=== PATIENT | female | born 1940 | race Caucasian/White ===

== ENCOUNTER 2017-05-05 12:57 | Outpatient (CLI) | payer MEDICARE, SELFPAY | END 2017-05-05 13:25 | disposition home or self-care (01) | PROVIDERS: Family Provider Internal Medicine Adolescent Medicine; Visit Provider Internal Medicine Adolescent Medicine | DX: M81.0 Age-related osteoporosis without current pathological fracture (principal); Z86.73 Personal history of transient ischemic attack (TIA), and cerebral infarction without residual deficits; Z79.01 Long term (current) use of anticoagulants; Z51.81 Encounter for therapeutic drug level monitoring | CPT/HCPCS: 85610; 96372; 99211; G0463; J0897 ==

== ENCOUNTER → 2017-06-08 14:09 | Outpatient (POV) | payer MEDICARE, SELFPAY | PROVIDERS: Visit Provider Dermatology | DX: Z00.00 Encounter for general adult medical examination without abnormal findings (principal) ==

== ENCOUNTER 2017-06-16 14:17 | Outpatient (CLI) | payer MEDICARE, SELFPAY ==
[2017-06-16 15:48] LABS: PHA INR Fingerstick 1.9 (0.9-1.1)
== END 2017-06-16 15:49 | disposition home or self-care (01) ==
PROVIDERS: Family Provider Internal Medicine Adolescent Medicine; PCP Internal Medicine Adolescent Medicine; Visit Provider Internal Medicine Adolescent Medicine
DX: Z79.01 Long term (current) use of anticoagulants (principal); Z51.81 Encounter for therapeutic drug level monitoring
CPT/HCPCS: 85610

== ENCOUNTER 2017-07-14 13:59 | Outpatient (CLI) | payer MEDICARE, SELFPAY ==
[2017-07-14 15:02] LABS: PHA INR Fingerstick 2.6 (0.9-1.1)
== END 2017-07-14 15:04 | disposition home or self-care (01) ==
LOC: ACC 14:00
PROVIDERS: PCP Internal Medicine Adolescent Medicine; Visit Provider Internal Medicine Adolescent Medicine
DX: Z79.01 Long term (current) use of anticoagulants (principal); Z51.81 Encounter for therapeutic drug level monitoring
CPT/HCPCS: 85610; 99211; G0463

== ENCOUNTER 2017-08-25 13:53 | Outpatient (CLI) | payer MEDICARE, SELFPAY ==
[2017-08-25 14:27] LABS: PHA INR Fingerstick 1.9 (0.9-1.1)
== END 2017-08-25 14:29 | disposition home or self-care (01) ==
LOC: ACC 13:54
PROVIDERS: PCP Internal Medicine Adolescent Medicine; Visit Provider Internal Medicine Adolescent Medicine
DX: Z79.01 Long term (current) use of anticoagulants (principal); Z51.81 Encounter for therapeutic drug level monitoring; Z86.73 Personal history of transient ischemic attack (TIA), and cerebral infarction without residual deficits
CPT/HCPCS: 85610; 99211; G0463

== ENCOUNTER 2017-09-22 13:57 | Outpatient (CLI) | payer MEDICARE, SELFPAY ==
[2017-09-22 14:43] LABS: PHA INR Fingerstick 1.8 (0.9-1.1)
== END 2017-09-22 15:15 | disposition home or self-care (01) ==
LOC: ACC 13:58
PROVIDERS: PCP Internal Medicine Adolescent Medicine; Visit Provider Internal Medicine Adolescent Medicine
DX: Z79.01 Long term (current) use of anticoagulants (principal); Z51.81 Encounter for therapeutic drug level monitoring; Z86.73 Personal history of transient ischemic attack (TIA), and cerebral infarction without residual deficits
CPT/HCPCS: 85610; 99211; G0463

== ENCOUNTER 2017-10-17 15:01 | Outpatient (CLI) | payer MEDICARE, SELFPAY ==
[2017-10-17 16:20] LABS: PHA INR Fingerstick 2.1 (0.9-1.1)
== END 2017-10-17 16:22 | disposition home or self-care (01) ==
LOC: ACC 15:02
PROVIDERS: PCP Internal Medicine Adolescent Medicine; Visit Provider Internal Medicine Adolescent Medicine
DX: Z79.01 Long term (current) use of anticoagulants (principal); Z51.81 Encounter for therapeutic drug level monitoring; Z86.73 Personal history of transient ischemic attack (TIA), and cerebral infarction without residual deficits
CPT/HCPCS: 85610; 99211; G0463

== ENCOUNTER 2017-11-03 12:50 | Outpatient (CLI) | payer MEDICARE, SELFPAY ==
[2017-11-03 12:55] VITALS: BP 122/66; PULSE 74; RESP 20; TEMP 36.9; O2SAT 96
[2017-11-03 13:15] VITALS: BP 122/66; PULSE 74; RESP 20; TEMP 37.1; O2SAT 96
== END 2017-11-03 13:10 | disposition home or self-care (01) ==
LOC: INF 13:00
PROVIDERS: Family Provider Internal Medicine Adolescent Medicine; PCP Internal Medicine Adolescent Medicine; Visit Provider Internal Medicine Adolescent Medicine
DX: M81.0 Age-related osteoporosis without current pathological fracture
CPT/HCPCS: 96372; J0897

== ENCOUNTER 2017-12-01 14:56 | Outpatient (CLI) | payer MEDICARE, SELFPAY ==
[2017-12-01 16:26] LABS: PHA INR Fingerstick 1.8 (0.9-1.1)
== END 2017-12-01 16:28 | disposition home or self-care (01) ==
LOC: ACC 14:58
PROVIDERS: PCP Internal Medicine Adolescent Medicine; Visit Provider Internal Medicine Adolescent Medicine
DX: Z79.01 Long term (current) use of anticoagulants (principal); Z51.81 Encounter for therapeutic drug level monitoring
CPT/HCPCS: 85610; 99211; G0463

== ENCOUNTER → 2017-12-07 09:01 | Outpatient (CLI) | payer MEDICARE, SELFPAY ==
[2017-12-07 09:18] LABS: Basophils % 0.7 % (0.1-2.0); Eosinophils # 0.1 K/mm3 (0.0-0.4); Eosinophils % 1.9 % (0.1-12.0); Hematocrit 40.1 % (37.0-47.0); Hemoglobin 13.3 g/dL (12.2-16.2); Lymphocytes # 1.3 K/mm3 (0.7-4.5); Lymphocytes % 31.3 K/mm3 (10-50); Mean Corpuscular HGB Conc 33.3 g/dL (31.8-35.4); Mean Corpuscular Hemoglobin 30.4 pg (27.0-31.2); Mean Corpuscular Volume 91.4 fl (81-99); Mean Platelet Volume 7.6 fl (7.4-10.4); Monocytes # 0.4 K/mm3 (0.1-1.0); Monocytes % 9.3 % (1.7-9.3); Neutrophils # 2.3 K/mm3 (1.8-7.8); Neutrophils % 56.9 % (37.0-80.0); Platelet Count 259 K/mm3 (142-424); Red Blood Count 4.39 M/mm3 (4.20-5.40); Red Cell Distribution Width 13.1 % (11.5-17.5)
[2017-12-07 09:28] LABS: INR 2.65 (0.9-1.1); Prothrombin Time 26.5 seconds (9.4-11.8)
[2017-12-07 13:02] LABS: Alanine Aminotransferase 35 U/L (12-78); Albumin Level 4.1 gm/dL (3.4-5.0); Albumin/Globulin Ratio 1.4 (1.1-1.8); Alkaline Phosphatase 65 U/L (46-116); Anion Gap 10.6 mEq/L (5-15); Aspartate Amino Transferase 14 U/L (15-37); Bilirubin,Total 0.3 mg/dL (0.2-1.0); Blood Urea Nitrogen 10 mg/dL (7-18); Calcium 9.2 mg/dL (8.5-10.1); Carbon Dioxide 27 mmol/L (21.0-32.0); Chloride 101 mmol/L (98-107); Chol/HDL Ratio 2.4 (1-3.5); Cholesterol 133 mg/dL (140-200); Creatinine,Serum 0.65 mg/dL (0.55-1.02); Estimated Glomerular Filt Rate 89 ml/min (>60); GFR (African American) 107 ML/MIN (>60); Glucose 85 mg/dL (74-106); HDL Cholesterol 56 mg/dL (29-89); LDL Cholesterol 64 mg/dL (0-130); Potassium 4.6 mmoL/L (3.5-5.1); Sodium 134 mmol/L (136-145); Thyroid Stimulating Hormone 1.99 uIU/ml (0.358-3.740); Total Protein,Serum 7.1 gm/dL (6.4-8.2); Triglycerides 66 mg/dL (30-200); VLDL Cholesterol 13 mg/dL (0-40)
[2017-12-08 18:18] LABS: Vitamin B12 313 pg/mL (232-1245); Vitamin D 25 Hydroxy 37.8 ng/mL (30.0-100.0)
== END ==
PROVIDERS: Visit Provider Internal Medicine Adolescent Medicine
DX: R53.83 Other fatigue (principal); Z79.01 Long term (current) use of anticoagulants; I10 Essential (primary) hypertension; E03.9 Hypothyroidism, unspecified; E78.5 Hyperlipidemia, unspecified; E53.8 Deficiency of other specified B group vitamins; E55.9 Vitamin D deficiency, unspecified
CPT/HCPCS: 36415; 80053; 80061; 82607; 82652; 84443; 85025; 85610

== ENCOUNTER 2018-01-03 13:22 | Outpatient (CLI) | payer MEDICARE, SELFPAY ==
[2018-01-03 13:56] LABS: PHA INR Fingerstick 1.7 (0.9-1.1)
== END 2018-01-03 13:58 | disposition home or self-care (01) ==
LOC: ACC 13:23
PROVIDERS: PCP Internal Medicine Adolescent Medicine; Visit Provider Internal Medicine Adolescent Medicine
DX: Z79.01 Long term (current) use of anticoagulants (principal); Z51.81 Encounter for therapeutic drug level monitoring; Z86.73 Personal history of transient ischemic attack (TIA), and cerebral infarction without residual deficits
CPT/HCPCS: 85610; 99211; G0463

== ENCOUNTER 2018-01-19 13:15 | Outpatient (CLI) | payer MEDICARE, SELFPAY ==
[2018-01-19 15:01] LABS: PHA INR Fingerstick 1.9 (0.9-1.1)
== END 2018-01-19 15:04 | disposition home or self-care (01) ==
LOC: ACC 13:16
PROVIDERS: PCP Internal Medicine Adolescent Medicine; Visit Provider Internal Medicine Adolescent Medicine
DX: Z51.81 Encounter for therapeutic drug level monitoring (principal); Z79.01 Long term (current) use of anticoagulants
CPT/HCPCS: 85610; 99211; G0463

== ENCOUNTER 2018-02-09 14:19 | Outpatient (CLI) | payer MEDICARE, SELFPAY ==
[2018-02-09 15:00] LABS: PHA INR Fingerstick 2.1 (0.9-1.1)
== END 2018-02-09 15:02 | disposition home or self-care (01) ==
LOC: ACC 14:21
PROVIDERS: PCP Internal Medicine Adolescent Medicine; Visit Provider Physician Assistant
DX: Z51.81 Encounter for therapeutic drug level monitoring (principal); Z79.01 Long term (current) use of anticoagulants; Z86.73 Personal history of transient ischemic attack (TIA), and cerebral infarction without residual deficits
CPT/HCPCS: 85610; 99211; G0463

== ENCOUNTER → 2018-03-05 17:35 | Outpatient (CLI) | payer MEDICARE, SELFPAY ==
--- NOTE | 2018-03-05 17:59 | XR_ITS ---
XR KUB HISTORY: Abdominal fullness ITS.REASON: CONSTIPATION BY DELAYED COLONIC TRANSIT ORDERING PHYSICIAN: Emeterio Camacho MD PATIENT AGE: 77 years COMPARISON: KUB and upright abdomen 07/15/2008 FINDINGS: There is moderate gas in the ascending colon and hepatic flexure. There is large amount stool in the splenic flexure descending and sigmoid colon and upper rectum. There is minimal small bowel gas right mid abdomen. There are no markedly dilated loops of small bowel and there are no air-fluid levels. There is no free air. There are small calcifications in both sides the pelvis likely phleboliths. There are mild multilevel degenerative changes of lumbar spine. IMPRESSION: Findings consistent with moderate constipation as noted
[2018-03-05 18:02] LABS: Basophils % 0.2 % (0.1-2.0); Eosinophils # 0.1 K/mm3 (0.0-0.4); Eosinophils % 0.7 % (0.1-12.0); Hematocrit 39.3 % (37.0-47.0); Hemoglobin 12.9 g/dL (12.2-16.2); Lymphocytes # 1.6 K/mm3 (0.7-4.5); Lymphocytes % 22.9 K/mm3 (10-50); Mean Corpuscular HGB Conc 32.8 g/dL (31.8-35.4); Mean Corpuscular Hemoglobin 30.2 pg (27.0-31.2); Mean Corpuscular Volume 92.2 fl (81-99); Mean Platelet Volume 8.1 fl (7.4-10.4); Monocytes # 0.5 K/mm3 (0.1-1.0); Neutrophils # 4.9 K/mm3 (1.8-7.8); Neutrophils % 69.2 % (37.0-80.0); Platelet Count 287 K/mm3 (142-424); Red Blood Count 4.27 M/mm3 (4.20-5.40); Red Cell Distribution Width 12.7 % (11.5-17.5); White Blood Count 7.1 K/mm3 (4.8-10.8)
[2018-03-05 18:12] LABS: INR 9.47 (0.9-1.1); Prothrombin Time 91.4 seconds (9.4-11.8)
[2018-03-05 19:27] LABS: Alanine Aminotransferase 47 U/L (12-78); Albumin Level 4.1 gm/dL (3.4-5.0); Albumin/Globulin Ratio 1.4 (1.1-1.8); Alkaline Phosphatase 81 U/L (46-116); Anion Gap 14.3 mEq/L (5-15); Aspartate Amino Transferase 27 U/L (15-37); Bilirubin,Total 0.5 mg/dL (0.2-1.0); Blood Urea Nitrogen 12 mg/dL (7-18); Calcium 8.9 mg/dL (8.5-10.1); Carbon Dioxide 24 mmol/L (21.0-32.0); Chloride 94 mmol/L (98-107); Creatinine,Serum 0.89 mg/dL (0.55-1.02); Estimated Glomerular Filt Rate 62 ml/min (>60); GFR (African American) 75 ML/MIN (>60); Glucose 100 mg/dL (74-106); Potassium 4.3 mmoL/L (3.5-5.1); Sodium 128 mmol/L (136-145); Total Protein,Serum 7.1 gm/dL (6.4-8.2)
== END ==
PROVIDERS: PCP Internal Medicine Adolescent Medicine; Visit Provider Internal Medicine Adolescent Medicine
DX: I48.0 Paroxysmal atrial fibrillation (principal); K59.01 Slow transit constipation
CPT/HCPCS: 36415; 74018; 80053; 85025; 85610

== ENCOUNTER → 2018-03-07 13:52 | Outpatient (CLI) | payer MEDICARE, SELFPAY ==
[2018-03-07 14:17] LABS: Prothrombin Time 42.5 seconds (9.4-11.8)
[2018-03-07 14:20] LABS: INR 4.31 (0.9-1.1)
== END ==
PROVIDERS: Visit Provider Internal Medicine Adolescent Medicine
DX: Z51.81 Encounter for therapeutic drug level monitoring (principal); Z79.01 Long term (current) use of anticoagulants
CPT/HCPCS: 36415; 85610

== ENCOUNTER 2018-03-09 13:54 | Outpatient (CLI) | payer MEDICARE, SELFPAY ==
[2018-03-09 15:24] LABS: PHA INR Fingerstick 1.5 (0.9-1.1)
== END 2018-03-09 15:27 | disposition home or self-care (01) ==
LOC: ACC 13:55
PROVIDERS: PCP Internal Medicine Adolescent Medicine; Visit Provider Internal Medicine Adolescent Medicine
DX: Z51.81 Encounter for therapeutic drug level monitoring (principal); Z79.01 Long term (current) use of anticoagulants
CPT/HCPCS: 85610; 99211; G0463

== ENCOUNTER 2018-03-20 14:49 | Outpatient (CLI) | payer MEDICARE, SELFPAY | END 2018-03-20 15:26 | disposition home or self-care (01) | LOC: ACC 14:50 | PROVIDERS: PCP Internal Medicine Adolescent Medicine; Visit Provider Internal Medicine Adolescent Medicine | DX: Z51.81 Encounter for therapeutic drug level monitoring (principal); Z79.01 Long term (current) use of anticoagulants | CPT/HCPCS: 85610; 99211; G0463 ==

== ENCOUNTER 2018-04-17 15:02 | Outpatient (CLI) | payer MEDICARE, SELFPAY ==
[2018-04-17 15:54] LABS: PHA INR Fingerstick 1.9 (0.9-1.1)
== END 2018-04-17 15:59 | disposition home or self-care (01) ==
LOC: ACC 15:03
PROVIDERS: PCP Internal Medicine Adolescent Medicine; Visit Provider Internal Medicine Adolescent Medicine
DX: Z51.81 Encounter for therapeutic drug level monitoring (principal); Z79.01 Long term (current) use of anticoagulants
CPT/HCPCS: 85610; 99211; G0463

== ENCOUNTER 2018-05-11 12:52 | Outpatient (CLI) | payer MEDICARE, SELFPAY ==
[2018-05-11 13:00] VITALS: BP 117/69; PULSE 68; RESP 20; TEMP 36.9; O2SAT 95
[2018-05-11 13:25] VITALS: BP 117/69; PULSE 80; RESP 20
== END 2018-05-11 13:20 | disposition home or self-care (01) ==
LOC: INF 12:53
PROVIDERS: Visit Provider Internal Medicine Adolescent Medicine
DX: M81.0 Age-related osteoporosis without current pathological fracture (principal)
CPT/HCPCS: 96372; J0897

== ENCOUNTER 2018-05-11 13:14 | Outpatient (CLI) | payer MEDICARE, SELFPAY ==
[2018-05-11 14:31] LABS: PHA INR Fingerstick 1.7 (0.9-1.1)
== END 2018-05-11 14:33 | disposition home or self-care (01) ==
LOC: ACC 13:15
PROVIDERS: PCP Internal Medicine Adolescent Medicine; Visit Provider Internal Medicine Adolescent Medicine
DX: Z51.81 Encounter for therapeutic drug level monitoring (principal); Z79.01 Long term (current) use of anticoagulants; M81.0 Age-related osteoporosis without current pathological fracture
CPT/HCPCS: 85610; 96372; 99211; G0463; J0897

== ENCOUNTER 2018-05-25 14:40 | Outpatient (CLI) | payer MEDICARE, SELFPAY ==
[2018-05-25 15:21] LABS: PHA INR Fingerstick 2.6 (0.9-1.1)
== END 2018-05-25 15:29 | disposition home or self-care (01) ==
LOC: ACC 14:41
PROVIDERS: PCP Internal Medicine Adolescent Medicine; Visit Provider Internal Medicine Adolescent Medicine
DX: Z51.81 Encounter for therapeutic drug level monitoring (principal); Z79.01 Long term (current) use of anticoagulants
CPT/HCPCS: 85610; 99211; G0463

== ENCOUNTER 2018-06-22 15:03 | Outpatient (CLI) | payer MEDICARE, SELFPAY ==
[2018-06-22 15:38] LABS: PHA INR Fingerstick 2.8 (0.9-1.1)
== END 2018-06-22 15:39 | disposition home or self-care (01) ==
LOC: ACC 15:04
PROVIDERS: PCP Internal Medicine Adolescent Medicine; Visit Provider Internal Medicine Adolescent Medicine
DX: Z51.81 Encounter for therapeutic drug level monitoring (principal); Z79.01 Long term (current) use of anticoagulants
CPT/HCPCS: 85610; 99211; G0463

== ENCOUNTER 2018-08-03 14:09 | Outpatient (CLI) | payer MEDICARE, SELFPAY ==
[2018-08-03 15:03] LABS: PHA INR Fingerstick 2.5 (0.9-1.1)
== END 2018-08-03 15:15 | disposition home or self-care (01) ==
LOC: ACC 14:10
PROVIDERS: PCP Internal Medicine Adolescent Medicine; Visit Provider Internal Medicine Adolescent Medicine
DX: Z51.81 Encounter for therapeutic drug level monitoring (principal); Z79.01 Long term (current) use of anticoagulants
CPT/HCPCS: 85610; 99211; G0463

== ENCOUNTER 2018-08-17 14:40 | Outpatient (CLI) | payer MEDICARE, SELFPAY ==
[2018-08-17 15:49] LABS: PHA INR Fingerstick 2.2 (0.9-1.1)
== END 2018-08-17 15:51 | disposition home or self-care (01) ==
LOC: ACC 14:41
PROVIDERS: PCP Internal Medicine Adolescent Medicine; Visit Provider Internal Medicine Adolescent Medicine
DX: Z51.81 Encounter for therapeutic drug level monitoring (principal); Z79.01 Long term (current) use of anticoagulants
CPT/HCPCS: 85610; 99211; G0463

== ENCOUNTER 2018-09-07 15:02 | Outpatient (CLI) | payer MEDICARE, SELFPAY ==
[2018-09-07 16:27] LABS: PHA INR Fingerstick 2.2 (0.9-1.1)
== END 2018-09-07 16:31 | disposition home or self-care (01) ==
LOC: ACC 15:03
PROVIDERS: PCP Internal Medicine Adolescent Medicine; Visit Provider Internal Medicine Adolescent Medicine
DX: Z51.81 Encounter for therapeutic drug level monitoring (principal); Z79.01 Long term (current) use of anticoagulants
CPT/HCPCS: 85610; 99211; G0463

== ENCOUNTER → 2018-09-19 15:56 | Outpatient (CLI) | payer MEDICARE, SELFPAY ==
[2018-09-19 16:14] LABS: Basophils % 0.4 % (0.1-2.0); Eosinophils # 0.1 K/mm3 (0.0-0.4); Eosinophils % 1.4 % (0.1-12.0); Hematocrit 39.5 % (37.0-47.0); Hemoglobin 13.4 g/dL (12.2-16.2); Lymphocytes # 1.6 K/mm3 (0.7-4.5); Lymphocytes % 25.3 % (10-50); Mean Corpuscular HGB Conc 33.9 g/dL (31.8-35.4); Mean Corpuscular Hemoglobin 31.1 pg (27.0-31.2); Mean Corpuscular Volume 91.7 fl (81-99); Mean Platelet Volume 7.9 fl (7.4-10.4); Monocytes # 0.5 K/mm3 (0.1-1.0); Monocytes % 7.4 % (1.7-9.3); Neutrophils # 4.1 K/mm3 (1.8-7.8); Neutrophils % 65.5 % (37.0-80.0); Platelet Count 292 K/mm3 (142-424); Red Cell Distribution Width 12.6 % (11.5-17.5); White Blood Count 6.3 K/mm3 (4.8-10.8)
[2018-09-19 17:47] LABS: Alanine Aminotransferase 32 U/L (12-78); Albumin Level 4.2 gm/dL (3.4-5.0); Albumin/Globulin Ratio 1.3 (1.1-1.8); Alkaline Phosphatase 68 U/L (46-116); Anion Gap 13.1 mEq/L (5-15); Aspartate Amino Transferase 15 U/L (15-37); Bilirubin,Total 0.5 mg/dL (0.2-1.0); Blood Urea Nitrogen 13 mg/dL (7-18); Calcium 8.8 mg/dL (8.5-10.1); Carbon Dioxide 26 mmol/L (21.0-32.0); Chloride 97 mmol/L (98-107); Chol/HDL Ratio 2.7 (1-3.5); Cholesterol 169 mg/dL (140-200); Creatinine,Serum 0.69 mg/dL (0.55-1.02); Estimated Glomerular Filt Rate 82 ml/min (>60); GFR (African American) 100 ML/MIN (>60); Globulin 3.3 gm/dl (1.3-3.2); Glucose 95 mg/dL (74-106); HDL Cholesterol 62 mg/dL (29-89); LDL Cholesterol 78 mg/dL (0-130); Potassium 4.1 mmoL/L (3.5-5.1); Sodium 132 mmol/L (136-145); Thyroid Stimulating Hormone 1.47 uIU/ml (0.358-3.740); Total Protein,Serum 7.5 gm/dL (6.4-8.2); Triglycerides 147 mg/dL (30-200); VLDL Cholesterol 29 mg/dL (0-40)
[2018-09-21 10:38] LABS: Vitamin D 25 Hydroxy 33.3 ng/mL (30.0-100.0)
== END ==
PROVIDERS: PCP Internal Medicine Adolescent Medicine; Visit Provider Internal Medicine Adolescent Medicine
DX: I10 Essential (primary) hypertension (principal); E78.5 Hyperlipidemia, unspecified; E03.9 Hypothyroidism, unspecified; E55.9 Vitamin D deficiency, unspecified
CPT/HCPCS: 36415; 80053; 80061; 82652; 84443; 85025

== ENCOUNTER 2018-09-27 15:13 | Outpatient (CLI) | payer MEDICARE, SELFPAY | END 2018-09-27 16:23 | disposition home or self-care (01) | LOC: ACC 15:16 | PROVIDERS: PCP Internal Medicine Adolescent Medicine; Visit Provider Internal Medicine Adolescent Medicine | DX: Z51.81 Encounter for therapeutic drug level monitoring (principal); Z79.01 Long term (current) use of anticoagulants | CPT/HCPCS: 85610; 99211; G0463 ==

== ENCOUNTER 2018-11-20 13:07 | Outpatient (CLI) | payer MEDICARE, SELFPAY ==
[2018-11-20 13:15] VITALS: BP 117/67; PULSE 65; RESP 20; TEMP 36.2; O2SAT 99
== END 2018-11-20 13:17 | disposition home or self-care (01) ==
LOC: INF 13:07
PROVIDERS: Visit Provider Internal Medicine Adolescent Medicine
DX: M81.0 Age-related osteoporosis without current pathological fracture (principal)
CPT/HCPCS: 96372; J0897

== ENCOUNTER 2018-12-05 12:58 | Outpatient (CLI) | payer MEDICARE, SELFPAY ==
[2018-12-05 15:19] LABS: PHA INR Fingerstick 2.8 (0.9-1.1)
== END 2018-12-05 15:21 | disposition home or self-care (01) ==
LOC: ACC 12:59
PROVIDERS: PCP Internal Medicine Adolescent Medicine; Visit Provider Internal Medicine Adolescent Medicine
DX: Z51.81 Encounter for therapeutic drug level monitoring (principal); Z79.01 Long term (current) use of anticoagulants
CPT/HCPCS: 85610; 99211; G0463

== ENCOUNTER 2019-01-18 15:02 | Outpatient (CLI) | payer MEDICARE, SELFPAY ==
[2019-01-18 16:02] LABS: PHA INR Fingerstick 2.7 (0.9-1.1)
== END 2019-01-18 16:04 | disposition home or self-care (01) ==
LOC: ACC 15:02
PROVIDERS: PCP Internal Medicine Adolescent Medicine; Visit Provider Internal Medicine Adolescent Medicine
DX: Z51.81 Encounter for therapeutic drug level monitoring (principal); Z79.01 Long term (current) use of anticoagulants
CPT/HCPCS: 85610; 99211; G0463

== ENCOUNTER 2019-02-21 13:50 | Outpatient (CLI) | payer MEDICARE, SELFPAY ==
[2019-02-21 14:53] LABS: PHA INR Fingerstick 3.1 (0.9-1.1)
== END 2019-02-21 14:55 | disposition home or self-care (01) ==
LOC: ACC 13:51
PROVIDERS: PCP Internal Medicine Adolescent Medicine; Visit Provider Internal Medicine Adolescent Medicine
DX: Z51.81 Encounter for therapeutic drug level monitoring (principal); Z79.01 Long term (current) use of anticoagulants
CPT/HCPCS: 85610; 99211; G0463

== ENCOUNTER 2019-04-29 14:33 | Outpatient (CLI) | payer MEDICARE, SELFPAY ==
[2019-04-29 15:24] LABS: PHA INR Fingerstick 2.3 (0.9-1.1)
== END 2019-04-29 15:25 | disposition home or self-care (01) ==
LOC: ACC 14:34
PROVIDERS: PCP Internal Medicine Adolescent Medicine; Visit Provider Internal Medicine Adolescent Medicine
DX: Z51.81 Encounter for therapeutic drug level monitoring (principal); Z79.01 Long term (current) use of anticoagulants
CPT/HCPCS: 85610; 99211; G0463

== ENCOUNTER 2019-05-24 13:01 | Outpatient (CLI) | payer MEDICARE, SELFPAY ==
[2019-05-24 13:23] VITALS: BP 159/78; PULSE 83; RESP 18; O2SAT 94
== END 2019-05-24 13:23 | disposition home or self-care (01) ==
LOC: INF 13:01
PROVIDERS: Visit Provider Internal Medicine Adolescent Medicine
DX: M81.0 Age-related osteoporosis without current pathological fracture (principal)
CPT/HCPCS: 96372; J0897

== ENCOUNTER 2019-06-03 14:41 | Outpatient (CLI) | payer MEDICARE, SELFPAY ==
[2019-06-03 15:43] LABS: PHA INR Fingerstick 2.6 (0.9-1.1)
== END 2019-06-03 15:49 | disposition home or self-care (01) ==
LOC: ACC 14:44
PROVIDERS: PCP Internal Medicine Adolescent Medicine; Visit Provider Internal Medicine Adolescent Medicine
DX: Z51.81 Encounter for therapeutic drug level monitoring (principal); Z79.01 Long term (current) use of anticoagulants
CPT/HCPCS: 85610; 99211; G0463

== ENCOUNTER 2019-06-06 14:43 | Outpatient (CLI) | payer MEDICARE, SELFPAY ==
[2019-06-06 15:29] LABS: PHA INR Fingerstick 1.3 (0.9-1.1)
== END 2019-06-06 15:30 | disposition home or self-care (01) ==
LOC: ACC 14:44
PROVIDERS: PCP Internal Medicine Adolescent Medicine; Visit Provider Internal Medicine Adolescent Medicine
DX: Z51.81 Encounter for therapeutic drug level monitoring (principal); Z79.01 Long term (current) use of anticoagulants
CPT/HCPCS: 85610; 99211; G0463

== ENCOUNTER 2019-06-19 14:31 | Outpatient (CLI) | payer MEDICARE, SELFPAY ==
[2019-06-19 15:12] LABS: PHA INR Fingerstick 2.2 (0.9-1.1)
== END 2019-06-19 15:15 | disposition home or self-care (01) ==
LOC: ACC 14:32
PROVIDERS: PCP Internal Medicine Adolescent Medicine; Visit Provider Internal Medicine Adolescent Medicine
DX: Z51.81 Encounter for therapeutic drug level monitoring (principal); Z79.01 Long term (current) use of anticoagulants
CPT/HCPCS: 85610; 99211; G0463

== ENCOUNTER → 2019-06-26 13:00 | Outpatient (CLI) | payer MEDICARE, SELFPAY ==
--- NOTE | 2019-06-26 13:08 | XR_ITS ---
PROCEDURE: XR HIP LT 2-3V W/PELVIS CLINICAL INDICATION: LT HIP PAIN COMPARISON: [id number] HIP LT 2-3V W/PELVIS IF PERFOR from 11/29/2015 FINDINGS: There is diffuse demineralization. No acute fracture or dislocation is apparent. There is mild osteoarthritis at both hip joints. Degenerative disc disease is noted L2-3 L3-4. IMPRESSION: No acute findings. Dictated by: Jag Cordova 06/26/2019 16:10 Electronically signed by Jag Cordova in [facility] 06/26/2019 16:10
== END ==
PROVIDERS: PCP Internal Medicine Adolescent Medicine; Visit Provider Internal Medicine Adolescent Medicine
DX: M25.552 Pain in left hip (principal)
CPT/HCPCS: 73502

== ENCOUNTER 2019-07-12 14:30 | Outpatient (RCR) | payer MEDICARE, SELFPAY ==
--- NOTE | 2019-05-15 15:02 | HMH.PTOPEV ---
PT Outpatient Evaluation Rehab PT Outpatient Evaluation Start: 05/15/19 13:02 Freq: Status: Active Protocol: Document 05/15/19 14:45 PHOYAMEL (Rec: 05/15/19 15:02 PHORNE [id number]) Electronically Signed By Dionte Nielsen, PT 05/15/19 14:45 Outpatient Therapy Subjective History Subjective History Pt is 78 yowf who presents with c/o pain throughout the L lateral thigh and low back x 1-2 mos with insidious onset of symptomes. She reports pain had gradually become more severe, but oral steroid prescription has helped considerably. She reports pain is now only present with mobility. Her problems appear to originate with her spasticity throughout the L side due to prior CVA which greatly effects her gait pattern. She has PMH of CVA in 2006 with L hemiparesis and continued spasticity, OK, HTN, pacemaker, anticoagulation therapy. Chief Complaint Pain Symptom Type Sharp Symptoms Relieved By Rest/Positioning,Ice, Prescription Meds Symptoms Aggravated By Standing,Walking Prior Functional Limitations Standing,Recreation Activity, Walking,Bending/Stooping Current Functional Limitations Standing,Recreation Activity, Walking,Bending/Stooping Symptom Description Intermittent,Activity Dependent Level of pain today (0-10) 0 Pain scale - at its worst (0-10) 8 Hip/Knee Eval Assistive Device Assistive Devices Straight Cane Palpation Tenderness left Hip Palpation Findings Tenderness,Spasm MMT Hip Flexion Strength Grade 3+ Fair+ Hip Abduction Strength Grade 3+ Fair+ Hip Adduction Strength Grade 3+ Fair+ Hip Extension Strength Grade 3+ Fair+ Gluteus Jhony Strength Grade 3+ Fair+ Hip External Rotation Strength Grade 3+ Fair+ Hip Internal Rotation Strength Grade 3+ Fair+ Knee Extension Strength Grade 4 Good Knee Flexion Strength Grade 4 Good Knee Extensors Muscle Tone Description Moderate Hypertonicity Knee Flexors Muscle Tone Description Moderate Hypertonicity Hip Extensors Muscle Tone Description Moderate Hypertonicity Hip Flexors Muscle Tone Description Moderate Hypertonicity Special Tests Hip Bowstring (Cram) Test
--- NOTE | 2019-06-18 13:49 | HMH.RHREAS ---
Rehab Reassessment Rehab OP Re-assessment Start: 06/18/19 13:00 Freq: Status: Active Protocol: Document 06/18/19 13:46 ISAAC (Rec: 06/18/19 13:49 ISAAC [id number]) Electronically Signed By Dionte Nielsen, PT 06/18/19 13:46 Rehab Re-assessment Subjective Subjective Pt reports, I'm a little better in my hip, but my back hurts too. Objective Objective Notes Pain currently 7/10 in L Lateral hip. Tenderness to palpation: 2+ gluteus medius. Assessment Progress Assessment Progressing as Expected Assessment Notes Pt with no pain in lateral ITB now, but continues to have pain superior to the L GT. Patient goals met ST,[address] LT,2,3,4 Revised Goals none Plan Plan Continue per initial POC. Frequency of Therapy 2 x/wk Duration of therapy 8 wks Time and Billing Re-Eval Time 15 Re-Eval Billing Units 1 PHYSICIAN CERTIFICATION: I certify the specified therapy services for Francoise Teresa are required, authorized, and reviewed every 30 days.
== END 2019-07-12 15:20 | disposition home or self-care (01) ==
LOC: PT 14:30
PROVIDERS: PCP Internal Medicine Adolescent Medicine; Visit Provider Internal Medicine Adolescent Medicine
DX: M70.62 Trochanteric bursitis, left hip (principal); M76.32 Iliotibial band syndrome, left leg
CPT/HCPCS: 97010; 97033; 97035; 97110; 97140; 97163; 97164

== ENCOUNTER 2019-07-16 14:18 | Outpatient (CLI) | payer MEDICARE, SELFPAY ==
[2019-07-16 15:08] LABS: PHA INR Fingerstick 1.8 (0.9-1.1)
== END 2019-07-16 15:12 | disposition home or self-care (01) ==
LOC: ACC 14:19
PROVIDERS: PCP Internal Medicine Adolescent Medicine; Visit Provider Internal Medicine Adolescent Medicine
DX: Z51.81 Encounter for therapeutic drug level monitoring (principal); Z79.01 Long term (current) use of anticoagulants
CPT/HCPCS: 85610; 99211; G0463

== ENCOUNTER 2019-08-14 14:24 | Outpatient (CLI) | payer MEDICARE, SELFPAY ==
[2019-08-14 15:27] LABS: PHA INR Fingerstick 2.4 (0.9-1.1)
== END 2019-08-14 15:32 | disposition home or self-care (01) ==
LOC: ACC 14:25
PROVIDERS: PCP Internal Medicine Adolescent Medicine; Visit Provider Internal Medicine Adolescent Medicine
DX: Z51.81 Encounter for therapeutic drug level monitoring (principal); Z79.01 Long term (current) use of anticoagulants
CPT/HCPCS: 85610; 99211; G0463

== ENCOUNTER 2019-09-18 14:20 | Outpatient (CLI) | payer MEDICARE, SELFPAY ==
[2019-09-18 15:46] LABS: PHA INR Fingerstick 1.9 (0.9-1.1)
== END 2019-09-18 16:15 | disposition home or self-care (01) ==
LOC: ACC 14:21
PROVIDERS: PCP Internal Medicine Adolescent Medicine; Visit Provider Internal Medicine Adolescent Medicine
DX: Z51.81 Encounter for therapeutic drug level monitoring (principal); Z79.01 Long term (current) use of anticoagulants
CPT/HCPCS: 85610; 99211; G0463

== ENCOUNTER 2019-10-29 16:01 | Outpatient (CLI) | payer MEDICARE, SELFPAY ==
[2019-10-29 16:24] LABS: PHA INR Fingerstick 2.7 (0.9-1.1)
== END 2019-10-29 16:25 | disposition home or self-care (01) ==
LOC: ACC 16:03
PROVIDERS: PCP Internal Medicine Adolescent Medicine; Visit Provider Internal Medicine Adolescent Medicine
DX: Z79.01 Long term (current) use of anticoagulants (principal)
CPT/HCPCS: 85610; 99211; G0463

== ENCOUNTER → 2019-11-08 10:01 | Outpatient (CLI) | payer MEDICARE, SELFPAY ==
[2019-11-08 10:54] LABS: Eosinophils # 0.2 K/mm3 (0.0-0.4); Eosinophils % 3.8 % (0.1-12.0); Hematocrit 39.9 % (37.0-47.0); Hemoglobin 13.6 g/dL (12.2-16.2); Lymphocytes # 1.1 K/mm3 (0.7-4.5); Lymphocytes % 23.5 % (10-50); Mean Corpuscular HGB Conc 34.2 g/dL (31.8-35.4); Mean Corpuscular Hemoglobin 31.7 pg (27.0-31.2); Mean Corpuscular Volume 92.7 fl (81-99); Mean Platelet Volume 8.6 fl (7.4-10.4); Monocytes # 0.4 K/mm3 (0.1-1.0); Monocytes % 8.1 % (1.7-9.3); Neutrophils # 2.9 K/mm3 (1.8-7.8); Neutrophils % 63.7 % (37.0-80.0); Platelet Count 244 K/mm3 (142-424); Red Cell Distribution Width 13.7 % (11.5-17.5); White Blood Count 4.6 K/mm3 (4.8-10.8)
[2019-11-08 11:49] LABS: Alanine Aminotransferase 16 U/L (12-78); Albumin Level 4.5 g/dl (3.5-5.0); Albumin/Globulin Ratio 1.7 (1.1-1.8); Alkaline Phosphatase 86 U/L (38-126); Anion Gap 12.2 mEq/L (5-15); Aspartate Amino Transferase 26 U/L (14-36); Bilirubin,Total 0.4 mg/dl (0.2-1.3); Blood Urea Nitrogen 10 mg/dl (7-17); Calcium 9.3 mg/dl (8.4-10.2); Carbon Dioxide 28 mmol/L (22.0-30.0); Chloride 102 mmol/L (98-107); Chol/HDL Ratio 2.2 (1-3.5); Cholesterol 132 mg/dl (140-200); Estimated Glomerular Filt Rate 97 ml/min (>60); GFR (African American) 117 ML/MIN (>60); Globulin 2.7 g/dL (1.3-3.2); Glucose 93 mg/dl (74-100); HDL Cholesterol 60 mg/dl (40-60); Potassium 4.2 mmoL/L (3.5-5.1); Sodium 138 mmol/L (136-145); Total Protein,Serum 7.2 g/dl (6.3-8.2); Triglycerides 114 mg/dl (30-150); VLDL Cholesterol 23 mg/dL (0-40)
[2019-11-08 12:00] LABS: Direct LDL Cholesterol 56.85 mg/dL (100-129)
[2019-11-08 12:20] LABS: Thyroid Stimulating Hormone 2.43 uIU/mL (0.465-4.68)
== END ==
PROVIDERS: Internal Medicine Adolescent Medicine; Visit Provider Internal Medicine Adolescent Medicine
DX: I10 Essential (primary) hypertension (principal); E03.9 Hypothyroidism, unspecified
CPT/HCPCS: 36415; 80053; 80061; 84443; 85025

== ENCOUNTER 2019-11-26 14:32 | Outpatient (CLI) | payer MEDICARE, SELFPAY ==
[2019-11-26 14:45] VITALS: BP 154/68; PULSE 79; RESP 18; TEMP 36.6; O2SAT 99
== END 2019-11-26 14:45 | disposition home or self-care (01) ==
LOC: INF 14:32
PROVIDERS: Visit Provider Internal Medicine Adolescent Medicine
DX: M81.0 Age-related osteoporosis without current pathological fracture (principal)
CPT/HCPCS: 96372; J0897

== ENCOUNTER 2019-12-03 15:30 | Outpatient (RCR) | payer MEDICARE, SELFPAY ==
--- NOTE | 2019-11-04 17:10 | HMH.PTOPEV ---
PT Outpatient Evaluation Rehab PT Outpatient Evaluation Start: 11/04/19 16:28 Freq: Status: Active Protocol: Document 11/04/19 16:28 ROSAJOLIE (Rec: 11/04/19 17:10 MARCOSTEVE [id number]) Electronically Signed By Rik Domingo, SARAH 11/04/19 16:28 Outpatient Therapy Subjective History Subjective History This is the initial Physical Therapy evaluation for Francoise Teresa. Pt is a 79 y/o female referred to PT for c/o LBP and BLE pain. Pt reports she has had back pain on and off for years. Pt reports pain is normally across the lumbosacral area but last week she bagan having intermittant pain into BLE, but L hip mostly. Pt reports pain increases with standing and walking, but sitting relieves her pain. Chief Complaint Pain,Stiff Symptom Type Ache,Throb Symptoms Relieved By Rest/Positioning,Heat,OTC Meds Symptoms Aggravated By Standing,Physical Activity, Walking Current Functional Limitations Housework,Standing,Recreation Activity,Walking Symptom Description Intermittent Level of pain today (0-10) 3 Pain scale - at its best (0-10) 0 Pain scale - at its worst (0-10) 5 Lumbopelvic Eval Posture Lumbar Spine Posture Standing Position Flattened Assistive device Assistive Devices Rolling / Wheeled Walker Range of Motion Lumbar Spine Active Extension Range of 15 w/ pain Motion (degrees) Lumbar Spine ROM Limitations Pain Special Tests Lumbar Spine Screen Positive Forward Bending Test- Standing Negative Left,Negative Right Forward Bending Test- Sitting Negative Left,Negative Right Sciatic Nerve Tension Test Negative Left,Negative Right Unilateral Straight Leg Raise (Lasegue) Negative Left,Negative Right Test Outpatient Therapy Assessment Impairments Problems/Impairmments Impaired Walking,Impaired Standing,Impaired Recreational Activities,Subjective C/O Pain Prognosis Rehab Potential Fair Clinical Impression Consistent with Diagnosis Yes Consistent with stenosis, spinal OA Short Term Goals Number of Weeks 2 Increase Range of Motion Yes: ext w/out pain Increase Ability to Walk Yes: 5' Increase Ability to Stand Yes: 5'
== END 2019-12-03 16:20 | disposition home or self-care (01) ==
LOC: PT 15:30
PROVIDERS: PCP Internal Medicine Adolescent Medicine; Visit Provider Internal Medicine Adolescent Medicine
DX: M54.5 Low back pain (principal)
CPT/HCPCS: 97010; 97110; 97163

== ENCOUNTER 2019-12-09 13:39 | Outpatient (CLI) | payer MEDICARE, SELFPAY ==
[2019-12-09 14:52] LABS: PHA INR Fingerstick 3.4 (0.9-1.1)
== END 2019-12-09 14:56 | disposition home or self-care (01) ==
LOC: ACC 13:40
PROVIDERS: PCP Internal Medicine Adolescent Medicine; Visit Provider Internal Medicine Adolescent Medicine
DX: Z51.81 Encounter for therapeutic drug level monitoring (principal); Z79.01 Long term (current) use of anticoagulants
CPT/HCPCS: 85610; 99211; G0463

== ENCOUNTER 2019-12-31 15:28 | Outpatient (CLI) | payer MEDICARE, SELFPAY ==
[2019-12-31 16:23] LABS: PHA INR Fingerstick 2.2 (0.9-1.1)
== END 2019-12-31 16:25 | disposition home or self-care (01) ==
LOC: ACC 15:30
PROVIDERS: PCP Internal Medicine Adolescent Medicine; Visit Provider Internal Medicine Adolescent Medicine
DX: Z79.01 Long term (current) use of anticoagulants (principal)
CPT/HCPCS: 85610; 99211; G0463

== ENCOUNTER 2020-01-29 11:05 | Inpatient (IN) | payer MEDICARE, SELFPAY ==
[2020-01-29] VITALS (19 sets, daily range): BP systolic 86–158; BP diastolic 39–114; PULSE 53–140; RESP 16–21; TEMP 36.4–36.8; O2SAT 92–100; BMI 24.9; BMI 24.7
--- NOTE | 2020-01-29 11:13 | ECG_ITS ---
APPROVED REPORT Exam: Resting ECG HR:137 bpm ECG Measurements Heart Rate 137 AXES QRSd 104 QRS -68 QT 332 T -46 QTc 501 <Conclusion> Atrial fibrillation with rapid ventricular response with premature ventricular or aberrantly conducted complexes Incomplete right bundle branch block Left anterior fascicular block Nonspecific ST and T wave abnormality Abnormal ECG Electronically signed by : Emeterio Camacho, 02/01/2020 06:32:21
--- NOTE | 2020-01-29 11:15 | HMH.EDGENADL ---
ED Disposition Clinical Impression: Rapid atrial fibrillation Disposition: Admitted As Inpatient Condition on Discharge: Serious - Critical Care Critical Care Time: Yes Attestation: On 01/29/20, the high probability of a clinically significant, sudden or life threatening deterioration of the following system(s) required my full and direct attention, intervention and personal management. The time I documented below is in addition to time spent performing reported procedures but includes the following listed in this critical care notation. Total Critical Care Time: 30 Vital system(s) involved:: Circulatory Failure My critical care processes included: Assessment & monitoring of V/S, Initial and Re-exams, Data Review/Interpretation, Coordinating Care, Medication Orders and management, Documentation Medical Decision Making - Medical Records Medical records reviewed: Yes: I reviewed the patient's medical records. - Pedro Pablo Inquiry Pt receiving controlled substance: No Vital Signs: 01/29/20 11:06 01/29/20 11:36 01/29/20 12:00 Temperature 97.8 F Temperature Source Oral Pulse Rate [Right] 139 H 140 H 118 H Respiratory Rate 21 20 20 Blood Pressure [Right Arm] 122/63 130/79 131/68 Blood Pressure Mean [Right Arm] 82 96 89 Blood Pressure Source [Right Arm] Blood Pressure Position [Right Arm] 02 Sat by Pulse Oximetry 94 L 96 92 L Oxygen Delivery Method Room Air 01/29/20 12:15 01/29/20 12:30 Temperature Temperature Source Pulse Rate [Right] 112 H 122 H Respiratory Rate 19 20 Blood Pressure [Right Arm] 113/86 117/82 Blood Pressure Mean [Right Arm] 95 93 Blood Pressure Source [Right Arm] Automatic Cuff Blood Pressure Position [Right Arm] Sitting 02 Sat by Pulse Oximetry 95 94 L Oxygen Delivery Method Room Air - Lab Data Lab results reviewed: Yes: I reviewed the patient's lab results. Lab Results 01/29/20 11:15: WBC 5.3, RBC 4.37, Hgb 13.9, Hct 41.5, MCV 94.9, MCH 31.8 H, MCHC 33.5, RDW 13.4, Plt Count 226, MPV 8.9, Neut % (Auto) 66.7, Lymph % (Auto) 23.7, [place] % (Auto) 6.9, Eos % (Auto) 2.1, Baso % (Auto) 0.6, Neut # (Auto) 3.5, Lymph # (Auto) 1.2, [place] # (Auto) 0.4, Eos # (Auto) 0.1, Baso # (Auto) 0.0 01/29/20 11:15: Sodium 140, Potassium 4.8, Chloride 108 H, Carbon Dioxide 24, Anion Gap 12.8, BUN 10, Creatinine 0.60, Estimated Creat Clear 48, Estimated GFR 97, Est GFR ( Amer) 117, Glucose 117 H, Calcium 9.2, Troponin I < 0.01 01/29/20 11:15: TSH 0.88 01/29/20 11:15: SARS-CoV-2 IgG Ab (Rapid) Negative, SARS-CoV-2 IgM Ab (Rapid) Negative 01/29/20 11:47: PT 33.4 H, INR 3.52 H Result diagrams: 01/29/20 11:15 01/29/20 11:15 Orders (Tests/Meds): ED MEDICATIONS Generic Name Dose Route Start Last Admin Trade Name Freq PRN Reason Stop Dose Admin Acetaminophen 650 mg 01/29/20 12:29 Acetaminophen 325mg Tab PO 02/28/20 12:28 Q4HP PRN As Needed for Fever or Pain Aspirin 81 mg 01/30/20 09:00 Aspirin 81mg Enteric Coated Tablet PO 02/29/20 08:59 DAILY JESSY Atorvastatin Calcium 40 mg 01/29/20 21:00 Lipitor 40mg Tablet PO 02/28/20 20:59 HS JESSY Bupropion HCl 300 mg 01/30/20 09:00 Wellbutrin Sr 150mg Tablet PO 02/29/20 08:59 DAILY JESSY Carvedilol 12.5 mg 01/29/20 21:00 Coreg 12.5mg Tablet PO 02/28/20 20:59 BID JESSY Diltiazem HCl 100 mg/ Sodium 100 mls @ 5 mls/hr 01/29/20 12:29 01/29/20 15:02 Chloride IV 02/28/20 11:48 Not Given .Q20H JESSY Protocol Levothyroxine Sodium 75 mcg 01/30/20 07:00 Synthroid 75mcg (0.075mg) Tablet PO 02/29/20 06:59 DAILYDM JESSY Lisinopril 5 mg 01/29/20 21:00 Zestril 5mg Tablet PO 02/28/20 20:59 BID JESSY Ondansetron HCl 4 mg 01/29/20 12:29 Zofran 4mg/2ml Vial IV 02/28/20 12:28 Q8HP PRN Nausea Oxybutynin Chloride 5 mg 01/29/20 21:00 Ditropan 5mg Tablet PO 02/28/20 20:59 BID JESSY Venlafaxine HCl 75 mg 01/30/20 09:00 Effexor Xr 75mg Capsul
--- NOTE | 2020-01-29 11:19 | XR_ITS ---
PROCEDURE: XR CHEST PORTABLE CLINICAL HISTORY: WEAKNESS Tachycardia COMPARISON: CR CXR CHEST(2 VIEWS-NOT PORTABLE) from 06/09/2014 CR CXR1 CHEST-PORTABLE from 09/20/2014 CR CXR CHEST(2 VIEWS-NOT PORTABLE) from 09/02/2016 FINDINGS: There has been a prior median sternotomy mitral valve replacement. There is cardiomegaly without failure. There is a bipolar pacemaker present from left subclavian approach. The lungs are clear. Right hemidiaphragm is slightly elevated. No acute bony abnormalities. IMPRESSION: As above, no change with no acute finding Dictated by: Hermnan Fofana MD 01/29/2020 14:30 Hermann Fofana MD in [facility] 01/29/2020 14:30
[2020-01-29 11:30] LABS: Basophils % 0.6 % (0.1-2.0); Chloride 108 mmol/L (98-107); Eosinophils # 0.1 K/mm3 (0.0-0.4); Eosinophils % 2.1 % (0.1-12.0); Hematocrit 41.5 % (37.0-47.0); Hemoglobin 13.9 g/dL (12.2-16.2); Lymphocytes # 1.2 K/mm3 (0.7-4.5); Lymphocytes % 23.7 % (10-50); Mean Corpuscular HGB Conc 33.5 g/dL (31.8-35.4); Mean Corpuscular Hemoglobin 31.8 pg (27.0-31.2); Mean Corpuscular Volume 94.9 fl (81-99); Mean Platelet Volume 8.9 fl (7.4-10.4); Monocytes # 0.4 K/mm3 (0.1-1.0); Monocytes % 6.9 % (1.7-9.3); Neutrophils # 3.5 K/mm3 (1.8-7.8); Neutrophils % 66.7 % (37.0-80.0); Platelet Count 226 K/mm3 (142-424); Potassium 4.8 mmoL/L (3.5-5.1); Red Blood Count 4.37 M/mm3 (4.20-5.40); Red Cell Distribution Width 13.4 % (11.5-17.5); Sodium 140 mmol/L (136-145); White Blood Count 5.3 K/mm3 (4.8-10.8)
[2020-01-29 11:33] LABS: Anion Gap 12.8 mEq/L (5-15); Blood Urea Nitrogen 10 mg/dl (7-17); Calcium 9.2 mg/dl (8.4-10.2); Carbon Dioxide 24 mmol/L (22.0-30.0); Creatinine Clearance Estimated 48 mL/min (50-200); Estimated Glomerular Filt Rate 97 ml/min (>60); GFR (African American) 117 ML/MIN (>60); Glucose 117 mg/dl (74-100)
[2020-01-29 11:48] LABS: Troponin I < 0.01 ng/ml (0.00-0.034)
[2020-01-29 12:01] LABS: INR 3.52 (0.9-1.1); Prothrombin Time 33.4 seconds (9.4-11.8)
[2020-01-29 12:19] LABS: Thyroid Stimulating Hormone 0.88 uIU/mL (0.465-4.68)
--- NOTE | 2020-01-29 13:13 | HMH.PHAINT ---
HOME MEDICATION RECONCILIATION COMPLETED USING LIST FROM HOME PHARMACY AND PT INTERVIEW IN ER.
--- NOTE | 2020-01-29 13:15 | HMH.PHAVTE ---
[facility] Pharmacy VTE Monitoring - Patient Demographics Admission date: 01/29/20 Report Date: 01/29/20 Time: 13:15 Allergies/Adverse Reactions: Patient Allergies No Known Allergies Allergy (Verified 01/12/18 16:59) Height: 1.63 m Weight: 65.317 kg Patient Problems: Current Active Problems Rapid atrial fibrillation (Acute) - VTE Risk Labs: VTE Related Lab Results Hgb 13.9 g/dL (12.2-16.2) 01/29/20 11:15 Hct 41.5 % (37.0-47.0) 01/29/20 11:15 Plt Count 226 K/mm3 (142-424) 01/29/20 11:15 PT 33.4 seconds (9.4-11.8) H 01/29/20 11:47 INR 3.52 (0.9-1.1) H 01/29/20 11:47 BUN 10 mg/dl (7-17) 01/29/20 11:15 Creatinine 0.60 mg/dl (0.52-1.04) 01/29/20 11:15 Estimated Creat Clear 48 mL/min (50-200) 01/29/20 11:15 Clinical Trial Participant: No - Prophylaxis VTE Prophylaxis Ordered?: Yes Types of VTE Prophylaxis: TEDS Knee High, Pharmacological Pharmacologic Type: Warfarin
[2020-01-29 13:23] LABS: Coronavirus 19 IgG Antibody Negative (Negative); Coronavirus 19 IgM Antibody Negative (Negative)
--- NOTE | 2020-01-29 14:15 | PC.NURSE ---
Pt arrived to the floor at approx 1330 via [facility] from ER
[2020-01-29 15:05] LABS: Troponin I < 0.01 ng/ml (0.00-0.034)
--- NOTE | 2020-01-29 17:36 | HMH.HP ---
*Admission Date: 01/29/20 *Chief complaint: Shortness of air and weakness *History of present illness: 1 week history of bilateral leg aching, generalized weakness, dyspnea on exertion. Denies chest pain, vomiting, diarrhea, cough, fever. Denies palpitations. She has a pacemaker defibrillator, previous mitral valve repair, history of atrial fibrillation/flutter. 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 Silva. She had her battery replaced in her pacemaker defibrillator at the end of February 2019. She has not seen Dr. Silva since. Above note per emergency room doctor. Found to be in atrial fibrillation with rapid ventricular response in emergency department. Placed on Cardizem drip, felt comfortable, heart rate down into the low 100 range. Transferred to the stepdown unit. Already feels better, denies chest pain at this point. [facility] History I have reviewed the patient's past medical history: Yes Medical History: Reports:: Arrhythmia, Atrial Fibrillation, Cardiomyopathy, Gastrointestinal Bleed, Hyperlipidemia, Hypertension, Internal Pacemaker, Myocardial Infarction Denies:: Diabetes Mellitus Type 1, Diabetes Mellitus Type 2 *Have you ever received a pneumonia vaccine?: Yes *Have you received a flu vaccine this season?: No Other Medical History: Reports: Anemia, Hypothyroidism Other Surgeries: Yes: Cardiac Surgery (Mitral Valve Repair), Cholecystectomy, Pacemaker, Skin Cancer Excision - *Social History Last grade of school completed: Advanced degree Smoking Status: Never smoker Alcohol Intake: never Alcohol Intake Frequency:: a few times a month *Occupational Status:: retired Housing: house *Travel in the last 8 weeks: None Family Hx:: No significant family history Review of Systems - Review of Systems Review of systems:: pertinent systems reviewed and negative unless documented below - *Neurologic Reports weakness Meds Home Medications Medication Instructions Recorded Confirmed Type Atorvastatin Calcium [Atorvastatin 40 mg PO HS 02/26/18 01/29/20 History 40mg Tab] Calcium Carbonate/Vitamin D3 1 each PO DAILY 02/26/18 01/29/20 History [Caltrate 600 Plus D3 Tablet] Desvenlafaxine [Desvenlafaxine ER] 50 mg PO DAILY 02/26/18 01/29/20 History Levothyroxine Sodium 75 mcg PO DAILY 02/26/18 01/29/20 History [Levothyroxine 75mcg (0.075mg) Tab] Omeprazole [Omeprazole 40mg 20 mg PO BID 02/26/18 01/29/20 History Capsule] Oxybutynin Chloride [Ditropan Xl] 10 mg PO DAILY 02/26/18 01/29/20 History Warfarin Sodium 4 mg PO [id number] 02/26/18 01/29/20 History buPROPion HCL [Bupropion Xl] 300 mg PO DAILY 02/26/18 01/29/20 History carvediloL [Carvedilol 12.5mg Tab] 12.5 mg PO BID 02/26/18 01/29/20 History lisinopriL [Lisinopril 5mg 5 mg PO BID 02/26/18 01/29/20 History Tablet] Aspirin [Aspirin 81mg EC Tab] 81 mg PO DAILY 01/29/20 01/29/20 History Temazepam [Restoril 15mg Capsule] 15 mg PO HS 01/29/20 01/29/20 History Allergies Allergy/AdvReac Type Severity Reaction Status Date / Time No Known Allergies Allergy Verified 01/12/18 16:59 Exam Vital signs and Labs for Last 24 Hours: Temp Pulse Resp BP Pulse Ox 98.2 F 80 18 118/59 L 93 L 01/29/20 13:26 01/29/20 16:00 01/29/20 16:00 01/29/20 16:00 01/29/20 16:00 Laboratory Results - last 24 hr 01/29/20 11:15: WBC 5.3, RBC 4.37, Hgb 13.9, Hct 41.5, MCV 94.9, MCH 31.8 H, MCHC 33.5, RDW 13.4, Plt Count 226, MPV 8.9, Neut % (Auto) 66.7, Lymph % (Auto) 23.7, [place] % (Auto) 6.9, Eos % (Auto) 2.1, Baso % (Auto) 0.6, Neut # (Auto) 3.5, Lymph # (Auto) 1.2, [place] # (Auto) 0.4, Eos # (Auto) 0.1, Baso # (Auto) 0.0 01/29/20 11:15: Sodium 140, Potassium 4.8, Chloride 108 H, Carbon Dioxide 24, Anion Gap 12.8, BUN 10, Creatinine 0.60, Estimated Creat Clear 48, Estimated GFR 97, Est GFR ( Amer) 117, Glucose 117 H, Calcium 9.2, Troponin I < 0.01 01/29/20 11:15: TSH 0.88 01/29/20 11:15: SARS-CoV-2 IgG Ab (Rapid) Negative, SARS-CoV-2 IgM Ab (Rapid) Negative 01/28
--- NOTE | 2020-01-29 17:48 | PC.NURSE ---
Pt is alert and oriented x4. Lungs are clear. She ambulates to the bathroom with assist x1 and a walker. Bruise noted to right forearm. She has been afib on telemetry. HR 80's to 120. Cardizem gtt currently at 10. She remains on RA. No complaints verbalized. Will continue to monitor.
[2020-01-29 19:15] LABS: Troponin I < 0.01 ng/ml (0.00-0.034)
--- NOTE | 2020-01-29 19:28 | PC.NURSE ---
report given to darío
[2020-01-30] VITALS (14 sets, daily range): BP systolic 96–143; BP diastolic 40–87; PULSE 69–108; RESP 16–24; TEMP 36.4–36.7; O2SAT 93–99; BMI 23.9
--- NOTE | 2020-01-30 06:00 | PC.NURSE ---
Pt is A&Ox4 and has ambulated to the BR with walker and staff SBA several times this shift and tolerated well. Lungs CTA. No peripheral edema noted. Pulses 2+. HR irregular and afib & paced noted on tele. HR at beginning shift controlled with rate goal of <100, Cardizem decreased to 5mg/hr. HR increased back to 110's, titrated Cardizem back to 10mg/hr. Pt denies any N/V/D. Pt denies any pain or SOB. Pt afebrile t/o shift.
[2020-01-30 06:02] LABS: Basophils % 0.5 % (0.1-2.0); Eosinophils # 0.1 K/mm3 (0.0-0.4); Eosinophils % 1.4 % (0.1-12.0); Hematocrit 35.8 % (37.0-47.0); Hemoglobin 12.6 g/dL (12.2-16.2); Lymphocytes # 1.3 K/mm3 (0.7-4.5); Lymphocytes % 23.6 % (10-50); Mean Corpuscular HGB Conc 35.2 g/dL (31.8-35.4); Mean Corpuscular Volume 90.7 fl (81-99); Mean Platelet Volume 9.1 fl (7.4-10.4); Monocytes # 0.5 K/mm3 (0.1-1.0); Monocytes % 8.4 % (1.7-9.3); Neutrophils # 3.7 K/mm3 (1.8-7.8); Neutrophils % 66.1 % (37.0-80.0); Platelet Count 194 K/mm3 (142-424); Red Blood Count 3.95 M/mm3 (4.20-5.40); Red Cell Distribution Width 13.5 % (11.5-17.5); White Blood Count 5.6 K/mm3 (4.8-10.8)
[2020-01-30 06:13] LABS: Chloride 108 mmol/L (98-107); Potassium 4.2 mmoL/L (3.5-5.1); Sodium 140 mmol/L (136-145)
[2020-01-30 06:14] LABS: INR 2.45 (0.9-1.1); Prothrombin Time 25.1 seconds (9.4-11.8)
[2020-01-30 06:16] LABS: Blood Urea Nitrogen 9 mg/dl (7-17); Creatinine Clearance Estimated 47 mL/min (50-200); Estimated Glomerular Filt Rate 119 ml/min (>60); GFR (African American) 144 ML/MIN (>60)
[2020-01-30 06:17] LABS: Anion Gap 12.2 mEq/L (5-15); Calcium 8.9 mg/dl (8.4-10.2); Carbon Dioxide 24 mmol/L (22.0-30.0); Glucose 101 mg/dl (74-100)
--- NOTE | 2020-01-30 08:46 | HMH.ACPN2 ---
Internal Medicine - PN: Subj *Date: 01/30/20 *Time: 08:46 Interval history: Patient felt well overnight, remains on diltiazem, heart rate in the mid 90s but in atrial fibrillation with occasional paced beats. Exam Vital signs and Labs for Last 24 Hours: Temp Pulse Resp BP Pulse Ox 97.6 F 69 18 105/61 L 97 01/30/20 04:00 01/30/20 06:00 01/30/20 06:00 01/30/20 06:00 01/30/20 06:00 Laboratory Results - last 24 hr 01/29/20 11:15: WBC 5.3, RBC 4.37, Hgb 13.9, Hct 41.5, MCV 94.9, MCH 31.8 H, MCHC 33.5, RDW 13.4, Plt Count 226, MPV 8.9, Neut % (Auto) 66.7, Lymph % (Auto) 23.7, [place] % (Auto) 6.9, Eos % (Auto) 2.1, Baso % (Auto) 0.6, Neut # (Auto) 3.5, Lymph # (Auto) 1.2, [place] # (Auto) 0.4, Eos # (Auto) 0.1, Baso # (Auto) 0.0 01/29/20 11:15: Sodium 140, Potassium 4.8, Chloride 108 H, Carbon Dioxide 24, Anion Gap 12.8, BUN 10, Creatinine 0.60, Estimated Creat Clear 48, Estimated GFR 97, Est GFR ( Amer) 117, Glucose 117 H, Calcium 9.2, Troponin I < 0.01 01/29/20 11:15: TSH 0.88 01/29/20 11:15: SARS-CoV-2 IgG Ab (Rapid) Negative, SARS-CoV-2 IgM Ab (Rapid) Negative 01/29/20 11:47: PT 33.4 H, INR 3.52 H 01/29/20 14:20: Troponin I < 0.01 01/29/20 18:34: Troponin I < 0.01 01/30/20 05:19: WBC 5.6, RBC 3.95 L, Hgb 12.6, Hct 35.8 L, MCV 90.7, MCH 32.0 H, MCHC 35.2, RDW 13.5, Plt Count 194, MPV 9.1, Neut % (Auto) 66.1, Lymph % (Auto) 23.6, [place] % (Auto) 8.4, Eos % (Auto) 1.4, Baso % (Auto) 0.5, Neut # (Auto) 3.7, Lymph # (Auto) 1.3, [place] # (Auto) 0.5, Eos # (Auto) 0.1, Baso # (Auto) 0.0 01/30/20 05:19: PT 25.1 H, INR 2.45 H 01/30/20 05:19: Sodium 140, Potassium 4.2, Chloride 108 H, Carbon Dioxide 24, Anion Gap 12.2, BUN 9, Creatinine 0.50 L, Estimated Creat Clear 47, Estimated GFR 119, Est GFR ( Amer) 144 D, Glucose 101 H, Calcium 8.9 I & O for Last 24 hours: Intake & Output 01/27/20 01/28/20 01/29/20 01/30/20 11:59 11:59 11:59 11:59 Intake Total 438 / 438 Balance 438 / 438 Weight 144 lb 140 lb 5 oz Narrative: Pleasant, talkative, alert, oriented x3. ENT exam clear. Neurologic exam intact. Lungs clear. Cardiac exam with occasional ectopic beats, trace murmur. Abdomen soft. No edema. 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 Cardiology consultation today, review echocardiogram. Adjust medications and evaluate pacemaker.
--- NOTE | 2020-01-30 09:03 | HMH.CNCARD ---
History of Present Illness Consult date: 01/30/20 Requesting physician: Emeterio Camacho Consult reason: atrial fibrillation Chief complaint: rapid heart rate Additional Medical History:: 1. Dilated cardiomyopathy A. Medtronic AICD, implanted, 2015 with 2 battery replacements, last one in 02/2019, Dr. Zach Llanes. Generator model number [id number], serial number [id number], right atrial lead is 5076 with pacing threshold 0.75 V, 0.4 ms, lead impedance 418 ohms, P wave is 2.6 mV. RV lead is 6949 with pacing threshold 1.25 V, 0.4 ms, lead impedance is 4 5 6 ohms, R wave 5 mV. Normal impedances of high-voltage with RV 54, SVC 77. No short intervals were noted. B. Limited echocardiogram, 03/05/2019, EF 50% 2. History of CVA with left side affected, 2006 3. History of mitral valve repair, March/2016, due to mitral valve prolapse 4. History of breast augmentation 5. History of hypertension per records 6. History of hyperlipidemia, per records 7. Hypothyroidism 8. Osteoporosis 9. Chronic anticoagulation with warfarin 10. History of paroxysmal ventricular tachycardia and paroxysmal atrial fibrillation/flutter per records History of present illness: 1 week history of bilateral leg aching, generalized weakness, dyspnea on exertion. Denies chest pain, vomiting, diarrhea, cough, fever. Denies palpitations. She has a pacemaker defibrillator, previous mitral valve repair, history of atrial fibrillation/flutter. Her recharger is Dr. Silva. She had her battery replaced in her pacemaker defibrillator at the end of February 2019. She has not seen Dr. Silva since. Above note per emergency room doctor. Found to be in atrial fibrillation with rapid ventricular response in emergency department. Placed on Cardizem drip, felt comfortable, heart rate down into the low 100 range. Transferred to the stepdown unit. Already feels better, denies chest pain at this point. The above per Dr. Camacho Patient relates a one-week history of increasing shortness of breath with activity and increasing heart rates. She denies a history of atrial fibrillation. Her ICD was interrogated today with increasing atrial activity beginning on 01/25/2020 with rates up to 190 bpm. Currently patient is on a combination of carvedilol and IV diltiazem with rates in the 90 to 110 bpm range but with systolic pressures hovering between 90 and 100 mmHg. Patient denies any chest pain, pressure or tightness. She does feel that her heart rate has improved and her breathing is improved as well. Telemetry shows atrial fibrillation with intermittent pacing with capture. EKG is atrial fibrillation with RVR, right bundle branch block, left anterior fascicular block and intermittent pacing with capture. INR today is 2.45 and troponins have returned normal x3. [facility] History Medical History: Reports:: Arrhythmia, Atrial Fibrillation, Cardiomyopathy, Gastrointestinal Bleed, Hyperlipidemia, Hypertension, Internal Pacemaker, Myocardial Infarction Denies:: Diabetes Mellitus Type 1, Diabetes Mellitus Type 2 *Have you ever received a pneumonia vaccine?: Yes *Have you received a flu vaccine this season?: No Other Medical History: Reports: Anemia, Hypothyroidism Other Surgeries: Yes: Cardiac Surgery (Mitral Valve Repair), Cholecystectomy, Pacemaker, Skin Cancer Excision - *Social History Last grade of school completed: Advanced degree Smoking Status: Never smoker Alcohol Intake: never Alcohol Intake Frequency:: a few times a month *Occupational Status:: retired Housing: house *Travel in the last 8 weeks: None Family Hx:: No significant family history Meds Home Medications Medication Instructions Recorded Confirmed Type Atorvastatin Calcium [Atorvastatin 40 mg PO HS 02/26/18 01/29/20 History 40mg Tab] Calcium Carbonate/Vitamin D3 1 each PO DAILY 02/26/18 01/29/20 History [Caltrate 600 Plus D3 Tablet] Desvenlafaxine [Desvenlafaxine ER] 50 mg PO DAILY
--- NOTE | 2020-01-30 10:16 | PC.NURSE ---
Lopressor 25 mg given @ this time per Alma Chandra. States to wing 30 minutes after given and to DC cardizem gtt.
--- NOTE | 2020-01-30 11:18 | PC.NURSE ---
Cardizem gtt turned off @ 1050.
--- NOTE | 2020-01-30 13:30 | P.PN_ITS ---
[facility] Anesthesia Checklist - Patient Identification Patient Identification: Arm Band, Verbal (Name & ) - Structural Data Admitted From: Inpatient Planned Operative Procedure/s: cardioversion Consent for Planned Operative Procedure(s) Verified: Yes Verified Documents: History and Physical - NPO Status Verified Time NPO: 07:00 - Additional verifications Patient : No Anesthesia Reactions: No Hx Blood Transfusions: No Blood Transfusion Reaction: No Cephalosporin Allergy: No Previous Colonoscopy: No - Cardiovascular Assessment Pulse Strength: Baseline Pulse Rhythm: Irregular Peripheral Edema: No - Airway Assessment C-Spine Mobility Assessed: Yes TMJ Mobility Assessed: Yes Dentition: Good Dentition - Neurological Assessment Level of Consciousness: Awake, Alert, Appropriate, Inappropriate Hx Seizures: No Numbness or tingling in extremities: No - Anesthesia Plan Anesthesia Risk discussed: Yes Anesthesia Plan: Verified ASA Class: III Anesthesia Type: MAC [facility] History I have reviewed the patient's past medical history: Yes Medical History: Reports:: Arrhythmia, Atrial Fibrillation, Cardiomyopathy, Gastrointestinal Bleed, Hyperlipidemia, Hypertension, Internal Pacemaker, Myocardial Infarction Denies:: Diabetes Mellitus Type 1, Diabetes Mellitus Type 2 *Have you ever received a pneumonia vaccine?: Yes *Have you received a flu vaccine this season?: No Other Medical History: Reports: Anemia, Hypothyroidism Anesthesia experience/problems:: none Other Surgeries: Yes: Cardiac Surgery (Mitral Valve Repair), Cholecystectomy, Pacemaker, Skin Cancer Excision - *Social History Last grade of school completed: Advanced degree Smoking Status: Never smoker Alcohol Intake: never Alcohol Intake Frequency:: a few times a month Substance Use Type: other *Occupational Status:: retired Housing: house *Travel in the last 8 weeks: None Family Hx:: No significant family history
--- NOTE | 2020-01-30 13:53 | ECG_ITS ---
APPROVED REPORT Exam: Resting ECG HR:71 bpm ECG Measurements Heart Rate 71 AXES DC 148 P 50 QRSd 104 QRS -65 QT 420 T -43 QTc 456 Conclusion Sinus rhythm with occasional premature ventricular complexes Incomplete right bundle branch block Left anterior fascicular block ST & T wave abnormality, consider anterolateral ischemia Abnormal ECG Electronically signed by : Emeterio Camacho, 02/14/2020 14:00:30
--- NOTE | 2020-01-30 14:22 | PC.NURSE ---
1339 - Saroj Chandra contacted, it is noted that pt had converted to sinus rhythm w/ frequent PVC's. States to obtain EKG to confirm. EKG obtained and placed on chart.CArdioversion cancelled per Alma Chandra. Pt resting in bed w/ family at bedside, made aware of cancellation of procedure.
--- NOTE | 2020-01-30 15:43 | HMH.DCSUM ---
General - General Admission date:: 01/29/20 Discharge date: 01/30/20 HPI HPI: 1 week history of bilateral leg aching, generalized weakness, dyspnea on exertion. Denies chest pain, vomiting, diarrhea, cough, fever. Denies palpitations. She has a pacemaker defibrillator, previous mitral valve repair, history of atrial fibrillation/flutter. Her membership coordinator is Dr. Silva. She had her battery replaced in her pacemaker defibrillator at the end of February 2019. She has not seen Dr. Silva since. Above note per emergency room doctor. Found to be in atrial fibrillation with rapid ventricular response in emergency department. Placed on Cardizem drip, felt comfortable, heart rate down into the low 100 range. Transferred to the stepdown unit. Already feels better, denies chest pain at this point. Hospital Course Hospital Course: Patient was admitted to stepdown unit. Placed on diltiazem drip, rate was controlled, cardiology saw her the next morning, echocardiogram was ordered, ejection fraction 50%. Changed therapy to metoprolol for better rate control which resulted in spontaneous conversion to sinus rhythm earlier today. Patient feels much better, INR is therapeutic, wishes to go home. We will send prescription for metoprolol, stop carvedilol, short-term follow-up with cardiology. Objective Vital signs: Temp Pulse Resp BP Pulse Ox 97.9 F 71 24 99/48 L 94 L 01/30/20 08:00 01/30/20 14:00 01/30/20 14:00 01/30/20 14:00 01/30/20 14:00 no acute distress - *Routine HEENT Exam Head: Present: normocephalic Eye: Present: EOMI, PERRL ENT: Present: mucous membranes moist - *Routine Neck Exam Present: supple - *Routine Respiratory Exam Present: CTA bilaterally - *Routine Cardiovascular Exam Present: RRR - *Routine Abdominal Exam Present: soft, normoactive bowel sounds. Absent: tenderness - *Routine Extremities Exam Absent: cyanosis, clubbing, edema - *Routine Skin Exam Present: warm. Absent: rash - Detailed Eye Exam Eyelids: Bilateral normal inspection Results Labs on day of discharge: Labs from last 24 hours 01/30/20 01/30/20 01/30/20 05:19 05:19 05:19 WBC 5.6 RBC 3.95 L Hgb 12.6 Hct 35.8 L MCV 90.7 MCH 32.0 H MCHC 35.2 RDW 13.5 Plt Count 194 MPV 9.1 Neut % (Auto) 66.1 Lymph % (Auto) 23.6 [place] % (Auto) 8.4 Eos % (Auto) 1.4 Baso % (Auto) 0.5 Neut # (Auto) 3.7 Lymph # (Auto) 1.3 [place] # (Auto) 0.5 Eos # (Auto) 0.1 Baso # (Auto) 0.0 PT 25.1 H INR 2.45 H Sodium 140 Potassium 4.2 Chloride 108 H Carbon Dioxide 24 Anion Gap 12.2 BUN 9 Creatinine 0.50 L Estimated Creat Clear 47 Estimated GFR 119 Est GFR ( Amer) 144 D Glucose 101 H Calcium 8.9 Troponin I 01/29/20 18:34 WBC RBC Hgb Hct MCV MCH MCHC RDW Plt Count MPV Neut % (Auto) Lymph % (Auto) [place] % (Auto) Eos % (Auto) Baso % (Auto) Neut # (Auto) Lymph # (Auto) [place] # (Auto) Eos # (Auto) Baso # (Auto) PT INR Sodium Potassium Chloride Carbon Dioxide Anion Gap BUN Creatinine Estimated Creat Clear Estimated GFR Est GFR ( Amer) Glucose Calcium Troponin I < 0.01 DS: Diagnosis - Discharge Diagnosis (1) Rapid atrial fibrillation Status: Resolved (2) Acquired hypothyroidism Status: Acute (3) Current use of alf anticoagulation Status: Acute (4) Chronic atrial fibrillation Status: Acute (5) Status post cardiac pacemaker procedure Status: Acute Discharge Plan - Patient Discharge Instructions ACTIVITY: Continue current activity DIET: continue same diet - Follow up Plan Follow up with: Joselo Hart MD [Staff Physician] - 02/04/20 Disposition: Home, Self-Nursing Home Medications: Home Medications Medication Instructions Recorded Confirmed Type Atorvastatin Calcium [Atorv
--- NOTE | 2020-01-30 17:41 | CA_ITS ---
APPROVED REPORT EXAM: Comprehensive 2D, Doppler, and color-flow Echocardiogram [facility] Pre Arrangement Counselor: Madelaine Long, RT(R) Ht: 5 ft 4 in Wt: 144lbs BSA: 1.70 BP: 118/59 mmHg Indications: AFIB with RVR, HTN, hyperlipidemia, pacemaker/defib, MV repair, hx of CM, hx of RI, hx of CVA 2D Dimensions LVOT 2.09 cm (M/F) 1.5-2.5 M-Mode Dimensions RVDd 2.28 cm (0.9-2.6) LVDd 3.85 cm (3.5-5.7) LVDs 3.03 cm (3.5-5.7) IVSd 1.03 cm (0.6-1.1) PWd 0.93 cm (0.6-1.1) EF (Teich) 43.80% FS 21.30% EDV (Teich) 63.90 mL ESV (Teich) 35.90 mL Left Ventricle Left atrium is mildly enlarged, left ventricle is normal size, mild concentric left ventricular hypertrophy, visually estimated ejection fraction 50% with no regional wall motion abnormality, endocardial surfaces are poorly visualized. Diastolic parameters are inconclusive. Right Ventricle Right atrium is mildly enlarged, right ventricle is mildly dilated with normal contractility, there is an AICD lead seen in right atrium and right ventricle. Aortic Valve Aortic valve is minimally thickened and fibrosed, there is no aortic stenosis or aortic insufficiency. Mitral Valve Mitral valve has mitral valve ring, there is no mitral stenosis, there is no significant mitral regurgitation seen. Tricuspid Valve Tricuspid valve is grossly normal, there is mild tricuspid regurgitation. Tricuspid regurgitation jet velocity is inadequate for calculation of the right ventricular systolic pressure. Pulmonic Valve Pulmonic valve is poorly visualized. Great Vessels Aortic root is normal size. Pericardium No significant pericardial effusion noted. Conclusion 1. Mild biatrial enlargement, normal left ventricular size, mild concentric left ventricular hypertrophy, visually estimated ejection fraction 50% with no regional wall motion abnormality, diastolic parameters are inconclusive. 2. Mildly enlarged right ventricle with normal contractility. 3. Normal functioning mitral valve ring in mitral position without significant mitral inflow obstruction or mitral regurgitation. 4. Mild tricuspid regurgitation. 5. No significant pericardial effusion noted. Electronically signed by : Willy Mccracken, 01/30/2020 09:57:18
== END 2020-01-30 16:45 | disposition home or self-care (01) | DRG 309 ==
LOC: ER 12:18 → 2ND 12:24
PROVIDERS: Admitting Provider Internal Medicine Adolescent Medicine; Emergency Provider Emergency Medicine; PCP Internal Medicine Adolescent Medicine; Visit Provider Internal Medicine Adolescent Medicine
DX: I48.20 Chronic atrial fibrillation, unspecified (principal); I69.353 Hemiplegia and hemiparesis following cerebral infarction affecting right non-dominant side; Z95.0 Presence of cardiac pacemaker; Z95.2 Presence of prosthetic heart valve; Z79.01 Long term (current) use of anticoagulants; Z79.82 Long term (current) use of aspirin; Z79.899 Other long term (current) drug therapy; I42.0 Dilated cardiomyopathy; I10 Essential (primary) hypertension; E03.9 Hypothyroidism, unspecified
CPT/HCPCS: 36415; 71045; 80048; 84443; 84484; 85025; 85610; 86328; 93005; 93306; 96365; 96367; 96374; 96375; 99285; J2405

== ENCOUNTER 2020-02-04 11:03 | Outpatient (CLI) | payer MEDICARE, SELFPAY ==
[2020-02-04 15:27] LABS: PHA INR Fingerstick 2.7 (0.9-1.1)
== END 2020-02-04 15:32 | disposition home or self-care (01) ==
LOC: ACC 11:06
PROVIDERS: PCP Internal Medicine Adolescent Medicine; Visit Provider Internal Medicine Adolescent Medicine
DX: Z51.81 Encounter for therapeutic drug level monitoring (principal); Z79.01 Long term (current) use of anticoagulants
CPT/HCPCS: 85610; 99211; G0463

== ENCOUNTER 2020-02-18 14:56 | Outpatient (CLI) | payer MEDICARE, SELFPAY ==
[2020-02-18 16:07] LABS: PHA INR Fingerstick 2.2 (0.9-1.1)
== END 2020-02-18 16:20 | disposition home or self-care (01) ==
LOC: ACC 14:57
PROVIDERS: PCP Internal Medicine Adolescent Medicine; Visit Provider Internal Medicine Adolescent Medicine
DX: Z51.81 Encounter for therapeutic drug level monitoring (principal); Z79.01 Long term (current) use of anticoagulants
CPT/HCPCS: 85610; 99211; G0463

== ENCOUNTER → 2020-02-27 14:02 | Outpatient (POV) | payer MEDICARE, SELFPAY ==
[2020-02-27 14:25] VITALS: BP 138/78; PULSE 79; RESP 18; O2SAT 98; BMI 24.0
--- NOTE | 2020-02-27 15:03 | HMH.PMCON ---
Assessment and Plan (1) Low back pain Status: Chronic Category: Medical Code(s): M54.5 - Low back pain (2) Lumbar radiculopathy Status: Chronic Category: Medical Code(s): M54.16 - Radiculopathy, lumbar region - Assessment and plan all Dx Assessment and Plan for all problems:: We will schedule the patient for CT of her lumbar spine. She does not have any recent imaging of her spine. She has tried physical therapy and failed. She does take Tylenol arthritis medication [id number] which is not been beneficial for pain. She has also tried ice and heat therapies. She is unable to perform a home stretching program secondary to pain and numbness and tingling. She is not interested in oral medications. Patient does have a history of atrial fibrillation and is on Coumadin therapy per Dr. Gross. She does have a pacemaker and defibrillator. We will plan to see her back after the CT scan to discuss a further plan of care. She has been instructed to contact clinic if she has any concerns before her next appointment. The patient and I specifically discussed risk factors for COVID19. These risks include, but are not limited to age greater than 60, heart or lung disease, diabetes, immunosuppression, and travel. We also discussed NSAIDs may worsen COVID19 infection or symptoms. Patient should not use NSAIDs to treat COVID19 signs or symptoms. Patient was also informed that any type of corticosteroid of any form (oral or injection) will decrease the patient's immune system response and may increase the likelihood of COVID19 infection and symptoms. HPI - Data of Consult Patient: new to practice Consult date: 02/27/20 Requesting Physician: Romana Jefferson APRN Primary Care Provider: Emeterio Camacho MD - Consult Narrative Reason for consult: Low back pain, bilateral leg pain with numbness and tingling History of present illness: Ms. Teresa is a 79 year old female who presents today for consultation for low back pain. The patient says she has had this pain for greater than 15 years. She says the pain is radiating into her bilateral lower extremities causing her to have numbness and tingling into her legs and feet. Patient says that most of her pain is behind her knees and posterior legs and calves. She says that she has numbness and tingling to the point she is unable to stand for very long. She does use a walker for ambulation. Patient says that she cannot walk for more than 10 to 15 feet without having to stop and sit. She says that her pain is a week feeling that is constant. Patient does have a pacemaker defibrillator and unable to undergo MRI. Patient says she has not had a recent CT scan of her lumbar spine. Patient has tried physical therapy for greater than 6 weeks in the past with no relief. She is currently on warfarin therapy. She is unable to take anti-inflammatories due to her anticoagulation therapy. She has tried ice and heat therapies with no relief. She is unable to perform a home stretching program due to inability to stand secondary to pain and weakness and numbness. Patient is not interested in oral medications. She is interested in injective therapy. She does rate her pain a 7 out of 10. CC: Romana Jefferson APRN [facility] History I have reviewed the patient's past medical history: Yes Medical History: Reports:: Arrhythmia, Atrial Fibrillation, Cardiomyopathy, Cerebrovascular Accident, Gastrointestinal Bleed, Hyperlipidemia, Hypertension, Internal Pacemaker, Myocardial Infarction Denies:: Cancer, Diabetes Mellitus Type 1, Diabetes Mellitus Type 2, MRSA, Seizures *Have you ever received a pneumonia vaccine?: Yes *Have you received a flu vaccine this season?: Yes Other Medical History: Reports: Anemia, Arthritis, Hypothyroidism. Denies: Blood Transfusion Reaction Other Surgeries: Yes: Cardiac Surgery (Mitral Valve Repair), Cholecystectomy, Pacemaker, Skin Cancer Excision - *Social History Smoking Sta
== END ==
PROVIDERS: PCP Internal Medicine Adolescent Medicine; Visit Provider Clinical Nurse Specialist Family Health
DX: M54.5 Low back pain (principal); M54.16 Radiculopathy, lumbar region
CPT/HCPCS: 99202

== ENCOUNTER → 2020-03-03 12:57 | Outpatient (CLI) | payer MEDICARE, SELFPAY ==
--- NOTE | 2020-03-03 13:01 | CT_ITS ---
PROCEDURE: CT LUMBAR SPINE WO CON CLINICAL HISTORY: BACK PAIN LOW BACK PAIN, RADIATES DOWN BOTH LEGS NO INJURY NO PRIOR COMPARISON: CT [id number] CT ABD PELVIS W/ CONTRAST from 01/26/2015 TECHNIQUE: Axial images obtained with sagittal and coronal reformats. All CT scans at the facility use one or more dose reduction, viz: automated exposure control, ma/kV adjustment per patient size (including targeted exams where dose is matched to indication, i.e. head), or iterative reconstruction technique. FINDINGS: There is straightening of the lumbar lordosis. There is diffuse osteopenia. Minimal bulging disc T11-T12 with minimal central disc calcification. T12-L1: Unremarkable. L1-L2: Minimal bulging disc with degenerative disc disease. L2-L3: Degenerative disc disease with minimal bulging disc. L3-L4: Degenerative disc disease with mild bulging disc along with facet and ligamentum hypertrophy with mild bilateral foraminal narrowing. Wedge compression changes are present involving the superior endplate of L4 which are chronic in nature unchanged from 01/26/2015 without retropulsion. L4-5: Mild bulging disc with facet and ligamentum hypertrophy. There is bilateral foraminal narrowing slightly greater on the left. L5-S1: Bulging disc with annular calcification with facet and ligamentum hypertrophy. Bilateral foraminal narrowing left greater than right. No lytic or blastic changes apparent. IMPRESSION: 1. There is straightening/reversal of the normal lordosis which may be due to patient positioning or muscle spasm. 2. Osteopenia with multilevel lumbar spondylosis as detailed above. Dictated by: Hermann Fofana MD 03/04/2020 09:25 Hermann Fofana MD in [place] 03/04/2020 09:25
== END ==
PROVIDERS: PCP Internal Medicine Adolescent Medicine; Visit Provider Clinical Nurse Specialist Family Health
DX: M54.5 Low back pain (principal)
CPT/HCPCS: 72131

== ENCOUNTER → 2020-03-12 14:06 | Outpatient (POV) | payer MEDICARE, SELFPAY ==
[2020-03-12 16:03] VITALS: BP 114/74; PULSE 65; RESP 18; O2SAT 98; BMI 24.0
--- NOTE | 2020-03-12 16:37 | HMH.PAINSOAP ---
[facility] Pain Management SOAP Note Subjective:: Patient is a pleasant 79-year-old white female who presents today for follow-up. She recently underwent a CT scan of her lumbar spine. Patient is being treated for chronic low back pain with lumbar radiculopathy symptoms. Patient says that her pain is primarily in her low back with radiation into bilateral lower extremities with numbness and tingling into her legs and feet. She reports to have had this pain for greater than 15 years. Most of her pain is behind her knees and posterior legs and calves. She says that she is unable to stand for very long due to the constant pain. She does use a walker for ambulation. Patient has tried physical therapy in the past with no relief. She has also tried ice and heat therapies with no relief. She is unable to take anti-inflammatories due to her anticoagulation therapy. She is on Plavix. Patient is unable to tolerate any type of home stretching program due to inability to stand. Patient says she is unsure that she wants to proceed with any type of injective therapy at this time. She does rate her pain a 5 out of 10 today. Review of Systems General: No recent weight changes, no fever, no sleep disturbances Respiratory: No cough, no shortness of air, no recurring pulmonary infections Cardiovascular/peripheral vascular: No chest pain, no palpitations, no edema, no shortness of breath Gastrointestinal: No new onset incontinence, normal bowel movements reported Genitourinary: No new onset incontinence Musculoskeletal: Low back pain with radiation into bilateral lower extremities causing numbness and tingling Psychiatric: Normal mood/affect Neurological: [Denies weakness in extremities], [denies balance issues] Objective:: Physical exam General: Alert and oriented x3, no acute distress, pleasant and cooperative, [on room air] Lungs: Respirations even and unlabored, symmetrical chest expansion Eyes: PERRL Musculoskeletal: Flexion and extension of lumbar spine somewhat guarded secondary to pain, deep tendon reflexes normal, strength in upper and lower extremities [5/5], [abnormal gait noted] Neurological: Speech clear, milieu technician equal, no gross sensory deficit Assessment:: Degenerative disc disease lumbar spine with lumbar radiculopathy symptoms, facet hypertrophy, spinal stenosis Plan:: Patient I did discuss injective therapy. The patient reports that her pain is worse when she is leaning forward at this time. She would like to try oral medications before proceeding with injective therapy. Most of her complaints are related to the numbness and tingling in her lower extremities. We will start the patient on gabapentin 100 mg 1 tablet p.o. daily. We will see if this helps with her numbness and tingling in her lower extremities. We will give her the medicine and plan to see her back in the clinic in a month. I did asked the patient to return in 2 weeks, however, patient has many other follow-up appointments with other providers in the upcoming 2 weeks. As result she would like to wait for a month to see if the medication is working for her. We will plan 4-month follow-up. Patient has been instructed to contact the clinic if she has any concerns before her next appointment. We will order her the medication to her pharmacy. Patient I did discuss the side effects of the medication. She does understand and will use caution with the medication. Patient has been prescribed a controlled substance after being counseled on the medication, medication safety, and possible side effects. LEROY report has been obtained and reviewed prior to prescription and found to be appropriate. Opioid contract was reviewed and signed by the patient, and that they have agreed to all of the terms set forth by our compliance program. The patient and I specifically discussed risk factors for COVID19. These risks include, but are not limited to age greater than 60, heart
== END ==
PROVIDERS: PCP Internal Medicine Adolescent Medicine; Visit Provider Clinical Nurse Specialist Family Health
DX: M51.16 Intervertebral disc disorders with radiculopathy, lumbar region (principal); M89.38 Hypertrophy of bone, other site; M48.00 Spinal stenosis, site unspecified; I48.20 Chronic atrial fibrillation, unspecified; Z95.0 Presence of cardiac pacemaker; Z86.73 Personal history of transient ischemic attack (TIA), and cerebral infarction without residual deficits
CPT/HCPCS: 85610; 99211; 99212; G0463

== ENCOUNTER 2020-03-12 15:23 | Outpatient (CLI) | payer MEDICARE, SELFPAY ==
[2020-03-12 15:58] LABS: PHA INR Fingerstick 2.1 (0.9-1.1)
== END 2020-03-12 16:02 | disposition home or self-care (01) ==
LOC: ACC 15:24
PROVIDERS: PCP Internal Medicine Adolescent Medicine; Visit Provider Internal Medicine Adolescent Medicine
DX: Z51.81 Encounter for therapeutic drug level monitoring (principal); Z79.01 Long term (current) use of anticoagulants
CPT/HCPCS: 85610; 99211; G0463

== ENCOUNTER 2020-04-09 14:17 | Outpatient (POV) | payer MEDICARE, SELFPAY ==
[2020-04-09 14:29] VITALS: BP 125/88; PULSE 74; RESP 18; TEMP 36.6; O2SAT 98; BMI 24.0
--- NOTE | 2020-04-09 14:39 | HMH.PAINSOAP ---
[facility] Pain Management SOAP Note Subjective:: Patient is a 79-year-old white female who presents today for follow-up. She is being treated for chronic low back pain with lumbar radiculopathy symptoms. Her pain is mostly in her low back with radiation into bilateral lower extremities causing numbness and tingling in bilateral legs and feet. She has had this pain for greater than 15 years. At her last visit she did admit that she was concerned about having any type of injective therapy. She had tried physical therapy in the past with no relief as is ice and heat therapies and a home stretching program. The patient is on Plavix. We did start the patient on gabapentin milligrams 1 tablet p.o. daily. Patient says that she got about 80% relief, however, she says she is having worsening pain in the morning time. She was taking her gabapentin at bedtime. Rates her pain a 5 out of 10 today. Review of Systems General: No recent weight changes, no fever, no sleep disturbances Respiratory: No cough, no shortness of air, no recurring pulmonary infections Cardiovascular/peripheral vascular: No chest pain, no palpitations, no edema, no shortness of breath Gastrointestinal: No new onset incontinence, normal bowel movements reported Genitourinary: No new onset incontinence Musculoskeletal: Low back pain, numbness tingling bilateral lower extremities Psychiatric: Normal mood/affect Neurological: [Denies weakness in extremities], [denies balance issues] Objective:: Physical exam General: Alert and oriented x3, no acute distress, pleasant and cooperative, [on room air] Lungs: Respirations even and unlabored, symmetrical chest expansion Eyes: PERRL Musculoskeletal: Flexion and extension of lumbar spine somewhat guarded secondary to pain, deep tendon reflexes normal, strength in upper and lower extremities [5/5], [abnormal gait noted] Neurological: Speech clear, project manager equal, no gross sensory deficit Assessment:: Degenerative disc disease lumbar spine with lumbar radiculopathy symptoms, Plan:: The patient is doing well with her oral medications. She would like an increase in the dose. We will increase her to gabapentin 100 mg 1 tablet p.o. 3 times daily. We will give her 3 months worth medication so that she does not have to come back into the clinic during the worsening outbreak of Covid over the next few months. We will plan to see her back in 3 months to reassess her symptoms. She has been instructed, however, if her pain worsens before that time to contact the clinic. She is. We will follow up with her in 3 months. The patient and I specifically discussed risk factors for COVID19. These risks include, but are not limited to age greater than 60, heart or lung disease, diabetes, immunosuppression, and travel. We also discussed NSAIDs may worsen COVID19 infection or symptoms. Patient should not use NSAIDs to treat COVID19 signs or symptoms. Patient was also informed that any type of corticosteroid of any form (oral or injection) will decrease the patient's immune system response and may increase the likelihood of COVID19 infection [address] symptoms[address]. Mccarthy has reviewed this note and agrees with this plan of care. This note was dictated using voice recognition software and make contain errors or omissions. Patient has been prescribed a controlled substance after being counseled on the medication, medication safety, and possible side effects. LEROY report has been obtained and reviewed prior to prescription and found to be appropriate. Opioid contract was reviewed and signed by the patient, and that they have agreed to all of the terms set forth by our compliance program. [facility] History I have reviewed the patient's past medical history: Yes Medical History: Reports:: Arrhythmia, Atrial Fibrillation, Cardiomyopathy, Cerebrovascular Accident, Gastrointestinal Bleed, Hyperlipidemia, Hypertension, Internal Pacemaker, Myocardial Infarction Denies:
[2020-04-09 15:29] LABS: PHA INR Fingerstick 2.1 (0.9-1.1)
== END 2020-04-09 15:32 | disposition home or self-care (01) ==
PROVIDERS: PCP Internal Medicine Adolescent Medicine; Visit Provider Clinical Nurse Specialist Family Health
DX: M51.16 Intervertebral disc disorders with radiculopathy, lumbar region (principal); I45.5 Other specified heart block; Z86.73 Personal history of transient ischemic attack (TIA), and cerebral infarction without residual deficits; Z79.01 Long term (current) use of anticoagulants
CPT/HCPCS: 85610; 99211; 99212; G0463

== ENCOUNTER 2020-05-29 14:06 | Outpatient (CLI) | payer MEDICARE, SELFPAY ==
[2020-05-29 14:17] VITALS: BP 117/62; PULSE 62; RESP 18; TEMP 36.7; O2SAT 99
[2020-05-29 15:28] LABS: PHA INR Fingerstick 2.1 (0.9-1.1)
== END 2020-05-29 14:40 | disposition home or self-care (01) ==
PROVIDERS: Internal Medicine Adolescent Medicine; Visit Provider Internal Medicine Adolescent Medicine
DX: Z51.81 Encounter for therapeutic drug level monitoring (principal); Z79.01 Long term (current) use of anticoagulants; M81.0 Age-related osteoporosis without current pathological fracture
CPT/HCPCS: 85610; 96372; 99211; G0463; J0897

== ENCOUNTER → 2020-06-02 14:41 | Outpatient (CLI) | payer MEDICARE, SELFPAY ==
[2020-06-02 16:47] LABS: Anion Gap 14.4 mEq/L (5-15); Blood Urea Nitrogen 13 mg/dl (7-17); Calcium 9.8 mg/dl (8.4-10.2); Carbon Dioxide 25 mmol/L (22.0-30.0); Chloride 101 mmol/L (98-107); Estimated Glomerular Filt Rate 81 ml/min (>60); GFR (African American) 98 ML/MIN (>60); Glucose 79 mg/dl (74-100); Potassium 4.4 mmoL/L (3.5-5.1); Sodium 136 mmol/L (136-145)
== END ==
PROVIDERS: Visit Provider Physician Assistant
DX: E78.5 Hyperlipidemia, unspecified (principal); I10 Essential (primary) hypertension; I48.20 Chronic atrial fibrillation, unspecified; Z79.01 Long term (current) use of anticoagulants; Z86.73 Personal history of transient ischemic attack (TIA), and cerebral infarction without residual deficits; Z95.810 Presence of automatic (implantable) cardiac defibrillator
CPT/HCPCS: 36415; 80048

== ENCOUNTER → 2020-07-09 13:02 | Outpatient (POV) | payer MEDICARE, SELFPAY ==
--- NOTE | 2020-07-09 13:13 | HMH.PAINSOAP ---
[facility] Pain Management SOAP Note Subjective:: Patient is a pleasant 79-year-old white female who presents today for follow-up. She has been treated for pain secondary to degenerative disc disease lumbar spine with lumbar radiculopathy symptoms. Patient's pain primarily today is in her left hip. She says that it goes into her groin as well. Patient says that her pain is a 0 out of 10 unless she is standing and walking and it is only in the hip at this time. She does not want to do injective therapy at this time. She has managed with gabapentin 100 mg 1 tablet p.o. 3 times daily. This is giving her relief. That was increased to her last visit. She denies any side effects. She does need refills today. Review of Systems General: No recent weight changes, no fever, no sleep disturbances Respiratory: No cough, no shortness of air, no recurring pulmonary infections Cardiovascular/peripheral vascular: No chest pain, no palpitations, no edema, no shortness of breath Gastrointestinal: No new onset incontinence, normal bowel movements reported Genitourinary: No new onset incontinence Musculoskeletal: Left hip pain Psychiatric: Normal mood/affect Neurological: [Denies weakness in extremities], [denies balance issues] Objective:: Physical exam General: Alert and oriented x3, no acute distress, pleasant and cooperative, [on room air] Lungs: Respirations even and unlabored, symmetrical chest expansion Eyes: PERRL Musculoskeletal: Flexion and extension of spine nonguarded secondary to pain, deep tendon reflexes normal, strength in upper and lower extremities [5/5], [abnormal gait noted] Neurological: Speech clear, hand folder equal, no gross sensory deficit Assessment:: Degenerative disc disease lumbar spine with lumbar radiculopathy symptoms, left hip pain Plan:: We will refill the patient's gabapentin 100 mg 1 tablet p.o. 3 times daily. We will give the patient 3 months of medication and she will plan to come back into the clinic in 3 months for reevaluation of her left hip pain. If she is continuing to have pain at that time we will plan for a left intra-articular hip injection. Patient has been instructed to contact the clinic if she has any concerns before her next appointment. The patient and I specifically discussed risk factors for COVID19. These risks include, but are not limited to age greater than 60, heart or lung disease, diabetes, immunosuppression, and travel. We also discussed NSAIDs may worsen COVID19 infection or symptoms. Patient should not use NSAIDs to treat COVID19 signs or symptoms. Patient was also informed that any type of corticosteroid of any form (oral or injection) will decrease the patient's immune system response and may increase the likelihood of COVID19 infection and symptoms. Patient has been prescribed a controlled substance after being counseled on the medication, medication safety, and possible side effects. LEROY report has been obtained and reviewed prior to prescription and found to be appropriate. Opioid contract was reviewed and signed by the patient, and that they have agreed to all of the terms set forth by our compliance program.Risks and benefits of the medication have been explained in detail to the patient. The patient has been advised to consult with his/her primary care provider and pharmacist regarding drug-drug interaction of medications currently prescribed. Dr. Mccarthy has reviewed this note and agrees with this plan of care. This note was dictated using voice recognition software and make contain errors or omissions. [facility] History I have reviewed the patient's past medical history: Yes Medical History: Reports:: Arrhythmia, Atrial Fibrillation, Cardiomyopathy, Cerebrovascular Accident, Gastrointestinal Bleed, Hyperlipidemia, Hypertension, Internal Pacemaker, Myocardial Infarction, Palpitations, Valvular Heart Disease Denies:: Cancer, Diabetes Mellitus Type 1, Diabetes Mellitus Type 2, MRSA,
[2020-07-09 13:15] VITALS: BP 125/85; PULSE 74; RESP 18; O2SAT 98; BMI 24.3
== END ==
PROVIDERS: PCP Internal Medicine Adolescent Medicine; Visit Provider Clinical Nurse Specialist Family Health
DX: M51.16 Intervertebral disc disorders with radiculopathy, lumbar region (principal); M25.552 Pain in left hip
CPT/HCPCS: 85610; 99211; 99212; G0463

== ENCOUNTER 2020-07-09 13:16 | Outpatient (CLI) | payer MEDICARE, SELFPAY ==
[2020-07-09 14:17] LABS: PHA INR Fingerstick 1.6 (0.9-1.1)
== END 2020-07-09 14:18 | disposition home or self-care (01) ==
LOC: ACC 13:18
PROVIDERS: PCP Internal Medicine Adolescent Medicine; Visit Provider Internal Medicine Adolescent Medicine
DX: Z79.01 Long term (current) use of anticoagulants (principal)
CPT/HCPCS: 85610; 99211; G0463

== ENCOUNTER 2020-08-11 13:44 | Outpatient (CLI) | payer MEDICARE, SELFPAY | END 2020-08-11 15:47 | disposition home or self-care (01) | LOC: ACC 13:45 | PROVIDERS: PCP Internal Medicine Adolescent Medicine; Visit Provider Internal Medicine Adolescent Medicine | DX: I48.20 Chronic atrial fibrillation, unspecified (principal); Z79.01 Long term (current) use of anticoagulants | CPT/HCPCS: 85610; 99211; G0463 ==

== ENCOUNTER 2020-09-22 13:55 | Outpatient (CLI) | payer MEDICARE, SELFPAY ==
[2020-09-22 15:03] LABS: PHA INR Fingerstick 1.8 (0.9-1.1)
== END 2020-09-22 15:04 | disposition home or self-care (01) ==
LOC: ACC 13:58
PROVIDERS: PCP Internal Medicine Adolescent Medicine; Visit Provider Internal Medicine Adolescent Medicine
DX: Z51.81 Encounter for therapeutic drug level monitoring (principal); Z79.01 Long term (current) use of anticoagulants
CPT/HCPCS: 85610; 99211; G0463

== ENCOUNTER → 2020-10-02 16:22 | Outpatient (CLI) | payer MEDICARE, SELFPAY ==
[2020-10-02 16:47] LABS: Basophils % 0.4 % (0.1-2.0); Eosinophils # 0.1 K/mm3 (0.0-0.4); Eosinophils % 1.8 % (0.1-12.0); Hematocrit 39.4 % (37.0-47.0); Hemoglobin 13.3 g/dL (12.2-16.2); Lymphocytes # 1.6 K/mm3 (0.7-4.5); Lymphocytes % 23.9 % (10-50); Mean Corpuscular HGB Conc 33.7 g/dL (31.8-35.4); Mean Corpuscular Hemoglobin 31.6 pg (27.0-31.2); Mean Corpuscular Volume 93.6 fl (81-99); Mean Platelet Volume 8.5 fl (7.4-10.4); Monocytes # 0.6 K/mm3 (0.1-1.0); Monocytes % 8.5 % (1.7-9.3); Neutrophils # 4.3 K/mm3 (1.8-7.8); Neutrophils % 65.4 % (37.0-80.0); Platelet Count 246 K/mm3 (142-424); Red Blood Count 4.21 M/mm3 (4.20-5.40); Red Cell Distribution Width 13.6 % (11.5-17.5); White Blood Count 6.6 K/mm3 (4.8-10.8)
[2020-10-02 21:36] LABS: Alanine Aminotransferase 22 U/L (12-78); Albumin Level 4.7 g/dl (3.5-5.0); Albumin/Globulin Ratio 1.7 (1.1-1.8); Alkaline Phosphatase 69 U/L (38-126); Anion Gap 11.6 mEq/L (5-15); Aspartate Amino Transferase 29 U/L (14-36); Bilirubin,Total 0.6 mg/dl (0.2-1.3); Blood Urea Nitrogen 9 mg/dl (7-17); Calcium 9.2 mg/dl (8.4-10.2); Carbon Dioxide 27 mmol/L (22.0-30.0); Chloride 98 mmol/L (98-107); Chol/HDL Ratio 2.4 (1-3.5); Cholesterol 142 mg/dl (140-200); Estimated Glomerular Filt Rate 53 ml/min (>60); GFR (African American) 65 ML/MIN (>60); Globulin 2.7 g/dL (1.3-3.2); Glucose 94 mg/dl (74-100); HDL Cholesterol 58 mg/dl (40-60); Potassium 4.6 mmoL/L (3.5-5.1); Sodium 132 mmol/L (136-145); Total Protein,Serum 7.4 g/dl (6.3-8.2); Triglycerides 195 mg/dl (30-150); VLDL Cholesterol 39 mg/dL (0-40)
[2020-10-02 21:53] LABS: Direct LDL Cholesterol 52.35 mg/dL (100-129)
[2020-10-02 22:09] LABS: Thyroid Stimulating Hormone 0.57 uIU/mL (0.465-4.68)
== END ==
PROVIDERS: Visit Provider Internal Medicine Adolescent Medicine
DX: I10 Essential (primary) hypertension (principal); E03.9 Hypothyroidism, unspecified; E78.5 Hyperlipidemia, unspecified
CPT/HCPCS: 36415; 80053; 80061; 84443; 85025

== ENCOUNTER 2020-10-27 14:02 | Outpatient (CLI) | payer MEDICARE, SELFPAY ==
[2020-10-27 14:50] LABS: PHA INR Fingerstick 1.9 (0.9-1.1)
== END 2020-10-27 15:08 | disposition home or self-care (01) ==
LOC: ACC 14:03
PROVIDERS: PCP Internal Medicine Adolescent Medicine; Visit Provider Internal Medicine Adolescent Medicine
DX: Z51.81 Encounter for therapeutic drug level monitoring (principal); Z79.01 Long term (current) use of anticoagulants
CPT/HCPCS: 85610; 99211; G0463

== ENCOUNTER 2020-11-27 14:10 | Outpatient (CLI) | payer MEDICARE, SELFPAY ==
[2020-11-27 14:19] VITALS: BP 150/75; PULSE 66; RESP 17; TEMP 36.6; O2SAT 99
== END 2020-11-27 14:20 | disposition home or self-care (01) ==
LOC: INF 14:10
PROVIDERS: Visit Provider Internal Medicine Adolescent Medicine
DX: M81.0 Age-related osteoporosis without current pathological fracture (principal)
CPT/HCPCS: 96372; J0897

== ENCOUNTER 2020-11-27 14:22 | Outpatient (CLI) | payer MEDICARE, SELFPAY ==
[2020-11-27 15:52] LABS: PHA INR Fingerstick 1.3 (0.9-1.1)
== END 2020-11-27 16:27 | disposition home or self-care (01) ==
LOC: ACC 14:24
PROVIDERS: PCP Internal Medicine Adolescent Medicine; Visit Provider Internal Medicine Adolescent Medicine
DX: M81.0 Age-related osteoporosis without current pathological fracture (principal); Z51.81 Encounter for therapeutic drug level monitoring; Z79.01 Long term (current) use of anticoagulants
CPT/HCPCS: 85610; 96372; 99211; G0463; J0897

== ENCOUNTER → 2020-12-17 13:04 | Outpatient (POV) | payer MEDICARE, SELFPAY ==
[2020-12-17 13:09] VITALS: BP 101/65; PULSE 74; RESP 18; TEMP 36.4; O2SAT 97; BMI 24.3
--- NOTE | 2020-12-17 13:49 | HMH.PAINSOAP ---
[facility] Pain Management SOAP Note Subjective:: Patient is a 80-year-old white female who presents today for medication refills and for follow-up. She has been treated for degenerative disc disease lumbar spine with lumbar radicular symptoms. Patient says that she is having low back pain with bilateral hip pain as well as bilateral buttock pain. The pain is also radiating to lateral thighs bilaterally stopping at the knees. Pain is worse when she stands and walks. She does rate her pain a 5 out of 10 today. She is managed in the clinic with gabapentin milligrams 1 tablet p.o. 3 times daily for paresthesia lower extremities. Her gabapentin is working well for her, however, her acute pain is not relieved with her gabapentin. She has tried anti-inflammatories along with home stretching with limited relief. She uses ice and heat therapies with limited relief. She is tender to palpation to bilateral SI joints today. Review of Systems General: No recent weight changes, no fever, no sleep disturbances Respiratory: No cough, no shortness of air, no recurring pulmonary infections Cardiovascular/peripheral vascular: No chest pain, no palpitations, no edema, no shortness of breath Gastrointestinal: No new onset incontinence, normal bowel movements reported Genitourinary: No new onset incontinence Musculoskeletal: Bilateral low back pain with radiation into bilateral buttock, bilateral hips and bilateral lateral thigh area stopping at knee Psychiatric: [Normal mood/affect] Neurological: [Denies weakness in extremities], [denies balance issues] Objective:: Physical exam General: Alert and oriented x3, no acute distress, pleasant and cooperative, [on room air] Lungs: Respirations even and unlabored, symmetrical chest expansion Eyes: PERRL Musculoskeletal: Flexion and extension of [] lumbar [spine] somewhat guarded secondary to pain, strength in upper and lower extremities [5/5], [antalgic gait noted], positive Isabella's test, positive compression test, positive distraction test Neurological: Speech clear, [junior analyst equal], no gross sensory deficit Assessment:: Sacroiliitis bilateral, degenerative disc disease lumbar spine with lumbar radiculopathy symptoms Plan:: We will refill the patient's gabapentin milligrams 1 tablet p.o. 3 times daily. We will also schedule patient for bilateral SI joint injections. She is tender to palpation to bilateral SI joints with positive Isabella's, compression, distraction test. We will see her back in clinic after injection for reevaluation of symptoms. Patient has been instructed to contact clinic if she has any concerns for next appointment. Patient is not diabetic. Possible side effects of corticosteroids have been discussed with the patient. Risks and benefits of the procedure have been explained to the patient. Patient would like to proceed with the procedure. Patient has been instructed to contact the clinic with any concerns before the next appointment. Dr. Mccarthy has reviewed this note and agrees with this plan of care. This note was dictated using voice recognition software and make contain errors or omissions. [facility] History I have reviewed the patient's past medical history: Yes Medical History: Reports:: Arrhythmia, Atrial Fibrillation, Cardiomyopathy, Cerebrovascular Accident, Gastrointestinal Bleed, Hyperlipidemia, Hypertension, Internal Pacemaker, Myocardial Infarction, Palpitations, Valvular Heart Disease Denies:: Cancer, Diabetes Mellitus Type 1, Diabetes Mellitus Type 2, MRSA, Seizures *Have you ever received a pneumonia vaccine?: Yes *Have you received a flu vaccine this season?: Yes Other Medical History: Reports: Anemia, Arthritis, Hypothyroidism, Thyroid Disease. Denies: Blood Transfusion Reaction Other Surgeries: Yes: Cardiac Surgery (Mitral Valve Repair), Cholecystectomy, Pacemaker, Skin Cancer Excision - *Social History Smoking Status: Never smoker Alcohol Intake: never Alcohol Intake
== END ==
PROVIDERS: PCP Internal Medicine Adolescent Medicine; Visit Provider Clinical Nurse Specialist Family Health
DX: M46.1 Sacroiliitis, not elsewhere classified (principal); M51.16 Intervertebral disc disorders with radiculopathy, lumbar region
CPT/HCPCS: 99212; G0463

== ENCOUNTER 2020-12-22 15:27 | Outpatient (CLI) | payer MEDICARE, SELFPAY ==
[2020-12-22 16:34] LABS: PHA INR Fingerstick 2.3 (0.9-1.1)
== END 2020-12-22 16:42 | disposition home or self-care (01) ==
LOC: ACC 15:28
PROVIDERS: PCP Internal Medicine Adolescent Medicine; Visit Provider Internal Medicine Adolescent Medicine
DX: Z51.81 Encounter for therapeutic drug level monitoring (principal); Z79.01 Long term (current) use of anticoagulants
CPT/HCPCS: 85610; 99211; G0463

== ENCOUNTER → 2021-01-01 13:14 | Day surgery (SDC) | payer MEDICARE, SELFPAY ==
[2021-01-01 13:19] VITALS: BP 150/74; PULSE 61; RESP 18; TEMP 36.4; O2SAT 97; BMI 25.0
[2021-01-01 14:07] VITALS: BP 140/66; PULSE 63; RESP 18; O2SAT 97
[2021-01-01 14:08] VITALS: BP 140/66; PULSE 67; RESP 18; O2SAT 99
--- NOTE | 2021-01-01 14:27 | HMH.PMPROC ---
- Procedure Date: 01/01/21 Time: 14:27 Anesthesiologist:: Jossie Curiel MD Complications:: None Pre-procedure Diagnosis:: Bilateral sacroiliitis, chronic low back pain, chronic hip pain bilaterally Post-procedure Diagnosis:: Same Indications for Procedure:: This patient is a very pleasant 80-year-old white female who presents today with chronic low back pain and bilateral hip pain related to the above diagnosis. She has tried and failed conservative treatment including oral pain medication and home stretching program for greater than 6 weeks. Currently taking gabapentin 300 mg 1 tablet p.o. 3 times daily which she states is helping somewhat take the edge off the pain. The plan for today is for the patient to undergo lateral SI joint injections under fluoroscopy. Procedure Details:: B/L SI joint injection under fluoroscopy Informed consent was obtained and the risks and benefits of the procedure was explained to the patient. The patient was taken to the procedure room and placed prone on the procedure table. The patient was prepped using ChloraPrep. The skin and subcutaneous tissues overlying the SI joints were anesthetized using lidocaine. I placed a 22-gauge needle first in the left SI joint and second in the right SI joint. Needle placement was confirmed with dye. After this we injected 5 mL bupivacaine 0.25% and Depo-Medrol 40 mg into each SI joint. Patient tolerated the procedure well with no complication. Plan and Disposition:: We will follow-up with this patient in 2 weeks. Will reevaluate pain symptoms at that time.
== END ==
PROVIDERS: PCP Internal Medicine Adolescent Medicine; Visit Provider Anesthesiology Pain Medicine
DX: M46.1 Sacroiliitis, not elsewhere classified (principal); M54.5 Low back pain; M25.559 Pain in unspecified hip; G89.29 Other chronic pain
CPT/HCPCS: 27096; G0260; J1030; Q9966

== ENCOUNTER 2021-01-04 18:19 | Observation (INO) | payer MEDICARE, SELFPAY ==
[2021-01-04] VITALS (19 sets, daily range): BP systolic 120–157; BP diastolic 66–97; PULSE 81–139; RESP 16–26; TEMP 36.3; O2SAT 93–98; BMI 25.0
--- NOTE | 2021-01-04 18:40 | ECG_ITS ---
APPROVED REPORT Exam: Resting ECG HR:119 bpm ECG Measurements Heart Rate 119 AXES QRSd 114 QRS -59 QT 308 T 185 QTc 433 Conclusion Atrial fibrillation with rapid ventricular response Pulmonary disease pattern Right bundle branch block Left anterior fascicular block Bifascicular block T wave abnormality, consider inferolateral ischemia or digitalis effect Abnormal ECG Electronically signed by : Emeterio Camacho MD 01/05/2021 12:07:30
--- NOTE | 2021-01-04 18:43 | XR_ITS ---
PROCEDURE INFORMATION: Exam: XR Chest Exam date and time: 01/04/2021 6:43 PM Age: 80 years old Clinical indication: Shortness of breath; Additional info: SOB infectious workup TECHNIQUE: Imaging protocol: XR of the chest. Views: 1 view. COMPARISON: CR XR CHEST PORTABLE 01/29/2020 11:33 AM FINDINGS: Tubes, catheters and devices: Left-sided internal cardiac device with 2 leads overlying the right heart. Multiple sternal cerclage wires unchanged in position. Lungs: Bibasilar opacities favor subsegmental atelectasis /senescent changes without convincing consolidation. Pleural spaces: Unremarkable. No pleural effusion. No pneumothorax. Heart/Mediastinum: Unremarkable. No cardiomegaly. Bones/joints: Unremarkable. IMPRESSION: Bibasilar opacities favor subsegmental atelectasis /senescent changes without convincing consolidation.
[2021-01-04 19:04] LABS: Basophils # 0.1 K/mm3 (0-0.2); Basophils % 0.6 % (0.1-2.0); Eosinophils # 0.1 K/mm3 (0.0-0.4); Eosinophils % 0.6 % (0.1-12.0); Hematocrit 43.1 % (37.0-47.0); Hemoglobin 14.3 g/dL (12.2-16.2); Lymphocytes # 1.7 K/mm3 (0.7-4.5); Lymphocytes % 18.1 % (10-50); Mean Corpuscular HGB Conc 33.3 g/dL (31.8-35.4); Mean Corpuscular Hemoglobin 31.7 pg (27.0-31.2); Mean Corpuscular Volume 95.3 fl (81-99); Mean Platelet Volume 8.3 fl (7.4-10.4); Monocytes # 0.7 K/mm3 (0.1-1.0); Neutrophils # 6.9 K/mm3 (1.8-7.8); Neutrophils % 73.7 % (37.0-80.0); Platelet Count 350 K/mm3 (142-424); Red Blood Count 4.52 M/mm3 (4.20-5.40); Red Cell Distribution Width 13.2 % (11.5-17.5); White Blood Count 9.4 K/mm3 (4.8-10.8)
[2021-01-04 19:11] LABS: Alanine Aminotransferase 27 U/L (12-78); Albumin Level 4.6 g/dl (3.5-5.0); Albumin/Globulin Ratio 1.5 (1.1-1.8); Alkaline Phosphatase 84 U/L (38-126); Anion Gap 16.8 mEq/L (5-15); Aspartate Amino Transferase 27 U/L (14-36); Bilirubin,Total 0.4 mg/dl (0.2-1.3); Blood Urea Nitrogen 14 mg/dl (7-17); Calcium 9.1 mg/dl (8.4-10.2); Carbon Dioxide 22 mmol/L (22.0-30.0); Chloride 99 mmol/L (98-107); Creatinine Clearance Estimated 48 mL/min (50-200); Estimated Glomerular Filt Rate 81 ml/min (>60); GFR (African American) 98 ML/MIN (>60); Globulin 3.1 g/dL (1.3-3.2); Glucose 124 mg/dl (74-100); Potassium 3.8 mmoL/L (3.5-5.1); Sodium 134 mmol/L (136-145); Total Protein,Serum 7.7 g/dl (6.3-8.2)
[2021-01-04 19:20] LABS: Lactic Acid 1.1 mmol/L (0.7-2.1)
[2021-01-04 19:32] LABS: Troponin I < 0.01 ng/ml (0.00-0.034)
--- NOTE | 2021-01-04 19:34 | HMH.EDGENADL ---
ED Disposition Clinical Impression: Atrial fibrillation with RVR Disposition: Admitted As Inpatient Condition on Discharge: Good Referrals: Mynor Bishop MD [Primary Care Provider] - - Critical Care Critical Care Time: Yes Attestation: On 01/04/21, the high probability of a clinically significant, sudden or life threatening deterioration of the following system(s) required my full and direct attention, intervention and personal management. The time I documented below is in addition to time spent performing reported procedures but includes the following listed in this critical care notation. Total Critical Care Time: 35 Vital system(s) involved:: Circulatory Failure My critical care processes included: Assessment & monitoring of V/S, Initial and Re-exams, Data Review/Interpretation, Medication Orders and management, Documentation Comment: I spent greater than 30 minutes involved solely in the care of this patient in the titration of vasoactive medications, administration of IV rate control medications, and chart review. Medical Decision Making - Pedro Pablo Inquiry Pt receiving controlled substance: No Vital Signs: 01/04/21 18:20 Temperature 97.4 F L Temperature Source Oral Pulse Rate [Left] 139 H Respiratory Rate 18 Blood Pressure [Right Arm] 139/67 Blood Pressure Mean [Right Arm] 91 Blood Pressure Source [Right Arm] Automatic Cuff Blood Pressure Position [Right Arm] Sitting 02 Sat by Pulse Oximetry 98 - Lab Data Lab Results 01/04/21 18:45: WBC 9.4, RBC 4.52, Hgb 14.3, Hct 43.1, MCV 95.3, MCH 31.7 H, MCHC 33.3, RDW 13.2, Plt Count 350, MPV 8.3, Neut % (Auto) 73.7, Lymph % (Auto) 18.1, Dickey % (Auto) 7.0, Eos % (Auto) 0.6, Baso % (Auto) 0.6, Neut # (Auto) 6.9, Lymph # (Auto) 1.7, Dickey # (Auto) 0.7, Eos # (Auto) 0.1, Baso # (Auto) 0.1 01/04/21 18:45: Sodium 134 L, Potassium 3.8, Chloride 99, Carbon Dioxide 22, Anion Gap 16.8 H, BUN 14, Creatinine 0.70, Estimated Creat Clear 48, Estimated GFR 81, Est GFR ( Amer) 98, Glucose 124 H, Calcium 9.1, Total Bilirubin 0.4, AST 27, ALT 27, Alkaline Phosphatase 84, Troponin I < 0.01, Total Protein 7.7, Albumin 4.6, Globulin 3.1, Albumin/Globulin Ratio 1.5 01/04/21 18:45: Lactate 1.1 Result diagrams: 01/04/21 18:45 01/04/21 18:45 Orders (Tests/Meds): ED MEDICATIONS Generic Name Dose Route Start Last Admin Trade Name Freq PRN Reason Stop Dose Admin Diltiazem HCl 100 mg/ Sodium 100 mls @ 5 mls/hr 01/04/21 20:15 Chloride IV 02/03/21 20:14 .Q20H JESSY Protocol Discontinued Medications Generic Name Dose Route Start Last Admin Trade Name Freq PRN Reason Stop Dose Admin Metoprolol Tartrate 5 mg 01/04/21 19:33 01/04/21 19:46 Metoprolol Tartrate 5mg/5ml Vial IV 01/04/21 19:34 5 mg ONCE ONE Administration ORDERS Category Date Time Status Rapid PCR Covid and Flu A/B Stat Lab 01/04/21 20:09 Ordered Troponin I Q3H Lab 01/04/21 22:00 Ordered Troponin I Q3H Lab 01/05/21 01:00 Ordered Urinalysis and Microscopic Stat Lab 01/04/21 19:59 Received Medical Decision Narrative: Patient is a 80-year-old female presents the ED today with shortness of breath, stating that she believes she is in atrial fibrillation with RVR. Patient has had this abnormal rhythm in the past, takes metoprolol 50 mg twice a day, states she has been taking her medication as prescribed. Patient states that she has had some lower extremity muscular aches, states that she does not believe she has COVID-19 and has not had any recent exposures. Patient denies cough, denies chest pain only shortness of breath which is worse with motion, states she has not had any nausea or vomiting. After 5 mg x 2 of IV metoprolol patient's heart rate still exists in the 140s to 150s. Will start patient on diltiazem drip with bolus, patient will be carefully monitored in the stepdown unit, patient wishes to go home, however attempted to go to go to the bathroom and felt significan
[2021-01-04 20:00] LABS: Microscopic, Urine URINE MICROSCOPIC (MICROSCOPIC)
[2021-01-04 20:02] LABS: Appearance,Urine SL CLOUDY (Clear); Bilirubin,Urine Negative (Negative); Blood, Urine 1+ (Negative); Color,Urine YELLOW (Yellow); Glucose,Urine (UA) Negative (Negative); Ketones,Urine Negative (Negative); Leukocyte Esterase,Urine Negative (Negative); Nitrate,Urine Negative (Negative); Protein,Urine Negative (Negative); Urobilinogen,Urine 0.2 EU/dl (0.2)
[2021-01-04 20:28] LABS: Coronavirus 19, PCR Not Detected (NotDetected); Influenza A, PCR Not Detected (NotDetected); Influenza B, PCR Not Detected (NotDetected)
--- NOTE | 2021-01-04 20:32 | PC.NURSE ---
informed per 2nd floor staff and warehouse examiner that patient would remain in ed for admit due to staffing issues.
--- NOTE | 2021-01-04 20:34 | PC.NURSE ---
pt is an alert,oriented x 4 bed hold for admit to stepdown unit. pt verbal with clear speech, SAXMAN, utilizes hearing aids. requires 1 assist minimal to ambulate, but ambulates to bathroom well. pt currently in room 6 in ed. skin with obvious venipuncture bruising noted, denies any pressure sores, doesn't want skin looked at. called house about getting a regular floor bed due to potential for skin breakdown on ani stretchers. was advised hopefully she won't be down here all night . resp e/u. lungs mostly clear, diminished bases. pt continues with irreg hr in 130's, AFIB w/RVR. denies dyspnea or chest pain. abd soft, slightly tender with palpation, non-distended. voiding well. urine collected earlier and sent for eval. last bm yesterday and was normal per her report. vss. gcs 15. no acute distress noted. cardizem gtt infusing at 5ml/hr, will titrate to effect.
[2021-01-04 20:35] LABS: Bacteria,Urine 1+ /lpf
--- NOTE | 2021-01-04 21:00 | P.CONPHA_ITS ---
[facility] Pharmacy VTE Monitoring - Patient Demographics Admission date: 01/04/21 Report Date: 01/04/21 Time: 21:00 Allergies/Adverse Reactions: Patient Allergies No Known Allergies Allergy (Verified 01/01/21 13:30) Height: 1.63 m Weight: 66.224 kg Patient Problems: Current Active Problems Atrial fibrillation with RVR (Acute) - VTE Risk Labs: VTE Related Lab Results Hgb 14.3 g/dL (12.2-16.2) 01/04/21 18:45 Hct 43.1 % (37.0-47.0) 01/04/21 18:45 Plt Count 350 K/mm3 (142-424) 01/04/21 18:45 BUN 14 mg/dl (7-17) 01/04/21 18:45 Creatinine 0.70 mg/dl (0.52-1.04) 01/04/21 18:45 Estimated Creat Clear 48 mL/min (50-200) 01/04/21 18:45 Clinical Trial Participant: No - Prophylaxis VTE Prophylaxis Ordered?: Yes Types of VTE Prophylaxis: TEDS Knee High
--- NOTE | 2021-01-04 21:07 | HMH.PHAINT ---
home medicaiton list verified using the listform [facility] pharmacy
--- NOTE | 2021-01-04 22:16 | PC.NURSE ---
increased cardizem to 10mg @ this time
[2021-01-04 22:29] LABS: Troponin I < 0.01 ng/ml (0.00-0.034)
[2021-01-05] VITALS (42 sets, daily range): BP systolic 105–140; BP diastolic 55–108; PULSE 60–105; RESP 18–29; TEMP 36.7; O2SAT 86–98
--- NOTE | 2021-01-05 00:25 | PC.NURSE ---
pt voided 400ml per bedpan @ this time
[2021-01-05 01:08] LABS: Troponin I < 0.01 ng/ml (0.00-0.034)
--- NOTE | 2021-01-05 02:01 | PC.NURSE ---
noted patient to remain in AFIB rhythm at an irreg rate of 80-90. Incr diltiazem gtt to 15 ml/hr at this time.
--- NOTE | 2021-01-05 02:29 | PC.NURSE ---
placed scientist engineer assist socks on patient, assisted up to BSC with 1 person minimal assist. pt states utilizes walker when at home. voided approximately 450ml of clear yellow urine. denies dysuria. assisted back to bed with 1 person minimal assist. pt remains in afib at this time on the monitor. no s/sx of distress noted. vss. denies dyspnea. assisted to reposition in bed. SR's up x 2. CB in reach at all times.
--- NOTE | 2021-01-05 04:59 | PC.NURSE ---
notified inside steward/stewardess on 2nd floor of cardio consult in for this pt
[2021-01-05 05:33] LABS: Basophils % 0.5 % (0.1-2.0); Eosinophils # 0.1 K/mm3 (0.0-0.4); Eosinophils % 0.6 % (0.1-12.0); Hematocrit 39.5 % (37.0-47.0); Hemoglobin 13.2 g/dL (12.2-16.2); Lymphocytes # 1.6 K/mm3 (0.7-4.5); Lymphocytes % 19.8 % (10-50); Mean Corpuscular HGB Conc 33.4 g/dL (31.8-35.4); Mean Corpuscular Hemoglobin 31.9 pg (27.0-31.2); Mean Corpuscular Volume 95.6 fl (81-99); Mean Platelet Volume 8.7 fl (7.4-10.4); Monocytes # 0.7 K/mm3 (0.1-1.0); Monocytes % 8.1 % (1.7-9.3); Neutrophils # 5.8 K/mm3 (1.8-7.8); Neutrophils % 71.1 % (37.0-80.0); Platelet Count 285 K/mm3 (142-424); Red Blood Count 4.13 M/mm3 (4.20-5.40); Red Cell Distribution Width 13.4 % (11.5-17.5); White Blood Count 8.1 K/mm3 (4.8-10.8)
[2021-01-05 05:34] LABS: Chloride 107 mmol/L (98-107); Potassium 3.8 mmoL/L (3.5-5.1); Sodium 138 mmol/L (136-145)
[2021-01-05 05:37] LABS: Blood Urea Nitrogen 9 mg/dl (7-17); Creatinine Clearance Estimated 48 mL/min (50-200); Estimated Glomerular Filt Rate 119 ml/min (>60); GFR (African American) 144 ML/MIN (>60)
[2021-01-05 05:38] LABS: Anion Gap 12.8 mEq/L (5-15); Calcium 8.8 mg/dl (8.4-10.2); Carbon Dioxide 22 mmol/L (22.0-30.0); Glucose 97 mg/dl (74-100)
--- NOTE | 2021-01-05 06:22 | PC.NURSE ---
DECREASED DILTIAZEM TO 10ML/HR AT THIS TIME.
--- NOTE | 2021-01-05 07:12 | HMH.HPDC ---
General - General Admission date:: 01/04/21 Discharge date: 01/05/21 *Admission Date: 01/04/21 *Chief complaint: dizzy *History of present illness: Ms. Stevens is a 80-year-old female with history of A. fib, anticoagulation, remote history of stroke, and depression. She presented to the ER due to shortness of breath and fatigue. Has been having symptoms off and on since Monday evening/Monday morning that worsened yesterday. States she went for injections in her hips for sciatica on Monday and felt really hot and flushed at night. Missed her Monday morning doses of medications. Prior to presentation yesterday, states she was feeling dizzy when ambulating, felt her heart racing, and felt short of breath. Is unable to monitor her implanted device due to her [employer] monitor being broken. On arrival to the ER she was found to be in A. fib with RVR. Did not respond to IV metoprolol. Was initiated on a diltiazem drip and admitted for further management. On assessment this morning her heart rate is controlled in the 70s and 80s. Feels improved with her dizziness. Denies any chest pain or shortness of breath. Does complain of some lower extremity achiness but this is been going on for the past few days. Afebrile. Normotensive. No vomiting or diarrhea. Stable on room air [facility] History I have reviewed the patient's past medical history: Yes Medical History: Reports:: Arrhythmia, Atrial Fibrillation, Cardiomyopathy, Congestive Heart Failure, Coronary Artery Disease, Cerebrovascular Accident, Gastrointestinal Bleed, Hyperlipidemia, Hypertension, Internal Pacemaker, Myocardial Infarction, Palpitations, Valvular Heart Disease Denies:: Cancer, Diabetes Mellitus Type 1, Diabetes Mellitus Type 2, MRSA, Seizures *Have you ever received a pneumonia vaccine?: Yes *Have you received a flu vaccine this season?: Yes Other Medical History: Reports: Anemia, Arthritis, Hypothyroidism, Thyroid Disease. Denies: Blood Transfusion Reaction Other Surgeries: Yes: Cardiac Surgery (Mitral Valve Repair), Cholecystectomy, Pacemaker, Skin Cancer Excision Amputation: No Fractures: No - *Social History Smoking Status: Never smoker Alcohol Intake: never Alcohol Intake Frequency:: a few times a month Substance Use Type: other *Occupational Status:: retired Housing: house Household Members: spouse *Travel in the last 8 weeks: None Family Hx:: Unable to obtain, Cancer Review of Systems - Review of Systems Review of systems:: pertinent systems reviewed and negative unless documented below Exam Vital signs and Labs for Last 24 Hours: Temp Pulse Resp BP Pulse Ox 97.4 F L 72 20 134/68 97 01/04/21 18:20 01/05/21 06:21 01/05/21 06:21 01/05/21 06:21 01/05/21 06:21 Laboratory Results - last 24 hr 01/04/21 18:45: WBC 9.4, RBC 4.52, Hgb 14.3, Hct 43.1, MCV 95.3, MCH 31.7 H, MCHC 33.3, RDW 13.2, Plt Count 350, MPV 8.3, Neut % (Auto) 73.7, Lymph % (Auto) 18.1, [place] % (Auto) 7.0, Eos % (Auto) 0.6, Baso % (Auto) 0.6, Neut # (Auto) 6.9, Lymph # (Auto) 1.7, [place] # (Auto) 0.7, Eos # (Auto) 0.1, Baso # (Auto) 0.1 01/04/21 18:45: Sodium 134 L, Potassium 3.8, Chloride 99, Carbon Dioxide 22, Anion Gap 16.8 H, BUN 14, Creatinine 0.70, Estimated Creat Clear 48, Estimated GFR 81, Est GFR ( Amer) 98, Glucose 124 H, Calcium 9.1, Total Bilirubin 0.4, AST 27, ALT 27, Alkaline Phosphatase 84, Troponin I < 0.01, Total Protein 7.7, Albumin 4.6, Globulin 3.1, Albumin/Globulin Ratio 1.5 01/04/21 18:45: Lactate 1.1 01/04/21 19:59: Urine Color Yellow, Urine Appearance Sl cloudy, Urine pH 6.0, Ur Specific [place] 1.020, Urine Protein Negative, Urine Glucose (UA) Negative, Urine Ketones Negative, Urine Blood 1+, Urine Nitrate Negative, Urine Bilirubin Negative, Urine Urobilinogen 0.2, Ur Leukocyte Esterase Negative, Urine RBC 3-5, Urine WBC 3-5, Ur Squamous Epith Cells 5-10, Urine Bacteria 1+ 01/04/21 20:05: SARS-CoV-2 (PCR) Not detected, Influenza A Untype (PCR) Not detected
--- NOTE | 2021-01-05 07:24 | PC.NURSE ---
Dr Bishop and Top Lift TrimmerKelly at bedside.
--- NOTE | 2021-01-05 08:42 | PC.NURSE ---
cardizem gtt off at this time.
--- NOTE | 2021-01-05 10:06 | PC.NURSE ---
CHU MIRZA APRN AT BEDSIDE
--- NOTE | 2021-01-05 10:28 | HMH.CNCARD ---
History of Present Illness Consult date: 01/05/21 Requesting physician: Mynor Bishop Consult reason: atrial fibrillation Chief complaint: racing of the heart History of present illness: This is a 80-year-old female who presented to the emergency department with shortness of breath and fatigue. The patient states that she had not been feeling well off and on since Monday evening after she got injections into her hip for sciatica. The patient states that she felt really hot and flushed and just did not feel well. She missed all of her morning medications on Monday because she did not feel well. The patient states that yesterday she woke up feeling dizzy and her heart racing and she was also short of breath. She does have an implanted loop recorder but her device at home is broken and she had not been able to monitor this. She states that her symptoms continue to persist that she came into the emergency department where she was found to be in atrial fibrillation with RVR. The patient did not respond to IV metoprolol. Admit diltiazem drip was initiated and the patient did rate control. At the time of my examination she is in atrial fibrillation with a heart rate in the 80s and 90s. She denies any chest pain or pressure. She states her shortness of breath has resolved since her heart rate has come down. She states her dizziness has improved as well. She denies any fever, chills, nausea, vomiting, diarrhea, PND or orthopnea. [facility] History I have reviewed the patient's past medical history: Yes Medical History: Reports:: Arrhythmia, Atrial Fibrillation, Cardiomyopathy, Congestive Heart Failure, Coronary Artery Disease, Cerebrovascular Accident, Gastrointestinal Bleed, Hyperlipidemia, Hypertension, Internal Pacemaker, Myocardial Infarction, Palpitations, Valvular Heart Disease Denies:: Cancer, Diabetes Mellitus Type 1, Diabetes Mellitus Type 2, MRSA, Seizures *Have you ever received a pneumonia vaccine?: Yes *Have you received a flu vaccine this season?: Yes Other Medical History: Reports: Anemia, Arthritis, Hypothyroidism, Thyroid Disease. Denies: Blood Transfusion Reaction Other Surgeries: Yes: Cardiac Surgery (Mitral Valve Repair), Cholecystectomy, Pacemaker, Skin Cancer Excision Amputation: No Fractures: No - *Social History Smoking Status: Never smoker Alcohol Intake: never Alcohol Intake Frequency:: a few times a month Substance Use Type: other *Occupational Status:: retired Housing: house Household Members: spouse *Travel in the last 8 weeks: None Family Hx:: Unable to obtain, Cancer Meds Home Medications Medication Instructions Recorded Confirmed Type Atorvastatin Calcium [Lipitor 40mg 40 mg PO HS 02/26/18 01/04/21 History Tab] Calcium Carbonate/Vitamin D3 1 each PO DAILY 02/26/18 01/04/21 History [Caltrate 600 Plus D3 Tablet] Desvenlafaxine [Desvenlafaxine ER] 50 mg PO DAILY 02/26/18 01/04/21 History Omeprazole [Omeprazole 40mg 20 mg PO BID 02/26/18 01/04/21 History Capsule] Warfarin Sodium 4 mg PO SUTUWETHFRSA 02/26/18 01/04/21 History Aspirin [Aspirin 81mg EC Tab] 81 mg PO DAILY 01/29/20 01/04/21 History Temazepam [Restoril 15mg capsule] 15 mg PO HS 01/29/20 01/04/21 History oxybutynin chloride 10 mg 20 mg PO DAILY tab 02/04/20 01/04/21 History tablet,extended release 24 hr Furosemide [Furosemide 20mg Tab*] 20 mg PO DAILY 11/27/20 01/04/21 History bupropion HCl 300 mg 24 hr tablet, 300 mg PO DAILY 12/01/20 01/04/21 History extended release Gabapentin [Neurontin 100mg 100 mg PO TID 01/01/21 01/04/21 History cap] Levothyroxine Sodium 100 mcg PO DAILY 01/04/21 01/04/21 History [Levothyroxine 100mcg (0.1MG) Tab] lisinopriL [Lisinopril] 5 mg PO BID 01/04/21 01/04/21 History Metoprolol Tartrate 75 mg PO BID 30 Days #90 tab 01/05/21 Rx Allergies Allergy/AdvReac Type Severity Reaction Status Date / Time No Known Allergies Allergy Verified 01/01/21 13:30 Exam Vital signs a
[2021-01-05 11:39] LABS: Prothrombin Time 19.1 seconds (10.1-12.5)
[2021-01-05 11:41] LABS: INR 1.68 (0.9-1.1)
--- NOTE | 2021-01-05 12:08 | PC.NURSE ---
Per Dr. Bishop (called ER to check on pt at this time), states he is going to be d/c pt. States pt will need to take Metoprolol 75 mg by mouth BID, follow up in office with him in 1 week (call for an appt for pt). Per bernadette in pharmacy pt is take her Warfarine 5mg by mouth every day until she follows up in coumadin clinic.
--- NOTE | 2021-01-05 12:11 | PC.NURSE ---
Appt made for pt for January 12 at 3pm in office with Dr. Bishop
--- NOTE | 2021-01-05 12:31 | PC.NURSE ---
Addendum entered by Carol Harding RN 01/05/21 13:33: Yousif states he gave pt instructions for coumadin dosing and follow up Original Note: yousif in pharmacy at speaking with pt at this time about coumadin
== END 2021-01-05 13:50 | disposition home or self-care (01) ==
LOC: ER 20:20 → 2ND 01-05 07:13
PROVIDERS: Admitting Provider Internal Medicine Adolescent Medicine; Emergency Provider Student in an Organized Health Care Education/Training Program; PCP Internal Medicine Adolescent Medicine; Visit Provider Internal Medicine Adolescent Medicine
DX: I48.91 Unspecified atrial fibrillation (principal); Z79.01 Long term (current) use of anticoagulants; I42.9 Cardiomyopathy, unspecified; I11.0 Hypertensive heart disease with heart failure; I50.9 Heart failure, unspecified; I25.2 Old myocardial infarction; I25.10 Atherosclerotic heart disease of native coronary artery without angina pectoris; Z79.899 Other long term (current) drug therapy; Z20.822 Contact with and (suspected) exposure to COVID-19
CPT/HCPCS: G0378; 36415; 71045; 80048; 80053; 81001; 83605; 84484; 85025; 85610; 93005; 96365; 96367; 96375; 99283; J1030; Q9966; U0003

== ENCOUNTER → 2021-01-12 15:46 | Outpatient (CLI) | payer MEDICARE, SELFPAY ==
[2021-01-12 16:10] LABS: Basophils # 0.1 K/mm3 (0-0.2); Basophils % 0.7 % (0.1-2.0); Eosinophils # 0.1 K/mm3 (0.0-0.4); Eosinophils % 0.7 % (0.1-12.0); Hematocrit 43.6 % (37.0-47.0); Hemoglobin 14.1 g/dL (12.2-16.2); Lymphocytes # 1.9 K/mm3 (0.7-4.5); Lymphocytes % 20.3 % (10-50); Mean Corpuscular HGB Conc 32.2 g/dL (31.8-35.4); Mean Corpuscular Hemoglobin 31.8 pg (27.0-31.2); Mean Corpuscular Volume 98.7 fl (81-99); Mean Platelet Volume 8.3 fl (7.4-10.4); Monocytes # 0.6 K/mm3 (0.1-1.0); Monocytes % 6.3 % (1.7-9.3); Neutrophils # 6.6 K/mm3 (1.8-7.8); Neutrophils % 71.9 % (37.0-80.0); Platelet Count 317 K/mm3 (142-424); Red Blood Count 4.42 M/mm3 (4.20-5.40); Red Cell Distribution Width 13.7 % (11.5-17.5); White Blood Count 9.2 K/mm3 (4.8-10.8)
[2021-01-12 17:49] LABS: Alanine Aminotransferase 40 U/L (12-78); Albumin Level 4.4 g/dl (3.5-5.0); Albumin/Globulin Ratio 1.6 (1.1-1.8); Alkaline Phosphatase 82 U/L (38-126); Anion Gap 17.2 mEq/L (5-15); Aspartate Amino Transferase 29 U/L (14-36); Bilirubin,Total 0.3 mg/dl (0.2-1.3); Blood Urea Nitrogen 14 mg/dl (7-17); Carbon Dioxide 25 mmol/L (22.0-30.0); Chloride 99 mmol/L (98-107); Estimated Glomerular Filt Rate 81 ml/min (>60); GFR (African American) 98 ML/MIN (>60); Globulin 2.7 g/dL (1.3-3.2); Glucose 105 mg/dl (74-100); Magnesium 1.8 mg/dl (1.6-2.3); Potassium 4.2 mmoL/L (3.5-5.1); Sodium 137 mmol/L (136-145); Total Protein,Serum 7.1 g/dl (6.3-8.2)
== END ==
PROVIDERS: Visit Provider Internal Medicine Adolescent Medicine
DX: I48.0 Paroxysmal atrial fibrillation (principal)
CPT/HCPCS: 36415; 80053; 83735; 85025

== ENCOUNTER 2021-02-04 11:53 | Outpatient (POV) | payer MEDICARE, SELFPAY ==
[2021-02-04 12:01] VITALS: BP 147/79; PULSE 84; RESP 18; O2SAT 98; BMI 25.0
--- NOTE | 2021-02-04 12:35 | HMH.PAINSOAP ---
[facility] Pain Management SOAP Note Subjective:: Patient is a pleasant 80-year-old white female who presents today for follow-up after bilateral SI joint injections. Patient says she got great relief with the injections. She rates her pain a 1 out of 10 to her low back and hips. She is having pain in her bilateral lower extremities, however. She is currently on gabapentin 100 mg 1 tablet p.o. 3 times daily. She says that the medication does work for her, however, she feels that she is having worsening pain in her legs with ambulation. We did discuss increasing her dose to 300 mg 1 tablet p.o. twice daily. Patient did get a refill on her gabapentin on 01/25/2021. She will try taking 3 tablets of gabapentin this p.m. to see if she has any side effects. If the patient is able to tolerate the medication, we will increase the patient to gabapentin 300 mg 1 tablet p.o. twice daily. She will contact the clinic. Review of Systems General: No recent weight changes, no fever, no sleep disturbances Respiratory: No cough, no shortness of air, no recurring pulmonary infections Cardiovascular/peripheral vascular: No chest pain, no palpitations, no edema, no shortness of breath Gastrointestinal: No new onset incontinence, normal bowel movements reported Genitourinary: No new onset incontinence Musculoskeletal: Bilateral leg pain Psychiatric: [Normal mood/affect] Neurological: Weakness in bilateral lower extremities, walker for ambulation Objective:: Physical exam General: Alert and oriented x3, no acute distress, pleasant and cooperative, [on room air] Lungs: Respirations even and unlabored, symmetrical chest expansion Eyes: PERRL Musculoskeletal: Flexion and extension of bilateral lower extremities somewhat guarded secondary to pain, strength in upper and lower extremities [5/5], [antalgic gait noted] Neurological: Speech clear, [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 twice daily. She did get a refill on her gabapentin on 01/25/2021. This dose was gabapentin 100 mg 1 tablet p.o. 3 times daily. The patient will take 3 tablets tonight and over the course of the next few days to see if this gives her relief. If she gets significant relief without drowsiness or any side effects, we will increase the dose. If she is unable to tolerate 300 mg twice daily, we will continue the patient at previous dose. Risks and benefits of the medication have been explained in detail to the patient. If side effects do present with the medication, she has been advised to stop the medication immediately and call the clinic. The patient has been advised to consult with his/her primary care provider and pharmacist regarding drug-drug interaction of medications currently prescribed. Patient has been instructed to contact the clinic with any concerns before the next appointment. Dr. Mccarthy has reviewed this note and agrees with this plan of care. This note was dictated using voice recognition software and make contain errors or omissions. [facility] History I have reviewed the patient's past medical history: Yes Medical History: Reports:: Arrhythmia, Atrial Fibrillation, Cardiomyopathy, Congestive Heart Failure, Coronary Artery Disease, Cerebrovascular Accident, Gastrointestinal Bleed, Hyperlipidemia, Hypertension, Internal Pacemaker, Myocardial Infarction, Palpitations, Valvular Heart Disease Denies:: Cancer, Diabetes Mellitus Type 1, Diabetes Mellitus Type 2, MRSA, Seizures *Have you ever received a pneumonia vaccine?: Yes *Have you received a flu vaccine this season?: No Other Medical History: Reports: Anemia, Arthritis, Hypothyroidism, Thyroid Disease. Denies: Blood Transfusion Reaction Other Surgeries: Yes: Cardiac Surgery, Cholecystectomy, Pacemaker, Skin Cancer Excision
[2021-02-04 16:48] LABS: PHA INR Fingerstick 2.9 (0.9-1.1)
== END 2021-02-04 16:59 | disposition home or self-care (01) ==
PROVIDERS: Internal Medicine Adolescent Medicine; PCP Internal Medicine Adolescent Medicine; Visit Provider Clinical Nurse Specialist Family Health
DX: M51.16 Intervertebral disc disorders with radiculopathy, lumbar region (principal); G62.9 Polyneuropathy, unspecified; M46.1 Sacroiliitis, not elsewhere classified; Z86.73 Personal history of transient ischemic attack (TIA), and cerebral infarction without residual deficits; Z79.01 Long term (current) use of anticoagulants
CPT/HCPCS: 85610; 99211; 99212; G0463

== ENCOUNTER 2021-03-05 13:56 | Outpatient (CLI) | payer MEDICARE, SELFPAY ==
[2021-03-05 14:20] LABS: PHA INR Fingerstick 2.7 (0.9-1.1)
== END 2021-03-05 14:22 | disposition home or self-care (01) ==
LOC: ACC 13:57
PROVIDERS: PCP Internal Medicine Adolescent Medicine; Visit Provider Internal Medicine Adolescent Medicine
DX: Z51.81 Encounter for therapeutic drug level monitoring (principal); Z79.01 Long term (current) use of anticoagulants
CPT/HCPCS: 85610; 99211; G0463

== ENCOUNTER → 2021-03-23 15:47 | Outpatient (CLI) | payer MEDICARE, SELFPAY ==
--- NOTE | 2021-03-23 16:11 | XR_ITS ---
PROCEDURE INFORMATION: Exam: XR Chest Exam date and time: 03/23/2021 4:11 PM Age: 80 years old Clinical indication: Other: Fatigue; Additional info: Fatigue, unspecified type TECHNIQUE: Imaging protocol: XR of the chest. Views: 2 views. COMPARISON: CR XR CHEST PORTABLE 01/04/2021 6:54 PM FINDINGS: Tubes, catheters and devices: Unchanged left approach pacer. Lungs: Unremarkable. No consolidation. Pleural spaces: Unremarkable. No pleural effusion. No pneumothorax. Heart/Mediastinum: Mild cardiac enlargement again noted. Bones/joints: Unremarkable. IMPRESSION: No acute disease
[2021-03-23 16:34] LABS: Basophils # 0.1 K/mm3 (0-0.2); Basophils % 0.9 % (0.1-2.0); Eosinophils # 0.1 K/mm3 (0.0-0.4); Eosinophils % 0.9 % (0.1-12.0); Hematocrit 40.3 % (37.0-47.0); Hemoglobin 13.5 g/dL (12.2-16.2); Lymphocytes # 1.3 K/mm3 (0.7-4.5); Lymphocytes % 20.8 % (10-50); Mean Corpuscular HGB Conc 33.4 g/dL (31.8-35.4); Mean Corpuscular Volume 92.9 fl (81-99); Mean Platelet Volume 8.5 fl (7.4-10.4); Monocytes # 0.5 K/mm3 (0.1-1.0); Monocytes % 7.3 % (1.7-9.3); Neutrophils # 4.4 K/mm3 (1.8-7.8); Neutrophils % 70.1 % (37.0-80.0); Platelet Count 314 K/mm3 (142-424); Red Blood Count 4.34 M/mm3 (4.20-5.40); Red Cell Distribution Width 13.1 % (11.5-17.5); White Blood Count 6.3 K/mm3 (4.8-10.8)
[2021-03-23 18:35] LABS: Alanine Aminotransferase 21 U/L (12-78); Albumin Level 4.5 g/dl (3.5-5.0); Albumin/Globulin Ratio 1.7 (1.1-1.8); Alkaline Phosphatase 66 U/L (38-126); Anion Gap 12.6 mEq/L (5-15); Aspartate Amino Transferase 30 U/L (14-36); Bilirubin,Total 0.4 mg/dl (0.2-1.3); Blood Urea Nitrogen 10 mg/dl (7-17); Calcium 9.1 mg/dl (8.4-10.2); Carbon Dioxide 26 mmol/L (22.0-30.0); Chloride 102 mmol/L (98-107); Cholesterol 231 mg/dl (140-200); Estimated Glomerular Filt Rate 81 ml/min (>60); GFR (African American) 98 ML/MIN (>60); Globulin 2.7 g/dL (1.3-3.2); Glucose 99 mg/dl (74-100); HDL Cholesterol 58 mg/dl (40-60); Potassium 4.6 mmoL/L (3.5-5.1); Sodium 136 mmol/L (136-145); Total Protein,Serum 7.2 g/dl (6.3-8.2); Triglycerides 157 mg/dl (30-150); VLDL Cholesterol 31 mg/dL (0-40)
[2021-03-23 18:43] LABS: NT Pro Brain Natriuretic Pep. 1250 pg/mL (0-450)
[2021-03-23 18:45] LABS: Direct LDL Cholesterol 145.37 mg/dL (100-129)
[2021-03-23 19:04] LABS: Thyroid Stimulating Hormone 2.11 uIU/mL (0.465-4.68)
== END ==
PROVIDERS: PCP Internal Medicine Adolescent Medicine; Visit Provider Internal Medicine Adolescent Medicine
DX: I10 Essential (primary) hypertension (principal); E03.9 Hypothyroidism, unspecified; R53.83 Other fatigue; R06.02 Shortness of breath
CPT/HCPCS: 36415; 71046; 80053; 80061; 83880; 84443; 85025

== ENCOUNTER → 2021-04-22 11:02 | Outpatient (POV) | payer MEDICARE, SELFPAY ==
--- NOTE | 2021-04-22 12:30 | HMH.VVPMSO ---
[facility] PM Virtual Visit SOAP Consent for virtual visit:: With the recent concerns about the COVID-19, we are trying to minimize exposure to you by shifting to telehealth appointments whenever possible. It restricts me from seeing you in person, but the trade off is protecting you during this pandemic. Can you see and hear me okay, and do you consent to this option? If not, I would be happy to see if we can reschedule your appointment in the future, when feasible. Has patient consented to this virtual visit?: Yes Subjective:: Patient is a 80-year-old white female who is following up via telehealth visit. She recently underwent bilateral SI joint injections. We also managed patient with gabapentin 300 mg 1 tablet p.o. twice daily she rates her pain a 3 out of 10 today. She says that the medication is helping significantly with her low back and bilateral lower extremity pain. Overall she is doing well with the medicine. Leroy #[id number] has been reviewed and is appropriate. Drug screen is appropriate. Morphine equivalent is 0. Review of Systems General: No recent weight changes, no fever, no sleep disturbances Respiratory: No cough, no shortness of air, no recurring pulmonary infections Cardiovascular/peripheral vascular: No chest pain, no palpitations, no edema, no shortness of breath Gastrointestinal: No new onset incontinence, normal bowel movements reported Genitourinary: No new onset incontinence Musculoskeletal: Chronic low back pain with bilateral lower extremity pain Psychiatric: [Normal mood/affect] Neurological: [Denies weakness in extremities], [denies balance issues] Objective:: Physical exam General: Alert and oriented x3, no acute distress, pleasant and cooperative Assessment:: Degenerative disc disease lumbar spine with lumbar radiculopathy symptoms, sacroiliitis, peripheral neuropathy Plan:: Patient is doing well overall since her SI injections. We will continue patient on gabapentin 300 g 1 tablet p.o. twice daily. We will give the patient 3 months of medication see her back in the clinic in 3 months. Risks and benefits of the medication have been explained in detail to the patient. The patient does understand the risk of dependence on the medication when given over a prolonged period. Patient has been advised of risks of oversedation with the prescribed medication. The patient has been advised to consult with his/her primary care provider and pharmacist regarding drug-drug interaction of medications currently prescribed. Patient has been prescribed a controlled substance after being counseled on the medication, medication safety, and possible side effects. LEROY report has been obtained and reviewed prior to prescription and found to be appropriate. Opioid contract was reviewed and signed by the patient, and that they have agreed to all of the terms set forth by our compliance program. Patient has been instructed to contact the clinic with any concerns before the next appointment. Dr. Mccarthy has reviewed this note and agrees with this plan of care. This note was dictated using voice recognition software and make contain errors or omissions. Time In:: 11:30 Time Out:: 11:45 [facility] History I have reviewed the patient's past medical history: Yes Medical History: Reports:: Arrhythmia, Atrial Fibrillation, Cardiomyopathy, Congestive Heart Failure, Coronary Artery Disease, Cerebrovascular Accident, Gastrointestinal Bleed, Hyperlipidemia, Hypertension, Internal Pacemaker, Myocardial Infarction, Palpitations, Valvular Heart Disease Denies:: Cancer, Diabetes Mellitus Type 1, Diabetes Mellitus Type 2, MRSA, Seizures *Have you ever received a pneumonia vaccine?: Yes *Have you received a flu vaccine this season?: No Other Medical History: Reports: Anemia, Arthritis, Hypothyroidism, Thyroid Disease. Denies: Blood Transfusion Reaction Other Surgeries: Yes: Cardiac Surgery, Cholecystectomy, Pacemaker, Ski
== END ==
PROVIDERS: Visit Provider Clinical Nurse Specialist Family Health
DX: M51.16 Intervertebral disc disorders with radiculopathy, lumbar region (principal); M46.1 Sacroiliitis, not elsewhere classified; G62.9 Polyneuropathy, unspecified
CPT/HCPCS: 99212; G0463

== ENCOUNTER → 2021-05-07 12:29 | Outpatient (CLI) | payer MEDICARE, SELFPAY ==
--- NOTE | 2021-05-07 12:30 | CA_ITS ---
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, CVA 2D Dimensions IVSd 1.11 cm F: 0.6-1.0 LVEF (Visual) 32.00 % PWd 1.03 cm F: 0.6 - 1.0 LA Volume 74.20 mL LVDd 4.28 cm F: 3.9 - 5.3 LA Volume Index [id number] mL/m2 (M/F) 16-34 LVDs 3.64 cm F: 2.2 - 3.5 Aortic Root 2.68 cm F: 2.7 - 3.3 Left Atrium 4.07 cm F: 2.7 - 3.8 LVOT 1.93 cm (M/F) 1.5-2.5 M-Mode Dimensions RVDd 3.21 cm (0.9-2.6) LA Diam 4.47 cm (1.9-4.0) LVDd 3.96 cm (3.5-5.7) Ao Diam 2.80 cm (2.0-3.7) LVDs 3.14 cm (3.5-5.7) IVSd 0.93 cm (0.6-1.1) PWd 0.89 cm (0.6-1.1) EF (Teich) 42.80% EPSs 1.26 cm FS 20.70% EDV (Teich) 68.30 mL TAPSE 1.15 (<1.7) ESV (Teich) 39.10 mL LV Diastology E Decel Time 237.00 (160-240 msec) E/A Ratio 2.90 MED E' 10.50 (< 7 cm/sec) MED A' 3.30 cm/s E'/MED E' Ratio 8.50 (>14) LAT E' 12.90 (<10 cm/sec) LAT A' 8.60 cm/s E/LAT E' Ratio 6.91 (>14) Pulm Vein s 60.00 cm/sec Aortic Valve LVOT Max 37.00 (70-110 cm/s) LVOT VTI 5.92 cm AoV Peak [place]. 106.00 (50-130 cm/s) AO Peak GR. 4.50 mmHg AO Mean GR. 2.30 (<5 mmHg) AO VTI 18.12 (18-25 cm) JULISA (VTI) 0.96 (2.5-4.5 cm2) Mitral Valve MV E Max [place]. 89.00 (40-130 cm/s) MV A Velocity 31.00 (40-130 cm/s) E/A Ratio 2.90 MV Decel. Time 237.00 (160-240 ms) MV Mean Gr. 1.80 (<2mmHg) MV PHT 69.00 ms Pulmonary Valve PV Peak Velocity 61.00 (50-150 cm/s) IL End VMAX 186.00 cm/s Tricuspid Valve TR P. Velocity 233.00 cm/s RAP Estimate 10.00 mmHg RVSP 31.80 mmHg Left Ventricle Left atrium is moderately enlarged, left ventricle is normal size, mild concentric left ventricular hypertrophy, visually estimated ejection fraction approximately 45%, there is abnormal septal motion. Diastolic parameters are inconclusive. Right Ventricle Right atrium and right ventricle moderately enlarged, there is an AICD lead seen traversing from right atrium and right ventricle. Aortic Valve Aortic valve is minimally thickened and fibrosed, there is no aortic stenosis or aortic insufficiency. Mitral Valve Historically patient has a mitral valve ring, there is no significant mitral inflow obstruction, there is mild mitral regurgitation. Tricuspid Valve Tricuspid valve leaflets are minimally thickened, there is moderate tricuspid regurgitation, calculated right ventricular systolic pressure 31 mmHg. Pulmonic Valve Pulmonic valve is poorly visualized. Great Vessels Aortic root is normal size. Inferior vena cava normal size with normal inspiratory collapse. Pericardium No significant pericardial effusion noted. Conclusion 1. Moderate biatrial enlargement, normal left ventricular size, mild concentric left ventricular hypertrophy, visually estimated ejection fraction 45%, there is abnormal septal motion, diastolic parameters are inconclusive. 2. Moderately enlarged right ventricle with normal contractility. AICD lead seen in the right ventricle. 3. Historically patient has mitral valve ring, there is no significant mitral inflow obstruction, there is mild mitral regurgitation. 4. Moderate tricuspid regurgitation, calculated right ventricular systolic pressure 3
== END ==
PROVIDERS: PCP Internal Medicine Adolescent Medicine; Visit Provider Urology
DX: R06.00 Dyspnea, unspecified (principal)
CPT/HCPCS: 93306

== ENCOUNTER → 2021-05-13 10:08 | Outpatient (CLI) | payer MEDICARE, SELFPAY ==
[2021-05-13 10:53] LABS: INR 1.88 (0.9-1.1); Prothrombin Time 20.3 seconds (10.1-12.5)
[2021-05-13 11:52] LABS: Chloride 102 mmol/L (98-107); Potassium 4.2 mmoL/L (3.5-5.1); Sodium 139 mmol/L (136-145)
[2021-05-13 11:55] LABS: Anion Gap 13.2 mEq/L (5-15); Blood Urea Nitrogen 10 mg/dl (7-17); Carbon Dioxide 28 mmol/L (22.0-30.0); Estimated Glomerular Filt Rate 81 ml/min (>60); GFR (African American) 98 ML/MIN (>60)
[2021-05-13 11:56] LABS: Calcium 9.5 mg/dl (8.4-10.2); Glucose 99 mg/dl (74-100)
== END ==
PROVIDERS: Internal Medicine Adolescent Medicine; Visit Provider Urology
DX: E78.2 Mixed hyperlipidemia (principal); I10 Essential (primary) hypertension; I48.20 Chronic atrial fibrillation, unspecified; R06.00 Dyspnea, unspecified; Z86.73 Personal history of transient ischemic attack (TIA), and cerebral infarction without residual deficits; Z95.810 Presence of automatic (implantable) cardiac defibrillator
CPT/HCPCS: 36415; 80048; 85610

== ENCOUNTER → 2021-05-20 11:20 | Outpatient (CLI) | payer MEDICARE, SELFPAY ==
--- NOTE | 2021-05-20 11:27 | XR_ITS ---
FINAL REPORT CLINICAL HISTORY: PELVIC PAIN FINDINGS: SACRUM/COCCYX MIN 2 VIEWS Three views were obtained. There is no acute fracture or dislocation. The joint spaces are intact. There is no soft tissue abnormality. IMPRESSION: No acute bony abnormality. Reviewed, Interpreted and Dictated by Riacrdo Butt III, MD Transcribed by Valerie Chicas Authenticated by Ricardo Butt III, MD on 05/20/2021 01:00:30 PM [facility]
== END ==
PROVIDERS: PCP Internal Medicine Adolescent Medicine; Visit Provider Internal Medicine Adolescent Medicine
DX: R10.2 Pelvic and perineal pain (principal)
CPT/HCPCS: 72220

== ENCOUNTER → 2021-05-26 12:36 | Outpatient (CLI) | payer MEDICARE, SELFPAY ==
[2021-05-26 13:45] VITALS: PULSE 50; PULSE 54
== END ==
PROVIDERS: PCP Internal Medicine Adolescent Medicine; Visit Provider Internal Medicine Adolescent Medicine
DX: R06.00 Dyspnea, unspecified (principal)
CPT/HCPCS: 94060; 94640; 94727; 94729

== ENCOUNTER 2021-05-31 13:55 | Outpatient (CLI) | payer MEDICARE, SELFPAY ==
[2021-05-31 14:14] VITALS: BP 110/70; PULSE 79; RESP 16; TEMP 36.2; O2SAT 96
== END 2021-05-31 14:14 | disposition home or self-care (01) ==
LOC: INF 13:57
PROVIDERS: PCP Internal Medicine Adolescent Medicine; Visit Provider Internal Medicine Adolescent Medicine
DX: M85.89 Other specified disorders of bone density and structure, multiple sites (principal)
CPT/HCPCS: 96372; J0897

== ENCOUNTER 2021-06-10 10:10 | Outpatient (CLI) | payer MEDICARE, SELFPAY ==
[2021-06-10 10:28] LABS: PHA INR Fingerstick 2.8 (0.9-1.1)
== END 2021-06-10 10:32 | disposition home or self-care (01) ==
LOC: ACC 10:10
PROVIDERS: PCP Internal Medicine Adolescent Medicine; Visit Provider Internal Medicine Adolescent Medicine
DX: Z51.81 Encounter for therapeutic drug level monitoring (principal); Z79.01 Long term (current) use of anticoagulants
CPT/HCPCS: 85610; 99211; G0463

== ENCOUNTER 2021-07-22 09:23 | Outpatient (CLI) | payer MEDICARE, SELFPAY ==
[2021-07-22 10:00] LABS: PHA INR Fingerstick 2.2 (0.9-1.1)
== END 2021-07-22 10:05 | disposition home or self-care (01) ==
LOC: ACC 09:25
PROVIDERS: PCP Internal Medicine Adolescent Medicine; Visit Provider Internal Medicine Adolescent Medicine
DX: Z51.81 Encounter for therapeutic drug level monitoring (principal); Z79.01 Long term (current) use of anticoagulants
CPT/HCPCS: 85610; 99211; G0463

== ENCOUNTER → 2021-07-22 10:31 | Outpatient (POV) | payer MEDICARE, SELFPAY ==
--- NOTE | 2021-07-22 12:00 | HMH.PAINSOAP ---
[facility] Pain Management SOAP Note Subjective:: Patient is a pleasant 80 year old female who is here as a telehealth visit for medication refill and follow-up. Patient is currently being treated for degenerative disc disease of the lumbar spine with lumbar radiculopathy symptoms, sacroiliitis, peripheral neuropathy. Patient is being managed with gabapentin 300 mg twice a day. Patient denies any side effects from the medications. Patient denies any changes to the location and type of pain. Patient states that this is adequately helping manage his pain. Rates pain as 0 out of 10. [facility] number [id number] with an active morphine equivalent 0. Drug screens have been reviewed and appropriate. General: No recent weight changes, no fever, no sleep disturbances Respiratory: No cough, no shortness of air, no recurring pulmonary infections Cardiovascular/peripheral vascular: No chest pain, no palpitations, no edema, no shortness of breath Gastrointestinal: No new onset incontinence, normal bowel movements reported Genitourinary: No new onset incontinence Musculoskeletal: Low back pain Psychiatric: [Normal mood/affect] Neurological: [Denies weakness in extremities], [denies balance issues] Objective:: General: Alert and oriented x3, pleasant and cooperative Lungs: Patient is able to say complete sentences without dyspnea Neurological: Speech clear Assessment:: Degenerative disc disease of the lumbar spine with lumbar radiculopathy symptoms, sacroiliitis, peripheral neuropathy Plan:: We will continue the patient's gabapentin 300 mg twice a day. We will provide the patient with 3 months of refills. We would like to see the patient back in 3 months for follow-up and reevaluation of chronic pain syndrome. Patient has been advised of risks of oversedation with the prescribed medication. Narcan has been offered to the paitent in the event of oversedation. Patient has been advised that a family member should also be educated regarding administration of Narcan. Patient has been instructed to contact the clinic with any concerns before the next appointment. Dr. Mccarthy has reviewed this note and agrees with this plan of care. This note was dictated using voice recognition software and make contain errors or omissions. [facility] History Medical History: Reports:: Arrhythmia, Atrial Fibrillation, Cardiomyopathy, Congestive Heart Failure, Coronary Artery Disease, Cerebrovascular Accident, Gastrointestinal Bleed, Hyperlipidemia, Hypertension, Internal Pacemaker, Myocardial Infarction, Palpitations, Valvular Heart Disease Denies:: Cancer, Diabetes Mellitus Type 1, Diabetes Mellitus Type 2, MRSA, Seizures *Have you ever received a pneumonia vaccine?: Yes *Have you received a flu vaccine this season?: No Other Medical History: Reports: Anemia, Arthritis, Hypothyroidism, Thyroid Disease. Denies: Blood Transfusion Reaction Other Surgeries: Yes: Cardiac Surgery, Cholecystectomy, Pacemaker, Skin Cancer Excision Amputation: No Fractures: No - *Social History Smoking Status: Never smoker Alcohol Intake: never Alcohol Intake Frequency:: a few times a month Substance Use Type: other *Occupational Status:: unemployed Housing: house Household Members: spouse *Travel in the last 8 weeks: Inside the [facility] Family Hx:: Cancer
== END ==
PROVIDERS: Visit Provider Student in an Organized Health Care Education/Training Program
DX: M51.16 Intervertebral disc disorders with radiculopathy, lumbar region (principal); M46.1 Sacroiliitis, not elsewhere classified; G62.9 Polyneuropathy, unspecified
CPT/HCPCS: 99212; G0463

== ENCOUNTER 2021-08-31 12:26 | Outpatient (CLI) | payer MEDICARE, SELFPAY ==
[2021-08-31 12:45] LABS: PHA INR Fingerstick 2.2 (0.9-1.1)
== END 2021-08-31 12:47 | disposition home or self-care (01) ==
LOC: ACC 12:28
PROVIDERS: PCP Internal Medicine Adolescent Medicine; Visit Provider Internal Medicine Adolescent Medicine
DX: Z51.81 Encounter for therapeutic drug level monitoring (principal); Z79.01 Long term (current) use of anticoagulants
CPT/HCPCS: 85610; 99211; G0463

== ENCOUNTER → 2021-09-24 14:54 | Outpatient (CLI) | payer MEDICARE, SELFPAY ==
--- NOTE | 2021-09-24 14:57 | CT_ITS ---
FINAL REPORT TECHNIQUE: Axial images through the abdomen and pelvis were performed without contrast. This study was performed with techniques to keep radiation doses as low as reasonably achievable, (ALARA). Individualized dose reduction techniques using automated exposure control or adjustment of mA and/or kV according to the patient's size were employed. CLINICAL HISTORY: HEMATURIA, UNSPECIFIED TYPE, lower pelvic pain FINDINGS: ABDOMEN: There is mild bibasilar scarring. The heart size is normal. There is a 15 mm low-attenuation mass in the left hepatic lobe which cannot be accurately characterized without contrast and may represent a cyst or hemangioma. The gallbladder is not seen, may be surgically absent. The spleen is normal. No adrenal mass is identified. The aorta is normal in caliber. There is no significant free fluid or adenopathy. There is mild left renal scarring. There is no nephrolithiasis. There is no hydronephrosis. There are mild vascular calcifications. PELVIS: The appendix is not identified. There is a moderate to large amount of retained stool in the colon worrisome for constipation peer The urinary bladder is unremarkable. There is a small amount of air in the vagina of uncertain significance. There is no significant free fluid or adenopathy. IMPRESSION: No hydronephrosis or nephrolithiasis. Low-attenuation mass in the left hepatic lobe may represent cyst or hemangioma. Constipation. Reviewed, Interpreted and Dictated by Ricardo Butt III, MD Transcribed by Roxana Gilman Authenticated by Ricardo Butt III, MD on 09/24/2021 03:48:[address] [facility]
== END ==
PROVIDERS: PCP Internal Medicine Adolescent Medicine; Visit Provider Internal Medicine Adolescent Medicine
DX: R31.9 Hematuria, unspecified (principal)
CPT/HCPCS: 74176

== ENCOUNTER 2021-09-28 12:54 | Outpatient (CLI) | payer MEDICARE, SELFPAY ==
[2021-09-28 14:19] LABS: Basophils # 0.1 K/mm3 (0-0.2); Basophils % 0.9 % (0.1-2.0); Eosinophils % 0.6 % (0.1-12.0); Hematocrit 39.7 % (37.0-47.0); Hemoglobin 13.5 g/dL (12.2-16.2); Lymphocytes # 1.2 K/mm3 (0.7-4.5); Lymphocytes % 19.6 % (10-50); Mean Corpuscular HGB Conc 34.1 g/dL (31.8-35.4); Mean Corpuscular Hemoglobin 30.7 pg (27.0-31.2); Mean Platelet Volume 8.4 fl (7.4-10.4); Monocytes # 0.7 K/mm3 (0.1-1.0); Monocytes % 11.9 % (1.7-9.3); Neutrophils # 4.1 K/mm3 (1.8-7.8); Neutrophils % 67.1 % (37.0-80.0); Platelet Count 328 K/mm3 (142-424); Red Blood Count 4.41 M/mm3 (4.20-5.40); Red Cell Distribution Width 14.7 % (11.5-17.5); White Blood Count 6.1 K/mm3 (4.8-10.8)
[2021-09-28 15:03] LABS: PHA INR Fingerstick 1.7 (0.9-1.1)
[2021-09-28 15:12] LABS: Chloride 94 mmol/L (98-107); Potassium 4.6 mmoL/L (3.5-5.1); Sodium 132 mmol/L (136-145)
[2021-09-28 15:15] LABS: Blood Urea Nitrogen 13 mg/dl (7-17); Estimated Glomerular Filt Rate 81 ml/min (>60); GFR (African American) 97 ML/MIN (>60)
[2021-09-28 15:16] LABS: Anion Gap 15.6 mEq/L (5-15); Calcium 10.4 mg/dl (8.4-10.2); Carbon Dioxide 27 mmol/L (22.0-30.0); Glucose 121 mg/dl (74-100)
[2021-09-28 15:16] LABS: INR 1.69 (0.9-1.1); Prothrombin Time 18.4 seconds (10.1-12.5)
== END 2021-09-28 15:04 | disposition home or self-care (01) ==
PROVIDERS: Internal Medicine Adolescent Medicine; PCP Pharmacist; Visit Provider Internal Medicine Adolescent Medicine
DX: I10 Essential (primary) hypertension (principal); Z51.81 Encounter for therapeutic drug level monitoring; Z79.01 Long term (current) use of anticoagulants; R53.83 Other fatigue
CPT/HCPCS: 36415; 80048; 85025; 85610; 99211; G0463

== ENCOUNTER 2021-10-05 15:00 | Emergency (ER) | payer MEDICARE, SELFPAY ==
[2021-10-05] VITALS (8 sets, daily range): BP systolic 118–148; BP diastolic 80–98; PULSE 77–126; RESP 13–20; TEMP 36.7; O2SAT 92–98; BMI 24.5
--- NOTE | 2021-10-05 15:02 | PC.NURSE ---
Mildred Foster RN at BS
--- NOTE | 2021-10-05 15:05 | ECG_ITS ---
APPROVED REPORT Exam: Resting ECG HR:119 bpm ECG Measurements Heart Rate 119 AXES QRSd 134 QRS -67 QT 354 T 61 QTc 425 Conclusion ATRIAL FIBRILLATION WITH RAPID VENTRICULAR RESPONSE WITH ABERRANT CONDUCTION OR VENTRICULAR PREMATURE COMPLEXES RIGHT BUNDLE BRANCH BLOCK [120+ ms QRS DURATION, UPRIGHT V1, 40+ ms S IN I/aVL/V4/V5/V6] LEFT ANTERIOR FASCICULAR BLOCK [QRS AXIS <= -45, QR IN I, RS IN II] ABNORMAL ECG UNCONFIRMED REPORT Electronically signed by : Emeterio Camacho MD 10/05/2021 21:10:48
--- NOTE | 2021-10-05 15:12 | HMH.EDGENADL ---
ED Disposition Clinical Impression: Atrial fibrillation with rapid ventricular response, Weakness Headache Qualifiers: Headache type: unspecified Headache chronicity pattern: acute headache Intractability: intractable Qualified Code(s): R51.9 - Headache, unspecified Disposition: Home, Self-Care Condition on Discharge: Good Instructions: DI for Atrial Fibrillation, DI for Headache Additional Instructions: Continue your current medications and add digoxin starting tomorrow. Follow-up with Dr. Hart in his office on . Return to the emergency department if symptoms worsen. Prescriptions: Digoxin [Digoxin 0.125mg Tablet] 125 mcg PO DAILY #30 tab Transmission Status: Pending to [facility] Referrals: Mynor Bishop MD [Primary Care Provider] - - Critical Care Critical Care Time: No Attestation: On , the high probability of a clinically significant, sudden or life threatening deterioration of the following system(s) required my full and direct attention, intervention and personal management. The time I documented below is in addition to time spent performing reported procedures but includes the following listed in this critical care notation. Medical Decision Making - Pedro Pablo Inquiry Pt receiving controlled substance: No Vital Signs: 10/05/21 15:16 10/05/21 15:30 10/05/21 16:00 Temperature Temperature Source Pulse Rate 112 H 100 H Pulse Rate [Apical] 126 H Respiratory Rate 17 20 20 Blood Pressure 126/82 118/81 Blood Pressure [Right Arm] 118/92 H Blood Pressure Mean 93 90 Blood Pressure Mean [Right Arm] 100 02 Sat by Pulse Oximetry 96 96 96 Oxygen Delivery Method Room Air 10/05/21 16:07 10/05/21 16:31 10/05/21 17:00 Temperature 98.1 F Temperature Source Oral Pulse Rate 115 H 97 H Pulse Rate [Apical] Respiratory Rate 19 16 Blood Pressure 118/80 140/82 Blood Pressure [Right Arm] Blood Pressure Mean 91 87 Blood Pressure Mean [Right Arm] 02 Sat by Pulse Oximetry 96 92 L Oxygen Delivery Method - Lab Data Lab Results 10/05/21 15:09: SARS-CoV-2 (PCR) Not detected, Influenza A Untype (PCR) Not detected, Influenza Type B (PCR) Not detected 10/05/21 15:12: WBC 5.6, RBC 4.40, Hgb 13.2, Hct 39.7, MCV 90.2, MCH 30.0, MCHC 33.2, RDW 14.7, Plt Count 313, MPV 8.3, Neut % (Auto) 74.6, Lymph % (Auto) 14.9, [place] % (Auto) 8.3, Eos % (Auto) 0.9, Baso % (Auto) 1.4, Neut # (Auto) 4.2, Lymph # (Auto) 0.8, [place] # (Auto) 0.5, Eos # (Auto) 0.1, Baso # (Auto) 0.1 10/05/21 15:12: Sodium 129 L, Potassium 4.3, Chloride 95 L, Carbon Dioxide 22, Anion Gap 16.3 H, BUN 9, Creatinine 0.70, Estimated Creat Clear 46, Estimated GFR 81, Est GFR ( Amer) 97, Glucose 134 H, Calcium 9.7, Total Bilirubin 0.6, AST 32, ALT 27, Alkaline Phosphatase 97, Troponin I < 0.01, Total Protein 8.2, Albumin 5.1 H, Globulin 3.1, Albumin/Globulin Ratio 1.6 10/05/21 15:12: PT 20.5 H, INR 1.90 H 10/05/21 16:11: Urine Color Yellow, Urine Appearance Clear, Urine pH 6.0, Ur Specific [place] 1.025, Urine Protein Trace, Urine Glucose (UA) Negative, Urine Ketones Negative, Urine Blood Negative, Urine Nitrate Negative, Urine Bilirubin 1+ A, Urine Urobilinogen 0.2, Ur Leukocyte Esterase Negative, Urine RBC Occasional, Urine WBC 5-10, Ur Squamous Epith Cells 10-20, Urine Bacteria 1+ Result diagrams: 10/05/21 15:12 10/05/21 15:12 Orders (Tests/Meds): ED MEDICATIONS Discontinued Medications Generic Name Dose Route Start Last Admin Trade Name Freq PRN Reason Stop Dose Admin Hydrocodone Bitart/Acetaminophen 1 tab 10/05/21 17:39 10/05/21 17:46 Hydrocodone/Apap 5/325 Mg Tablet PO 10/05/21 17:40 1 tab ONCE ONE Administration Metoprolol Tartrate 5 mg 10/05/21 16:05 10/05/21 16:32 Metoprolol Tartrate 5mg/5ml Vial IV 10/05/21 16:06 5 mg ONCE ONE Administration ORDERS Category Date Time Status Troponin I Q3H Lab 10/05/21 18:30 Ordered Troponin I Q3H Lab 10/05/21 21
[2021-10-05 15:13] LABS: Coronavirus 19, PCR Not Detected (NotDetected); Influenza A, PCR Not Detected (NotDetected); Influenza B, PCR Not Detected (NotDetected)
--- NOTE | 2021-10-05 15:19 | XR_ITS ---
FINAL REPORT CLINICAL HISTORY: weakness FINDINGS: SINGLE VIEW CHEST The heart size is enlarged. There is a left subclavian pacemaker. The mediastinum is within normal limits. No acute pulmonary abnormality is identified. There is no evidence of pneumothorax. The bony thorax is intact. IMPRESSION: No acute cardiopulmonary process. Reviewed, Interpreted and Dictated by Ricardo Butt III, MD Transcribed by Kris Garcia Authenticated by Ricardo Butt III, MD on 10/05/2021 03:48:35 PM [facility]
--- NOTE | 2021-10-05 15:20 | PC.NURSE ---
ED MD at BS; family at BS
[2021-10-05 15:25] LABS: Basophils # 0.1 K/mm3 (0-0.2); Basophils % 1.4 % (0.1-2.0); Eosinophils # 0.1 K/mm3 (0.0-0.4); Eosinophils % 0.9 % (0.1-12.0); Hematocrit 39.7 % (37.0-47.0); Hemoglobin 13.2 g/dL (12.2-16.2); Lymphocytes # 0.8 K/mm3 (0.7-4.5); Lymphocytes % 14.9 % (10-50); Mean Corpuscular HGB Conc 33.2 g/dL (31.8-35.4); Mean Corpuscular Volume 90.2 fl (81-99); Mean Platelet Volume 8.3 fl (7.4-10.4); Monocytes # 0.5 K/mm3 (0.1-1.0); Monocytes % 8.3 % (1.7-9.3); Neutrophils # 4.2 K/mm3 (1.8-7.8); Neutrophils % 74.6 % (37.0-80.0); Platelet Count 313 K/mm3 (142-424); Red Cell Distribution Width 14.7 % (11.5-17.5); White Blood Count 5.6 K/mm3 (4.8-10.8)
[2021-10-05 15:32] LABS: Chloride 95 mmol/L (98-107); Potassium 4.3 mmoL/L (3.5-5.1); Sodium 129 mmol/L (136-145)
[2021-10-05 15:35] LABS: Alanine Aminotransferase 27 U/L (12-78); Albumin Level 5.1 g/dl (3.5-5.0); Albumin/Globulin Ratio 1.6 (1.1-1.8); Alkaline Phosphatase 97 U/L (38-126); Anion Gap 16.3 mEq/L (5-15); Aspartate Amino Transferase 32 U/L (14-36); Bilirubin,Total 0.6 mg/dl (0.2-1.3); Blood Urea Nitrogen 9 mg/dl (7-17); Calcium 9.7 mg/dl (8.4-10.2); Carbon Dioxide 22 mmol/L (22.0-30.0); Creatinine Clearance Estimated 46 mL/min (50-200); Estimated Glomerular Filt Rate 81 ml/min (>60); GFR (African American) 97 ML/MIN (>60); Globulin 3.1 g/dL (1.3-3.2); Glucose 134 mg/dl (74-100); Total Protein,Serum 8.2 g/dl (6.3-8.2)
[2021-10-05 15:37] LABS: Prothrombin Time 20.5 seconds (10.1-12.5)
[2021-10-05 15:48] LABS: Troponin I < 0.01 ng/ml (0.00-0.034)
--- NOTE | 2021-10-05 16:03 | CT_ITS ---
PROCEDURE INFORMATION: Exam: CT Head Without Contrast Exam date and time: 10/05/2021 4:11 PM Age: 81 years old Clinical indication: Pain; Other: Headache, on coumadin TECHNIQUE: Imaging protocol: Computed tomography of the head without contrast. Radiation optimization: All CT scans at this facility use at least one of these dose optimization techniques: automated exposure control; mA and/or kV adjustment per patient size (includes targeted exams where dose is matched to clinical indication); or iterative reconstruction. COMPARISON: No relevant prior studies available. FINDINGS: Brain: A large chronic right basal ganglia and acosta radiata infarct is present. A punctate focus of calcification along the superomedial margin of the encephalomalacia is noted. A chronic lacunar infarct is noted within the posterolateral left basal ganglia. There is no acute intracranial hemorrhage, cerebral edema, or midline shift. Chronic microvascular ischemic changes are seen in the periventricular white matter. Age-related cerebral and cerebellar volume loss is present. Cerebral ventricles: Moderate ex vacuo dilation of the right lateral ventricle is noted. Paranasal sinuses: There is no acute sinusitis. Mastoid air cells: The mastoid air cells are clear. Orbital cavities: The included orbital structures are unremarkable. Bones/joints: No acute fracture. Soft tissues: Unremarkable. Vasculature: Atherosclerotic calcifications are seen involving the cavernous carotid arteries. IMPRESSION: 1. No acute intracranial abnormality. 2. Chronic findings as discussed above.
--- NOTE | 2021-10-05 16:05 | PC.NURSE ---
Notified radiology of CT order
--- NOTE | 2021-10-05 16:08 | PC.NURSE ---
pt to restroom by wheelchair with assistance of family
--- NOTE | 2021-10-05 16:12 | PC.NURSE ---
pt returned from restroom with assistance from family without complications; UA sent to lab and patient taken to CT with instrument and control technician by lynnette
[2021-10-05 16:15] LABS: Microscopic, Urine URINE MICROSCOPIC (MICROSCOPIC)
--- NOTE | 2021-10-05 16:22 | PC.NURSE ---
pt returned from CT by stretcher with prior authorization technician; hooked back up to monitor; family at BS
--- NOTE | 2021-10-05 16:28 | PC.NURSE ---
Mildred Foster RN at BS
[2021-10-05 16:36] LABS: Appearance,Urine CLEAR (Clear); Blood, Urine Negative (Negative); Color,Urine YELLOW (Yellow); Glucose,Urine (UA) Negative (Negative); Ketones,Urine Negative (Negative); Leukocyte Esterase,Urine Negative (Negative); Nitrate,Urine Negative (Negative); Protein,Urine TRACE (Negative); Specific Gravity, Urine 1.025 (1.005-1.030); Urobilinogen,Urine 0.2 EU/dl (0.2)
[2021-10-05 16:39] LABS: Bilirubin,Urine 1+ (Negative)
[2021-10-05 16:55] LABS: Bacteria,Urine 1+ /lpf; RBC,Urine Occasional #/hpf (0-3)
--- NOTE | 2021-10-05 17:40 | PC.NURSE ---
DR MCCLELLAN SPEAKING WITH DR TEMPLE
== END 2021-10-05 18:29 | disposition home or self-care (01) ==
PROVIDERS: Emergency Provider Emergency Medicine; PCP Internal Medicine Adolescent Medicine
DX: I48.20 Chronic atrial fibrillation, unspecified (principal); R51.9 Headache, unspecified; R53.1 Weakness; Z79.01 Long term (current) use of anticoagulants; Z79.82 Long term (current) use of aspirin; Z79.899 Other long term (current) drug therapy; I48.91 Unspecified atrial fibrillation; I42.9 Cardiomyopathy, unspecified; I25.10 Atherosclerotic heart disease of native coronary artery without angina pectoris; E78.5 Hyperlipidemia, unspecified; I10 Essential (primary) hypertension; Z95.0 Presence of cardiac pacemaker
CPT/HCPCS: 70450; 71045; 80053; 81001; 84484; 85025; 85610; 93005; 96374; 96375; 99284; C9803; U0003; U0005

== ENCOUNTER 2021-10-07 11:08 | Observation (INO) | payer MEDICARE, SELFPAY ==
[2021-10-07] VITALS (16 sets, daily range): BP systolic 109–125; BP diastolic 59–98; PULSE 62–92; RESP 16–20; TEMP 35.9–36.6; O2SAT 95–98; BMI 24.0; BMI 26.2
--- NOTE | 2021-10-07 11:13 | ECG_ITS ---
APPROVED REPORT Exam: Resting ECG HR:95 bpm ECG Measurements Heart Rate 95 AXES QRSd 127 QRS -74 QT 343 T 65 QTc 396 Conclusion ATRIAL FIBRILLATION WITH ABERRANT CONDUCTION OR VENTRICULAR PREMATURE COMPLEXES RIGHT BUNDLE BRANCH BLOCK [120+ ms QRS DURATION, UPRIGHT V1, 40+ ms S IN I/aVL/V4/V5/V6] LEFT ANTERIOR FASCICULAR BLOCK [QRS AXIS <= -45, QR IN I, RS IN II] INFERIOR MYOCARDIAL INFARCTION , PROBABLY OLD [40+ ms Q WAVE AND/OR ST/T ABNORMALITY IN II/aVF] ABNORMAL ECG UNCONFIRMED REPORT Electronically signed by : Emeterio Camacho MD 10/07/2021 21:21:28
--- NOTE | 2021-10-07 11:17 | XR_ITS ---
FINAL REPORT CLINICAL HISTORY: cough, sob COMPARISON: October 05, 2021 FINDINGS: Cardiomegaly is noted. Postoperative changes are seen from median sternotomy. There is a left subclavian ICD. No acute pulmonary abnormality is identified. There is no pneumothorax. The bony thorax is intact. IMPRESSION: No acute cardiopulmonary process. Reviewed, Interpreted and Dictated by Ricardo Butt III, MD Transcribed by Romana Gomez Authenticated and [facility]
--- NOTE | 2021-10-07 11:39 | HMH.EDGENADL ---
ED Disposition Clinical Impression: Dehydration, Atrial fibrillation with RVR, Near syncope Disposition: Admitted As Inpatient Condition on Discharge: Fair Referrals: Provider,Referral, [Primary Care Provider] - - Critical Care Critical Care Time: No Attestation: On 10/07/21, the high probability of a clinically significant, sudden or life threatening deterioration of the following system(s) required my full and direct attention, intervention and personal management. The time I documented below is in addition to time spent performing reported procedures but includes the following listed in this critical care notation. Medical Decision Making - Medical Records Medical records reviewed: Yes: I reviewed the patient's medical records. - Pedro Pablo Inquiry Pt receiving controlled substance: No Vital Signs: 10/07/21 11:09 10/07/21 12:00 10/07/21 12:30 Temperature 97.8 F Temperature Source Oral Pulse Rate 92 H 73 Pulse Rate [Right Radial] 92 H Respiratory Rate 16 19 18 Blood Pressure 111/70 110/76 Blood Pressure [Right Arm] 117/62 Blood Pressure Mean 82 Blood Pressure Mean [Right Arm] 80 Blood Pressure Source [Right Arm] Automatic Cuff Blood Pressure Position [Right Arm] Sitting 02 Sat by Pulse Oximetry 98 95 96 Oxygen Delivery Method Room Air 10/07/21 13:00 10/07/21 13:31 10/07/21 14:00 Temperature Temperature Source Pulse Rate 64 76 76 Pulse Rate [Right Radial] Respiratory Rate 20 18 20 Blood Pressure 109/59 L 114/60 116/64 Blood Pressure [Right Arm] Blood Pressure Mean 75 65 81 Blood Pressure Mean [Right Arm] Blood Pressure Source [Right Arm] Blood Pressure Position [Right Arm] 02 Sat by Pulse Oximetry 98 97 97 Oxygen Delivery Method 10/07/21 14:34 10/07/21 15:00 Temperature Temperature Source Pulse Rate 62 63 Pulse Rate [Right Radial] Respiratory Rate 20 18 Blood Pressure 120/98 H 121/72 Blood Pressure [Right Arm] Blood Pressure Mean 103 88 Blood Pressure Mean [Right Arm] Blood Pressure Source [Right Arm] Blood Pressure Position [Right Arm] 02 Sat by Pulse Oximetry 96 96 Oxygen Delivery Method - Lab Data Lab Results 10/07/21 11:20: WBC 7.3 D, RBC 4.54, Hgb 14.0, Hct 41.7, MCV 91.8, MCH 30.8, MCHC 33.6, RDW 14.6, Plt Count 328, MPV 8.5, Neut % (Auto) 71.3, Lymph % (Auto) 16.0, [place] % (Auto) 11.0 H, Eos % (Auto) 0.3, Baso % (Auto) 1.4, Neut # (Auto) 5.2, Lymph # (Auto) 1.2, [place] # (Auto) 0.8, Eos # (Auto) 0.0, Baso # (Auto) 0.1 10/07/21 11:20: PT 19.8 H, INR 1.83 H, APTT 36.2 H 10/07/21 11:20: Sodium 130 L, Potassium 4.6, Chloride 98, Carbon Dioxide 24, Anion Gap 12.6, BUN 10, Creatinine 0.70, Estimated Creat Clear 45, Estimated GFR 81, Est GFR ( Amer) 97, Glucose 126 H, Calcium 9.7, Total Bilirubin 0.7, AST 45 H D, ALT 34 D, Alkaline Phosphatase 104, Troponin I < 0.01, NT-Pro-B Natriuret Pep 1390 H, Total Protein 8.2, Albumin 4.9, Globulin 3.3 H, Albumin/Globulin Ratio 1.5, Lipase 85, TSH 0.90 10/07/21 11:20: Digoxin 2.80 H* 10/07/21 11:40: Lactate 1.1 10/07/21 11:41: SARS-CoV-2 (PCR) Not detected, Influenza A Untype (PCR) Not detected, Influenza Type B (PCR) Not detected 10/07/21 14:33: Troponin I < 0.01 Result diagrams: 10/07/21 11:20 10/07/21 11:20 Orders (Tests/Meds): ED MEDICATIONS Generic Name Dose Route Start Last Admin Trade Name Freq PRN Reason Stop Dose Admin Sodium Chloride 10 ml 10/07/21 11:36 Sodium Chloride 0.9% 10ml Flush Syringe IV 11/06/21 11:35 NEEDED PRN Maintain IV Site Discontinued Medications Generic Name Dose Route Start Last Admin Trade Name Freq PRN Reason Stop Dose Admin Sodium Chloride 1,000 mls @ 999 mls/hr 10/07/21 11:30 10/07/21 11:44 Sod Chlor 0.9% 1000ml Bag IV 10/07/21 12:30 999 mls/hr .Q1H1M JESSY Administration Ondansetron HCl 4 mg 10/07/21 11:17 10/07/21 11:44 Ondansetron 4mg/2ml Vial IV 10/07/21 11:18 4 mg ONCE ONE Administ
[2021-10-07 11:47] LABS: Coronavirus 19, PCR Not Detected (NotDetected); Influenza A, PCR Not Detected (NotDetected); Influenza B, PCR Not Detected (NotDetected)
[2021-10-07 11:55] LABS: Basophils # 0.1 K/mm3 (0-0.2); Basophils % 1.4 % (0.1-2.0); Chloride 98 mmol/L (98-107); Eosinophils % 0.3 % (0.1-12.0); Hematocrit 41.7 % (37.0-47.0); Lymphocytes # 1.2 K/mm3 (0.7-4.5); Mean Corpuscular HGB Conc 33.6 g/dL (31.8-35.4); Mean Corpuscular Hemoglobin 30.8 pg (27.0-31.2); Mean Corpuscular Volume 91.8 fl (81-99); Mean Platelet Volume 8.5 fl (7.4-10.4); Monocytes # 0.8 K/mm3 (0.1-1.0); Neutrophils # 5.2 K/mm3 (1.8-7.8); Neutrophils % 71.3 % (37.0-80.0); Platelet Count 328 K/mm3 (142-424); Red Blood Count 4.54 M/mm3 (4.20-5.40); Red Cell Distribution Width 14.6 % (11.5-17.5); Sodium 130 mmol/L (136-145); White Blood Count 7.3 K/mm3 (4.8-10.8)
[2021-10-07 11:56] LABS: Potassium 4.6 mmoL/L (3.5-5.1)
[2021-10-07 11:58] LABS: Alanine Aminotransferase 34 U/L (12-78); Anion Gap 12.6 mEq/L (5-15); Aspartate Amino Transferase 45 U/L (14-36); Blood Urea Nitrogen 10 mg/dl (7-17); Carbon Dioxide 24 mmol/L (22.0-30.0); Creatinine Clearance Estimated 45 mL/min (50-200); Estimated Glomerular Filt Rate 81 ml/min (>60); GFR (African American) 97 ML/MIN (>60)
[2021-10-07 11:59] LABS: Albumin Level 4.9 g/dl (3.5-5.0); Albumin/Globulin Ratio 1.5 (1.1-1.8); Alkaline Phosphatase 104 U/L (38-126); Bilirubin,Total 0.7 mg/dl (0.2-1.3); Calcium 9.7 mg/dl (8.4-10.2); Globulin 3.3 g/dL (1.3-3.2); Glucose 126 mg/dl (74-100); Lipase 85 U/L (23-300); Total Protein,Serum 8.2 g/dl (6.3-8.2)
[2021-10-07 12:02] LABS: Lactic Acid 1.1 mmol/L (0.7-2.1)
[2021-10-07 12:08] LABS: NT Pro Brain Natriuretic Pep. 1390 pg/mL (0-450)
[2021-10-07 12:12] LABS: Troponin I < 0.01 ng/ml (0.00-0.034)
[2021-10-07 12:15] LABS: Activated Partial Thrombo Time 36.2 seconds (22.8-30.6); INR 1.83 (0.9-1.1); Prothrombin Time 19.8 seconds (10.1-12.5)
--- NOTE | 2021-10-07 13:17 | CT_ITS ---
FINAL REPORT CLINICAL HISTORY: vomiting, abd pain COMPARISON: September 24, 2021 FINDINGS: Axial CT images of the abdomen and pelvis were obtained without intravenous contrast. Coronal reformatted images were also obtained.This study was performed with techniques to keep radiation doses as low as reasonably achievable (ALARA). Individualized dose reduction techniques using automated exposure control or adjustment of mA and/or kV according to the patient's size were employed. Abdomen: There is mild scarring in the lung bases. There is a 15 mm stable probable cyst in the left hepatic lobe. There is mild bilateral renal scarring. The gallbladder surgically absent. The spleen and pancreas have an unremarkable, unenhanced appearance. No inflammatory process is identified. There are mild vascular calcifications. There is no evidence of adenopathy. Pelvis: Images of the pelvis reveal no evidence of ureteral dilation or ureteral stone. The appendix is not visualized. No mass or abnormal fluid collection is identified. There is a moderate to large amount of retained stool. IMPRESSION: Stable 15 mm probable cyst in the left hepatic lobe. No acute inflammatory process. Reviewed, Interpreted and Dictated by Ricardo Butt III, MD Transcribed by Romana Gomez Authenticated and [facility]
[2021-10-07 15:06] LABS: Troponin I < 0.01 ng/ml (0.00-0.034)
--- NOTE | 2021-10-07 15:12 | PC.NURSE ---
notified ER pt CT scan is resulted
--- NOTE | 2021-10-07 15:20 | PC.NURSE ---
waiting head of conservation back from Dr. Bishop, office staff states he is with a pt
--- NOTE | 2021-10-07 15:25 | PC.NURSE ---
checked on pt at this time, states she is hungry. SCARLET CALL states okay to feed pt. contacted dietary to order pt a tray
--- NOTE | 2021-10-07 15:38 | PC.NURSE ---
helped pt reposition in bed, she is sitting up in bed eating at this time.
--- NOTE | 2021-10-07 15:58 | PC.NURSE ---
Care management called for admission
--- NOTE | 2021-10-07 16:06 | PC.NURSE ---
per dimension warehouse supervisor pt is assigned to room 203, pt is an acute admission
--- NOTE | 2021-10-07 16:33 | PC.NURSE ---
report called to victor hugo adame on second floor at this time. States she will send staff down to transport pt.
--- NOTE | 2021-10-07 16:54 | PC.NURSE ---
Pt arrived to the floor at this time
[2021-10-07 18:28] LABS: Troponin I < 0.01 ng/ml (0.00-0.034)
[2021-10-07 23:38] LABS: Microscopic, Urine URINE MICROSCOPIC (MICROSCOPIC)
[2021-10-07 23:42] LABS: Appearance,Urine CLEAR (Clear); Bilirubin,Urine Negative (Negative); Blood, Urine TRACE-L (Negative); Color,Urine YELLOW (Yellow); Glucose,Urine (UA) Negative (Negative); Ketones,Urine Negative (Negative); Leukocyte Esterase,Urine TRACE (Negative); Nitrate,Urine Negative (Negative); PH,Urine 5.5 (5.0-8.5); Protein,Urine Negative (Negative); Specific Gravity, Urine <= 1.005 (1.005-1.030); Urobilinogen,Urine 0.2 EU/dl (0.2)
[2021-10-07 23:54] LABS: Bacteria,Urine Trace /lpf
[2021-10-08] VITALS (10 sets, daily range): BP systolic 106–130; BP diastolic 50–73; PULSE 69–107; RESP 16–18; TEMP 36.4–36.7; O2SAT 94–97; BMI 26.4
--- NOTE | 2021-10-08 02:39 | PC.NURSE ---
attempted to go over home medications with patient, pt states that they had a list with them, but is unsure if family took list home with them, unable to locate list in patient's room, pt cannot state what medications she is currently taking
--- NOTE | 2021-10-08 05:25 | PC.NURSE ---
pt has rested intermittently this shift, has complained of pain one time and was treated per JUL, has remained on room air with O2 sats 94-97%, HR 70-107, no complaints of SOA or chest pain this shift, ambulating to with standby assist
[2021-10-08 07:06] LABS: Basophils # 0.1 K/mm3 (0-0.2); Basophils % 0.8 % (0.1-2.0); Eosinophils # 0.1 K/mm3 (0.0-0.4); Eosinophils % 0.8 % (0.1-12.0); Lymphocytes # 1.3 K/mm3 (0.7-4.5); Lymphocytes % 20.3 % (10-50); Mean Corpuscular HGB Conc 32.7 g/dL (31.8-35.4); Mean Corpuscular Volume 91.8 fl (81-99); Mean Platelet Volume 8.6 fl (7.4-10.4); Monocytes # 0.7 K/mm3 (0.1-1.0); Monocytes % 10.6 % (1.7-9.3); Neutrophils # 4.3 K/mm3 (1.8-7.8); Neutrophils % 67.6 % (37.0-80.0); Platelet Count 275 K/mm3 (142-424); Red Blood Count 4.14 M/mm3 (4.20-5.40); Red Cell Distribution Width 14.8 % (11.5-17.5); White Blood Count 6.3 K/mm3 (4.8-10.8)
[2021-10-08 07:08] LABS: Chloride 104 mmol/L (98-107); Sodium 132 mmol/L (136-145)
[2021-10-08 07:09] LABS: Potassium 4.2 mmoL/L (3.5-5.1)
[2021-10-08 07:11] LABS: Alanine Aminotransferase 29 U/L (12-78); Alkaline Phosphatase 87 U/L (38-126); Anion Gap 9.2 mEq/L (5-15); Aspartate Amino Transferase 32 U/L (14-36); Bilirubin,Total 0.4 mg/dl (0.2-1.3); Blood Urea Nitrogen 7 mg/dl (7-17); Carbon Dioxide 23 mmol/L (22.0-30.0); Creatinine Clearance Estimated 45 mL/min (50-200); Estimated Glomerular Filt Rate 119 ml/min (>60); GFR (African American) 144 ML/MIN (>60)
[2021-10-08 07:12] LABS: Albumin/Globulin Ratio 1.5 (1.1-1.8); Calcium 8.7 mg/dl (8.4-10.2); Globulin 2.6 g/dL (1.3-3.2); Glucose 105 mg/dl (74-100); Total Protein,Serum 6.6 g/dl (6.3-8.2)
--- NOTE | 2021-10-08 07:18 | P.CONPHA_ITS ---
[facility] Pharmacy VTE Monitoring - Patient Demographics Admission date: 10/07/21 Report Date: 10/08/21 Time: 07:18 Allergies/Adverse Reactions: Patient Allergies No Known Allergies Allergy (Verified 10/07/21 10:42) Height: 1.55 m Weight: 63.594 kg Patient Problems: Current Active Problems Atrial fibrillation with RVR (Acute) Dehydration (Acute) Near syncope (Acute) - VTE Risk Labs: VTE Related Lab Results Hgb 14.0 g/dL (12.2-16.2) 10/07/21 11:20 Hct 41.7 % (37.0-47.0) 10/07/21 11:20 Plt Count 328 K/mm3 (142-424) 10/07/21 11:20 PT 19.8 seconds (10.1-12.5) H 10/07/21 11:20 INR 1.83 (0.9-1.1) H 10/07/21 11:20 APTT 36.2 seconds (22.8-30.6) H 10/07/21 11:20 BUN 7 mg/dl (7-17) D 10/08/21 06:52 Creatinine 0.50 mg/dl (0.52-1.04) L D 10/08/21 06:52 Estimated Creat Clear 45 mL/min (50-200) 10/08/21 06:52 VTE Score: 3 VTE Risk Level: Low Risk - Prophylaxis VTE Prophylaxis Ordered?: Yes Types of VTE Prophylaxis: TEDS Knee High Location of Applied Device: Bilateral Lower Extremeties
[2021-10-08 07:21] LABS: Hemoglobin 12.4 g/dL (12.2-16.2)
--- NOTE | 2021-10-08 07:27 | HMH.HPDC ---
General - General Admission date:: 10/07/21 Discharge date: 10/08/21 *Admission Date: 10/07/21 [facility] History I have reviewed the patient's past medical history: Yes Medical History: Reports:: Arrhythmia, Atrial Fibrillation, Cancer (SKIN), Cardiomyopathy, Congestive Heart Failure, Coronary Artery Disease, Cerebrovascular Accident, Gastrointestinal Bleed, Hyperlipidemia, Hypertension, Internal Pacemaker, Myocardial Infarction, Palpitations, Valvular Heart Disease Denies:: Diabetes Mellitus Type 1, Diabetes Mellitus Type 2, MRSA, Seizures *Have you ever received a pneumonia vaccine?: Yes *Have you received a flu vaccine this season?: Yes Other Medical History: Reports: Anemia, Arthritis, Hypothyroidism, Thyroid Disease. Denies: Blood Transfusion Reaction Other Surgeries: Yes: Cardiac Surgery, Cholecystectomy, Colonoscopy, EGD, Pacemaker, Skin Cancer Excision, Tubal Ligation Amputation: No Fractures: No - *Social History Last grade of school completed: Advanced degree Smoking Status: Never smoker Alcohol Intake: never Alcohol Intake Frequency:: a few times a month Substance Use Type: other *Occupational Status:: retired Housing: house Household Members: significant other *Travel in the last 8 weeks: None Family Hx:: Cancer Review of Systems - Review of Systems Review of systems:: pertinent systems reviewed and negative unless documented below - *Neurologic Reports weakness, Denies headache(s) Exam Vital signs and Labs for Last 24 Hours: Temp Pulse Resp BP Pulse Ox 97.9 F 86 16 106/69 L 94 L 10/08/21 04:27 10/08/21 04:27 10/08/21 04:27 10/08/21 04:27 10/08/21 04:27 Laboratory Results - last 24 hr 10/07/21 11:20: WBC 7.3 D, RBC 4.54, Hgb 14.0, Hct 41.7, MCV 91.8, MCH 30.8, MCHC 33.6, RDW 14.6, Plt Count 328, MPV 8.5, Neut % (Auto) 71.3, Lymph % (Auto) 16.0, Hubbard % (Auto) 11.0 H, Eos % (Auto) 0.3, Baso % (Auto) 1.4, Neut # (Auto) 5.2, Lymph # (Auto) 1.2, Hubbard # (Auto) 0.8, Eos # (Auto) 0.0, Baso # (Auto) 0.1 10/07/21 11:20: PT 19.8 H, INR 1.83 H, APTT 36.2 H 10/07/21 11:20: Sodium 130 L, Potassium 4.6, Chloride 98, Carbon Dioxide 24, Anion Gap 12.6, BUN 10, Creatinine 0.70, Estimated Creat Clear 45, Estimated GFR 81, Est GFR ( Amer) 97, Glucose 126 H, Calcium 9.7, Total Bilirubin 0.7, AST 45 H D, ALT 34 D, Alkaline Phosphatase 104, Troponin I < 0.01, NT-Pro-B Natriuret Pep 1390 H, Total Protein 8.2, Albumin 4.9, Globulin 3.3 H, Albumin/Globulin Ratio 1.5, Lipase 85, TSH 0.90 10/07/21 11:20: Digoxin 2.80 H* 10/07/21 11:40: Lactate 1.1 10/07/21 11:41: SARS-CoV-2 (PCR) Not detected, Influenza A Untype (PCR) Not detected, Influenza Type B (PCR) Not detected 10/07/21 14:33: Troponin I < 0.01 10/07/21 17:51: Troponin I < 0.01 10/07/21 23:30: Urine Color Yellow, Urine Appearance Clear, Urine pH 5.5, Ur Specific [place] <= 1.005, Urine Protein Negative, Urine Glucose (UA) Negative, Urine Ketones Negative, Urine Blood Trace-l, Urine Nitrate Negative, Urine Bilirubin Negative, Urine Urobilinogen 0.2, Ur Leukocyte Esterase Trace, Urine RBC None, Urine WBC 3-5, Ur Squamous Epith Cells 10-20, Urine Bacteria Trace 10/08/21 06:52: WBC 6.3, RBC 4.14 L, Hgb 12.4 D, Hct 38.0, MCV 91.8, MCH 30.0, MCHC 32.7, RDW 14.8, Plt Count 275, MPV 8.6, Neut % (Auto) 67.6, Lymph % (Auto) 20.3, Hubbard % (Auto) 10.6 H, Eos % (Auto) 0.8, Baso % (Auto) 0.8, Neut # (Auto) 4.3, Lymph # (Auto) 1.3, Hubbard # (Auto) 0.7, Eos # (Auto) 0.1, Baso # (Auto) 0.1 10/08/21 06:52: Sodium 132 L, Potassium 4.2, Chloride 104, Carbon Dioxide 23, Anion Gap 9.2, BUN 7 D, Creatinine 0.50 L D, Estimated Creat Clear 45, Estimated GFR 119, Est GFR ( Amer) 144 D, Glucose 105 H, Calcium 8.7, Total Bilirubin 0.4, AST 32 D, ALT 29, Alkaline Phosphatase 87, Total Protein 6.6, Albumin 4.0 D, Globulin 2.6, Albumin/Globulin Ratio 1.5 I & O for Last 24 hours: Intake & Output 10/05/21 10/06/21 10/07/21 10/08/21 23:59 23:59 23:59 23:59 Intake Total 240 / 240 476 / 672
--- NOTE | 2021-10-08 07:50 | HMH.PHAINT ---
MEDICATION RECONCILIATION COMPLETED ON PATIENT USING EXTERNAL FILL HISTORY FROM PHARMACY AND NOTE FROM ACC. -SHANELLE NID
--- NOTE | 2021-10-08 08:50 | HMH.HP ---
*Admission Date: 10/07/21 *Chief complaint: weakness *History of present illness: Ms. Stevens is a pleasant but medically complex 81-year-old female who presented to the emergency room yesterday with weakness, nausea, vomiting. She was sent from cardiology clinic where she was being seen for her chronic A. fib. She recently had adjustments to her medications for A. fib including addition of digoxin. She reports however she has not felt well for several weeks. Has had gradual increase in weakness and fatigue for about the past month. Of note was seen in my office last week with concern for UTI, bland urine obtained at that time. Has been having difficult time keeping food down. Vomit mainly clear and mucoid. No blood in vomit or stool. Chronic shortness of breath. No cough or hemoptysis. No chest pain, headache, focal weakness. Chronic deficits from her history of stroke. Work-up initially performed in the ER showing relatively stable labs. Patient unable however to tolerate going home due to intolerance of p.o. intake and weakness. Admitted for further management and observation. IV fluids started, marginal improvement this morning. Observed on telemetry overnight, no episodes of A. fib with RVR. Rate has been controlled between 80 and 100 bpm. Pacer spikes noted on telemetry. [facility] History I have reviewed the patient's past medical history: Yes Medical History: Reports:: Arrhythmia, Atrial Fibrillation, Cancer (SKIN), Cardiomyopathy, Congestive Heart Failure, Coronary Artery Disease, Cerebrovascular Accident, Gastrointestinal Bleed, Hyperlipidemia, Hypertension, Internal Pacemaker, Myocardial Infarction, Palpitations, Valvular Heart Disease Denies:: Diabetes Mellitus Type 1, Diabetes Mellitus Type 2, MRSA, Seizures *Have you ever received a pneumonia vaccine?: Yes *Have you received a flu vaccine this season?: Yes Other Medical History: Reports: Anemia, Arthritis, Hypothyroidism, Thyroid Disease. Denies: Blood Transfusion Reaction Other Surgeries: Yes: Cardiac Surgery, Cholecystectomy, Colonoscopy, EGD, Pacemaker, Skin Cancer Excision, Tubal Ligation Amputation: No Fractures: No - *Social History Last grade of school completed: Advanced degree Smoking Status: Never smoker Alcohol Intake: never Alcohol Intake Frequency:: a few times a month Substance Use Type: other *Occupational Status:: retired Housing: house Household Members: significant other *Travel in the last 8 weeks: None Family Hx:: Cancer Review of Systems - Review of Systems Review of systems:: pertinent systems reviewed and negative unless documented below (14 point review of systems performed, pertinent positives and negatives as per HPI) - *Neurologic Reports weakness, Denies headache(s) Meds Home Medications Medication Instructions Recorded Confirmed Type Calcium Carbonate/Vitamin D3 1 each PO DAILY 02/26/18 10/08/21 History [Caltrate 600 Plus D3 Tablet] Aspirin [Aspirin 81mg EC Tab] 81 mg PO DAILY 01/29/20 10/08/21 History Temazepam [Restoril 15mg capsule] 15 mg PO HS 01/29/20 10/08/21 History oxybutynin chloride 10 mg 20 mg PO DAILY tab 02/04/20 10/08/21 History tablet,extended release 24 hr bupropion HCl 300 mg 24 hr tablet, 300 mg PO DAILY 12/01/20 10/08/21 History extended release Levothyroxine Sodium 100 mcg PO DAILY 01/04/21 10/08/21 History [Levothyroxine 100mcg (0.1MG) Tab] Warfarin Sodium 4 mg PO SUTUTHSA 01/05/21 10/08/21 History atorvastatin 40 mg tablet 40 mg PO HS #30 tab 05/05/21 10/08/21 Rx warfarin 4 mg tablet 2 mg PO MOWEFR 05/05/21 10/08/21 History tiotropium 2.5 mcg-olodaterol 2.5 2 puff IH DAILY g 08/31/21 10/08/21 History mcg/actuation mist for inhalation Furosemide [Furosemide 20mg Tab*] 40 mg PO DAILY 10/05/21 10/08/21 History Gabapentin [Neurontin 300mg 300 mg PO BID 10/05/21 10/08/21 History capsule] Spironolactone [Spironolactone 25 mg PO DAILY 10/05/21 10/08/21 History 25mg Tablet] dilTIAZ
[2021-10-08 09:04] LABS: INR 2.74 (0.9-1.1); Prothrombin Time 28.7 seconds (10.1-12.5)
--- NOTE | 2021-10-08 09:51 | HMH.OTEV ---
OT Inpatient Evaluation Rehab OT IP Evaluation Start: 10/08/21 08:18 Freq: ONCE Status: Complete Protocol: Document 10/08/21 09:36 [facility] (Rec: 10/08/21 09:51 [facility] [id number]) Rehab OT IP Assessment Subjective History Pt oriented x 3 on arrival. Pt agreeable to engage in therapy evaluation. Pt was admitted via ED on 10/07/21 due to A-fib, dehydration, and near syncope. Pt reports prior to being in the hospital she lived at home with a friend. Pt claims she required assistance with ADLs such as dressing and bathing. Pt is able to feed herself. Pt is dependent upon others to complete all IADLs such as cooking, cleaning, and laundry . Pt has a sitter come into her house 3x's a week for assistance. Pt's live in friend also assists her with ADLs when needed. Pt was able to walk with rollator and she does not have stairs in her home. Pt does have a past history of a CVA affecting L side. The following information was copied from ER documentation: This is a 81-year-old female presented to the emergency department with some generalized weakness and vomiting. Patient was actually sent over from cardiology office after just not feeling well. She was recently admitted here and diagnosed with A. fib and RVR. She was placed on digoxin at that time. Patient states that she just has not felt well. She has noted some generalized weakness and overall fatigue. Patient states that she has not been able to keep anything down for the last day or so. She has
--- NOTE | 2021-10-08 09:53 | HMH.PTEV ---
Physical Therapy Evaluation Rehab PT IP Evaluation Start: 10/08/21 08:17 Freq: ONCE Status: Active Protocol: Document 10/08/21 09:29 ESTEFANÍAHI (Rec: 10/08/21 09:53 SAMEERTALITA [id number]) Subjective/History History History Pt is a 51 y/o female admitted to [facility] on 10/07/21 for complaints of generalized weakness, nausea/vomiting and near syncope. Pt reports she lives in a single-story home without steps. Pt states she uses a cane and rollator at baseline. Pt reports she lives with her friend Bryce who will sometimes help her with needs , but has a sitter that comes 3x a week to assist her with ADLs. 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 Medical Hx: Arrhythmia, Atrial Fibrillation, Cancer (SKIN), Cardiomyopathy, Congestive Heart Failure, Coronary Artery Disease, Cerebrovascular Accident, Gastrointestinal Bleed, Hyperlipidemia, Hypertension, Internal Pacemaker, Myocardial Infarction, Palpitations, Valvular Heart Disease Subjective Subjective Pt reports she recently fell at home and has back pain that prevents her from standing for a long time. Pt reports she feels light-headed and nauseous. Rehab PT IP Eval Objective Appearance Patient Behavior Appropriate,Cooperative Patient Orientation Person,Place,Name,Birthday Difficulty following instructions none Speech Pattern Appropriate,Coherent Ambulation Patient Able to Ambulate Yes Ambulation Observation IP General Gait Pattern Observation Narrow Based Gait,Shuffling Step,Decrease Stride Lngth (R) Ambulation Distance (feet) 30 Ambulation Assistive Device Small Base Quad Cane Ambulation Ability Contact Guard/Hand Hold Balance Ability to Arise Able, uses arms to help Sitting Balance Steady, safe Standing Balance Narrow stance w/o support Dynamic Sitting Balance Ability
--- NOTE | 2021-10-08 14:09 | DIET.NUTRFU ---
RD consult: family concerned about nutrition at home. spoke to patient about her intake at home, She eats 2 small meals and 1 carnation instant breakfast for breakfast. Eats lot of pre-prepared foods, oven ready items for lunch. Then takeout for dinner. She does not watch her sodium intake, but does not add additional salt either. She has a lady friend that comes and checks up on her 3xweek. Her kids work most days, not currently contributing to day to day care. Encouraged her to add a high protein snack in-between lunch and dinner, another carnation or pudding/yogurt something with peanut butter. Also left message on both son and daughters phone to review recommendations, left contact information [ End ]
--- NOTE | 2021-10-08 16:43 | PC.NURSE ---
No new acute changes. Pt complained of pain one time, treated per mar with prn med. Pt has remained on room air with O2 sat staying 94-96%. Pt was uncomfortable in bed, tech and I worked to get her comfortable with pillows and turning her to her side. Will continue to monitor pt.
--- NOTE | 2021-10-08 18:51 | PC.NURSE ---
Received order to restart pt's home restoril @ . Order sent to pharmacy
[2021-10-09] VITALS: BP 103/55; PULSE 60; PULSE 67; RESP 16; TEMP 36.5; O2SAT 92
[2021-10-09 04:00] VITALS: BP 103/65; PULSE 71; RESP 16; TEMP 36.8; O2SAT 93
[2021-10-09 04:18] VITALS: PULSE 70
--- NOTE | 2021-10-09 04:39 | PC.NURSE ---
NO ACUTE CHANGES FROM PREVIOUS ASSESSMENT. PT HAS BEEN RESTLESS THIS SHIFT, REQUESTING STAFF FREQUENTLY FOR ASSISTANCE WITH POSITIONING. PT IS CURRENTLY RESTING WELL. VS REMAIN STABLE CHARTED. TELE REMAINS IN PLACE WITH NO C/O CHEST PAIN OR DIZZINESS. WILL CONTINUE TO MONITOR.
[2021-10-09 05:00] VITALS: BMI 28.4
[2021-10-09 07:29] LABS: Chloride 108 mmol/L (98-107); Potassium 4.2 mmoL/L (3.5-5.1); Sodium 133 mmol/L (136-145)
[2021-10-09 07:31] LABS: Blood Urea Nitrogen 5 mg/dl (7-17)
[2021-10-09 07:32] LABS: Alanine Aminotransferase 24 U/L (12-78); Albumin Level 3.6 g/dl (3.5-5.0); Albumin/Globulin Ratio 1.4 (1.1-1.8); Alkaline Phosphatase 74 U/L (38-126); Anion Gap 9.2 mEq/L (5-15); Aspartate Amino Transferase 28 U/L (14-36); Bilirubin,Total 0.4 mg/dl (0.2-1.3); Calcium 8.2 mg/dl (8.4-10.2); Carbon Dioxide 20 mmol/L (22.0-30.0); Creatinine Clearance Estimated 48 mL/min (50-200); Estimated Glomerular Filt Rate 119 ml/min (>60); GFR (African American) 144 ML/MIN (>60); Globulin 2.5 g/dL (1.3-3.2); Glucose 98 mg/dl (74-100); INR 2.59 (0.9-1.1); Prothrombin Time 27.3 seconds (10.1-12.5); Total Protein,Serum 6.1 g/dl (6.3-8.2)
[2021-10-09 07:41] LABS: Basophils # 0.1 K/mm3 (0-0.2); Eosinophils # 0.1 K/mm3 (0.0-0.4); Hematocrit 34.3 % (37.0-47.0); Hemoglobin 11.5 g/dL (12.2-16.2); Lymphocytes % 18.5 % (10-50); Mean Corpuscular HGB Conc 33.7 g/dL (31.8-35.4); Mean Corpuscular Hemoglobin 30.9 pg (27.0-31.2); Mean Corpuscular Volume 91.9 fl (81-99); Mean Platelet Volume 8.7 fl (7.4-10.4); Monocytes # 0.4 K/mm3 (0.1-1.0); Monocytes % 8.2 % (1.7-9.3); Neutrophils # 3.8 K/mm3 (1.8-7.8); Neutrophils % 71.2 % (37.0-80.0); Platelet Count 273 K/mm3 (142-424); Red Blood Count 3.73 M/mm3 (4.20-5.40); White Blood Count 5.3 K/mm3 (4.8-10.8)
[2021-10-09 08:00] VITALS: BP 111/61; PULSE 70; PULSE 72; RESP 16; TEMP 36.3; O2SAT 96
--- NOTE | 2021-10-09 08:41 | HMH.DCSUM ---
General - General Admission date:: 10/07/21 Discharge date: 10/09/21 HPI HPI: Ms. Stevens is a pleasant but medically complex 81-year-old female who presented to the emergency room yesterday with weakness, nausea, vomiting. She was sent from cardiology clinic where she was being seen for her chronic A. fib. She recently had adjustments to her medications for A. fib including addition of digoxin. She reports however she has not felt well for several weeks. Has had gradual increase in weakness and fatigue for about the past month. Of note was seen in my office last week with concern for UTI, bland urine obtained at that time. Has been having difficult time keeping food down. Vomit mainly clear and mucoid. No blood in vomit or stool. Chronic shortness of breath. No cough or hemoptysis. No chest pain, headache, focal weakness. Chronic deficits from her history of stroke. Work-up initially performed in the ER showing relatively stable labs. Patient unable however to tolerate going home due to intolerance of p.o. intake and weakness. Admitted for further management and observation. IV fluids started, marginal improvement this morning. Observed on telemetry overnight, no episodes of A. fib with RVR. Rate has been controlled between 80 and 100 bpm. Pacer spikes noted on telemetry. Hospital Course Hospital Course: 81 yo F with multiple co-morbidities who presents with afib with RVR, weakness, and nausea. Heart rate improved over hospitalization with increase in her metoprolol. Was seen by therapy services and nutrition with recommendations placed. Overall feeling better at this time. Stable labs. No evidence of emesis or vomiting during hospitalization. Meeting criteria for discharge home. Problems managed as follows: Weakness/Fatigue -Gentle hydration during hospitalization. Labs stable. Had improvement in her hyponatremia. Stating she feels better today after resting more last night. I feel this time her conditions are at baseline and longstanding. Medically stable for discharge home. PT and OT evaluated, will plan for home health PT OT to further address fatigue and weakness. In addition to nutrition, nutrition recommended adding protein supplement between lunch and dinner for increased/improved daily intake. Chronic anticoagulation secondary to A. fib -INR improved during hospitalization, has been at goal for the past 2 days. Continue current warfarin dosage. We will continue to follow with Coumadin clinic as an outpatient -In regard to rate control, has done better with improvement in heart rate in 70s-80s. Objective Vital signs: Temp Pulse Resp BP Pulse Ox 98.3 F 70 16 103/65 L 93 L 10/09/21 04:00 10/09/21 04:18 10/09/21 04:00 10/09/21 04:00 10/09/21 04:00 Narrative: - Constitutional no acute distress, average body habitus, chronically ill appearing - *Routine HEENT Exam Head: Present: normocephalic Eye: Present: EOMI, PERRL ENT: Present: mucous membranes moist - *Routine Neck Exam Present: supple. Absent: lymphadenopathy - *Routine Respiratory Exam Present: CTA bilaterally - *Routine Cardiovascular Exam Present: irregularly irregular - *Routine Abdominal Exam Present: soft, normoactive bowel sounds. Absent: tenderness - *Routine Extremities Exam Absent: cyanosis, clubbing, edema - *Routine Skin Exam Present: warm. Absent: rash - *Routine Neurological Exam Present: alert, oriented X3 Results Labs on day of discharge: Labs from last 24 hours 10/09/21 10/09/21 10/09/21 06:14 06:14 06:14 WBC 5.3 RBC 3.73 L Hgb 11.5 L Hct 34.3 L MCV 91.9 MCH 30.9 MCHC 33.7 RDW 15.0 Plt Count 273 MPV 8.7 Neut % (Auto) 71.2 Lymph % (Auto) 18.5 Clare % (Auto) 8.2 Eos % (Auto) 1.0 Baso % (Auto) 1.0 Neut # (Auto) 3.8 Lymph # (Auto) 1.0 Clare # (Auto) 0.4 Eos # (Auto) 0.1 Baso # (Auto) 0.1 PT 27.3 H
[2021-10-09 09:28] VITALS: PULSE 72
--- NOTE | 2021-10-09 11:13 | HMH.PHAINT ---
DISCHARGE MEDICATION COUNSELING PROVIDED. NO CHANGES IN THERAPY WERE MADE, DISCUSSED TO TAKE WARFARIN PRESCRIBED AND FOLLOW UP WITH COUMADIN CLINIC ADVISED. PATIENT ADVISED ON NEW PRESCRIPTION FOR METOPROLOL SENT TO [facility] [place] [facility] AND SHE ASKED IF THE DILTIAZEM THAT DR. TEMPLE PUT HER ON LAST WEEK FOR HEART RATE WAS REPLACING THE METOPROLOL. WAS ADVISED THAT BOTH CAN BE TAKEN TOGETHER AND TO FOLLOW UP WITH MD WITH ANY QUESTIONS. NO FURTHER QUESTIONS AT THIS TIME.
[2021-10-09 12:00] VITALS: BP 120/74; PULSE 80; RESP 16; TEMP 36.7; O2SAT 94
--- NOTE | 2021-10-11 13:44 | SW/DCPLANNER ---
Patient information/order for home health was faxed to [facility]. [facility] did call and stated that they are not in network with patient's insurance. Patient information/order was then faxed to [facility]. [facility] confirmed that services will begin this week for this patient. Patient did discharge home over the weekend on 10/09/21.
--- NOTE | 2021-10-11 14:25 | CARE MANAGER ---
Spoke with Ms. Teresa for follow-up phone interview, and she states that she is so weak and tired that she can hardly stand it. Patient states that she got her medication and has a follow-up appointment with Dr. Bishop on 10-15-21, she is not sure she can wait that long. This shoe parts caser called Dr. Bishop office and spoke with Trini, appointment was moved to 10-12-21 @ 1015 this information was relayed to patient.
== END 2021-10-09 13:15 | disposition home or self-care (01) ==
LOC: ER 16:07 → 2ND 16:30
PROVIDERS: Admitting Provider Internal Medicine Adolescent Medicine; Emergency Provider Emergency Medicine; Visit Provider Internal Medicine Adolescent Medicine
DX: R55 Syncope and collapse (principal); I69.198 Other sequelae of nontraumatic intracerebral hemorrhage; E86.0 Dehydration; E03.9 Hypothyroidism, unspecified; Z95.810 Presence of automatic (implantable) cardiac defibrillator; Z79.01 Long term (current) use of anticoagulants; I10 Essential (primary) hypertension; R06.9 Unspecified abnormalities of breathing; Z20.822 Contact with and (suspected) exposure to COVID-19
CPT/HCPCS: G0378; 36415; 71045; 74176; 80053; 80162; 81001; 83605; 83690; 83735; 83880; 84443; 84484; 85025; 85610; 85730; 93005; 97161; 97166; 97530; 99285; C9803; J2405; U0003; U0005

== ENCOUNTER 2021-10-19 15:18 | Outpatient (CLI) | payer MEDICARE, SELFPAY ==
[2021-10-19 16:11] LABS: PHA INR Fingerstick 1.6 (0.9-1.1)
== END 2021-10-19 16:13 | disposition home or self-care (01) ==
PROVIDERS: PCP Internal Medicine Adolescent Medicine; Visit Provider Orthopaedic Surgery
DX: Z51.81 Encounter for therapeutic drug level monitoring (principal); Z79.01 Long term (current) use of anticoagulants
CPT/HCPCS: 85610; 99211; G0463

== ENCOUNTER → 2021-10-25 10:01 | Outpatient (POV) | payer MEDICARE, SELFPAY ==
[2021-10-25 10:48] VITALS: BP 113/55; PULSE 64; RESP 18; TEMP 36.3; O2SAT 97; BMI 24.5
--- NOTE | 2021-10-25 12:45 | HMH.PAINSOAP ---
[facility] Pain Management SOAP Note Subjective:: Patient is a pleasant 81-year-old female who presents today for follow-up and medication refill. Patient is current being treated for degenerative disc disease of lumbar spine with lumbar radiculopathy symptoms, sacroiliitis, peripheral neuropathy. Patient is currently being managed with gabapentin 300 mg twice a day. Denies any side effects from this medication. Denies any change in location type of pain. Today, patient is complaining of worsening bilateral upper buttock pain around her SI. She has fallen twice in the last 2 weeks because of this. Rates her pain today as 5 out of 10. She says that she does live alone but somebody comes and checks on her at times. She is on a wheelchair today. Pedro Pablo [phone],MEQ 0. Review of Systems: General: No recent weight changes, no fever, no sleep disturbances Respiratory: No cough, no shortness of air, no recurring pulmonary infections Cardiovascular/peripheral vascular: No chest pain, no palpitations, no edema, no shortness of breath Gastrointestinal: No new onset incontinence, normal bowel movements reported Genitourinary: No new onset incontinence Musculoskeletal: Low back pain, bilateral hip pain Psychiatric: [Normal mood/affect] Neurological: [Denies weakness in extremities], [denies balance issues] Objective:: Physical Exam: General: Alert and oriented x3, no acute distress, pleasant and cooperative Lungs: Respirations even and unlabored, symmetrical chest expansion Eyes: PERRL Musculoskeletal: Flexion and extension of lumbar [spine] somewhat guarded secondary to pain, [antalgic gait noted]; bilateral SI are positive for EZIO, Martínez's, Sylvester's, Gaenslen's, compression, and distraction. Neurological: Speech clear, no gross sensory deficit Assessment:: Degenerative disc disease of lumbar spine with lumbar radiculopathy symptoms, sacroiliitis, peripheral neuropathy Plan:: We will continue the patient's gabapentin 300 mg twice a day. We will provide the patient with 3 months worth of refill. Patient has been having worsening bilateral upper buttock pain specially on the SI. She is tender to palpation on both SI joints. Patient has positive bilateral SI exam. We will schedule the patient for a bilateral SI injection. Patient does note a new onset A. fib and is currently on blood thinner. She does not need to stop this medication prior to her SI injections. Patient has been instructed to contact the clinic with any concerns before the next appointment. Dr. Mccarthy has reviewed this note and agrees with this plan of care. This note was dictated using voice recognition software and make contain errors or omissions. [facility] History Medical History: Reports:: Arrhythmia, Atrial Fibrillation, Cancer (SKIN), Cardiomyopathy, Congestive Heart Failure, Coronary Artery Disease, Cerebrovascular Accident, Gastrointestinal Bleed, Hyperlipidemia, Hypertension, Internal Pacemaker, Myocardial Infarction, Palpitations, Valvular Heart Disease Denies:: Diabetes Mellitus Type 1, Diabetes Mellitus Type 2, MRSA, Seizures *Have you ever received a pneumonia vaccine?: Yes *Have you received a flu vaccine this season?: Yes Other Medical History: Reports: Anemia, Arthritis, Hypothyroidism, Thyroid Disease. Denies: Blood Transfusion Reaction Other Surgeries: Yes: Cardiac Surgery, Cholecystectomy, Colonoscopy, EGD, Pacemaker, Skin Cancer Excision, Tubal Ligation Amputation: No Fractures: No - *Social History Smoking Status: Never smoker Alcohol Intake: never Alcohol Intake Frequency:: a few times a month Substance Use Type: other *Occupational Status:: other Housing: house Household Members: significant other *Travel in the last 8 weeks: None Family Hx:: Cancer
== END ==
PROVIDERS: Visit Provider Student in an Organized Health Care Education/Training Program
DX: M51.16 Intervertebral disc disorders with radiculopathy, lumbar region (principal); M46.1 Sacroiliitis, not elsewhere classified; G62.9 Polyneuropathy, unspecified
CPT/HCPCS: 99212; G0463

== ENCOUNTER → 2021-11-15 13:32 | Outpatient (CLI) | payer MEDICARE, SELFPAY ==
[2021-11-15 14:06] LABS: INR 3.87 (0.9-1.1); Prothrombin Time 39.6 seconds (10.1-12.5)
== END ==
PROVIDERS: PCP Internal Medicine Adolescent Medicine; Visit Provider Internal Medicine Adolescent Medicine
DX: Z51.81 Encounter for therapeutic drug level monitoring (principal); Z79.01 Long term (current) use of anticoagulants
CPT/HCPCS: 36415; 85610

== ENCOUNTER 2021-11-16 12:00 | Emergency (ER) | payer MEDICARE, SELFPAY ==
[2021-11-16] VITALS (7 sets, daily range): BP systolic 102–150; BP diastolic 64–100; PULSE 57–75; RESP 18; TEMP 36.3–36.8; O2SAT 94–98; BMI 23.5; BMI 23.6
--- NOTE | 2021-11-16 12:15 | PC.NURSE ---
ED MD AT BEDSIDE FOR EVALUATION
--- NOTE | 2021-11-16 12:15 | PC.NURSE ---
ER at speaking to patient; family at
--- NOTE | 2021-11-16 12:22 | HMH.EDNVD ---
ED Disposition Clinical Impression: Nausea & vomiting Qualifiers: Vomiting type: unspecified Qualified Code(s): R11.2 - Nausea with vomiting, unspecified Migraine Qualifiers: Migraine type: without aura Status migrainosus presence: without status migrainosus Intractability: not intractable Qualified Code(s): G43.009 - Migraine without aura, not intractable, without status migrainosus Disposition: Home, Self-Care Condition on Discharge: Good Instructions: DI for Migraine, Nausea and Vomiting-Adult Additional Instructions: follow up PCP, return for worse or anyc oncerns Prescriptions: Prochlorperazine Maleate [Compazine] 5 mg PO Q8 PRN #15 tab PRN Reason: Nausea And Vomiting Transmission Status: Pending to [facility] Referrals: Mynor Bishop MD [Primary Care Provider] - - Critical Care Critical Care Time: No Attestation: On 11/16/21, the high probability of a clinically significant, sudden or life threatening deterioration of the following system(s) required my full and direct attention, intervention and personal management. The time I documented below is in addition to time spent performing reported procedures but includes the following listed in this critical care notation. Medical Decision Making - Medical Records Medical records reviewed: Yes: I reviewed the patient's medical records. - Pedro Pablo Inquiry Pt receiving controlled substance: No Vital Signs: 11/16/21 12:01 11/16/21 12:30 11/16/21 13:00 Temperature 97.4 F L Temperature Source Oral Pulse Rate 72 72 Pulse Rate [Brachial] 71 Respiratory Rate 18 Blood Pressure 137/87 150/100 H Blood Pressure [Right Arm] 133/68 Blood Pressure Mean [Right Arm] 89 Blood Pressure Source [Right Arm] Automatic Cuff Blood Pressure Position [Right Arm] Sitting 02 Sat by Pulse Oximetry 96 97 94 L Oxygen Delivery Method Room Air 11/16/21 13:32 11/16/21 14:00 11/16/21 14:30 Temperature Temperature Source Pulse Rate 75 58 L 57 L Pulse Rate [Brachial] Respiratory Rate Blood Pressure 104/75 L 123/79 135/70 Blood Pressure [Right Arm] Blood Pressure Mean [Right Arm] Blood Pressure Source [Right Arm] Blood Pressure Position [Right Arm] 02 Sat by Pulse Oximetry 98 97 97 Oxygen Delivery Method - Lab Data Lab Results 11/16/21 12:20: SARS-CoV-2 (PCR) Not detected, Influenza A Untype (PCR) Not detected, Influenza Type B (PCR) Not detected 11/16/21 12:20: Sodium 132 L, Potassium 5.1, Chloride 97 L, Carbon Dioxide 26, Anion Gap 14.1, BUN 10, Creatinine 0.60, Estimated Creat Clear 44, Estimated GFR 96, Est GFR ( Amer) 116, Glucose 143 H, Calcium 10.3 H, Total Bilirubin 0.8, AST 39 H, ALT 32, Alkaline Phosphatase 95, Total Protein 8.0 D, Albumin 5.0, Globulin 3.0, Albumin/Globulin Ratio 1.7, Lipase 69 11/16/21 12:40: WBC 8.9, RBC 4.51, Hgb 13.2, Hct 40.9, MCV 90.6, MCH 29.2, MCHC 32.2, RDW 14.8, Plt Count 368, MPV 8.3, Neut % (Auto) 80.5 H, Lymph % (Auto) 9.5 L, Bureau % (Auto) 8.6, Eos % (Auto) 0.5, Baso % (Auto) 0.8, Neut # (Auto) 7.2, Lymph # (Auto) 0.9, Bureau # (Auto) 0.8, Eos # (Auto) 0.0, Baso # (Auto) 0.1 11/16/21 13:15: Urine Color Yellow, Urine Appearance Clear, Urine pH 6.0, Ur Specific [place] >= 1.030, Urine Protein 1+, Urine Glucose (UA) Negative, Urine Ketones 2+, Urine Blood Trace-i, Urine Nitrate Negative, Urine Bilirubin 1+ A, Urine Urobilinogen 1.0, Ur Leukocyte Esterase Negative, Urine RBC None, Urine WBC Occasional, Ur Squamous Epith Cells Occasional, Urine Bacteria Trace Result diagrams: 11/16/21 12:40 11/16/21 12:20 Orders (Tests/Meds): ED MEDICATIONS Discontinued Medications Generic Name Dose Route Start Last Admin Trade Name Freq PRN Reason Stop Dose Admin Ketorolac Tromethamine 15 mg 11/16/21 13:32 11/16/21 13:35 Ketorolac 30mg/Ml Vial IV 11/16/21 13:33 15 mg ONCE ONE Administration Prochlorperazine Edisylate 10 mg 11/16/21 13:32 11/16/21 13:36 Prochlorperazin
--- NOTE | 2021-11-16 12:30 | PC.NURSE ---
1230 PT PROVIDED WARM BLANKET, FAMILY AT BEDSIDE. NO NEEDS VOICED
[2021-11-16 12:35] LABS: Coronavirus 19, PCR Not Detected (NotDetected); Influenza A, PCR Not Detected (NotDetected); Influenza B, PCR Not Detected (NotDetected)
[2021-11-16 12:52] LABS: Basophils # 0.1 K/mm3 (0-0.2); Basophils % 0.8 % (0.1-2.0); Eosinophils % 0.5 % (0.1-12.0); Hematocrit 40.9 % (37.0-47.0); Hemoglobin 13.2 g/dL (12.2-16.2); Lymphocytes # 0.9 K/mm3 (0.7-4.5); Lymphocytes % 9.5 % (10-50); Mean Corpuscular HGB Conc 32.2 g/dL (31.8-35.4); Mean Corpuscular Hemoglobin 29.2 pg (27.0-31.2); Mean Corpuscular Volume 90.6 fl (81-99); Mean Platelet Volume 8.3 fl (7.4-10.4); Monocytes # 0.8 K/mm3 (0.1-1.0); Monocytes % 8.6 % (1.7-9.3); Neutrophils # 7.2 K/mm3 (1.8-7.8); Neutrophils % 80.5 % (37.0-80.0); Platelet Count 368 K/mm3 (142-424); Red Blood Count 4.51 M/mm3 (4.20-5.40); Red Cell Distribution Width 14.8 % (11.5-17.5); White Blood Count 8.9 K/mm3 (4.8-10.8)
[2021-11-16 12:54] LABS: Chloride 97 mmol/L (98-107); Potassium 5.1 mmoL/L (3.5-5.1); Sodium 132 mmol/L (136-145)
[2021-11-16 12:57] LABS: Alanine Aminotransferase 32 U/L (12-78); Albumin/Globulin Ratio 1.7 (1.1-1.8); Alkaline Phosphatase 95 U/L (38-126); Anion Gap 14.1 mEq/L (5-15); Aspartate Amino Transferase 39 U/L (14-36); Bilirubin,Total 0.8 mg/dl (0.2-1.3); Blood Urea Nitrogen 10 mg/dl (7-17); Calcium 10.3 mg/dl (8.4-10.2); Carbon Dioxide 26 mmol/L (22.0-30.0); Creatinine Clearance Estimated 44 mL/min (50-200); Estimated Glomerular Filt Rate 96 ml/min (>60); GFR (African American) 116 ML/MIN (>60); Glucose 143 mg/dl (74-100); Lipase 69 U/L (23-300)
--- NOTE | 2021-11-16 13:06 | PC.NURSE ---
PT ASSISTED TO BR TO OBTAIN UA
--- NOTE | 2021-11-16 13:15 | PC.NURSE ---
UA COLLECTED AND SENT TO LAB
[2021-11-16 13:20] LABS: Microscopic, Urine URINE MICROSCOPIC (MICROSCOPIC)
[2021-11-16 13:24] LABS: Appearance,Urine CLEAR (Clear); Blood, Urine TRACE-I (Negative); Color,Urine YELLOW (Yellow); Glucose,Urine (UA) Negative (Negative); Ketones,Urine 2+ (Negative); Leukocyte Esterase,Urine Negative (Negative); Nitrate,Urine Negative (Negative); Protein,Urine 1+ (Negative); Specific Gravity, Urine >= 1.030 (1.005-1.030)
[2021-11-16 13:31] LABS: Bilirubin,Urine 1+ (Negative)
--- NOTE | 2021-11-16 13:32 | PC.NURSE ---
PT ASSISTED TO BR TO HAVE BM
[2021-11-16 13:38] LABS: Bacteria,Urine Trace /lpf; Squamous Epithelial Cell,Urine Occasional #/hpf (0-5); WBC,Urine Occasional #/hpf (0-3)
--- NOTE | 2021-11-16 13:43 | PC.NURSE ---
PT MEDICATED AT THIS TIME, NO FURTHER NEEDS. FAMILY AT BEDSIDE
--- NOTE | 2021-11-16 14:18 | PC.NURSE ---
Gave patient Uyen Hyacinth for PO challenge
--- NOTE | 2021-11-16 15:01 | PC.NURSE ---
Checked on patient and she was able to drink half to 3/4 can of zain mist.
== END 2021-11-16 15:13 | disposition home or self-care (01) ==
PROVIDERS: Emergency Provider Emergency Medicine; PCP Internal Medicine Adolescent Medicine
DX: G43.009 Migraine without aura, not intractable, without status migrainosus (principal); R94.31 Abnormal electrocardiogram [ECG] [EKG]; Z20.822 Contact with and (suspected) exposure to COVID-19; I11.0 Hypertensive heart disease with heart failure; I50.9 Heart failure, unspecified; I48.91 Unspecified atrial fibrillation; I07.1 Rheumatic tricuspid insufficiency; E78.5 Hyperlipidemia, unspecified; E11.9 Type 2 diabetes mellitus without complications; E03.9 Hypothyroidism, unspecified; M19.90 Unspecified osteoarthritis, unspecified site; Z79.84 Long term (current) use of oral hypoglycemic drugs; Z79.82 Long term (current) use of aspirin; Z88.0 Allergy status to penicillin; Z95.0 Presence of cardiac pacemaker; Z86.73 Personal history of transient ischemic attack (TIA), and cerebral infarction without residual deficits
CPT/HCPCS: 36415; 80053; 81001; 83690; 85025; 96374; 96375; 99284; C9803; U0003; U0005

== ENCOUNTER 2021-11-29 14:01 | Outpatient (CLI) | payer MEDICARE, SELFPAY ==
[2021-11-29 14:19] VITALS: BP 113/65; PULSE 80; RESP 18; TEMP 36.3; O2SAT 97
== END 2021-11-29 14:28 | disposition home or self-care (01) ==
LOC: INF 14:02
PROVIDERS: PCP Internal Medicine Adolescent Medicine; Visit Provider Internal Medicine Adolescent Medicine
DX: M81.0 Age-related osteoporosis without current pathological fracture (principal)
CPT/HCPCS: 96372; J0897

== ENCOUNTER → 2021-11-30 14:06 | Outpatient (CLI) | payer MEDICARE, SELFPAY ==
[2021-11-30 14:52] LABS: Basophils % 0.5 % (0.1-2.0); Eosinophils % 0.7 % (0.1-12.0); Hematocrit 39.6 % (37.0-47.0); Lymphocytes # 1.1 K/mm3 (0.7-4.5); Lymphocytes % 18.6 % (10-50); Mean Corpuscular HGB Conc 32.7 g/dL (31.8-35.4); Mean Corpuscular Hemoglobin 29.1 pg (27.0-31.2); Mean Corpuscular Volume 88.8 fl (81-99); Mean Platelet Volume 7.6 fl (7.4-10.4); Monocytes # 0.6 K/mm3 (0.1-1.0); Monocytes % 10.2 % (1.7-9.3); Neutrophils # 4.3 K/mm3 (1.8-7.8); Platelet Count 346 K/mm3 (142-424); Red Blood Count 4.46 M/mm3 (4.20-5.40); Red Cell Distribution Width 14.2 % (11.5-17.5); White Blood Count 6.1 K/mm3 (4.8-10.8)
[2021-11-30 15:13] LABS: Anion Gap 11.4 mEq/L (5-15); Blood Urea Nitrogen 7 mg/dl (7-17); Calcium 9.9 mg/dl (8.4-10.2); Carbon Dioxide 26 mmol/L (22.0-30.0); Chloride 99 mmol/L (98-107); Estimated Glomerular Filt Rate 96 ml/min (>60); GFR (African American) 116 ML/MIN (>60); Glucose 105 mg/dl (74-100); Potassium 4.4 mmoL/L (3.5-5.1); Sodium 132 mmol/L (136-145)
== END ==
PROVIDERS: PCP Internal Medicine Adolescent Medicine; Visit Provider Nurse Practitioner
DX: Z20.822 Contact with and (suspected) exposure to COVID-19; R06.09 Other forms of dyspnea; R11.0 Nausea; I07.1 Rheumatic tricuspid insufficiency; I10 Essential (primary) hypertension; I25.5 Ischemic cardiomyopathy; I48.20 Chronic atrial fibrillation, unspecified; R93.1 Abnormal findings on diagnostic imaging of heart and coronary circulation; E78.2 Mixed hyperlipidemia; I63.9 Cerebral infarction, unspecified; Z86.73 Personal history of transient ischemic attack (TIA), and cerebral infarction without residual deficits; Z95.810 Presence of automatic (implantable) cardiac defibrillator; Z98.890 Other specified postprocedural states
CPT/HCPCS: 36415; 80048; 85025; C9803; U0003; U0005

== ENCOUNTER → 2021-12-01 07:36 | Outpatient (CLI) | payer MEDICARE, SELFPAY ==
--- NOTE | 2021-12-01 07:40 | FL_ITS ---
FINAL REPORT CLINICAL HISTORY: 2.18 fluoro time nausea and vomiting FINDINGS: UPPER GI WITH SBFT HISTORY: Epigastric pain and nausea. PROCEDURE: The patient ingested barium. Effervescent crystals were also administered. Spot and overhead films were obtained. Additional barium was administered for a SBFT. FINDINGS: There is a small sliding-type hiatal hernia with a Schatzki's ring. The patient began vomiting at the beginning of the exam was unable to drink further contrast. Prominent gastric folds may be due to incomplete distention or gastritis. Prominent duodenal folds are favored to represent enteritis. FLUOROSCOPY TIME: 1 minute IMPRESSION: Study limited by patient vomiting. Prominent gastric folds may be due to nondistention or gastritis. Prominent duodenal folds are favored to represent enteritis. SBFT: The human resources training manager film is normal. There is no evidence of obstruction. The mucosal fold pattern is normal. The terminal ilium is normal. IMPRESSION: Please see UGI report concerning duodenal folds. Otherwise, unremarkable SBFT. Films reviewed , interpreted and dictated by Dr. Tania Cates. Transcribed by Joel Quintanilla PA-C. Reviewed, Interpreted and Dictated by Tania Cates MD Transcribed by TIGRE Oscar Authenticated and [facility]
== END ==
PROVIDERS: PCP Internal Medicine Adolescent Medicine; Visit Provider Nurse Practitioner Family
DX: R11.2 Nausea with vomiting, unspecified (principal)
CPT/HCPCS: 74246; 74248

== ENCOUNTER → 2021-12-30 11:16 | Outpatient (POV) | payer MEDICARE, SELFPAY ==
--- NOTE | 2021-12-30 11:58 | A.OFFVIS_ITS ---
[facility] Pain Management SOAP Note Subjective:: Patient is a pleasant 81-year-old female who presents today for follow-up and medication refill. We are currently treating the patient for degenerative disc disease of the lumbar spine with lumbar radiculopathy symptoms, sacroiliitis, peripheral neuropathy. She is currently managed with gabapentin 300 mg twice a day. She denies any side effects from this medication. She denies any change to the location or type of pain she experiences. Today she is states her pain is a 0 out of 10. She states she primarily has pain in her low back when she is bending over. We have done injective therapy in the past however she stated as time went on the injections were not as effective. Patient also has a history of falls. She presents today in her wheelchair and states she does live alone however people do come and check in on her. Her Pedro Pablo is [id number]. It has been reviewed and appropriate. Review of Systems: General: No recent weight changes, no fever, no sleep disturbances Respiratory: No cough, no shortness of air, no recurring pulmonary infections Cardiovascular/peripheral vascular: No chest pain, no palpitations, no edema, no shortness of breath Gastrointestinal: No new onset incontinence, normal bowel movements reported Genitourinary: No new onset incontinence Musculoskeletal: Low back pain Psychiatric: [Normal mood/affect] Neurological: [Denies weakness in extremities], [denies balance issues] Objective:: Physical Exam: General: Alert and oriented x3, no acute distress, pleasant and cooperative Lungs: Respirations even and unlabored, symmetrical chest expansion Eyes: PERRL Musculoskeletal: Flexion and extension of lumbar [spine] somewhat guarded secondary to pain, [antalgic gait noted] Neurological: Speech clear, no gross sensory deficit Assessment:: Degenerative disc disease of lumbar spine with lumbar radiculopathy symptoms, sacroiliitis, peripheral neuropathy Plan:: Patient continues to have pain in her low back with increased activity. She is will wheelchair-bound primarily. I will reorder the patient's gabapentin 300 mg twice a day and provide a 1 month supply of this medication. The patient will follow-up in 1 month. Patient will return to clinic in 1 month for follow-up and reevaluation of symptoms. Patient has been instructed to contact the clinic with any concerns before the next appointment. Dr. Mccarthy has reviewed this note and agrees with this plan of care. This note was dictated using voice recognition software and make contain errors or omissions. PFSH PFS Medical History (Updated 11/30/21 @ 13:59 by Twila Braun RN) Abnormal echocardiogram Moderate tricuspid regurgitation Nausea Surgical History (Updated 08/31/21 @ 13:42 by Twila Braun RN) Hx of mitral valve repair Social History Smoking Status: Never smoker alcohol intake: never substance use type: other current occupational status: other household members: significant other housing: house current occupational exposures/hazards: No caffeine: No
[2021-12-30 12:55] VITALS: BP 110/66; PULSE 77; RESP 18; TEMP 36.3; O2SAT 96; BMI 24.5
== END | disposition home or self-care (01) ==
PROVIDERS: PCP Internal Medicine Adolescent Medicine; Visit Provider Nurse Practitioner Family
DX: M51.16 Intervertebral disc disorders with radiculopathy, lumbar region (principal); M46.1 Sacroiliitis, not elsewhere classified; G62.9 Polyneuropathy, unspecified
CPT/HCPCS: 99212; G0463

== ENCOUNTER → 2022-01-04 10:10 | Outpatient (CLI) | payer MEDICARE, SELFPAY | PROVIDERS: PCP Internal Medicine Adolescent Medicine; Visit Provider Internal Medicine Gastroenterology | DX: Z01.812 Encounter for preprocedural laboratory examination (principal); Z20.822 Contact with and (suspected) exposure to COVID-19; Z13.810 Encounter for screening for upper gastrointestinal disorder | CPT/HCPCS: C9803; U0003; U0005 ==

== ENCOUNTER 2022-01-06 08:39 | Day surgery (SDC) | payer MEDICARE, SELFPAY ==
[2022-01-05 08:19] VITALS: BMI 25.5
[2022-01-06] VITALS (7 sets, daily range): BP systolic 88–160; BP diastolic 52–82; PULSE 83–106; RESP 16–18; TEMP 36.1–36.4; O2SAT 93–98
--- NOTE | 2022-01-06 09:14 | EXP.ANES.CKL ---
PFSH PFSH Medical History Abnormal echocardiogram Constipation Hypothyroid Moderate tricuspid regurgitation Nausea Skin cancer Surgical History H/O tubal ligation History of cholecystectomy Hx of mitral valve repair Family History Other Family history of cancer Lung cancer Social History Smoking Status: Never smoker alcohol intake: never substance use type: other current occupational status: other household members: significant other housing: house current occupational exposures/hazards: No caffeine: No [facility] Anesthesia Checklist Patient Identification Patient Identification: Arm Band and Verbal (Name & ) Structural Data Admitted From: Home Planned Operative Procedure/s: EGD Consent for Planned Operative Procedure(s) Verified: Yes NPO Status Verified Time NPO: 00:00 Additional verifications Anesthesia Reactions: No Hx Blood Transfusions: No Blood Transfusion Reaction: No Airway Assessment C-Spine Mobility Assessed: Yes TMJ Mobility Assessed: Yes Dentition: Poor Dentition Neurological Assessment Level of Consciousness: Awake Hx Seizures: No Numbness or tingling in extremities: No Anesthesia Plan Anesthesia Risk discussed: Yes Anesthesia Plan: Verified ASA Class: III Anesthesia Type: MAC
--- NOTE | 2022-01-06 09:42 | HMH.SCOPE ---
Procedure: Date: 01/06/22 Patient Date of :: 1940 Procedure Performed:: EGD & polypectomy Indications:: Nausea/Vomiting Performing Provider:: Kuldeep Ramirez MD Referring Provider:: Mynor Bishop MD Sedation:: Propofol Procedure:: The gastroscope was gently passed through the incisoral orifice into the oral cavity and under direct visualization the esophagus was intubated. The endoscope was passed down the esophagus, through the stomach, and into the duodenum. Color, texture, mucosa, and anatomy of the esophagus, stomach, and duodenum were carefully examined with the scope. Findings:: Oropharynx: normal Esophagus: normal EG Junction: intact at 40 cm Cardia: normal Fundus: normal Body: normal, small 0.5 cm polyp noted, resected with snare Antrum: normal Duodenal bulb: normal Duodenum (second and third portion): normal Impression: Overall Normal EGD. No evidence of ulcer disease or outlet obstruction. Specimens:: Gastric polyp Recommendations:: Conservative therapy. Other systemic issues probably are causing her N/V symptoms. Complications:: None Estimated blood obtained (mL): 0
== END 2022-01-06 10:35 | disposition home or self-care (01) ==
PROVIDERS: PCP Internal Medicine Adolescent Medicine; Visit Provider Internal Medicine Gastroenterology
PROC: 0DJ08ZZ Inspection of Upper Intestinal Tract, Via Natural or Artificial Opening Endoscopic (ICD-10-PCS; CPT 43235; principal; 2022-01-06 10:00)
DX: R11.2 Nausea with vomiting, unspecified (principal); K31.7 Polyp of stomach and duodenum; Z79.899 Other long term (current) drug therapy
CPT/HCPCS: 43251; 88305

== ENCOUNTER → 2022-01-27 09:55 | Outpatient (POV) | payer MEDICARE, SELFPAY ==
[2022-01-27 10:32] VITALS: BP 109/51; PULSE 90; RESP 18; TEMP 36.3; O2SAT 98; BMI 24.0
--- NOTE | 2022-01-27 10:51 | EXP.PAIN.SOA ---
[facility] Pain Management SOAP Note Subjective:: Patient is a pleasant 81-year-old female who presents today for follow-up and medication refill. We are currently treating the patient for degenerative disc disease of lumbar spine with lumbar radiculopathy symptoms, sacroiliitis, peripheral neuropathy. Today the patient rates her pain a 3 out of 10. She states the pain is primarily in her low back that radiates into her bilateral lower extremities. Patient states she did fall a little over a week ago at home. She states she was coming back from the bathroom and slipped and hit a coffee table on her left side/hip. Patient states she did not get this checked out however she felt like she did not do any significant damage. Patient states that she had soreness and achy sensations following this episode however her symptoms have gotten better. She does state that when taking deep breaths in it does hurt a little around her left lower ribs. Patient has done injective therapy in the past that provided significant improvement of her symptoms however as time went on the injections were not as effective. Patient does use a walker at home and also has use of a wheelchair. Patient continues to live alone however she does have frequent visitors and people who come and check in on her. She is currently managed with gabapentin 300 mg twice a day. Patient denies any side effects from this medication. She states this medication is adequately managing her pain. She is requesting a refill at today's appointment. Her Pedro Pablo is [id number] with a morphine equivalent of 0. It has been reviewed and appropriate. Review of Systems: General: No recent weight changes, no fever, no sleep disturbances Respiratory: No cough, no shortness of air, no recurring pulmonary infections Cardiovascular/peripheral vascular: No chest pain, no palpitations, no edema, no shortness of breath Gastrointestinal: No new onset incontinence, normal bowel movements reported Genitourinary: No new onset incontinence Musculoskeletal: Low back pain, bilateral extremity pain, left hip and left rib pain Psychiatric: [Normal mood/affect] Neurological: [Denies weakness in extremities], [denies balance issues] Objective:: Physical Exam: General: Alert and oriented x3, no acute distress, pleasant and cooperative Lungs: Respirations even and unlabored, symmetrical chest expansion Eyes: PERRL Musculoskeletal: Flexion and extension of lumbar [spine] somewhat guarded secondary to pain, [antalgic gait noted] Neurological: Speech clear, no gross sensory deficit Assessment:: Degenerative disc disease of lumbar spine with lumbar radiculopathy symptoms, sacroiliitis, peripheral neuropathy Plan:: Patient continues to have moderate pain in her low back that radiates into her bilateral extremities. Today patient did have limited range of motion of her lumbar spine along with mild pain around her left ribs at today's visit. I have counseled the patient that she may have fractured some ribs from her fall. I did discuss with the patient regarding x-ray imaging however at this time the patient is not interested. I have instructed the patient to contact the office if she would like me to send in the x-ray order at a later date. I will refill the patient's gabapentin 300 mg twice a day and provide a 1 month supply of this medication. Patient will follow-up in 1 month. Patient will return to clinic in 1 month for follow-up and reevaluation of symptoms. Patient has been instructed to contact the clinic with any concerns before the next appointment. Dr. Mccarthy has reviewed this note and agrees with this plan of care. This note was dictated using voice recognition software and make contain errors or omissions. [facility] Medical History Abnormal echocardiogram Constipation Hypothyroid Moderate tricuspid regurgitation Nausea Skin cancer Surgical History (Reviewed 01/06/22 @
== END | disposition home or self-care (01) ==
PROVIDERS: PCP Internal Medicine Adolescent Medicine; Visit Provider Nurse Practitioner Family
DX: M51.16 Intervertebral disc disorders with radiculopathy, lumbar region (principal); M46.1 Sacroiliitis, not elsewhere classified; G62.9 Polyneuropathy, unspecified; Z79.899 Other long term (current) drug therapy
CPT/HCPCS: 99212; G0463

== ENCOUNTER → 2022-01-27 10:24 | Outpatient (CLI) | payer MEDICARE, SELFPAY ==
[2022-01-27 11:37] LABS: Anion Gap 14.1 mEq/L (5-15); Blood Urea Nitrogen 11 mg/dl (7-17); Calcium 8.7 mg/dl (8.4-10.2); Carbon Dioxide 28 mmol/L (22.0-30.0); Chloride 99 mmol/L (98-107); Estimated Glomerular Filt Rate 81 ml/min (>60); GFR (African American) 97 ML/MIN (>60); Glucose 99 mg/dl (74-100); Potassium 4.1 mmoL/L (3.5-5.1); Sodium 137 mmol/L (136-145)
[2022-01-27 11:50] LABS: INR 3.67 (0.9-1.1); Prothrombin Time 36.8 seconds (10.1-12.5)
== END ==
PROVIDERS: Internal Medicine Adolescent Medicine; PCP Internal Medicine Adolescent Medicine; Visit Provider Internal Medicine
DX: E78.2 Mixed hyperlipidemia (principal); I10 Essential (primary) hypertension; Z51.81 Encounter for therapeutic drug level monitoring; Z79.01 Long term (current) use of anticoagulants
CPT/HCPCS: 36415; 80048; 85610; 99212; G0463

== ENCOUNTER → 2022-03-03 13:10 | Outpatient (POV) | payer MEDICARE, SELFPAY ==
--- NOTE | 2022-03-03 13:24 | EXP.PAIN.SOA ---
[facility] Pain Management SOAP Note Subjective:: Patient is a pleasant 81-year-old female who presents today for follow-up and medication refill. We are currently treating the patient for degenerative disc disease of lumbar spine with lumbar radiculopathy symptoms, sacroiliitis, peripheral neuropathy. Today the patient rates her pain a 3 out of 10. Patient states the pain is primarily in her low back that radiates into her bilateral lower extremities. Patient denies any new trauma or injury. Patient denies any change to location or type of pain she experiences. Previously the patient did have a fall and at our last visit she complained about her ribs hurting. At that time the patient did decline getting any x-ray imaging for her ribs. Today the patient states that she is much improved following her last session. Patient has done injective therapy in the past that provided significant improvement of her symptoms however they became less effective over time. Patient does use a walker at home and occasionally the use of a wheelchair. Patient does continue to live alone with frequent visitors who come and check in on her. Patient is managed with gabapentin 300 mg twice a day. Patient denies any side effects from this medication. She states this medication does help manage her pain symptoms. She is requesting a refill at today's visit. Her Pedro Pablo is [id number]. It has been reviewed and appropriate. Review of Systems: General: No recent weight changes, no fever, no sleep disturbances Respiratory: No cough, no shortness of air, no recurring pulmonary infections Cardiovascular/peripheral vascular: No chest pain, no palpitations, no edema, no shortness of breath Gastrointestinal: No new onset incontinence, normal bowel movements reported Genitourinary: No new onset incontinence Musculoskeletal: Low back pain, bilateral leg pain Psychiatric: [Normal mood/affect] Neurological: [Denies weakness in extremities], [denies balance issues] Objective:: Physical Exam: General: Alert and oriented x3, no acute distress, pleasant and cooperative Lungs: Respirations even and unlabored, symmetrical chest expansion Eyes: PERRL Musculoskeletal: Flexion and extension of lumbar [spine] somewhat guarded secondary to pain, [antalgic gait noted] Neurological: Speech clear, no gross sensory deficit Assessment:: Degenerative disc disease of lumbar spine with lumbar radiculopathy symptoms, sacroiliitis, peripheral neuropathy Plan:: Patient continues to have significant pain in her low back that radiates into her bilateral lower extremities. I will refill the patient's gabapentin 300 mg twice daily and provide a 1 month supply of this medication. I will also send in a prescription for baclofen 5 mg 3 times daily and provide a 1 month supply of this medication. Patient will return to clinic in 1 month for reevaluation of symptoms, medication refill and follow-up. Patient has been instructed to contact the clinic with any concerns before the next appointment. Dr. Mccarthy has reviewed this note and agrees with this plan of care. This note was dictated using voice recognition software and make contain errors or omissions. [facility] Medical History Abnormal echocardiogram Constipation Hypothyroid Moderate tricuspid regurgitation Nausea Skin cancer Surgical History H/O tubal ligation History of cholecystectomy Hx of mitral valve repair Family History Other Family history of cancer Lung cancer Social History (Updated 01/06/22 @ 09:28 by Swati Jack CRNA) Smoking Status: Never smoker alcohol intake: never substance use type: other current occupational status: retired Travel in the last 8 weeks: None household members: significant other housing: house current occupational exposures/hazards: No
[2022-03-03 14:07] VITALS: BP 106/74; PULSE 92; RESP 18; TEMP 37.1; O2SAT 98; BMI 22.8
== END | disposition home or self-care (01) ==
PROVIDERS: PCP Internal Medicine Adolescent Medicine; Visit Provider Nurse Practitioner Family
DX: M51.16 Intervertebral disc disorders with radiculopathy, lumbar region (principal); M46.1 Sacroiliitis, not elsewhere classified; G62.9 Polyneuropathy, unspecified
CPT/HCPCS: 99212; G0463

== ENCOUNTER → 2022-03-29 13:17 | Outpatient (POV) | payer MEDICARE, SELFPAY ==
[2022-03-29 13:28] VITALS: BP 136/80; PULSE 106; RESP 19; O2SAT 96; BMI 23.5
--- NOTE | 2022-03-29 13:42 | EXP.PAIN.SOA ---
[facility] Pain Management SOAP Note Subjective:: Patient is a pleasant 81-year-old female who presents today for follow-up and medication refill. We are currently treating the patient for degenerative disc disease of lumbar spine with lumbar radiculopathy symptoms, sacroiliitis, peripheral neuropathy. Today the patient rates her pain a 3 out of 10. Patient does state that she is experiencing pain in her low back and along her neck at the left side. Patient denies any new trauma or injury. Patient describes this as a achy sensation that is worse with increased activity or range of motion. Patient states she frequently has trouble turning her head side to side without having significant pain. At our last visit we did order the patient baclofen 5 mg 3 times daily and she states this is provided significant improvement of her symptoms. Patient is currently managed with gabapentin 300 mg twice a day. Patient denies any side effects from this medication and states this medication does help with her pain symptoms. She is requesting a refill at today's visit. Patient does continue to live alone with frequent visitors in and out to check on her. Patient uses a walker and a wheelchair at home for additional help with ambulation. Her Pedro Pablo is [id number]. It has been reviewed and appropriate. Review of Systems: General: No recent weight changes, no fever, no sleep disturbances Respiratory: No cough, no shortness of air, no recurring pulmonary infections Cardiovascular/peripheral vascular: No chest pain, no palpitations, no edema, no shortness of breath Gastrointestinal: No new onset incontinence, normal bowel movements reported Genitourinary: No new onset incontinence Musculoskeletal: Low back pain, left neck pain Psychiatric: [Normal mood/affect] Neurological: [Denies weakness in extremities], [denies balance issues] Objective:: Physical Exam: General: Alert and oriented x3, no acute distress, pleasant and cooperative Lungs: Respirations even and unlabored, symmetrical chest expansion Eyes: PERRL Musculoskeletal: Flexion and extension of cervical and lumbar [spine] somewhat guarded secondary to pain, [antalgic gait noted] extreme point tenderness along left cervical paraspinous and left trapezius Neurological: Speech clear, no gross sensory deficit Assessment:: Degenerative disc disease of lumbar spine with lumbar radiculopathy symptoms, sacroiliitis, peripheral neuropathy, myofascial pain of left cervical paraspinous and left trapezius Plan:: Patient is experiencing significant pain along her neck and into her left shoulder during today's visit. Patient did have limited range of motion of her cervical and lumbar spine during today's visit. I have recommended that the patient might benefit from trigger point injections at the sites. Risk and benefits were discussed with the patient. She would like to proceed forward with this plan of care. I will also refill the patient's baclofen 5 mg 3 times daily and gabapentin 300 mg twice a day and provide a 1 month supply of this medication. We will schedule the patient for TPI of left cervical paraspinous and left trapezius. Patient has been instructed to contact the clinic with any concerns before the next appointment. Dr. Mccarthy has reviewed this note and agrees with this plan of care. This note was dictated using voice recognition software and make contain errors or omissions. [facility] Medical History Abnormal echocardiogram Constipation Hypothyroid Moderate tricuspid regurgitation Nausea Skin cancer Surgical History H/O tubal ligation History of cholecystectomy Hx of mitral valve repair Family History Other Family history of cancer Lung cancer Social History (Updated 01/06/22 @ 09:28 by Swati Jack CRNA) Smoking Status: Never smoker
== END | disposition home or self-care (01) ==
PROVIDERS: PCP Internal Medicine Adolescent Medicine; Visit Provider Nurse Practitioner Family
DX: M51.16 Intervertebral disc disorders with radiculopathy, lumbar region (principal); M79.18 Myalgia, other site; G62.9 Polyneuropathy, unspecified; M46.1 Sacroiliitis, not elsewhere classified
CPT/HCPCS: 99212; G0463

== ENCOUNTER 2022-04-01 14:12 | Outpatient (CLI) | payer MEDICARE, SELFPAY ==
[2022-04-01 15:53] LABS: PHA INR Fingerstick 1.9 (0.9-1.1)
== END 2022-04-01 15:56 ==
LOC: ACC 14:13
PROVIDERS: PCP Internal Medicine Adolescent Medicine; Visit Provider Internal Medicine Adolescent Medicine
DX: Z51.81 Encounter for therapeutic drug level monitoring (principal); Z79.01 Long term (current) use of anticoagulants
CPT/HCPCS: 85610; 99211; G0463

== ENCOUNTER 2022-05-27 13:15 | Outpatient (CLI) | payer MEDICARE, SELFPAY ==
[2022-05-27 15:19] LABS: PHA INR Fingerstick 2.6 (0.9-1.1)
== END 2022-05-27 16:01 ==
LOC: ACC 13:17
PROVIDERS: PCP Internal Medicine Adolescent Medicine; Visit Provider Internal Medicine Adolescent Medicine
DX: Z51.81 Encounter for therapeutic drug level monitoring (principal); Z79.01 Long term (current) use of anticoagulants
CPT/HCPCS: 85610; 99211; G0463

== ENCOUNTER → 2022-06-22 14:29 | Outpatient (POV) | payer MEDICARE, SELFPAY ==
--- NOTE | 2022-06-22 14:31 | EXP.PAIN.SOA ---
[facility] Pain Management SOAP Note Subjective:: Patient is a pleasant 81-year-old female who presents via telehealth visit for follow-up and medication refill. This visit is occurring at the patient's home and she is given consent for this audio appointment. We are currently treating the patient for degenerative disc disease of lumbar spine with lumbar radiculopathy symptoms, sacroiliitis, peripheral neuropathy. Today she rates her pain a 10 out of 10. Patient denies any new trauma or injury. Patient denies any change to location or type of pain she experiences. Patient does state she continues to have significant back pain that is worse with increased activity. At our last visit we did order baclofen 5 mg 3 times a day however she states that she did not notice a significant difference with this medication. She is requesting a different medication. She is currently managed with gabapentin 300 mg twice a day. Patient denies any side effects from this medication. She is requesting a refill at today's visit. Patient is also prescribed lorazepam 1 mg daily from her primary care doctor. Patient does use a walker and a wheelchair at home for additional help with her ambulation. Her Pedro Pablo is [id number]. Its been reviewed and appropriate. Review of Systems: General: No recent weight changes, no fever, no sleep disturbances Respiratory: No cough, no shortness of air, no recurring pulmonary infections Cardiovascular/peripheral vascular: No chest pain, no palpitations, no edema, no shortness of breath Gastrointestinal: No new onset incontinence, normal bowel movements reported Genitourinary: No new onset incontinence Musculoskeletal: Low back pain Psychiatric: [Normal mood/affect] Neurological: [Denies weakness in extremities], [denies balance issues] Objective:: General: Alert and oriented x3, pleasant and cooperative Lungs: Patient is able to say complete sentences without dyspnea Neurological: Speech clear Assessment:: Degenerative disc disease of lumbar spine with lumbar radiculopathy symptoms, sacroiliitis, peripheral neuropathy Plan:: Patient continues to experience significant pain in her low back. I will refill the patient's gabapentin 300 mg twice a day and provide a 1 month supply of this medication. I will also order the patient methocarbamol 500 mg 3 times daily and provide a 1 month supply of this medication. Patient will return to clinic in 1 month for reevaluation of symptoms, medication refill and follow-up. This telehealth visit did occur from [id number]. Patient has been instructed to contact the clinic with any concerns before the next appointment. Dr. Mccarthy has reviewed this note and agrees with this plan of care. This note was dictated using voice recognition software and make contain errors or omissions. [facility] Disclaimer: The information contained in this section may have been updated after the patient was seen, as this information can be updated by other users. Medical History Abnormal echocardiogram Constipation Hypothyroid Moderate tricuspid regurgitation Nausea Skin cancer Surgical History H/O tubal ligation History of cholecystectomy Hx of mitral valve repair Family History Other Family history of cancer Lung cancer Social History (Updated 01/06/22 @ 09:28 by Swati Jack CRNA) Smoking Status: Never smoker alcohol intake: never substance use type: other current occupational status: retired Travel in the last 8 weeks: None household members: significant other housing: house current occupational exposures/hazards: No caffeine: No
== END | disposition home or self-care (01) ==
PROVIDERS: Visit Provider Nurse Practitioner Family
DX: M51.16 Intervertebral disc disorders with radiculopathy, lumbar region (principal); M46.1 Sacroiliitis, not elsewhere classified; G62.9 Polyneuropathy, unspecified
CPT/HCPCS: 99212; G0463

== ENCOUNTER 2022-06-27 14:25 | Outpatient (CLI) | payer MEDICARE, SELFPAY ==
[2022-06-27 14:51] LABS: PHA INR Fingerstick 1.3 (0.9-1.1)
== END 2022-06-27 14:54 ==
LOC: ACC 14:26
PROVIDERS: PCP Internal Medicine Adolescent Medicine; Visit Provider Internal Medicine Adolescent Medicine
DX: Z51.81 Encounter for therapeutic drug level monitoring (principal); Z79.01 Long term (current) use of anticoagulants
CPT/HCPCS: 85610; 99211; G0463

== ENCOUNTER 2022-07-04 12:51 | Outpatient (CLI) | payer MEDICARE, SELFPAY ==
[2022-07-04 16:02] LABS: PHA INR Fingerstick 1.7 (0.9-1.1)
== END 2022-07-04 16:04 ==
LOC: ACC 12:52
PROVIDERS: PCP Internal Medicine Adolescent Medicine; Visit Provider Internal Medicine Adolescent Medicine
DX: Z51.81 Encounter for therapeutic drug level monitoring (principal); Z79.01 Long term (current) use of anticoagulants
CPT/HCPCS: 85610; 99211; G0463

== ENCOUNTER → 2022-07-18 13:36 | Outpatient (POV) | payer MEDICARE, SELFPAY ==
[2022-07-18 14:01] VITALS: BP 126/61; PULSE 88; RESP 18; O2SAT 97; BMI 22.4
--- NOTE | 2022-07-18 14:12 | EXP.PAIN.SOA ---
[facility] Pain Management SOAP Note Subjective:: Patient is a pleasant 81-year-old female who presents today for follow-up and medication refill. We are currently treating the patient for degenerative disc disease of lumbar spine with lumbar radiculopathy symptoms, sacroiliitis, peripheral neuropathy. Today she rates her pain a 5 out of 10. Patient denies any new trauma or injury. Patient denies any change to the location or type of pain she experiences. At our last visit we did change her baclofen 5 mg 3 times a day to methocarbamol 500 mg 3 times a day. Patient states this has helped decrease her pain symptoms. She does state that she continues to have constant pressure sensations from her bilateral knees to her feet. She does state that the change of muscle relaxers did help some with this pain. She is also managed with gabapentin 300 mg twice a day and lorazepam 1 mg from her primary care doctor. Patient denies any side effects from these medications. Patient does use a walker and a wheelchair at home for help with ambulation. Her Pedro Pablo is [id number]. Its been reviewed and appropriate. Review of Systems: General: No recent weight changes, no fever, no sleep disturbances Respiratory: No cough, no shortness of air, no recurring pulmonary infections Cardiovascular/peripheral vascular: No chest pain, no palpitations, no edema, no shortness of breath Gastrointestinal: No new onset incontinence, normal bowel movements reported Genitourinary: No new onset incontinence Musculoskeletal: Low back pain Psychiatric: [Normal mood/affect] Neurological: [Denies weakness in extremities], [denies balance issues] Objective:: Physical Exam: General: Alert and oriented x3, no acute distress, pleasant and cooperative Lungs: Respirations even and unlabored, symmetrical chest expansion Eyes: PERRL Musculoskeletal: Flexion and extension of lumbar [spine] somewhat guarded secondary to pain, [antalgic gait noted] Neurological: Speech clear, no gross sensory deficit Assessment:: Degenerative disc disease of lumbar spine with lumbar radiculopathy symptoms, sacroiliitis, peripheral neuropathy Plan:: Patient has had improvement of her pain symptoms from the addition of methocarbamol. I will change this current dosage to methocarbamol 750 mg 3 times a day and provide a 1 month supply of this medication. I will also refill her gabapentin 300 mg twice a day and send in a 1 month supply on this medication as well. Patient will return to clinic in 1 month for reevaluation of symptoms, medication refill and follow-up. Patient has been instructed to contact the clinic with any concerns before the next appointment. Dr. Mccarthy has reviewed this note and agrees with this plan of care. This note was dictated using voice recognition software and make contain errors or omissions. [facility] Disclaimer: The information contained in this section may have been updated after the patient was seen, as this information can be updated by other users. Medical History Abnormal echocardiogram Constipation Hypothyroid Moderate tricuspid regurgitation Nausea Skin cancer Surgical History H/O tubal ligation History of cholecystectomy Hx of mitral valve repair Family History Other Family history of cancer Lung cancer Social History (Updated 01/06/22 @ 09:28 by Swati Jack CRNA) Smoking Status: Never smoker alcohol intake: never substance use type: other current occupational status: retired Travel in the last 8 weeks: None household members: significant other housing: house current occupational exposures/hazards: No caffeine: No
== END | disposition home or self-care (01) ==
PROVIDERS: PCP Internal Medicine Adolescent Medicine; Visit Provider Nurse Practitioner Family
DX: M51.16 Intervertebral disc disorders with radiculopathy, lumbar region (principal); M46.1 Sacroiliitis, not elsewhere classified; G62.9 Polyneuropathy, unspecified
CPT/HCPCS: 99212; G0463

== ENCOUNTER 2022-07-18 14:24 | Outpatient (CLI) | payer MEDICARE, SELFPAY ==
[2022-07-18 15:43] LABS: PHA INR Fingerstick 1.7 (0.9-1.1)
== END 2022-07-18 16:07 ==
LOC: ACC 14:26
PROVIDERS: PCP Internal Medicine Adolescent Medicine; Visit Provider Internal Medicine Adolescent Medicine
DX: Z51.81 Encounter for therapeutic drug level monitoring (principal); Z79.01 Long term (current) use of anticoagulants
CPT/HCPCS: 85610; 99211; 99212; G0463

== ENCOUNTER → 2022-08-18 14:15 | Outpatient (POV) | payer MEDICARE, SELFPAY ==
[2022-08-18 14:45] VITALS: BP 127/63; PULSE 87; RESP 20; BMI 24.9
--- NOTE | 2022-08-18 14:53 | EXP.PAIN.SOA ---
[facility] Pain Management SOAP Note Subjective:: Patient is a pleasant 82-year-old female who presents today for follow-up and medication refill. We are currently treating the patient for degenerative disc disease of lumbar spine with lumbar radiculopathy symptoms, sacroiliitis, peripheral neuropathy. Today she rates her pain a 0 out of 10 while sitting however she states when she goes to stand up her pain goes to a 10 out of 10. Patient denies any new trauma or injury. Patient denies any change to location or type of pain she experiences. Patient does describe this as a constant aching, pressure sensation that is worse with increased activity. She does state it interferes with her ability to perform activities of daily living such as cooking and cleaning. She does also states she continues to have pressure sensations from her knees to her feet. Patient was recently changed to baclofen 5 mg 3 times a day that she states has helped improve some of her symptoms. She does use a walker and a wheelchair for additional help with ambulation. Patient is currently managed with lorazepam [address] Camacho's office and gabapentin 300 mg twice a day from our office. Patient denies any side effects from these medications. Her Pedro Pablo is [id number]. Its been reviewed and appropriate. Review of Systems: General: No recent weight changes, no fever, no sleep disturbances Respiratory: No cough, no shortness of air, no recurring pulmonary infections Cardiovascular/peripheral vascular: No chest pain, no palpitations, no edema, no shortness of breath Gastrointestinal: No new onset incontinence, normal bowel movements reported Genitourinary: No new onset incontinence Musculoskeletal: Low back pain Psychiatric: [Normal mood/affect] Neurological: [Denies weakness in extremities], [denies balance issues] Objective:: Physical Exam: General: Alert and oriented x3, no acute distress, pleasant and cooperative Lungs: Respirations even and unlabored, symmetrical chest expansion Eyes: PERRL Musculoskeletal: Flexion and extension of lumbar [spine] somewhat guarded secondary to pain, [antalgic gait noted] Neurological: Speech clear, no gross sensory deficit FINDINGS: There is straightening of the lumbar lordosis. There is diffuse osteopenia. Minimal bulging disc T11-T12 with minimal central disc calcification. T12-L1: Unremarkable. L1-L2: Minimal bulging disc with degenerative disc disease. L2-L3: Degenerative disc disease with minimal bulging disc. L3-L4: Degenerative disc disease with mild bulging disc along with facet and ligamentum hypertrophy with mild bilateral foraminal narrowing. Wedge compression changes are present involving the superior endplate of L4 which are chronic in nature unchanged from 01/26/2015 without retropulsion. L4-5: Mild bulging disc with facet and ligamentum hypertrophy. There is bilateral foraminal narrowing slightly greater on the left. L5-S1: Bulging disc with annular calcification with facet and ligamentum hypertrophy. Bilateral foraminal narrowing left greater than right. No lytic or blastic changes apparent. IMPRESSION: 1. There is straightening/reversal of the normal lordosis which may be due to patient positioning or muscle spasm. 2. Osteopenia with multilevel lumbar spondylosis as detailed above. Dictated by: ? Hermann Fofana MD? 03/04/2020 09:25 ?Hermann Fofana MD in [place] 03/04/2020 09:25 Assessment:: Degenerative disc disease of lumbar spine with lumbar radiculopathy symptoms, sacroiliitis, peripheral neuropathy, spinal stenosis with neurogenic claudication symptoms Plan:: Patient is experiencing significant pain in her back and legs with limited range of motion. Patient does have symptoms consistent with neurogenic claudication and spinal stenosis. Patient's previous advanced imaging from 2019 did show multilevel degenerative disc disease with disc bulges, facet arthropathy, ligamentum hypertrophy and neuroforaminal narrowing.
== END | disposition home or self-care (01) ==
PROVIDERS: PCP Internal Medicine Adolescent Medicine; Visit Provider Nurse Practitioner Family
DX: M51.16 Intervertebral disc disorders with radiculopathy, lumbar region (principal); M48.062 Spinal stenosis, lumbar region with neurogenic claudication; M46.1 Sacroiliitis, not elsewhere classified; G62.9 Polyneuropathy, unspecified
CPT/HCPCS: 99212; G0463

== ENCOUNTER 2022-08-18 14:56 | Outpatient (CLI) | payer MEDICARE, SELFPAY ==
--- NOTE | 2022-08-18 15:18 | XR_ITS ---
FINAL REPORT CLINICAL HISTORY: LOW BACK PAIN FINDINGS: LUMBAR SPINE 5 views of the lumbar spine were obtained. There is no acute fracture or dislocation. There is a mild L4 superior endplate compression fracture which appears chronic. There is mild right curvature. The vertebral alignment is normal. There are moderate degenerative changes. No paraspinous soft tissue abnormalities identified. IMPRESSION: No acute bony abnormality. Mild L4 superior endplate compression fracture appears chronic. Moderate degenerative change. Reviewed, Interpreted and Dictated by Ricardo Butt III, MD Transcribed by Valerie Chicas Authenticated and [facility]
[2022-08-18 15:28] LABS: PHA INR Fingerstick 2.2 (0.9-1.1)
== END 2022-08-18 15:29 ==
LOC: ACC 14:58
PROVIDERS: PCP Internal Medicine Adolescent Medicine; Visit Provider Nurse Practitioner Family
DX: M54.50 Low back pain, unspecified (principal); Z51.81 Encounter for therapeutic drug level monitoring; Z79.01 Long term (current) use of anticoagulants
CPT/HCPCS: 72110; 85610; 99211; 99212; G0463

== ENCOUNTER 2022-08-28 06:26 | Observation (INO) | payer MEDICARE, SELFPAY ==
[2022-08-28] VITALS (10 sets, daily range): BP systolic 120–147; BP diastolic 62–84; PULSE 85–125; RESP 16–20; TEMP 36.4–36.6; O2SAT 94–96; BMI 21.4; BMI 22.3
--- NOTE | 2022-08-28 06:45 | ECG_ITS ---
APPROVED REPORT Exam: Resting ECG HR:95 bpm ECG Measurements Heart Rate 95 AXES QRSd 149 QRS -73 QT 397 T 25 QTc 450 Conclusion ATRIAL FIBRILLATION WITH ABERRANT CONDUCTION OR VENTRICULAR PREMATURE COMPLEXES RIGHT BUNDLE BRANCH BLOCK [120+ ms QRS DURATION, UPRIGHT V1, 40+ ms S IN I/aVL/V4/V5/V6] LEFT ANTERIOR FASCICULAR BLOCK [QRS AXIS <= -45, QR IN I, RS IN II] ABNORMAL ECG UNCONFIRMED REPORT Electronically signed by : Emeterio Camacho MD 08/28/2022 12:52:15
--- NOTE | 2022-08-28 07:02 | XR_ITS ---
PROCEDURE INFORMATION: Exam: XR Chest Exam date and time: 08/28/2022 7:21 AM Age: 82 years old Clinical indication: Shortness of breath; Additional info: SOA TECHNIQUE: Imaging protocol: Radiologic exam of the chest. Views: 1 view. COMPARISON: CR XR CHEST PORTABLE 10/07/2021 11:19 AM FINDINGS: Tubes, catheters and devices: AICD. Lungs: Emphysematous change, without acute airspace disease. Pleural spaces: No pleural effusion. Heart/Mediastinum: Valve replacement, without cardiomegaly. Diaphragm: Asymmetric elevation of the right hemidiaphragm. Bones/joints: Osteopenia and degenerative change. When correlating with the previous study, no significant interval changes are present. IMPRESSION: Stable appearance of the chest, not significantly changed from 10/07/21.
[2022-08-28 07:09] LABS: Basophils % 0.5 % (0.1-2.0); Eosinophils % 0.7 % (0.1-12.0); Hematocrit 35.5 % (37.0-47.0); Hemoglobin 11.3 g/dL (12.2-16.2); Lymphocytes # 1.2 K/mm3 (0.7-4.5); Lymphocytes % 21.6 % (10-50); Mean Corpuscular HGB Conc 31.9 g/dL (31.8-35.4); Mean Corpuscular Hemoglobin 26.7 pg (27.0-31.2); Mean Corpuscular Volume 83.6 fl (81-99); Mean Platelet Volume 8.1 fl (7.4-10.4); Monocytes # 0.4 K/mm3 (0.1-1.0); Monocytes % 7.5 % (1.7-9.3); Neutrophils # 3.9 K/mm3 (1.8-7.8); Neutrophils % 69.6 % (37.0-80.0); Platelet Count 304 K/mm3 (142-424); Red Blood Count 4.25 M/mm3 (4.20-5.40); Red Cell Distribution Width 16.8 % (11.5-17.5); White Blood Count 5.5 K/mm3 (4.8-10.8)
[2022-08-28 07:10] LABS: Chloride 98 mmol/L (98-107); Potassium 3.6 mmoL/L (3.5-5.1); Sodium 133 mmol/L (136-145)
--- NOTE | 2022-08-28 07:12 | HMH.EDSOB ---
Discharge Plan Disposition Patient Disposition: Admitted as Observation Chief Complaint: Shortness of Breath/Dyspnea Clinical Impressions Clinical Impression: Diastolic dysfunction with acute on chronic heart failure Discharge ED Provider: Ted (ED)Jared Resp/SOB HPI General Chief Complaint: Shortness of Breath/Dyspnea Stated Complaint: Vomiting,SOA,Fluid build up Time Seen by Provider: 08/28/22 07:00 Mode of Arrival: Ambulatory Source of Information: Patient, Relative and Medical Record Limitations: No Limitations Description of Symptoms (Recalled from ER Triage Doc. by RN): Pt states that she has had sob for prior two days. States that she has also had nausea and vomiting since 1399. Patient state that she was called by Kimmie Myles two days ago because her pacemaker alerted cardiology that she was retaining fluid and that she needed to restart her home lasix that had been previously discontinued. Pt states that they did not tell her how much to take or how often History of Present Illness pt with hx of sob over the last few days - pt also with reported n/v- has inc element of chf and can not tolerate meds -no chest pain MD Complaint: shortness of breath Onset (ago): hour(s) Severity: moderate Consistency/Duration: intermittent Known history of: congestive heart failure Associated symptoms: denies other symptoms Treatment prior to arrival: none Related Data Home oxygen amount: none Home Medications Medication Instructions Recorded Confirmed calcium carbonate 600 mg-vitamin 1 each PO DAILY Supplement 02/26/18 08/18/22 D3 20 mcg (800 unit) tablet aspirin 81 mg tablet,delayed 81 mg PO DAILY HEART HEALTH 01/29/20 08/18/22 release temazepam 15 mg capsule 15 mg PO HS Insomnia 01/29/20 08/18/22 bupropion HCl 300 mg 24 hr tablet, 300 mg PO DAILY Depression 12/01/20 08/18/22 extended release levothyroxine 100 mcg tablet 100 mcg PO DAILY hypothyroidism 01/04/21 08/18/22 warfarin 4 mg tablet 2 mg PO MOWEFR BLOOD THINNER-AFIB 05/05/21 08/18/22 tiotropium 2.5 mcg-olodaterol 2.5 2 puff inhalation DAILY COPD 08/31/21 08/18/22 mcg/actuation mist for inhalation (Stiolto Respimat) desvenlafaxine succinate 100 mg 100 mg PO DAILY mood 10/08/21 08/18/22 tablet,extended release 24 hr omeprazole 20 mg capsule,delayed 20 mg PO BID GERD 10/08/21 08/18/22 release Previous Rx's Medication Instructions Recorded atorvastatin 40 mg tablet 40 mg PO HS Cholesterol #30 tabs 05/05/21 metoprolol succinate 100 mg 100 mg PO BID Hypertension 30 days 10/09/21 tablet,extended release 24 hr #60 tabs prochlorperazine maleate 5 mg 5 mg PO Q8 PRN Nausea And Vomiting 11/16/21 tablet #15 tabs furosemide 40 mg tablet 40 mg PO DAILY Fluid #90 tabs 03/14/22 diltiazem HCl 180 mg 180 mg PO DAILY heart rate #90 caps 05/27/22 capsule,extended release 24 hr gabapentin 300 mg capsule 300 mg PO BID Pain #60 caps 08/18/22 methocarbamol 500 mg tablet 500 mg PO TID #90 tabs 08/19/22 methocarbamol 750 mg tablet 750 mg PO TID Pain #90 tabs 08/22/22 Allergies Allergy/AdvReac Type Severity Reaction Status Date / Time No Known Allergies Allergy Verified 10/07/21 10:42 [facility] Disclaimer: The information contained in this section may have been updated after the patient was seen, as this information can be updated by other users. Medical History Abnormal echocardiogram Constipation Hypothyroid Moderate tricuspid regurgitation Nausea Skin cancer Surgical History H/O tubal ligation History of cholecystectomy Hx of mitral valve repair Family History Other Family history of cancer Lung cancer Social History (Updated 01/06/22 @ 09:28 by Swati Jack CRNA) Smoking Status: Never smoker alcohol intake: never substance use type: other current occu
[2022-08-28 07:13] LABS: Alanine Aminotransferase 33 U/L (12-78); Albumin Level 4.2 g/dl (3.5-5.0); Albumin/Globulin Ratio 1.5 (1.1-1.8); Alkaline Phosphatase 94 U/L (38-126); Anion Gap 11.6 mEq/L (5-15); Aspartate Amino Transferase 37 U/L (14-36); Bilirubin,Total 0.5 mg/dl (0.2-1.3); Blood Urea Nitrogen 9 mg/dl (7-17); Calcium 9.2 mg/dl (8.4-10.2); Carbon Dioxide 27 mmol/L (22.0-30.0); Creatinine Clearance Estimated 39 mL/min (50-200); Estimated Glomerular Filt Rate 96 ml/min (>60); GFR (African American) 116 ML/MIN (>60); Globulin 2.8 g/dL (1.3-3.2); Glucose 111 mg/dl (74-100)
[2022-08-28 07:15] LABS: INR 3.32 (0.9-1.1); Prothrombin Time 33.5 seconds (10.1-12.5)
--- NOTE | 2022-08-28 07:18 | PC.NURSE ---
PT MEDICATED PER EMAR. PT AND FAMILY UPDATED AT THIS TIME. NO NEEDS VOICED. CALL LIGHT WITHIN REACH
[2022-08-28 07:22] LABS: NT Pro Brain Natriuretic Pep. 1280 pg/mL (0-450)
--- NOTE | 2022-08-28 07:22 | PC.NURSE ---
VICENTE WANG AT BEDSIDE
[2022-08-28 07:26] LABS: Troponin I < 0.01 ng/ml (0.00-0.034)
--- NOTE | 2022-08-28 07:40 | PC.NURSE ---
SCARLET CALL speaking with Dr. Camacho
--- NOTE | 2022-08-28 07:44 | PC.NURSE ---
DR WANG AT BEDSIDE TO UPDATE PT ON ADMISSION
--- NOTE | 2022-08-28 07:45 | PC.NURSE ---
notified scalehouse attendant of admission
[2022-08-28 07:49] LABS: Coronavirus 19, PCR Not Detected (NotDetected); Influenza A, PCR Not Detected (NotDetected); Influenza B, PCR Not Detected (NotDetected)
--- NOTE | 2022-08-28 07:49 | PC.NURSE ---
MD asked about pt having a drink, pt given ice water.
[2022-08-28 08:05] LABS: Magnesium 1.7 mg/dl (1.6-2.3)
--- NOTE | 2022-08-28 08:15 | PC.NURSE ---
REPORT GIVEN TO ECONN, RN
[2022-08-28 08:23] LABS: T4 (Thyroxine) 9.4 ug/dl (5.53-11.0)
[2022-08-28 08:37] LABS: Thyroid Stimulating Hormone 1.33 uIU/mL (0.465-4.68)
--- NOTE | 2022-08-28 09:26 | EXP.HP ---
History of Present Illness *Admission Date: 08/28/22 *Reason for visit:: Nausea/vomiting *History of present illness: 82-year-old with multiple medical problems including chronic atrial fibrillation, pacemaker implantation and chronic systolic and diastolic heart failure who has been struggling with vomiting and nausea over the past 24 hours. Of note she reports that he was called by cardiology clinic here at [facility] a couple of days ago and told to go back on Lasix because her internal device monitoring showed she was slightly fluid overloaded but she was little bit confused about the instructions given and has not restarted the Lasix. She does not report shortness of air or increased swelling but does report she feels poorly, and has not been able to keep fluids down. Presented to the ER, unable to tolerate liquids, elevated BNP noted and admitted to hospital for IV fluids, antiemetic therapy and evaluation by cardiology. [facility] Disclaimer: The information contained in this section may have been updated after the patient was seen, as this information can be updated by other users. Medical History Abnormal echocardiogram Constipation Hypothyroid Moderate tricuspid regurgitation Nausea Skin cancer Surgical History H/O tubal ligation History of cholecystectomy Hx of mitral valve repair Family History Other Family history of cancer Lung cancer Social History (Updated 01/06/22 @ 09:28 by Swati Jack CRNA) Smoking Status: Never smoker alcohol intake: never substance use type: other current occupational status: other Travel in the last 8 weeks: None household members: significant other housing: house current occupational exposures/hazards: No caffeine: No Meds Home Medications and Allergies Home Medications Medication Instructions Recorded Confirmed Type calcium carbonate 600 mg-vitamin 1 each PO DAILY Supplement 02/26/18 08/28/22 History D3 20 mcg (800 unit) tablet aspirin 81 mg tablet,delayed 81 mg PO DAILY HEART HEALTH 01/29/20 08/28/22 History release bupropion HCl 300 mg 24 hr tablet, 300 mg PO DAILY Depression 12/01/20 08/28/22 History extended release levothyroxine 100 mcg tablet 100 mcg PO DAILY hypothyroidism 01/04/21 08/28/22 History atorvastatin 40 mg tablet 40 mg PO HS Cholesterol #30 tabs 05/05/21 08/28/22 Rx warfarin 4 mg tablet 2 mg PO MOWEFR BLOOD THINNER-AFIB 05/05/21 08/28/22 History desvenlafaxine succinate 100 mg 100 mg PO DAILY mood 10/08/21 08/28/22 History tablet,extended release 24 hr omeprazole 20 mg capsule,delayed 20 mg PO BID GERD 10/08/21 08/28/22 History release metoprolol succinate 100 mg 100 mg PO BID Hypertension 30 days 10/09/21 08/28/22 Rx tablet,extended release 24 hr #60 tabs diltiazem HCl 180 mg 180 mg PO DAILY heart rate #90 caps 05/27/22 08/28/22 Rx capsule,extended release 24 hr gabapentin 300 mg capsule 300 mg PO BID Pain #60 caps 08/18/22 08/28/22 Rx methocarbamol 750 mg tablet 750 mg PO TID Pain #90 tabs 08/22/22 08/28/22 Rx acetaminophen 500 mg tablet 1,000 mg PO BID Arthritis 08/28/22 08/28/22 History (Acetaminophen Extra Strength) lorazepam 1 mg tablet 1 mg PO HS Anxiety 08/28/22 08/28/22 History New Prescriptions to Start Prescriptions: Allergies Allergy/AdvReac Type Severity Reaction Status Date / Time No Known Allergies Allergy Verified 10/07/21 10:42 Exam Data for Last 24 hours Vital signs and Labs for Last 24 Hours: Temp Pulse Resp BP Pulse Ox 97.6 F 106 H 16 134/76 94 L 08/28/22 08:48 08/28/22 08:48 08/28/22 08:48 08/28/22 08:48 08/28/22 08:48 Laboratory Results - last 24 hr 08/28/22 06:40: WBC 5.5, RBC 4.25, Hgb 11.3 L, Hct 35.5 L, MCV 83.6, MCH 26.7 L, MCHC 31.9, RDW 16.8, Plt Count 304, MPV 8.1, N
[2022-08-28 10:59] LABS: Troponin I < 0.01 ng/ml (0.00-0.034)
[2022-08-28 13:29] LABS: Troponin I < 0.01 ng/ml (0.00-0.034)
[2022-08-29] VITALS: BP 100/77; PULSE 108; PULSE 90; RESP 16; TEMP 36.7; O2SAT 93
[2022-08-29 04:00] VITALS: BP 124/80; PULSE 102; PULSE 95; RESP 17; TEMP 36.7; O2SAT 96; BMI 22.4
[2022-08-29 06:35] LABS: Basophils % 0.6 % (0.1-2.0); Eosinophils % 0.6 % (0.1-12.0); Hematocrit 34.9 % (37.0-47.0); Hemoglobin 11.2 g/dL (12.2-16.2); Lymphocytes # 1.2 K/mm3 (0.7-4.5); Lymphocytes % 28.3 % (10-50); Mean Corpuscular HGB Conc 32.1 g/dL (31.8-35.4); Mean Corpuscular Hemoglobin 27.2 pg (27.0-31.2); Mean Corpuscular Volume 84.7 fl (81-99); Mean Platelet Volume 8.1 fl (7.4-10.4); Monocytes # 0.5 K/mm3 (0.1-1.0); Monocytes % 11.1 % (1.7-9.3); Neutrophils # 2.5 K/mm3 (1.8-7.8); Neutrophils % 59.4 % (37.0-80.0); Platelet Count 261 K/mm3 (142-424); Red Blood Count 4.11 M/mm3 (4.20-5.40); Red Cell Distribution Width 16.8 % (11.5-17.5); White Blood Count 4.2 K/mm3 (4.8-10.8)
[2022-08-29 06:38] LABS: Chloride 104 mmol/L (98-107); Potassium 3.3 mmoL/L (3.5-5.1); Sodium 135 mmol/L (136-145)
[2022-08-29 06:41] LABS: Anion Gap 6.3 mEq/L (5-15); Blood Urea Nitrogen 10 mg/dl (7-17); Calcium 8.6 mg/dl (8.4-10.2); Carbon Dioxide 28 mmol/L (22.0-30.0); Creatinine Clearance Estimated 42 mL/min (50-200); Estimated Glomerular Filt Rate 96 ml/min (>60); GFR (African American) 116 ML/MIN (>60); Glucose 87 mg/dl (74-100)
[2022-08-29 06:42] LABS: INR 2.26 (0.9-1.1); Prothrombin Time 23.3 seconds (10.1-12.5)
[2022-08-29 08:00] VITALS: BP 119/59; PULSE 104; PULSE 110; RESP 16; TEMP 36.5; O2SAT 96
--- NOTE | 2022-08-29 08:09 | SW/DCPLANNER ---
Addendum entered by Ruby Rios 08/29/22 14:07: [facility] stated that services will begin this week. Addendum entered by Ruby Rios 08/29/22 12:32: [facility] is not able to accept this patient due to insurance. Patient information/order has been faxed to [facility]. Original Note: Patient information/order will be faxed to [facility] per patient/family request. The plan for this patient is to discharge home later today pending no setbacks.
--- NOTE | 2022-08-29 08:17 | EXP.CARD.CON ---
History of Present Illness History of Present Illness Consult date: 08/29/22 Requesting physician: Emeterio Camacho Consult reason: congestive heart failure Chief complaint: SOA Additional Medical History:: 1.? Dilated cardiomyopathy A.? Medtronic AICD, implanted, 2015 with 2 battery replacements, last one in 02/2019, Dr. Zach Llanes.? B.? Limited echocardiogram, 03/05/2019, EF 50% C. Echo, 04/2021, EF 45% with segmental WMA (septal area likely due to AICD), No significant mitral inflow obstruction, mild MR noted with moderate TR 2.? 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 History of mitral valve repair, March/2006, due to mitral valve prolapse 4.? History of breast augmentation 5.? History of hypertension per records 6.? History of hyperlipidemia, per records 7.? Hypothyroidism 8.? Osteoporosis 9.? Chronic A. fib with anticoagulation with warfarin 10.? History of paroxysmal ventricular tachycardia and paroxysmal atrial fibrillation/flutter, per records 11. Recurrent nausea and vomiting A. EGD, 01/06/2022, Dr. Ramirez, normal. No evidence of ulcer or outlet obstruction. 12. Degenerative disc disease with lumbar radiculopathy, sacroiliitis and peripheral neuropathy. History of present illness: 82-year-old white female with history of chronic atrial fibrillation/chronic Coumadin therapy, AICD implantation in 2015, mitral valve repair in 2005 with resultant CVA in early 2006 affecting the left side presented to the emergency department over the weekend for 2 to 3-day history of increasing shortness of breath despite restarting diuretic therapy. Recent phone call from our office for increased fluid detection noted by AICD monitoring with recommendation to resume diuretic therapy. Patient states she did see an increase in her diuresis but the shortness of breath continued. She does admit to a high salt diet. Troponins normal x3 this admission. BNP elevated at 1280 but chest x-ray evidence negative for acute edema. Emphysematous changes noted. Asymmetric elevation of the right hemidiaphragm. Osteopenia and degenerative changes noted. No significant change compared to 10/07/2021 study. Patient received IV Bumex in the ER and had a net negative urine output of just over 1 L. Breathing seems to be better this morning. Echocardiogram has been ordered and pending at this time. [facility] Disclaimer: The information contained in this section may have been updated after the patient was seen, as this information can be updated by other users. Medical History (Updated 08/29/22 @ 08:36 by TIGRE Arnold) Abnormal echocardiogram Acute on chronic HFrEF (heart failure with reduced ejection fraction) Constipation Hypothyroid Moderate tricuspid regurgitation Nausea Skin cancer Surgical History H/O tubal ligation History of cholecystectomy Hx of mitral valve repair Family History Other Family history of cancer Lung cancer Social History (Updated 01/06/22 @ 09:28 by Swati Jack CRNA) Smoking Status: Never smoker alcohol intake: never substance use type: other current occupational status: other Travel in the last 8 weeks: None household members: significant other housing: house current occupational exposures/hazards: No caffeine: No Review of Systems Review of Systems Review of systems:: pertinent systems reviewed and negative unless documented below *Cardiovascular Cardiovascular: Denies chest pain and Reports dyspnea *Respiratory Respiratory: Reports dyspnea Exam Data for Last 24 hours Vital signs and Labs for Last 24 Hours: Temp Pulse Resp BP Pulse Ox 98.1 F 102 H 17 124/80 96 08/29/22 04:00 08/29/22 04:00 08/29/22 04:00 08/29/22 04:00 08/29/22 04:00 Laboratory Results - last 24 hr 08/28/22 06:40: TSH 1.33, Thyroxine (T4) 9.4 08/28/22 10:2
[2022-08-29 11:49] VITALS: BP 132/74; PULSE 117; RESP 18; TEMP 36.4; O2SAT 99
[2022-08-29 12:00] VITALS: PULSE 120
--- NOTE | 2022-08-29 12:31 | HMH.PTEV ---
Physical Therapy Evaluation Rehab PT IP Evaluation Start: 08/29/22 07:52 Freq: ONCE Status: Active Protocol: Document 08/29/22 12:23 HEBERSAMEER (Rec: 08/29/22 12:31 HEBERSAMEER [id number]) Subjective/History History History Pt is a 82 year old female that presented to the ED on with reports of nausea and vomiting over the past 24 hours. Pt reports that she was called by cardiology clinic at [facility] a couple of days ago and told to go back on Lasix because her internal device monitoring showed she was slightly fluid overloaded but she was little bit confused about the instructions given and has not restarted the Lasix. Pt feels poorly, unable to tolerate liquids, elevated BNP noted and admitted to hospital for IV fluids, antiemetic therapy and evaluation by cardiology. Subjective Subjective Pt presents supine in bed, requires encouragment to participate with PT evaluation . States I've done enough therapy, I'm as good as I'm going to get . Pt denies reports of pain at rest. Pt states she has a history of a stroke that affected her L side. Pt reports she lives in a [facility] with sister and niece with 1 TRAY. Pt reports she ambulates with a rollator at baseline within the home and uses a w/c when outside the home. Rehab PT IP Eval Objective Appearance Patient Behavior Appropriate Patient Orientation Person,Place,Birthday Difficulty following instructions none Speech Pattern Clear,Appropriate Ambulation Patient Able to Ambulate Yes Ambulation Observation IP General Gait Pattern Observation Shuffling Step Ambulation Distance (feet) 10 Ambulation Assistive Device None Ambulation Ability Minimal x 1 (25% assist) Balance Ability to Arise Able, uses arms to help Sitting Balance
--- NOTE | 2022-08-29 12:54 | EXP.DC.SUM ---
General Admission date:: 08/28/22 Discharge date: 08/29/22 HPI HPI HPI: 82-year-old with multiple medical problems including chronic atrial fibrillation, pacemaker implantation and chronic systolic and diastolic heart failure who has been struggling with vomiting and nausea over the past 24 hours. Of note she reports that he was called by cardiology clinic here at [facility] a couple of days ago and told to go back on Lasix because her internal device monitoring showed she was slightly fluid overloaded but she was little bit confused about the instructions given and has not restarted the Lasix. She does not report shortness of air or increased swelling but does report she feels poorly, and has not been able to keep fluids down. Presented to the ER, unable to tolerate liquids, elevated BNP noted and admitted to hospital for IV fluids, antiemetic therapy and evaluation by cardiology. Hospital Course Hospital Course Hospital Course: Patient was admitted, placed on IV fluids and antiemetics, her nausea and vomiting resolved. Cardiology consultation was obtained. Echocardiogram showed no significant changes since 2020. They felt that she had a mild exacerbation because of dietary indiscretion with salt. surgical consultant recommended Aldactone 25 daily and Lasix Monday/Monday/Monday. Patient agreed with this. She will be discharged home. I will see her on 09/03/2022 for short-term follow-up. We will ask home health to evaluate her for nursing care/CHF program. Exam Data for Last 24 hours Vital signs and Labs for Last 24 Hours: Temp Pulse Resp BP Pulse Ox 97.6 F 117 H 18 132/74 99 08/29/22 11:49 08/29/22 11:49 08/29/22 11:49 08/29/22 11:49 08/29/22 11:49 Laboratory Results - last 24 hr 08/28/22 13:00: Troponin I < 0.01 08/29/22 06:11: PT 23.3 H, INR 2.26 H 08/29/22 06:11: WBC 4.2 L, RBC 4.11 L, Hgb 11.2 L, Hct 34.9 L, MCV 84.7, MCH 27.2, MCHC 32.1, RDW 16.8, Plt Count 261, MPV 8.1, Neut % (Auto) 59.4, Lymph % (Auto) 28.3, [place] % (Auto) 11.1 H, Eos % (Auto) 0.6, Baso % (Auto) 0.6, Neut # (Auto) 2.5, Lymph # (Auto) 1.2, [place] # (Auto) 0.5, Eos # (Auto) 0.0, Baso # (Auto) 0.0 08/29/22 06:11: Sodium 135 L, Potassium 3.3 L, Chloride 104, Carbon Dioxide 28, Anion Gap 6.3, BUN 10, Creatinine 0.60, Estimated Creat Clear 42, Estimated GFR 96, Est GFR ( Amer) 116, Glucose 87 D, Calcium 8.6 I & O for Last 24 hours: Intake & Output 08/27/22 08/28/22 08/29/22 08/30/22 11:59 11:59 11:59 11:59 Intake Total 780 / 780 Output Total 700 / 700 1999 Balance -700 / -700 -1220 / -1220 Weight 130 lb 1 oz 131 lb 9 oz Constitutional Constitutional: no acute distress *Routine Respiratory Exam Respiratory: Present CTA bilaterally *Routine Cardiovascular Exam Cardiovascular: Present tachycardia and irregular rhythm; Absent murmur, gallop or rubs *Routine Extremities Exam Extremities: Absent edema *Routine Neurological Exam Neurological: Present alert, oriented X3 and motor deficit (left side weaker than right) Results Data Completed and Pending Labs on day of discharge: Labs from last 24 hours 08/29/22 08/29/22 08/29/22 06:11 06:11 06:11 WBC 4.2 L RBC 4.11 L Hgb 11.2 L Hct 34.9 L MCV 84.7 MCH 27.2 MCHC 32.1 RDW 16.8 Plt Count 261 MPV 8.1 Neut % (Auto) 59.4 Lymph % (Auto) 28.3 [place] % (Auto) 11.1 H Eos % (Auto) 0.6 Baso % (Auto) 0.6 Neut # (Auto) 2.5 Lymph # (Auto) 1.2 [place] # (Auto) 0.5 Eos # (Auto) 0.0 Baso # (Auto) 0.0 PT 23.3 H INR 2.26 H Sodium 135 L Potassium 3.3 L Chloride 104 Carbon Dioxide 28 Anion Gap 6.3 BUN 10 Creatinine 0.60 Estimated Creat Clear 42 Estimated GFR 96 Est GFR ( Amer) 116 Glucose 87 D Calcium 8.6 Troponin I 08/28/22 13:00 WBC RBC Hgb Hct MCV MCH MCHC RDW Plt Count MPV Neut % (Auto) Lymph %
--- NOTE | 2022-08-29 13:13 | HMH.PHAINT1 ---
Pharmacy Intervention Comments: Counseled patient on two new medications to START at discharge (furosemide, spironolactone). Patient expressed understanding of medications' indication, dose, route, frequency, and potential side effects.
--- NOTE | 2022-08-30 13:05 | CARE MANAGER ---
Spoke with patient related to hospital discharge. She states she is doing better. She picked up her medication and is aware of her follow up appointments. EMIL Hsu
== END 2022-08-29 15:40 | disposition home health service (06) ==
LOC: ER 06:45 → 2ND 07:54
PROVIDERS: Admitting Provider Internal Medicine Adolescent Medicine; Emergency Provider Emergency Medicine; PCP Internal Medicine Adolescent Medicine; Visit Provider Internal Medicine Adolescent Medicine
DX: I11.0 Hypertensive heart disease with heart failure (principal); I50.23 Acute on chronic systolic (congestive) heart failure; Z86.73 Personal history of transient ischemic attack (TIA), and cerebral infarction without residual deficits; Z95.810 Presence of automatic (implantable) cardiac defibrillator; I07.1 Rheumatic tricuspid insufficiency; I48.20 Chronic atrial fibrillation, unspecified; Z79.01 Long term (current) use of anticoagulants; E03.9 Hypothyroidism, unspecified; Z95.2 Presence of prosthetic heart valve; Z79.899 Other long term (current) drug therapy; Z20.822 Contact with and (suspected) exposure to COVID-19
CPT/HCPCS: G0378; 36415; 71045; 80048; 80053; 83735; 83880; 84436; 84443; 84484; 85025; 85610; 93005; 93306; 97162; 99285; C9803; J2405; U0003; U0005

== ENCOUNTER → 2022-09-03 09:54 | Outpatient (CLI) | payer MEDICARE, SELFPAY ==
[2022-09-03 10:41] LABS: Basophils % 0.5 % (0.1-2.0); Eosinophils # 0.1 K/mm3 (0.0-0.4); Eosinophils % 0.6 % (0.1-12.0); Hematocrit 37.9 % (37.0-47.0); Lymphocytes # 1.2 K/mm3 (0.7-4.5); Lymphocytes % 14.8 % (10-50); Mean Corpuscular HGB Conc 31.7 g/dL (31.8-35.4); Mean Corpuscular Hemoglobin 26.9 pg (27.0-31.2); Mean Corpuscular Volume 84.8 fl (81-99); Mean Platelet Volume 7.9 fl (7.4-10.4); Monocytes # 0.6 K/mm3 (0.1-1.0); Monocytes % 8.2 % (1.7-9.3); Neutrophils # 5.9 K/mm3 (1.8-7.8); Neutrophils % 75.9 % (37.0-80.0); Platelet Count 280 K/mm3 (142-424); Red Blood Count 4.47 M/mm3 (4.20-5.40); Red Cell Distribution Width 16.8 % (11.5-17.5); White Blood Count 7.8 K/mm3 (4.8-10.8)
[2022-09-03 10:46] LABS: Anion Gap 18.2 mEq/L (5-15); Blood Urea Nitrogen 12 mg/dl (7-17); Calcium 9.7 mg/dl (8.4-10.2); Carbon Dioxide 26 mmol/L (22.0-30.0); Chloride 93 mmol/L (98-107); Estimated Glomerular Filt Rate 53 ml/min (>60); GFR (African American) 64 ML/MIN (>60); Glucose 93 mg/dl (74-100); Potassium 4.2 mmoL/L (3.5-5.1); Sodium 133 mmol/L (136-145)
== END ==
PROVIDERS: PCP Internal Medicine Adolescent Medicine; Visit Provider Internal Medicine Adolescent Medicine
DX: I50.9 Heart failure, unspecified (principal)
CPT/HCPCS: 36415; 80048; 85025

== ENCOUNTER → 2022-09-07 09:14 | Outpatient (CLI) | payer MEDICARE, SELFPAY ==
[2022-09-07 09:19] LABS: Microscopic, Urine URINE MICROSCOPIC (MICROSCOPIC)
[2022-09-07 09:38] LABS: Appearance,Urine CLEAR (Clear); Bilirubin,Urine Negative (Negative); Blood, Urine TRACE-L (Negative); Color,Urine YELLOW (Yellow); Glucose,Urine (UA) Negative (Negative); Ketones,Urine Negative (Negative); Leukocyte Esterase,Urine Negative (Negative); Nitrate,Urine Negative (Negative); Protein,Urine Negative (Negative); Specific Gravity, Urine <= 1.005 (1.005-1.030)
[2022-09-07 09:39] LABS: Basophils % 0.2 % (0.1-2.0); Eosinophils # 0.1 K/mm3 (0.0-0.4); Eosinophils % 0.7 % (0.1-12.0); Hemoglobin 11.9 g/dL (12.2-16.2); Lymphocytes % 11.7 % (10-50); Mean Corpuscular HGB Conc 32.1 g/dL (31.8-35.4); Mean Corpuscular Volume 84.2 fl (81-99); Mean Platelet Volume 8.2 fl (7.4-10.4); Monocytes # 0.7 K/mm3 (0.1-1.0); Monocytes % 8.4 % (1.7-9.3); Neutrophils # 6.5 K/mm3 (1.8-7.8); Platelet Count 350 K/mm3 (142-424); Red Blood Count 4.39 M/mm3 (4.20-5.40); White Blood Count 8.2 K/mm3 (4.8-10.8)
[2022-09-07 10:03] LABS: Chloride 95 mmol/L (98-107); Potassium 4.5 mmoL/L (3.5-5.1); Sodium 136 mmol/L (136-145)
[2022-09-07 10:06] LABS: Anion Gap 17.5 mEq/L (5-15); Blood Urea Nitrogen 10 mg/dl (7-17); Calcium 9.7 mg/dl (8.4-10.2); Carbon Dioxide 28 mmol/L (22.0-30.0); Estimated Glomerular Filt Rate 96 ml/min (>60); GFR (African American) 116 ML/MIN (>60); Glucose 102 mg/dl (74-100)
[2022-09-07 11:06] LABS: Bacteria,Urine Trace /lpf; Squamous Epithelial Cell,Urine Occasional #/hpf (0-5)
== END ==
PROVIDERS: PCP Internal Medicine Adolescent Medicine; Visit Provider Nurse Practitioner
DX: E78.2 Mixed hyperlipidemia (principal); I48.20 Chronic atrial fibrillation, unspecified; I50.23 Acute on chronic systolic (congestive) heart failure; I50.33 Acute on chronic diastolic (congestive) heart failure; Z79.01 Long term (current) use of anticoagulants; Z95.810 Presence of automatic (implantable) cardiac defibrillator; I47.20 Ventricular tachycardia, unspecified; I11.0 Hypertensive heart disease with heart failure
CPT/HCPCS: 36415; 80048; 81001; 83735; 85025

== ENCOUNTER 2022-09-08 09:19 | Emergency (ER) | payer MEDICARE, SELFPAY ==
[2022-09-08] VITALS (7 sets, daily range): BP systolic 122–149; BP diastolic 71–87; PULSE 70–100; RESP 12–20; TEMP 36.5–36.6; O2SAT 94–97; BMI 20.9
--- NOTE | 2022-09-08 09:24 | XR_ITS ---
FINAL REPORT CLINICAL HISTORY: Shortness of breath COMPARISON: 08/29/2019 FINDINGS: Mild cardiomegaly. Sternotomy wires are present. Pacemaker is noted. Mild chronic changes in the lung bases. There is no focal infiltrate or edema. There are no pleural effusions. There is no pneumothorax. There is no osseous abnormality. IMPRESSION: No acute cardiopulmonary process Reviewed, Interpreted and Dictated by Anderson Cormier MD Transcribed by Roxana Gilman Authenticated and [facility]
--- NOTE | 2022-09-08 09:26 | CT_ITS ---
FINAL REPORT TECHNIQUE: Pre-and postcontrast images of the abdomen and pelvis were performed by computed tomography. Extensive 3-D reconstruction images were performed. A CTA was performed. This study was performed with techniques to keep radiation doses as low as reasonably achievable (ALARA). Individualized dose reduction techniques using automated exposure control or adjustment of mA and/or kV according to the patient''s size were employed. CLINICAL HISTORY: dissection COMPARISON: 10/07/2021 FINDINGS: ABDOMEN/PELVIS There is reflux of contrast into the hepatic veins. There is a 1.5 cm low-attenuation focus in the lateral segment of the left lobe of the liver. This is stable since the previous. Finding is best seen on image number 114. The gallbladder is not identified. The spleen, pancreas, and adrenals, and kidneys are unremarkable. Uterus is present and lies eccentric to the left CTA: The abdominal aorta is proper caliber. There is no evidence of dissection. The SMA, celiac axis, and YENNI are patent. The iliacs are well opacified. There is no evidence of inflammatory reaction or fluid collection. There is no significant stenosis or calcification. The renal arteries are patent bilaterally. IMPRESSION: Stable focus in the left lobe of the liver, indeterminate but favored to represent a complex cyst. Ultrasound could better characterize. No evidence of dissection. Reviewed, Interpreted and Dictated by Anderson Cormier MD Transcribed by Milagros Soliz Authenticated and [facility]
--- NOTE | 2022-09-08 09:26 | CT_ITS ---
FINAL REPORT TECHNIQUE: The patient was injected with IV contrast. Axial images were obtained through the chest in a PE protocol. 3-D reconstruction images were also performed. Individualized dose reduction techniques using automated exposure control or adjustment of the MA and/or KV according to patient's size were employed. CLINICAL HISTORY: back pain dissection FINDINGS: Mediastinal vasculature is adequately opacified. No pulmonary artery filling defects are identified to suggest PE. There are bilateral subglandular breast implants. There is streak artifact from left upper anterior chest wall pacemaker. There is no aortic dissection. There is no axillary adenopathy. There is no hilar or mediastinal adenopathy. The heart size is normal. There is no pericardial or pleural effusion. There is scarring at the bases. No suspicious infiltrate or nodule is identified. IMPRESSION: No pulmonary embolism. Reviewed, Interpreted and Dictated by Anderson Cormier MD Transcribed by Milagros Soliz Authenticated and [facility]
--- NOTE | 2022-09-08 09:29 | ECG_ITS ---
APPROVED REPORT Exam: Resting ECG HR:100 bpm ECG Measurements Heart Rate 100 AXES QRSd 136 QRS -74 QT 363 T -14 QTc 420 Conclusion ATRIAL FIBRILLATION WITH RAPID VENTRICULAR RESPONSE WITH ABERRANT CONDUCTION OR VENTRICULAR PREMATURE COMPLEXES RIGHT BUNDLE BRANCH BLOCK [120+ ms QRS DURATION, UPRIGHT V1, 40+ ms S IN I/aVL/V4/V5/V6] LEFT ANTERIOR FASCICULAR BLOCK [QRS AXIS <= -45, QR IN I, RS IN II] ABNORMAL ECG UNCONFIRMED REPORT Electronically signed by : Emeterio Camacho MD 09/08/2022 21:21:28
--- NOTE | 2022-09-08 09:30 | CT_ITS ---
FINAL REPORT TECHNIQUE: Axial images were obtained of the cervical spine by computed tomography. Coronal and sagittal reconstruction process performed. This study was performed with techniques to keep radiation doses as low as reasonably achievable (ALARA). Individualized dose reduction techniques using automated exposure control or adjustment of mA and/or kV according to the patient''s size were employed. CLINICAL HISTORY: Neck pain COMPARISON: None FINDINGS: Cervical vertebrae show normal height. There is mild disc space narrowing at C4-5 and C5-6. There is no malalignment. The facets are properly aligned. C2-3: No significant spinal canal or neural foraminal compromise. C3-4: No significant spinal canal or neural foraminal compromise. C4-5: Mild endplate hypertrophy. Mild right neural foraminal narrowing. C5-6: Mild to moderate endplate hypertrophy. Moderate bilateral neural foraminal narrowing. C6-7: Moderate endplate hypertrophy, particularly eccentric to the left. Moderate to high-grade left neural foraminal narrowing. Findings best seen on images 58 and 59 of series 1002. C7-T1: No significant spinal canal or neural foraminal compromise. IMPRESSION: Bilateral neural foraminal compromise at C5-6 and C6-7, most evident on the left at C6-7. Reviewed, Interpreted and Dictated by Anderson Cormier MD Transcribed by Roxana Gilman Authenticated and [facility]
--- NOTE | 2022-09-08 09:30 | CT_ITS ---
FINAL REPORT TECHNIQUE: Axial images were obtained of the thoracic spine by computed tomography. Coronal and sagittal reconstruction process performed. This study was performed with techniques to keep radiation doses as low as reasonably achievable (ALARA). Individualized dose reduction techniques using automated exposure control or adjustment of mA and/or kV according to the patient's size were employed. CLINICAL HISTORY: Mid back pain COMPARISON: None FINDINGS: There is streak artifact from pacemaker leads. There is mild compression deformity of the superior endplate of T11 of approximately 20%. No retropulsion of the vertebra identified. Thoracic vertebrae show normal height. There is no malalignment. The facets are properly aligned. There is bibasilar atelectasis and scarring in both lung bases. IMPRESSION: 20% compression deformity of T11, age indeterminate. MRI could better evaluate for marrow edema. Reviewed, Interpreted and Dictated by Anderson Cormier MD Transcribed by Roxana Gilman Authenticated and [facility]
--- NOTE | 2022-09-08 09:30 | CT_ITS ---
FINAL REPORT TECHNIQUE: Axial images were obtained of the lumbar spine by computed tomography. Coronal and sagittal reconstruction process performed. This study was performed with techniques to keep radiation doses as low as reasonably achievable (ALARA). Individualized dose reduction techniques using automated exposure control or adjustment of mA and/or kV according to the patient''s size were employed. CLINICAL HISTORY: Low back pain COMPARISON: 03/03/2020 FINDINGS: There is significant indentation of the superior endplate of L4 measuring approximately 50%. This was present on the previous study and is unchanged. There is mild vacuum disc phenomenon at the L2-3 level. There is no malalignment. L1-2: Mild endplate hypertrophy eccentric to the right. Mild narrowing of the right neural foramen. L2-3: Mild diffuse disc bulge. Mild bilateral neural foraminal narrowing. L3-4: Mild diffuse disc bulge. [id number] bilateral neural foraminal narrowing. L4-5: Mild diffuse disc bulge. Mild bilateral neural foraminal narrowing. L5-S1: Mild diffuse disc bulge. [id number] bilateral neural foraminal narrowing. IMPRESSION: Stable significant compression deformity superior endplate at L4. Endplate hypertrophic changes most evident at L3-4, L4-5, and L5-S1. Reviewed, Interpreted and Dictated by Anderson Cormier MD Transcribed by Roxana Gilman Authenticated and [facility]
--- NOTE | 2022-09-08 09:55 | PC.NURSE ---
assisted rad placing pt onto ct table
[2022-09-08 10:04] LABS: Basophils % 0.2 % (0.1-2.0); Eosinophils # 0.1 K/mm3 (0.0-0.4); Eosinophils % 1.7 % (0.1-12.0); Hematocrit 34.6 % (37.0-47.0); Hemoglobin 10.7 g/dL (12.2-16.2); Lymphocytes # 0.8 K/mm3 (0.7-4.5); Mean Corpuscular HGB Conc 30.8 g/dL (31.8-35.4); Mean Corpuscular Hemoglobin 26.6 pg (27.0-31.2); Mean Corpuscular Volume 86.1 fl (81-99); Mean Platelet Volume 7.1 fl (7.4-10.4); Monocytes # 0.5 K/mm3 (0.1-1.0); Monocytes % 9.8 % (1.7-9.3); Neutrophils # 3.9 K/mm3 (1.8-7.8); Neutrophils % 73.3 % (37.0-80.0); Platelet Count 292 K/mm3 (142-424); Red Blood Count 4.02 M/mm3 (4.20-5.40); Red Cell Distribution Width 16.5 % (11.5-17.5); White Blood Count 5.3 K/mm3 (4.8-10.8)
[2022-09-08 10:10] LABS: Prothrombin Time 23.7 seconds (10.1-12.5)
[2022-09-08 10:12] LABS: Chloride 98 mmol/L (98-107); Potassium 4.1 mmoL/L (3.5-5.1); Sodium 137 mmol/L (136-145)
[2022-09-08 10:14] LABS: Alanine Aminotransferase 21 U/L (12-78); Aspartate Amino Transferase 24 U/L (14-36); Blood Urea Nitrogen 8 mg/dl (7-17); Creatinine Clearance Estimated 39 mL/min (50-200); Estimated Glomerular Filt Rate 118 ml/min (>60); GFR (African American) 143 ML/MIN (>60); Lactic Acid 0.9 mmol/L (0.7-2.1)
--- NOTE | 2022-09-08 10:14 | HMH.EDGENADL ---
Discharge Plan Disposition Patient Disposition: Home, Self-Care Prescriptions Prescriptions: New oxycodone 5 mg capsule 5 mg PO Q8H PRN (Reason: pain) Qty: 15 0RF docusate sodium [Colace] 100 mg capsule 100 mg PO BID Qty: 20 0RF No Action aspirin 81 mg tablet,delayed release (DR/EC) 81 mg PO DAILY Qty: 90 3RF atorvastatin 40 mg tablet 40 mg PO HS Qty: 90 3RF furosemide [Lasix] 40 mg tablet 40 mg PO DIRECTED Qty: 30 5RF Rx Instructions: TAke on MWF only spironolactone [Aldactone] 25 mg tablet 25 mg PO DAILY Qty: 90 3RF diltiazem HCl 180 mg capsule,extended release 24hr 180 mg PO DAILY Qty: 90 1RF Rx Instructions: TAKE 1 CAPSULE BY MOUTH ONCE DAILY metoprolol succinate 100 mg tablet extended release 24 hr 100 mg PO DIRECTED Qty: 240 3RF Rx Instructions: 150 mg AM 100 mg PM omeprazole 20 MG capsule,delayed release(DR/EC) 20 mg PO BID desvenlafaxine succinate 100 MG tablet extended release 24 hr 100 mg PO DAILY gabapentin 300 MG capsule 300 mg PO BID Qty: 60 0RF methocarbamol 750 mg tablet 750 mg PO TID Qty: 90 0RF acetaminophen [Acetaminophen Extra Strength] 500 mg Tablet 1,000 mg PO BID lorazepam 1 mg tablet 1 mg PO HS warfarin 4 mg Tablet 4 mg PO SUTUTHSA calcium carbonate-vitamin D3 1 EACH tablet 1 each PO DAILY bupropion HCl 300 mg tablet extended release 24 hr 300 mg PO DAILY levothyroxine 100 MCG tablet 100 mcg PO DAILY warfarin 4 mg tablet 2 mg PO MOWEFR Rx Instructions: TAKE 2MG MON, WED, FRI, 4MG OTHER DAYS Referrals Follow up/Referrals: Emeterio Camacho MD [Primary Care Provider] - See instructions Activity Restrictions/Add. Instructions Additional Instructions/Restrictions: Follow-up with Dr. Gross within the next few days follow-up with your pain management physician as well call for an appointment Clinical Impressions Clinical Impression: Back pain Instructions Patient Instructions: DI for Low Back Pain Discharge ED Provider: Aren Rodriguez Adult HPI General Chief complaint: Back Pain/Injury Stated complaint: LT shoulder pain, high BP Time Seen by Provider: 09/08/22 09:20 Mode of Arrival: Wheelchair Source of Information: Patient and Relative Limitations: Physical Limitations Description of Symptoms (Recalled from ER Triage Doc. by RN): Presents via POV d/t lumbar pain that started on Sat. Hx of back pain, Rx Robaxin 750mg x 2 mon, which manages the pain well. Recently discharged on Spironolactone, increased Metoprolol 150mg, and takes Lasix qod. Denies trauma. Saw Junior Designer yesterday for hospital follow-up. History of Present Illness HPI narrative: 82-year-old female with history of CHF pacemaker hypertension hyperlipidemia presents with back pain since Monday. She says the pain has been constant radiating up and down her back. She says it is worse with movement. Her daughter collaborates the story. Recently discharged on spironolactone and daughter is concerned about possible rhabdomyolysis. Otherwise she has no chest pain abdominal pain vomiting headache or diarrhea. No numbness weakness or tingling in lower extremities. Related Data Home Medications Medication Instructions Recorded Confirmed calcium carbonate 600 mg-vitamin 1 each PO DAILY Supplement 02/26/18 09/07/22 D3 20 mcg (800 unit) tablet bupropion HCl 300 mg 24 hr tablet, 300 mg PO DAILY Depression 12/01/20 09/07/22 extended release levothyroxine 100 mcg tablet 100 mcg PO DAILY hypothyroidism 01/04/21 09/07/22 warfarin 4 mg tablet 2 mg PO MOWEFR blood thinner/afib 05/05/21 09/07/22 desvenlafaxine succinate 100 mg 100 mg PO DAILY mood 10/08/21 09/07/22 tablet,extended release 24 hr omeprazole 20 mg capsule,delayed 20 mg PO BID Acid reflux 10/08/21 09/07/22 release acetaminophen 500 mg tablet 1,000 mg PO BID Arthritis 08/28/22 09/07/22 (Acetaminophe
[2022-09-08 10:15] LABS: Albumin/Globulin Ratio 1.3 (1.1-1.8); Alkaline Phosphatase 113 U/L (38-126); Anion Gap 17.1 mEq/L (5-15); Bilirubin,Total 0.4 mg/dl (0.2-1.3); Calcium 9.5 mg/dl (8.4-10.2); Carbon Dioxide 26 mmol/L (22.0-30.0); Creatine Kinase < 20 U/L (30-135); Glucose 103 mg/dl (74-100)
--- NOTE | 2022-09-08 10:16 | PC.NURSE ---
rounded on pt but they were still at ct scan asked pt vistior if there was anything i could get for them states nothing needed,call light at bs
--- NOTE | 2022-09-08 10:21 | PC.NURSE ---
Pt in CT
[2022-09-08 10:23] LABS: NT Pro Brain Natriuretic Pep. 1780 pg/mL (0-450)
[2022-09-08 10:27] LABS: Troponin I < 0.01 ng/ml (0.00-0.034)
--- NOTE | 2022-09-08 11:06 | PC.NURSE ---
rounded on pt no complaints at this time, daughter at bs
--- NOTE | 2022-09-08 11:10 | PC.NURSE ---
UA completed yesterday. Okay to discontinue UA order per Dr. Rodriguez.
--- NOTE | 2022-09-08 12:08 | PC.NURSE ---
paged dr hernandez to speak with domingo rush
--- NOTE | 2022-09-08 12:11 | PC.NURSE ---
spoke with dr hernandez about pt
--- NOTE | 2022-09-08 12:19 | PC.NURSE ---
calling pain management for er md to speak with someone about pt
--- NOTE | 2022-09-08 12:35 | PC.NURSE ---
pt given bsc
--- NOTE | 2022-09-08 12:38 | PC.NURSE ---
rounded on pt alejandro was at bs assisting pt to bedside commode, daughter at bs
== END 2022-09-08 13:12 | disposition home or self-care (01) ==
PROVIDERS: Emergency Provider Emergency Medicine; PCP Internal Medicine Adolescent Medicine
DX: M54.50 Low back pain, unspecified (principal); I11.0 Hypertensive heart disease with heart failure; I50.9 Heart failure, unspecified
CPT/HCPCS: 71045; 71275; 72125; 72128; 72131; 74174; 80053; 82550; 83605; 83880; 84484; 85025; 85610; 93005; 96374; 99285; Q9967

== ENCOUNTER → 2022-09-15 14:40 | Outpatient (POV) | payer MEDICARE, SELFPAY ==
--- NOTE | 2022-09-15 15:01 | EXP.PAIN.SOA ---
[facility] Pain Management SOAP Note Subjective:: Patient is a pleasant 82-year-old female who presents today for follow-up. We are currently treating the patient for degenerative disc disease of lumbar spine with lumbar radiculopathy symptoms, sacroiliitis, peripheral neuropathy, chronic compression fractures, low back pain. Today she rates her pain a 10 out of 10. She does states she has multiple pain areas throughout her spine including her neck and low back however her worsening pain is her low back. She describes this as a constant aching, throbbing, sharp pain that is worse with increased activity. Patient denies any new trauma or injury. She states that her carpenter and joiner did add Aldactone onto her medication and from that time on she has had worsening pain symptoms. Previously she states she was able to get up and move around and even dress herself however now she has to have help. Patient has even had to go back to depends because being unable to get up to go to the restroom herself. Patient has been to the ER multiple times since and has been given multiple medications including oxycodone, Tylenol with minimal additional improvement. She does present today with her daughter in office. She states that the oxycodone gave significant nausea and vomiting and had to be discontinued. She does state that the Tylenol 3 does at least take the edge off. Patient has had updated imaging of her cervical, thoracic and lumbar spine. Patient has been using Biofreeze with minimal relief. Patient is currently managed with methocarbamol 750 mg 3 times daily and gabapentin 300 mg twice a day. Patient does also have lorazepam 1 mg daily from her primary care doctor. Patient denies any side effects from these medications. Her daughter is requesting if we can make any adjustments to her current medications whether to increase her muscle relaxer as well as her gabapentin to change to 3 times daily and if we can take over the Tylenol 3 prescription. Her Pedro Pablo is [phone]. Its been reviewed and appropriate. Review of Systems: General: No recent weight changes, no fever, no sleep disturbances Respiratory: No cough, no shortness of air, no recurring pulmonary infections Cardiovascular/peripheral vascular: No chest pain, no palpitations, no edema, no shortness of breath Gastrointestinal: No new onset incontinence, normal bowel movements reported Genitourinary: No new onset incontinence Musculoskeletal: Low back pain Psychiatric: [Normal mood/affect] Neurological: [Denies weakness in extremities], [denies balance issues] Objective:: Physical Exam: General: Alert and oriented x3, no acute distress, pleasant and cooperative Lungs: Respirations even and unlabored, symmetrical chest expansion Eyes: PERRL Musculoskeletal: Flexion and extension of lumbar [spine] somewhat guarded secondary to pain, [antalgic gait noted] Neurological: Speech clear, no gross sensory deficit FINAL REPORT TECHNIQUE: Axial images were obtained of the cervical spine by computed tomography.? Coronal and sagittal reconstruction process performed. This study was performed with techniques to keep radiation doses as low as reasonably achievable (ALARA). Individualized dose reduction techniques using automated exposure control or adjustment of mA and/or kV according to the patient''s size were employed. CLINICAL HISTORY: Neck pain COMPARISON: None FINDINGS: Cervical vertebrae show normal height. ? There is mild disc space narrowing at C4-5 and C5-6.? There is no malalignment. The facets are properly aligned.? C2-3:? No significant spinal canal or neural foraminal compromise.? C3-4: No significant spinal canal or neural foraminal compromise.? ? C4-5:? Mild endplate hypertrophy.? Mild right neural foraminal narrowing. C5-6:? Mild to moderate endplate hypertrophy.? Moderate bilateral neural foraminal narrowing.? ? C6-7:? Moderate endplate hypertrophy, particularly eccentric to the left. Moderate
[2022-09-15 15:04] VITALS: BP 130/67; PULSE 91; RESP 18; O2SAT 97; BMI 20.8
== END | disposition home or self-care (01) ==
PROVIDERS: PCP Internal Medicine Adolescent Medicine; Visit Provider Nurse Practitioner Family
DX: M51.16 Intervertebral disc disorders with radiculopathy, lumbar region (principal); M50.10 Cervical disc disorder with radiculopathy, unspecified cervical region; M48.02 Spinal stenosis, cervical region; M46.1 Sacroiliitis, not elsewhere classified; G62.9 Polyneuropathy, unspecified
CPT/HCPCS: 99212; G0463

== ENCOUNTER 2022-09-15 15:41 | Outpatient (CLI) | payer MEDICARE, SELFPAY ==
[2022-09-15 16:01] LABS: PHA INR Fingerstick 3.9 (0.9-1.1)
== END 2022-09-15 16:03 ==
LOC: ACC 15:42
PROVIDERS: PCP Internal Medicine Adolescent Medicine; Visit Provider Internal Medicine Adolescent Medicine
DX: Z51.81 Encounter for therapeutic drug level monitoring (principal); Z79.01 Long term (current) use of anticoagulants
CPT/HCPCS: 85610; 99211; 99212; G0463

== ENCOUNTER 2022-09-20 11:39 | Emergency (ER) | payer MEDICARE, SELFPAY ==
[2022-09-20 11:51] VITALS: BP 136/63; PULSE 78; RESP 20; TEMP 36.4; O2SAT 100; BMI 21.4
[2022-09-20 12:01] VITALS: BP 131/55; PULSE 102; O2SAT 97
--- NOTE | 2022-09-20 12:20 | PC.NURSE ---
pt is resting in wheel chair were is more comfortable nothing needed at this time, visitor at bedside
[2022-09-20 12:30] VITALS: BP 124/88; PULSE 103; O2SAT 97
--- NOTE | 2022-09-20 12:31 | PC.NURSE ---
waiting economic geographer back from dr. hernandez
--- NOTE | 2022-09-20 12:33 | PC.NURSE ---
SCARLET CALL speaking with Dr. Camacho
--- NOTE | 2022-09-20 12:39 | PC.NURSE ---
SCARLET CALL at
--- NOTE | 2022-09-20 12:41 | HMH.EDBACK ---
Discharge Plan Disposition Patient Disposition: Home, Self-Care Condition: Good Prescriptions Prescriptions: New hydrocodone-acetaminophen 5-325 mg tablet 1 tab PO Q8H PRN (Reason: pain) Qty: 14 0RF No Action aspirin 81 mg tablet,delayed release (DR/EC) 81 mg PO DAILY Qty: 90 3RF atorvastatin 40 mg tablet 40 mg PO HS Qty: 90 3RF diltiazem HCl 180 mg capsule,extended release 24hr 180 mg PO DAILY Qty: 90 1RF Rx Instructions: TAKE 1 CAPSULE BY MOUTH ONCE DAILY metoprolol succinate 100 mg tablet extended release 24 hr 100 mg PO DIRECTED Qty: 240 3RF Rx Instructions: 150 mg AM 100 mg PM omeprazole 20 MG capsule,delayed release(DR/EC) 20 mg PO BID desvenlafaxine succinate 100 MG tablet extended release 24 hr 100 mg PO DAILY methocarbamol 750 mg tablet 750 mg PO TID Qty: 90 0RF acetaminophen [Acetaminophen Extra Strength] 500 mg Tablet 1,000 mg PO BID lorazepam 1 mg tablet 1 mg PO HS warfarin 4 mg Tablet 4 mg PO [facility] oxycodone 5 mg tablet 5 mg PO Q8H PRN (Reason: pain) Qty: 15 0RF calcium carbonate-vitamin D3 1 EACH tablet 1 each PO DAILY bupropion HCl 300 mg tablet extended release 24 hr 300 mg PO DAILY levothyroxine 100 MCG tablet 100 mcg PO DAILY warfarin 4 mg tablet 2 mg PO MOWEFR Rx Instructions: TAKE 2MG MON, MON, MON, 4MG OTHER DAYS furosemide [Lasix] 40 mg tablet 40 mg PO DIRECTED Rx Instructions: TAke on MWF only spironolactone [Aldactone] 25 mg tablet 25 mg PO DAILY docusate sodium [Colace] 100 mg capsule 100 mg PO BID methocarbamol 1,000 mg tablet 1,000 mg PO TID Qty: 90 0RF acetaminophen-codeine 300-30 mg tablet 1 tab PO TID PRN (Reason: pain) Qty: 90 0RF gabapentin 300 MG capsule 300 mg PO TID Qty: 90 0RF Referrals Follow up/Referrals: Emeterio Camacho MD [Primary Care Provider] - See instructions Clinical Impressions Clinical Impression: Compression fracture of fourth lumbar vertebra, Chronic back pain Discharge ED Provider: Azalia Fragoso Back Pain HPI General Chief Complaint: Back Pain/Injury Stated Complaint: Back pain no known accident Time Seen by Provider: 09/20/22 12:20 Mode of Arrival: Wheelchair Source of Information: Patient Limitations: No Limitations Description of Symptoms (Recalled from ER Triage Doc. by RN): pt to ed c/o lumbar pain. pt states she has chronic back pain that she is set up to see pain management for but doesnt feel she can wait r/t pain. pt denies any new injuries. Patient was seen by his PMD Dr Camacho this week and prescribed Steroids and Tylenol #3 without effect. History of Present Illness HPI Narrative: Patient is a 82 year old female, hx chronic back pain, with severe degenerative disease, stable lumbar compression fracture, under Pain management care, presented to ER asking for strong pain medications. Patient states her pain is unbearable and her next pain management visit is scheduled only in one week. Denies urinary or bowel incontinence. Related Data Home Medications Medication Instructions Recorded Confirmed calcium carbonate 600 mg-vitamin 1 each PO DAILY Supplement 02/26/18 09/15/22 D3 20 mcg (800 unit) tablet bupropion HCl 300 mg 24 hr tablet, 300 mg PO DAILY Depression 12/01/20 09/15/22 extended release levothyroxine 100 mcg tablet 100 mcg PO DAILY hypothyroidism 01/04/21 09/15/22 warfarin 4 mg tablet 2 mg PO MOWEFR blood thinner/afib 05/05/21 09/15/22 desvenlafaxine succinate 100 mg 100 mg PO DAILY mood 10/08/21 09/15/22 tablet,extended release 24 hr omeprazole 20 mg capsule,delayed 20 mg PO BID Acid reflux 10/08/21 09/15/22 release acetaminophen 500 mg tablet 1,000 mg PO BID Arthritis 08/28/22 09/15/22 (Acetaminophen Extra Strength) lorazepam 1 mg tablet 1 mg PO HS Anxiety 08/28/22 09/15/22 warfarin 4 mg tablet 4 mg PO SUTUTHSA blood thinner-afib
[2022-09-20 13:08] VITALS: BP 124/72; PULSE 106; RESP 20; TEMP 36.4; O2SAT 95
== END 2022-09-20 13:11 | disposition home or self-care (01) ==
PROVIDERS: Emergency Provider Emergency Medicine; PCP Internal Medicine Adolescent Medicine
DX: S32.040A Wedge compression fracture of fourth lumbar vertebra, initial encounter for closed fracture (principal); X58.XXXA Exposure to other specified factors, initial encounter
CPT/HCPCS: 96372; 99283; 99284

== ENCOUNTER 2022-09-27 11:49 | Day surgery (SDC) | payer MEDICARE, SELFPAY ==
[2022-09-27 12:40] LABS: INR 1.23 (0.9-1.1); Prothrombin Time 13.1 seconds (10.1-12.5)
[2022-09-27 13:05] VITALS: BP 139/86; PULSE 98; RESP 18; TEMP 36.2; O2SAT 94; BMI 20.5
--- NOTE | 2022-09-27 13:21 | EXP.PAIN.PRO ---
Procedure Date: 09/27/22 Time: 13:10 Anesthesiologist:: Gab Aparicio CRNA Complications:: None Pre-procedure Diagnosis:: Degenerative disc lumbar spine multilevels. Lumbar radiculopathy Post-procedure Diagnosis:: Same. Indications for Procedure:: Very pleasant 82-year-old female comes our clinic today for lumbar epidural steroid injection at L4-5 level. Patient complains of low back pain as well as bilateral hip and leg radicular symptoms. She rates her pain 8/10. Patient on chronic Coumadin. Her INR today is 1.2. Procedure Details:: Procedure: Lumbar epidural steroid injection under fluoroscopy Informed consent was obtained and the risks and benefits of the procedure were explained to the patient. The patient was taken to the procedure room and noninvasive monitors placed, including noninvasive blood pressure cuff and pulse oximeter. The back was viewed using C-arm Fluoroscopy and prepped using Chloraprep as a cleansing solution and the L4-L5 interspace was palpated. Skin and subcutaneous tissues were anesthetized using lidocaine 1.5% and a 25-gauge needle. After this, an 18-gauge Touhy epidural needle was placed into the L4-L5 interspace and advanced using fluoroscopic guidance and loss of resistance to air until the epidural space was encountered. After confirmation of needle placement in the epidural space, with dye, a solution containing normal saline, 3 mL and Depo-Medrol 80 mg were incrementally injected into the lumbar epidural space. The patient tolerated the procedure well with no complications. The patient was observed in the Pain Clinic and then discharged home neurologically intact. Plan and Disposition:: Patient was discharged out incident.
[2022-09-27 13:25] VITALS: BP 121/85; PULSE 69; RESP 18; O2SAT 91
== END 2022-09-27 13:25 | disposition home or self-care (01) ==
PROVIDERS: Nurse Practitioner Family; PCP Internal Medicine Adolescent Medicine; Visit Provider Nurse Anesthetist, Certified Registered
DX: M51.16 Intervertebral disc disorders with radiculopathy, lumbar region (principal); I50.23 Acute on chronic systolic (congestive) heart failure
CPT/HCPCS: 36415; 62323; 85610; J1040

== ENCOUNTER 2022-10-04 15:20 | Observation (INO) | payer MEDICARE, SELFPAY ==
[2022-10-04] VITALS (7 sets, daily range): BP systolic 115–133; BP diastolic 71–98; PULSE 105–121; RESP 16–19; TEMP 36.5–37.1; O2SAT 90–95; BMI 21.1; BMI 21.7
--- NOTE | 2022-10-04 15:34 | XR_ITS ---
PROCEDURE INFORMATION: Exam: XR Chest Exam date and time: 10/04/2022 4:18 PM Age: 82 years old Clinical indication: Shortness of breath; Additional info: SOA TECHNIQUE: Imaging protocol: Radiologic exam of the chest. Views: 1 view. COMPARISON: CR XR CHEST PORTABLE 09/08/2022 9:40 AM FINDINGS: Lungs: Increasing airspace consolidation in the right lower lung. The remaining pulmonary parenchyma is clear. No other pulmonary infiltrate or consolidation. Pleural spaces: Unremarkable. No pleural effusion. No pneumothorax. Heart/Mediastinum: Surgical changes consistent with CABG again noted. No cardiomegaly. Bones/joints: Unremarkable. Soft tissues: Again noted are bilateral breast implants. Other findings: Again noted is the AICD-pacemaker. IMPRESSION: Right lower lobe pneumonia.
--- NOTE | 2022-10-04 15:38 | HMH.EDGENADL ---
Discharge Plan Disposition Patient Disposition: Admitted Condition: Fair Discharge ED Provider: Mansoor Douglas General Adult HPI General Chief complaint: PAIN Stated complaint: vomiting,pain all over and back Time Seen by Provider: 10/04/22 15:26 History of Present Illness HPI narrative: Patient gives a 2-week history of generalized body pain. She is a 2 episodes of vomiting in the last 2 days she denies diarrhea. She denies fever. She denies productive cough. She denies exacerbating alleviating factors. She is approximate 1 week status post back injections for chronic back pain. She is in pain management. Related Data Home Medications Medication Instructions Recorded Confirmed calcium carbonate 600 mg-vitamin 1 each PO DAILY Supplement 02/26/18 10/04/22 D3 20 mcg (800 unit) tablet bupropion HCl 300 mg 24 hr tablet, 300 mg PO DAILY Depression 12/01/20 10/04/22 extended release levothyroxine 100 mcg tablet 100 mcg PO DAILY hypothyroidism 01/04/21 10/04/22 warfarin 4 mg tablet 2 mg PO MOWEFR blood thinner/afib 05/05/21 10/04/22 desvenlafaxine succinate 100 mg 50 mg PO DAILY mood 10/08/21 10/04/22 tablet,extended release 24 hr omeprazole 20 mg capsule,delayed 20 mg PO BID Acid reflux 10/08/21 10/04/22 release acetaminophen 500 mg tablet 1,000 mg PO BID Arthritis 08/28/22 09/27/22 (Acetaminophen Extra Strength) lorazepam 1 mg tablet 1 mg PO HS Anxiety 08/28/22 10/04/22 warfarin 4 mg tablet 4 mg PO SUTUTHSA blood thinner-afib 08/28/22 10/04/22 docusate sodium 100 mg capsule 100 mg PO BID BOWELS 09/15/22 09/27/22 (Colace) furosemide 40 mg tablet (Lasix) 40 mg PO DIRECTED Fluid 09/15/22 09/27/22 spironolactone 25 mg tablet 25 mg PO DAILY Fluid 09/15/22 09/27/22 (Aldactone) methocarbamol 1,000 mg tablet 1,000 mg PO TID . 09/27/22 10/04/22 fentanyl 25 mcg/hr transdermal 50 mcg transdermal DIRECTED Pain 10/04/22 10/04/22 patch metoprolol succinate 100 mg 0 mg PO DIRECTED Hypertension 10/04/22 10/04/22 tablet,extended release 24 hr morphine 15 mg immediate release 15 mg PO Q4H PRN Pain 10/04/22 10/04/22 tablet Previous Rx's Medication Instructions Recorded diltiazem HCl 180 mg 180 mg PO DAILY heart rate #90 caps 05/27/22 capsule,extended release 24 hr aspirin 81 mg tablet,delayed 81 mg PO DAILY Heart disease #90 09/07/22 release tabs atorvastatin 40 mg tablet 40 mg PO HS Cholesterol #90 tabs 09/07/22 acetaminophen 300 mg-codeine 30 mg 1 tab PO TID PRN pain #90 tabs 09/15/22 tablet gabapentin 300 mg capsule 300 mg PO TID Pain #90 caps 09/15/22 Allergies Allergy/AdvReac Type Severity Reaction Status Date / Time No Known Allergies Allergy Verified 09/27/22 13:04 [facility] Disclaimer: The information contained in this section may have been updated after the patient was seen, as this information can be updated by other users. Medical History Abnormal echocardiogram Acute on chronic HFrEF (heart failure with reduced ejection fraction) Constipation Hypothyroid Moderate tricuspid regurgitation Nausea Skin cancer Surgical History H/O tubal ligation History of cholecystectomy Hx of mitral valve repair Family History Other Family history of cancer Lung cancer Social History Smoking Status: Never smoker alcohol intake: never substance use type: other current occupational status: retired Travel in the last 8 weeks: None household members: significant other housing: house current occupational exposures/hazards: No caffeine: No ROS Obtained: Yes All systems reviewed & no additional complaints except as documented Physical Exam General General appearance: alert and in no apparent distress Head Head exam: atraumatic, normocephalic and n
[2022-10-04 16:02] LABS: Microscopic, Urine URINE MICROSCOPIC (MICROSCOPIC)
[2022-10-04 16:05] LABS: Appearance,Urine CLEAR (Clear); Blood, Urine Negative (Negative); Color,Urine YELLOW (Yellow); Glucose,Urine (UA) Negative (Negative); Ketones,Urine 2+ (Negative); Leukocyte Esterase,Urine Negative (Negative); Nitrate,Urine Negative (Negative); PH,Urine 5.5 (5.0-8.5); Protein,Urine 1+ (Negative); Specific Gravity, Urine >= 1.030 (1.005-1.030)
--- NOTE | 2022-10-04 16:05 | PC.NURSE ---
pt sitting up in bed, pillow and warm blanket given to pt.
[2022-10-04 16:06] LABS: Bilirubin,Urine 2+ (Negative)
[2022-10-04 16:10] LABS: Chloride 92 mmol/L (98-107)
[2022-10-04 16:11] LABS: Basophils % 0.2 % (0.1-2.0); Eosinophils % 0.3 % (0.1-12.0); Hematocrit 40.3 % (37.0-47.0); Hemoglobin 12.1 g/dL (12.2-16.2); Lymphocytes # 0.9 K/mm3 (0.7-4.5); Lymphocytes % 6.8 % (10-50); Mean Corpuscular HGB Conc 30.1 g/dL (31.8-35.4); Mean Corpuscular Hemoglobin 26.5 pg (27.0-31.2); Mean Corpuscular Volume 87.9 fl (81-99); Mean Platelet Volume 7.4 fl (7.4-10.4); Monocytes # 0.9 K/mm3 (0.1-1.0); Monocytes % 7.1 % (1.7-9.3); Neutrophils # 11.3 K/mm3 (1.8-7.8); Neutrophils % 85.6 % (37.0-80.0); Platelet Count 563 K/mm3 (142-424); Potassium 3.7 mmoL/L (3.5-5.1); Red Blood Count 4.59 M/mm3 (4.20-5.40); Red Cell Distribution Width 17.1 % (11.5-17.5); Sodium 135 mmol/L (136-145); White Blood Count 13.1 K/mm3 (4.8-10.8)
[2022-10-04 16:14] LABS: Alanine Aminotransferase 40 U/L (12-78); Albumin Level 4.2 g/dl (3.5-5.0); Albumin/Globulin Ratio 1.4 (1.1-1.8); Alkaline Phosphatase 239 U/L (38-126); Anion Gap 20.7 mEq/L (5-15); Aspartate Amino Transferase 42 U/L (14-36); Bilirubin,Total 0.8 mg/dl (0.2-1.3); Blood Urea Nitrogen 16 mg/dl (7-17); Calcium 9.7 mg/dl (8.4-10.2); Carbon Dioxide 26 mmol/L (22.0-30.0); Creatinine Clearance Estimated 39 mL/min (50-200); Estimated Glomerular Filt Rate 80 ml/min (>60); GFR (African American) 97 ML/MIN (>60); Glucose 104 mg/dl (74-100); Lipase 67 U/L (23-300); MANUAL DIFFERENTIAL MANUAL DIFFERENTIAL (MANUAL DIFF); Total Protein,Serum 7.2 g/dl (6.3-8.2)
[2022-10-04 16:30] LABS: Prothrombin Time 69.5 seconds (10.1-12.5)
--- NOTE | 2022-10-04 16:30 | PC.NURSE ---
PT/INR RECEIVED FROM [facility] IN LAB PT 69.5 INR 7.20, PT NAME AND R/V. DR HERNANDEZ NOTIFIED AT THIS TIME
[2022-10-04 16:35] LABS: WBC,Urine Occasional #/hpf (0-3)
[2022-10-04 16:49] LABS: Lymphocytes % 10 % (10-50); Monocytes % 6 % (2-9); Neutrophils % 84 % (42-76); Platelet Estimate Moderate Increase; Total Cells Counted 100
[2022-10-04 16:50] LABS: Lactic Acid 1.5 mmol/L (0.7-2.1)
[2022-10-04 16:50] LABS: Hypochromasia 1+
[2022-10-04 16:56] LABS: Coronavirus 19, PCR Not Detected (NotDetected); Influenza A, PCR Not Detected (NotDetected); Influenza B, PCR Not Detected (NotDetected)
--- NOTE | 2022-10-04 17:10 | PC.NURSE ---
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 viera who is international trade specialist dr. hernandez
--- NOTE | 2022-10-04 17:12 | PC.NURSE ---
SCARLET CALL speaking with Dr. Davis
--- NOTE | 2022-10-04 17:16 | PC.NURSE ---
greenhouse manager notified of admission
--- NOTE | 2022-10-04 17:27 | HMH.EDGENADL ---
Discharge Plan Disposition Patient Disposition: Admitted Condition: Fair Discharge ED Provider: Mansoor Douglas General Adult HPI General Chief complaint: PAIN Stated complaint: vomiting,pain all over and back Time Seen by Provider: 10/04/22 15:26 Mode of Arrival: Ambulatory Source of Information: Patient Limitations: No Limitations Description of Symptoms (Recalled from ER Triage Doc. by RN): pt to ED with chronic pain all over and one episode of vomiting today. pt recently saw Dr. Mccarthy and had injectiosn monday with no relief. Dr. Mccarthy also just increased pts morphine dose and fentanyl patch dose. pt denies any new injury at this time Related Data Home Medications Medication Instructions Recorded Confirmed calcium carbonate 600 mg-vitamin 1 each PO DAILY Supplement 02/26/18 10/04/22 D3 20 mcg (800 unit) tablet bupropion HCl 300 mg 24 hr tablet, 300 mg PO DAILY Depression 12/01/20 10/04/22 extended release levothyroxine 100 mcg tablet 100 mcg PO DAILY hypothyroidism 01/04/21 10/04/22 warfarin 4 mg tablet 2 mg PO MOWEFR blood thinner/afib 05/05/21 10/04/22 desvenlafaxine succinate 100 mg 50 mg PO DAILY mood 10/08/21 10/04/22 tablet,extended release 24 hr omeprazole 20 mg capsule,delayed 20 mg PO BID Acid reflux 10/08/21 10/04/22 release acetaminophen 500 mg tablet 1,000 mg PO BID Arthritis 08/28/22 09/27/22 (Acetaminophen Extra Strength) lorazepam 1 mg tablet 1 mg PO HS Anxiety 08/28/22 10/04/22 warfarin 4 mg tablet 4 mg PO SUTUTHSA blood thinner-afib 08/28/22 10/04/22 docusate sodium 100 mg capsule 100 mg PO BID BOWELS 09/15/22 09/27/22 (Colace) furosemide 40 mg tablet (Lasix) 40 mg PO DIRECTED Fluid 09/15/22 09/27/22 spironolactone 25 mg tablet 25 mg PO DAILY Fluid 09/15/22 09/27/22 (Aldactone) methocarbamol 1,000 mg tablet 1,000 mg PO TID . 09/27/22 10/04/22 fentanyl 25 mcg/hr transdermal 50 mcg transdermal DIRECTED Pain 10/04/22 10/04/22 patch metoprolol succinate 100 mg 0 mg PO DIRECTED Hypertension 10/04/22 10/04/22 tablet,extended release 24 hr morphine 15 mg immediate release 15 mg PO Q4H PRN Pain 10/04/22 10/04/22 tablet Previous Rx's Medication Instructions Recorded diltiazem HCl 180 mg 180 mg PO DAILY heart rate #90 caps 05/27/22 capsule,extended release 24 hr aspirin 81 mg tablet,delayed 81 mg PO DAILY Heart disease #90 09/07/22 release tabs atorvastatin 40 mg tablet 40 mg PO HS Cholesterol #90 tabs 09/07/22 acetaminophen 300 mg-codeine 30 mg 1 tab PO TID PRN pain #90 tabs 09/15/22 tablet gabapentin 300 mg capsule 300 mg PO TID Pain #90 caps 09/15/22 Allergies Allergy/AdvReac Type Severity Reaction Status Date / Time No Known Allergies Allergy Verified 09/27/22 13:04 [facility] Disclaimer: The information contained in this section may have been updated after the patient was seen, as this information can be updated by other users. Medical History Abnormal echocardiogram Acute on chronic HFrEF (heart failure with reduced ejection fraction) Constipation Hypothyroid Moderate tricuspid regurgitation Nausea Skin cancer Surgical History H/O tubal ligation History of cholecystectomy Hx of mitral valve repair Family History Other Family history of cancer Lung cancer Social History Smoking Status: Never smoker alcohol intake: never substance use type: other current occupational status: retired Travel in the last 8 weeks: None household members: significant other housing: house current occupational exposures/hazards: No caffeine: No Physical Exam General General appearance: alert and in no apparent distress Medical Decision Making Vital Signs: 10/04/22 15:23 10/04/22 16:00 10/04/22 16:30 Temperature 97.9
--- NOTE | 2022-10-04 17:43 | PC.NURSE ---
report called to EMIL Silva
--- NOTE | 2022-10-04 19:57 | EXP.ACUTE.PN ---
Subjective *Date: 10/04/22 *Time: 19:57 Interval history: I came by on called to see this 82-year-old female patient of Dr. Mendez. She suffers from chronic intractable back pain. She is on relatively high doses of pain medications including a fentanyl patch 25 mcg/hr. and morphine 15 mg immediate release. The patient's daughter and her niece(who is a nurse) are in the room with her and are able to give me some history. The chronic degenerative back problems have intensified lately. There are compression fractures. Patient has been miserable. The niece states that she has been cautious about leaving medications with the patient since the patient has been talking lately about dying. She received a back injection recently apparently from [facility]. The niece states that Dr. Gross recently suggested doubling the fentanyl patch. The patient is hyper coagulated at this time. She takes warfarin. She received vitamin K in the emergency room. This will be followed during her admission. Medical Exam Vital signs and Labs for Last 24 Hours: Vital Signs Temp Pulse Pulse Resp BP BP Pulse Ox 10/04/22 18:17 98.7 F 105 H 18 126/85 90 L 10/04/22 17:57 97.9 F 110 H 16 115/82 10/04/22 17:00 121 H 118/76 91 L 10/04/22 16:30 117 H 119/75 92 L 10/04/22 16:00 112 H 133/79 92 L 10/04/22 15:23 97.9 F 118 H 17 130/98 H 95 Intake and Output 10/04/22 10/04/22 10/04/22 03:59 11:59 19:59 Other: Weight 126 lb 4 oz Patient Weight 10/05/22 11:59 Weight 126 lb 4 oz Laboratory Results - last 24 hr 10/04/22 15:50: WBC 13.1 H, RBC 4.59, Hgb 12.1 L, Hct 40.3, MCV 87.9, MCH 26.5 L, MCHC 30.1 L, RDW 17.1, Plt Count 563 H, MPV 7.4, Neut % (Auto) 85.6 H, Lymph % (Auto) 6.8 L, [place] % (Auto) 7.1, Eos % (Auto) 0.3, Baso % (Auto) 0.2, Neut # (Auto) 11.3 H, Lymph # (Auto) 0.9, Kidder # (Auto) 0.9, Eos # (Auto) 0.0, Baso # (Auto) 0.0, Total Counted 100, Neutrophils % (Manual) 84 H, Lymphocytes % (Manual) 10, Monocytes % (Manual) 6, Platelet Estimate Moderate increase, Hypochromasia 1+ 10/04/22 15:50: PT 69.5 H, INR 7.20 H 10/04/22 15:50: Sodium 135 L, Potassium 3.7, Chloride 92 L, Carbon Dioxide 26, Anion Gap 20.7 H, BUN 16, Creatinine 0.70, Estimated Creat Clear 39, Estimated GFR 80, Est GFR ( Amer) 97, Glucose 104 H, Calcium 9.7, Total Bilirubin 0.8, AST 42 H, ALT 40, Alkaline Phosphatase 239 H, Total Protein 7.2, Albumin 4.2, Globulin 3.0, Albumin/Globulin Ratio 1.4, Lipase 67 10/04/22 15:50: Urine Color Yellow, Urine Appearance Clear, Urine pH 5.5, Ur Specific [place] >= 1.030, Urine Protein 1+, Urine Glucose (UA) Negative, Urine Ketones 2+, Urine Blood Negative, Urine Nitrate Negative, Urine Bilirubin 2+ A, Urine Urobilinogen 1.0, Ur Leukocyte Esterase Negative, Urine RBC None, Urine WBC Occasional, Ur Squamous Epith Cells 5-10, Urine Bacteria None 10/04/22 16:30: Lactate 1.5 10/04/22 16:49: SARS-CoV-2 (PCR) Not detected, Influenza A Untype (PCR) Not detected, Influenza Type B (PCR) Not detected I & O for Labs for Last 24 Hours: Intake & Output 10/02/22 10/03/22 10/04/22 10/05/22 11:59 11:59 11:59 11:59 Weight 126 lb 4 oz Head: Present normocephalic Neck: Present normal inspection Respiratory: Present CTA bilaterally; Absent respiratory distress Cardiac: Present Reg Rate and Rhythm (Pacer/ defibrillator in place.) GI: Present soft; Absent tenderness Rectal (female): Present deferred (female): Present deferred Extremities: Absent edema Skin: Present intact Neuro: Present alert and awake (Responsive and cogent.) Assessment and Plan *Assessment and plan (1) Compression fracture of fourth lumbar vertebra: Status: Acute Category: Medical Code(s): S32.040A - Wedge compression fracture of fourth lumbar vertebra, initial encounter for closed fracture (2) Chronic back pain: Status: Acute Category: Medical Code(s): M54.9 - Dorsalgia, uns
[2022-10-05] VITALS: BP 92/60; PULSE 121; RESP 20; TEMP 36.7; O2SAT 92
[2022-10-05 04:00] VITALS: BP 108/68; PULSE 126; RESP 20; TEMP 36.8; O2SAT 90; BMI 22.4
[2022-10-05 06:46] LABS: Basophils % 0.1 % (0.1-2.0); Lymphocytes # 0.8 K/mm3 (0.7-4.5); Lymphocytes % 8.3 % (10-50); Monocytes # 0.7 K/mm3 (0.1-1.0); Neutrophils % 84.4 % (37.0-80.0)
[2022-10-05 06:52] LABS: Anion Gap 19.3 mEq/L (5-15); Blood Urea Nitrogen 11 mg/dl (7-17); Calcium 8.4 mg/dl (8.4-10.2); Carbon Dioxide 22 mmol/L (22.0-30.0); Chloride 96 mmol/L (98-107); Creatinine Clearance Estimated 42 mL/min (50-200); Estimated Glomerular Filt Rate 153 ml/min (>60); GFR (African American) 185 ML/MIN (>60); Glucose 78 mg/dl (74-100); Potassium 3.3 mmoL/L (3.5-5.1); Sodium 134 mmol/L (136-145)
[2022-10-05 06:53] LABS: INR 1.78 (0.9-1.1); Prothrombin Time 18.6 seconds (10.1-12.5)
[2022-10-05 06:54] LABS: Eosinophils % 0.1 % (0.1-12.0); Mean Corpuscular HGB Conc 31.2 g/dL (31.8-35.4); Mean Corpuscular Hemoglobin 26.7 pg (27.0-31.2); Mean Corpuscular Volume 85.7 fl (81-99); Mean Platelet Volume 7.4 fl (7.4-10.4); Neutrophils # 8.1 K/mm3 (1.8-7.8); Platelet Count 461 K/mm3 (142-424); Red Blood Count 3.97 M/mm3 (4.20-5.40); Red Cell Distribution Width 17.2 % (11.5-17.5); White Blood Count 9.6 K/mm3 (4.8-10.8)
[2022-10-05 06:55] LABS: Hemoglobin 10.6 g/dL (12.2-16.2)
[2022-10-05 07:27] VITALS: BP 120/73; PULSE 129; RESP 18; TEMP 36.5; O2SAT 94
--- NOTE | 2022-10-05 07:50 | HMH.PHAINT1 ---
Pharmacy Intervention Comments: Home medication list verified through list from outside pharmacy, coumadin clinic notes, and list from recent office.
--- NOTE | 2022-10-05 08:37 | EXP.HP ---
History of Present Illness *Admission Date: 10/04/22 *Reason for visit:: Intractable back pain, immobility *History of present illness: 82-year-old female with history of pacemaker implantation, HFpEF and chronic atrial fibrillation on warfarin therapy, who over the past 2 to 3 weeks has had worsening and intractable back pain. She has had several compression fractures in her back which are of uncertain timing, but she has been to the ER multiple times over the past 2 to 3 weeks and in my office multiple times with intractable back pain that is caused significant immobility, mental anguish and lots of family upheaval. She has been unable to do anything for herself which is a big change for her, and her daughter and a niece as well as the patient's significant other have been involved in caring for her at home. She saw pain management here and received a steroid injection in her back on September 27 which has not really helped. I have prescribed fentanyl patch, as well as. Morphine which has given her some relief but not to her liking and continues to have intractable back pain that is caused her significant mental anguish. Her family is asked to raise concerns about her taking too much pain medication because of her dysthymia and anguish from her pain. They brought her to the emergency department again yesterday evening, where she was found to have a new infiltrate in her chest, as well as significant back pain and immobility and admitted to hospital for IV antibiotics and pain control. Also found to have over anticoagulation with warfarin with an INR of 7. [facility] Disclaimer: The information contained in this section may have been updated after the patient was seen, as this information can be updated by other users. Medical History Abnormal echocardiogram Acute on chronic HFrEF (heart failure with reduced ejection fraction) Constipation Hypothyroid Moderate tricuspid regurgitation Nausea Skin cancer Surgical History H/O tubal ligation History of cholecystectomy Hx of mitral valve repair Family History Other Family history of cancer Lung cancer Social History (Updated 10/04/22 @ 18:31 by Tran Ledezma RN) Smoking Status: Never smoker alcohol intake: never substance use type: other current occupational status: retired Travel in the last 8 weeks: None household members: significant other housing: house current occupational exposures/hazards: No caffeine: No Review of Systems Review of Systems Review of systems:: pertinent systems reviewed and negative unless documented below Meds Home Medications and Allergies Home Medications Medication Instructions Recorded Confirmed Type calcium carbonate 600 mg-vitamin 1 each PO DAILY Supplement 02/26/18 10/04/22 History D3 20 mcg (800 unit) tablet bupropion HCl 300 mg 24 hr tablet, 300 mg PO DAILY Mood 12/01/20 10/04/22 History extended release levothyroxine 100 mcg tablet 100 mcg PO DAILY Thyroid 01/04/21 10/04/22 History warfarin 4 mg tablet 2 mg PO MOWEFR Blood thinner/Afib 05/05/21 10/04/22 History desvenlafaxine succinate 100 mg 50 mg PO DAILY Mood 10/08/21 10/04/22 History tablet,extended release 24 hr omeprazole 20 mg capsule,delayed 20 mg PO BID Acid reflux 10/08/21 10/04/22 History release diltiazem HCl 180 mg 180 mg PO DAILY heart rate #90 caps 05/27/22 10/04/22 Rx capsule,extended release 24 hr acetaminophen 500 mg tablet 1,000 mg PO BID Arthritis 08/28/22 10/05/22 History (Acetaminophen Extra Strength) lorazepam 1 mg tablet 1 mg PO HS Anxiety 08/28/22 10/04/22 History warfarin 4 mg tablet 4 mg PO SUTUTHSA Blood thinner/Afib 08/28/22 10/04/22 History aspirin 81 mg tablet,delayed 81 mg PO DAILY Heart disease #90 09/07/22 10/04/22 Rx release tabs atorvastatin 40 mg tablet 40
--- NOTE | 2022-10-05 08:45 | SW/DCPLANNER ---
Addendum entered by [facility] 10/07/22 10:48: Per Leeann lopez/ [facility] patient [facility]. I have updated MD. Addendum entered by [facility] 10/07/22 08:18: Leeann lopez/ [facility] stated that she will be onsite at 10AM re evaluate this patient. I have updated patient's family, MD and nurse. Addendum entered by [facility] 10/06/22 10:44: Leeann lopez/ [facility] stated that she will be here around 11AM to speak with patient/family regarding [facility]. MD is aware of situation. Addendum entered by [facility] 10/05/22 13:56: Trish lopez/ [facility] is on site evaluating patient and speaking with family. Addendum entered by [facility] 10/05/22 09:09: Lynette lopez/ [facility] called regarding this patient: she will call the daughter and follow up with her about services. Original Note: Per patient/family request patient information will be faxed to [facility] for a potential resource at time of discharge. Discharge date is unknown at this time. I will follow up with [facility] once information is reviewed.
--- NOTE | 2022-10-05 09:49 | HMH.OTEV ---
OT Inpatient Evaluation Rehab OT IP Evaluation Start: 10/05/22 08:28 Freq: ONCE Status: Active Protocol: Document 10/05/22 09:42 [facility] (Rec: 10/05/22 09:49 [facility] [id number]) Rehab OT IP Assessment Subjective History Pt oriented x 3 on arrival. Pt agreeable to engage in therapy evaluation. Pt was admitted on 10/04/22 due to Intractable back pain, immobility, and PNA. Prior to being in the hosptial pt lived at home with assistance. Family was staying with patient most of the time . Pt was requiring assistance with all ADLs and was dependent upon family for completion of IADLs. Recently , pt has not been transferring or ambulating often due to back pain. When she does transferm pt requires a rolling walker. Pt has a past medical history of: Abnormal echocardiogram Acute on chronic HFrEF (heart failure with reduced ejection fraction) Constipation Hypothyroid Moderate tricuspid regurgitation Nausea Skin cancer Subjective I can try. Pt completed bed mobility and went from supine to sitting at eob with min assist x2. Pt required maximal assistance to don shoes for transfer to chair. Pt stood from eob with min assist x 2 and completed step pivot transfer to chair with min assist x 2. Pt left resting in chair with call west and all other needs in reach. Objective Patient Orientation Person,Place,Month Upper Extremity Gross ROM Min Limitation <25% Bed Mobility bed mobility-scooting,bed mobility - supine/sit Assist Level
--- NOTE | 2022-10-05 10:43 | HMH.PTEV ---
Physical Therapy Evaluation Rehab PT IP Evaluation Start: 10/05/22 08:28 Freq: ONCE Status: Active Protocol: Document 10/05/22 09:30 PHORDEVYN (Rec: 10/05/22 10:43 PHORNE [id number]) Subjective/History History History 82 yowf adm to [facility] with PNA, hx of HF, Pacemaker, a-fib, prior CVA. She has assistance almost all the time at home, uses RW for ambulation, She is generally independent with tranfers, but has significant chronic low back pain. She requries assistance with all ADLs at baseline. Subjective Subjective Pt c/o L side low back pain with mobility this am. Rehab PT IP Eval Objective Appearance Patient Behavior Appropriate Patient Orientation Person,Place,Time Difficulty following instructions none Speech Pattern Clear Ambulation Patient Able to Ambulate Yes Ambulation Observation IP General Gait Pattern Observation Shuffling Step Ambulation Distance (feet) 3 Ambulation Assistive Device None Ambulation Ability Minimal x 2 (25% assist) Balance Ability to Arise Able, uses arms to help Sitting Balance Steady, safe Standing Balance Unsteady Dynamic Sitting Balance Ability Fair Dynamic Standing Balance Ability Poor Transfers Bed Transfer Ability Minimal x 1 (25% assist) Chair Transfer Ability Minimal x 1 (25% assist) Sit to Stand Bed Transfer Ability Minimal x 1 (25% assist) Sit to Stand Chair Transfer Ability Minimal x 1 (25% assist) ROM All Extremities PT ROM Status WFL MMT LLE PT MMT ABN Abnormal MMT Grade grossly 3/5 LUE PT MMT ABN Abnormal MMT Grade grossly 2/5 Rehab PT IP prob,goals,plan Problems Date of Evaluation: 10/05/22 PT IP Problems Bed Mobility,Transfers,Gait Rehab Potential Rehab Potential Good Plan PT Intervention Plan Bed Mobility,Transfers,Gait, Therapeutic Exercise PT Plan Frequency Daily Duration LOS Discharge Goals Bed Transfer Ability Contact Guard/Hand Hold Sit to Stand Chair Transfer Ability Contact Guard/Hand Hold Ambulation Assistive Device Rolling Walker Ambulation Distance (feet) 10 Discharge Plan PT Discharge Plan Pt is currently most appropriate for rehab plac
[2022-10-05 11:10] VITALS: BP 115/71; PULSE 96; RESP 17; TEMP 36.6; O2SAT 96
[2022-10-05 15:17] VITALS: BP 103/64; PULSE 118; RESP 17; TEMP 36.6; O2SAT 94
--- NOTE | 2022-10-05 16:15 | PC.NURSE ---
A&OX4. TOLERATING RA WELL. HAS BEEN UP TO CHAIR LARGE PART OF SHIFT. DID WELL WITH X1 ASSIST. HAS C/O GENERALIZED PAIN, TX PER JUL. PURE WICK IN PLACE DRAINING BRIGHT YELLOW URINE. FAMILY HAS BEEN AT BEDSIDE MAJORITY OF SHIFT. PT HOME MEDS LOCKED IN DRAWER. NO OTHER NEEDS OR C/O NOTED THUS FAR. VSS. HOSPICE WAS HERE TO CONSULT TODAY.
[2022-10-05 20:00] VITALS: BP 110/62; PULSE 85; RESP 17; TEMP 36.7; O2SAT 95
[2022-10-06] VITALS: BP 118/71; PULSE 96; RESP 16; TEMP 36.4; O2SAT 95
[2022-10-06 04:00] VITALS: BP 137/56; PULSE 65; RESP 16; TEMP 36.4; O2SAT 92; BMI 22.6
--- NOTE | 2022-10-06 05:19 | PC.NURSE ---
NO ACUTE CHANGES SINCE PREVIOUS ASSESSMENT. PT REMAINS A&O X4. HAS RESTED WELL. NO C/O PAIN THIS SHIFT. REMAINS ON ROOM AIR AND IS TOLERATING WELL. PUREWICK IN PLACE AND IS DRAINING ADEQUATE AMOUNTS OF YELLOW URINE. VSS.
[2022-10-06 06:49] LABS: Basophils % 0.1 % (0.1-2.0); Eosinophils # 0.1 K/mm3 (0.0-0.4); Eosinophils % 0.5 % (0.1-12.0); Hematocrit 35.5 % (37.0-47.0); Hemoglobin 11.2 g/dL (12.2-16.2); Lymphocytes # 0.8 K/mm3 (0.7-4.5); Lymphocytes % 7.7 % (10-50); Mean Corpuscular HGB Conc 31.5 g/dL (31.8-35.4); Mean Corpuscular Hemoglobin 26.7 pg (27.0-31.2); Mean Corpuscular Volume 84.6 fl (81-99); Mean Platelet Volume 7.5 fl (7.4-10.4); Monocytes # 0.8 K/mm3 (0.1-1.0); Monocytes % 6.8 % (1.7-9.3); Neutrophils # 9.3 K/mm3 (1.8-7.8); Platelet Count 568 K/mm3 (142-424); Red Cell Distribution Width 17.2 % (11.5-17.5); White Blood Count 10.9 K/mm3 (4.8-10.8)
[2022-10-06 07:03] LABS: Chloride 94 mmol/L (98-107); Potassium 3.6 mmoL/L (3.5-5.1); Sodium 131 mmol/L (136-145)
[2022-10-06 07:06] LABS: Blood Urea Nitrogen 13 mg/dl (7-17); Creatinine Clearance Estimated 42 mL/min (50-200); Estimated Glomerular Filt Rate 96 ml/min (>60); GFR (African American) 116 ML/MIN (>60)
[2022-10-06 07:07] LABS: Anion Gap 12.6 mEq/L (5-15); Calcium 8.9 mg/dl (8.4-10.2); Carbon Dioxide 28 mmol/L (22.0-30.0); Glucose 109 mg/dl (74-100); MANUAL DIFFERENTIAL MANUAL DIFFERENTIAL (MANUAL DIFF)
[2022-10-06 07:52] LABS: Lymphocytes % 8 % (10-50); Monocytes % 5 % (2-9); Neutrophils % 87 % (42-76); Total Cells Counted 100
[2022-10-06 07:53] LABS: Anisocytosis 1+; Ovalocytes 1+; Platelet Estimate Moderate Increase
[2022-10-06 08:00] VITALS: BP 134/82; PULSE 128; RESP 18; TEMP 36.4; O2SAT 96
--- NOTE | 2022-10-06 08:22 | EXP.ACUTE.PN ---
Subjective *Date: 10/06/22 *Time: 08:22 Interval history: Patient feels much better, is in much less pain. Has eating some breakfast. Medical Exam Vital signs and Labs for Last 24 Hours: Vital Signs Temp Pulse Resp BP Pulse Ox 10/06/22 04:00 97.6 F 65 16 137/56 L 92 L 10/06/22 00:00 97.6 F 96 H 16 118/71 95 10/05/22 20:00 98.1 F 85 17 110/62 95 10/05/22 15:17 97.9 F 118 H 17 103/64 L 94 L 10/05/22 11:10 97.8 F 96 H 17 115/71 96 Intake and Output 10/05/22 10/06/22 10/06/22 19:59 03:59 11:59 Intake Total 620 / 620 Output Total 800 / 1300 500 / 1300 Balance -180 / -680 -500 / -680 Intake: Intake, Oral Amount 120 / 120 Intake, Total IV Amount 500 / 500 0.9 % Sodium Chloride 1000ML 1, 500 / 500 000 ml @ 50 mls/hr IV .Q20H [facility] Rx#:[id number] Output: Output, Urine Amount 800 / 1300 500 / 1300 Other: Weight 132 lb 3 oz Patient Weight 10/06/22 11:59 Weight 132 lb 3 oz Laboratory Results - last 24 hr 10/06/22 06:05: WBC 10.9 H, RBC 4.20, Hgb 11.2 L, Hct 35.5 L, MCV 84.6, MCH 26.7 L, MCHC 31.5 L, RDW 17.2, Plt Count 568 H, MPV 7.5, Neut % (Auto) 85.0 H, Lymph % (Auto) 7.7 L, [place] % (Auto) 6.8, Eos % (Auto) 0.5, Baso % (Auto) 0.1, Neut # (Auto) 9.3 H, Lymph # (Auto) 0.8, [place] # (Auto) 0.8, Eos # (Auto) 0.1, Baso # (Auto) 0.0, Total Counted 100, Neutrophils % (Manual) 87 H, Lymphocytes % (Manual) 8 L, Monocytes % (Manual) 5, Platelet Estimate Moderate increase, Anisocytosis 1+, Ovalocytes 1+ 10/06/22 06:05: Sodium 131 L, Potassium 3.6, Chloride 94 L, Carbon Dioxide 28, Anion Gap 12.6, BUN 13, Creatinine 0.60 D, Estimated Creat Clear 42, Estimated GFR 96, Est GFR ( Amer) 116 D, Glucose 109 H, Calcium 8.9 I & O for Labs for Last 24 Hours: Intake & Output 10/03/22 10/04/22 10/05/22 10/06/22 11:59 11:59 11:59 11:59 Intake Total 220 / 220 620 / 620 Output Total 1300 / 1300 Balance 220 / 220 -680 / -680 Weight 131 lb 9.6 oz 132 lb 3 oz Microbiology Reports for the Last 24 Hours: Microbiology 10/04/22 09:20 Sputum - Expectorated Sputum Gram Stain - Final Head: Present normocephalic Neck: Present normal inspection Respiratory: Present CTA bilaterally; Absent respiratory distress Cardiac: Present Irregularly Regular GI: Present soft; Absent tenderness Rectal (female): Present deferred (female): Present deferred Extremities: Absent edema Skin: Present intact Neuro: Present alert and awake (Responsive and cogent.) Assessment and Plan *Assessment and plan (1) Community acquired pneumonia: Status: Acute Category: Medical Code(s): J18.9 - Pneumonia, unspecified organism (2) Back pain: Status: Acute Category: Medical Code(s): M54.9 - Dorsalgia, unspecified (3) Compression fracture of fourth lumbar vertebra: Status: Acute Category: Medical Code(s): S32.040A - Wedge compression fracture of fourth lumbar vertebra, initial encounter for closed fracture (4) Chronic back pain: Status: Acute Category: Medical Code(s): M54.9 - Dorsalgia, unspecified; G89.29 - Other chronic pain (5) Acute on chronic HFrEF (heart failure with reduced ejection fraction): Status: Acute Category: Medical Code(s): I50.23 - Acute on chronic systolic (congestive) heart failure (6) Current use of joint terminal attack controller anticoagulation: Status: Chronic Category: Medical Code(s): Z79.01 - intermodal customer service (current) use of anticoagulants (7) Chronic atrial fibrillation: Status: Chronic Category: Medical Code(s): I48.20 - Chronic atrial fibrillation, unspecified Plan 1. Pneumonia-probably from immobility and functional decline issues-agree with admission for IV antibiotics. 2. Significant pain-significant impact of quality of life-daughter actually brings up hospice care. The patient seems to be agreeable to this. I am not sure s
--- NOTE | 2022-10-06 11:11 | PC.NURSE ---
senior financial consultant at bedside with daughter
[2022-10-06 12:00] VITALS: BP 123/86; PULSE 104; RESP 18; TEMP 35.6; O2SAT 92
--- NOTE | 2022-10-06 12:51 | EXP.DC.SUM ---
General Admission date:: 10/04/22 Discharge date: 10/06/22 HPI HPI HPI: 82-year-old female with history of pacemaker implantation, HFpEF and chronic atrial fibrillation on warfarin therapy, who over the past 2 to 3 weeks has had worsening and intractable back pain. She has had several compression fractures in her back which are of uncertain timing, but she has been to the ER multiple times over the past 2 to 3 weeks and in my office multiple times with intractable back pain that is caused significant immobility, mental anguish and lots of family upheaval. She has been unable to do anything for herself which is a big change for her, and her daughter and a niece as well as the patient's significant other have been involved in caring for her at home. She saw pain management here and received a steroid injection in her back on September 27 which has not really helped. I have prescribed fentanyl patch, as well as. Morphine which has given her some relief but not to her liking and continues to have intractable back pain that is caused her significant mental anguish. Her family has raised concerns about her taking too much pain medication because of her dysthymia and anguish from her pain. They brought her to the emergency department again yesterday evening, where she was found to have a new infiltrate in her chest, as well as significant back pain and immobility and admitted to hospital for IV antibiotics and pain control. Also found to have over anticoagulation with warfarin with an INR of 7. Hospital Course Hospital Course Hospital Course: Patient was admitted, found to have pneumonic infiltrate on chest x-ray but had no fevers or cough. Over anticoagulated with warfarin, probably secondary to lack of p.o. intake over the past couple of days because of her significant pain. Increase fentanyl patch temporarily to 75 mcg and continued morphine as needed. Pain management consult was ordered but they are not available in the hospital during this week and they were not able to see her. Family brought up possible hospice referral given her significant pain, multiple comorbidities and need for some help at home. We consulted [facility] out of [place] and they did a very nice job consulting with family and managing needs and expectations. They will admit the patient to their services for CHF/atherosclerotic heart disease and valvular disease and will help us manage pain at home. She will be discharged today with fentanyl 50 mcg patch, continued as needed morphine, Z-Merrick for her pneumonitis and follow-up with hospice at home. I will continue to follow her also. Pain management and other specialty appointments will remain in place. Exam Data for Last 24 hours Vital signs and Labs for Last 24 Hours: Temp Pulse Resp BP Pulse Ox 96.0 F L 104 H 18 123/86 92 L 10/06/22 12:00 10/06/22 12:00 10/06/22 12:00 10/06/22 12:00 10/06/22 12:00 Laboratory Results - last 24 hr 10/06/22 06:05: WBC 10.9 H, RBC 4.20, Hgb 11.2 L, Hct 35.5 L, MCV 84.6, MCH 26.7 L, MCHC 31.5 L, RDW 17.2, Plt Count 568 H, MPV 7.5, Neut % (Auto) 85.0 H, Lymph % (Auto) 7.7 L, [place] % (Auto) 6.8, Eos % (Auto) 0.5, Baso % (Auto) 0.1, Neut # (Auto) 9.3 H, Lymph # (Auto) 0.8, [place] # (Auto) 0.8, Eos # (Auto) 0.1, Baso # (Auto) 0.0, Total Counted 100, Neutrophils % (Manual) 87 H, Lymphocytes % (Manual) 8 L, Monocytes % (Manual) 5, Platelet Estimate Moderate increase, Anisocytosis 1+, Ovalocytes 1+ 10/06/22 06:05: Sodium 131 L, Potassium 3.6, Chloride 94 L, Carbon Dioxide 28, Anion Gap 12.6, BUN 13, Creatinine 0.60 D, Estimated Creat Clear 42, Estimated GFR 96, Est GFR ( Amer) 116 D, Glucose 109 H, Calcium 8.9 I & O for Last 24 hours: Intake & Output 10/04/22 10/05/22 10/06/22 10/07/22 11:59 11:59 11:59 11:59 Intake Total 220 / 220 860 / 860 100 / 100 Output Total 1300 / 1300 Balance 220 / 220 -440 / -440 100 / 100 Weight 131 lb 9.6 oz 132 lb 3 oz Microb
--- NOTE | 2022-10-06 16:44 | PC.NURSE ---
Patient ready for discharge. IV discontinued. Bryce (family) states he can't find her car souza so he needs to go get her car. He will return in approximately 1 hr. States understanding of prescriptions
--- NOTE | 2022-10-06 17:34 | PC.NURSE ---
Pt drowsy but arousable. States pain is tolerable. Minimal oral intake. Adequate urine output via purewick. Patient is currently discharged and waiting for private transport. Hospice to assume care once patient is home
[2022-10-06 18:01] VITALS: BP 109/68; PULSE 69; RESP 18; O2SAT 95
--- NOTE | 2022-10-06 18:25 | PC.NURSE ---
Pt's family expressed concern with patient drowsiness. Dr. Camacho at bedside and orders received to remove fentanyl patch. Waste witnessed by Kingsley MCINTYRE. Patient assisted back to bed and IV reinserted. NS at 50 ml/hr per Dr. Camacho. Plan to watch overnight and see if drowsiness improves with patch off.
[2022-10-06 19:35] VITALS: BP 112/95; PULSE 118; RESP 16; O2SAT 94
--- NOTE | 2022-10-06 21:24 | PC.NURSE ---
CONTACTED MD COATES OVER PT NOT BEING ABLE TO SWALLOW HER PO NIGHT MEDS. STATED TO GIVE ONE TIME DOSE OF METOPROLOL 5MG IV. PT ALSO HAD A RECTAL TMEP OF 96.9. PT WRAPPED IN WARM BLANKETS AT THIS TIME.
[2022-10-07] VITALS: BP 111/88; PULSE 77; RESP 16; TEMP 36.4; O2SAT 92
--- NOTE | 2022-10-07 00:34 | PC.NURSE ---
NOTIFIED MD COATES OF PT STATS DECLINE. PT IS BARELY AROUSABLE, MOTTLED AT THE KNEES, COOL TO TOUCH, AND PT IS RATTLNG. CBC, BMP AND ABG ORDERED WELL AN AMP OF NARCAN. CODE STATUS ALSO DISCUSSED WITH THE PT'S SIGNIFICANT OTHER AND HE STATED HE WANTS PT TO REMAIN A FULL CODE.
[2022-10-07 00:38] LABS: ABG Base Excess -4.7 mmol/L (-2.4-2.3); ABG HCO3 22.6 mmhg (22.0-26.0); ABG Oxygen Saturation 87 % (90-100); ABG PH 7.25 mmol/L (7.35-7.45); ABG PO2 66.1 mmhg (80-100); ABG TCO2 24.2 mmhg (23-27)
[2022-10-07 00:39] LABS: ABG PCO2 53.2 mmhg (35.0-45.0); Allen's Test Patient Unable; Oxygen 2 LPM %; Source Right Radial
--- NOTE | 2022-10-07 00:45 | PC.NURSE ---
PT IS MORE ALERT AFTER DOSE OF NARCAN. PT IS AGGITATED. UNABLE TO COUGH ANYTHING UP.
[2022-10-07 01:00] LABS: Basophils % 0.1 % (0.1-2.0); Eosinophils # 0.1 K/mm3 (0.0-0.4); Eosinophils % 0.6 % (0.1-12.0); Hemoglobin 11.8 g/dL (12.2-16.2); Lymphocytes # 1.5 K/mm3 (0.7-4.5); Mean Corpuscular HGB Conc 30.1 g/dL (31.8-35.4); Mean Corpuscular Hemoglobin 26.9 pg (27.0-31.2); Mean Corpuscular Volume 89.2 fl (81-99); Mean Platelet Volume 7.5 fl (7.4-10.4); Monocytes # 1.2 K/mm3 (0.1-1.0); Monocytes % 11.4 % (1.7-9.3); Neutrophils # 7.9 K/mm3 (1.8-7.8); Neutrophils % 73.9 % (37.0-80.0); Platelet Count 613 K/mm3 (142-424); Red Blood Count 4.37 M/mm3 (4.20-5.40); Red Cell Distribution Width 17.1 % (11.5-17.5); White Blood Count 10.8 K/mm3 (4.8-10.8)
[2022-10-07 01:08] LABS: Anion Gap 21.1 mEq/L (5-15); Blood Urea Nitrogen 22 mg/dl (7-17); Calcium 9.3 mg/dl (8.4-10.2); Carbon Dioxide 22 mmol/L (22.0-30.0); Chloride 94 mmol/L (98-107); Creatinine Clearance Estimated 35 mL/min (50-200); Estimated Glomerular Filt Rate 43 ml/min (>60); GFR (African American) 52 ML/MIN (>60); Glucose 98 mg/dl (74-100); Potassium 4.1 mmoL/L (3.5-5.1); Sodium 133 mmol/L (136-145)
[2022-10-07 04:00] VITALS: BP 117/79; PULSE 122; RESP 18; TEMP 36.8; O2SAT 95; BMI 22.9
--- NOTE | 2022-10-07 04:27 | PC.NURSE ---
FROM THE BEGINNING OF THE SHIFT UNTIL APPROXIMATELY MIDNIGHT PT BECAME MORE LETHARGIC AND HARDER TO AROUSE. KNEES WERE MOTTLES AND PT WAS RATTLING WITH RESPIRATIONS AND HAVING APNIC PAUSES. MD COATES CONTACTED. PT GIVEN 2MG OF NARCAN, 500ML BOLUS OF NS AND 1GM OF CEFTRIAXONE IV. PT IS NOW MORE ALERT AND ABLE TO TALK WITH STAFF AND HER SIGNIFICANT OTHER. PT HAS BEEN AGITATED SINCE NARCAN WAS GIVEN AND IS UPSET THAT SHE DID NOT GO HOME YESTERDAY. PT WAS EDUCATED THAT DUE TO HER CHANGE IN LOC MD WANTED TO KEEP HER ONE MORE NIGHT. PT IS CURRENTLY RESTING IN BED WITH SIGNIFICANT OTHER AT THE BEDSIDE. VSS. LUNG SOUNDS ARE CRACKLY BILATERALLY.
[2022-10-07 07:44] VITALS: BP 109/73; PULSE 74; RESP 18; TEMP 36.3; O2SAT 95
[2022-10-07 08:07] VITALS: BMI 22.9
--- NOTE | 2022-10-07 08:12 | EXP.ACUTE.PN ---
Subjective *Date: 10/07/22 *Time: 08:12 Interval history: Patient's discharge was canceled last night because through the day yesterday she became more somnolent and had signs of narcotic intoxication. Pinpoint pupils, sluggish responses and sluggish breathing. Fentanyl patch was discontinued. She was watched overnight and around midnight became apneic and acidotic on ABG and Narcan was given. This resulted in a nice improvement in her situation. Through the night she expressed some regret to the nurses that she had not been able to go home. This morning she is awake, more alert, is dysthymic as her regular mood, and has had some emesis. Denies pain, denies breathing problems. Medical Exam Vital signs and Labs for Last 24 Hours: Vital Signs Temp Pulse Resp BP Pulse Ox 10/07/22 07:44 97.4 F L 74 18 109/73 L 95 10/07/22 04:00 98.2 F 122 H 18 117/79 95 10/07/22 00:00 97.5 F L 77 16 111/88 92 L 10/06/22 19:35 118 H 16 112/95 H 94 L 10/06/22 18:01 69 18 109/68 L 95 10/06/22 12:00 96.0 F L 104 H 18 123/86 92 L Intake and Output 10/06/22 10/07/22 10/07/22 19:59 03:59 11:59 Intake Total 1120 / 2352 1232 / 2352 Output Total 500 / 550 50 / 550 Balance 620 / 1802 1182 / 1802 Intake: Intake, Oral Amount 120 / 220 100 / 220 Intake, Total IV Amount 1000 / 2132 1132 / 2132 0.9 % Sodium Chloride 1000ML 1, 1000 / 2132 1132 / 2132 000 ml @ 50 mls/hr IV .Q20H [facility] Rx#:[id number] Output: Output, Urine Amount 500 / 550 50 / 550 Other: Number of Unmeasured Voids 0 Weight 134 lb 6 oz Patient Weight 10/07/22 11:59 Weight 134 lb 6 oz Laboratory Results - last 24 hr 10/07/22 00:27: Specimen Source Right radial, O2 % 2 lpm, ABG pH 7.25 L, ABG pCO2 53.2 H, ABG pO2 66.1 L, ABG HCO3 22.6, ABG Total CO2 24.2, ABG O2 Saturation 87 L*, ABG Base Excess -4.7 L, Hermann Test Patient unable 10/07/22 00:45: WBC 10.8, RBC 4.37, Hgb 11.8 L, Hct 39.0, MCV 89.2, MCH 26.9 L, MCHC 30.1 L, RDW 17.1, Plt Count 613 H, MPV 7.5, Neut % (Auto) 73.9, Lymph % (Auto) 14.0, [place] % (Auto) 11.4 H, Eos % (Auto) 0.6, Baso % (Auto) 0.1, Neut # (Auto) 7.9 H, Lymph # (Auto) 1.5, [place] # (Auto) 1.2 H, Eos # (Auto) 0.1, Baso # (Auto) 0.0 10/07/22 00:45: Sodium 133 L, Potassium 4.1, Chloride 94 L, Carbon Dioxide 22, Anion Gap 21.1 H, BUN 22 H D, Creatinine 1.20 H D, Estimated Creat Clear 35, Estimated GFR 43 L, Est GFR ( Amer) 52 L D, Glucose 98, Calcium 9.3 I & O for Labs for Last 24 Hours: Intake & Output 10/04/22 10/05/22 10/06/22 10/07/22 11:59 11:59 11:59 11:59 Intake Total 220 / 220 860 / 860 2352 / 2352 Output Total 1300 / 1300 550 / 550 Balance 220 / 220 -440 / -440 1802 / 1802 Weight 131 lb 9.6 oz 132 lb 3 oz 134 lb 6 oz Microbiology Reports for the Last 24 Hours: Microbiology 10/04/22 17:05 Blood Blood Culture - Preliminary NO GROWTH AFTER 48 HOURS 10/04/22 16:30 Blood Blood Culture - Preliminary NO GROWTH AFTER 48 HOURS 10/04/22 09:20 Sputum - Expectorated Sputum Gram Stain - Final 10/04/22 09:20 Sputum - Expectorated Sputum Sputum Culture - Preliminary Head: Present normocephalic Neck: Present normal inspection Respiratory: Present CTA bilaterally; Absent respiratory distress Cardiac: Present Irregularly Regular GI: Present soft; Absent tenderness Rectal (female): Present deferred (female): Present deferred Extremities: Absent edema Skin: Present intact Neuro: Present alert and awake (Responsive and cogent.) Assessment and Plan *Assessment and plan (1) Community acquired pneumonia: Status: Acute Category: Medical Code(s): J18.9 - Pneumonia, unspecified organism (2) Back pain: Status: Acute Category: Medical Code(s): M54.9 - Dorsalgia, unspecified (3) Compression fracture of fourth lumbar vertebra: Status: Acute Category: M
--- NOTE | 2022-10-07 09:34 | PC.NURSE ---
Attempted to wean patient to room air with sats decreasing to mid 80's with exertion. Patient placed back on 1L O2 via nasal cannula with improvement of oxygen saturations
[2022-10-07 11:57] VITALS: BP 119/75; PULSE 86; RESP 18; TEMP 36.4; O2SAT 96
== END 2022-10-07 12:12 | disposition hospice, inpatient (51) ==
LOC: ER 17:17 → 2ND 17:25
PROVIDERS: Admitting Provider Family Medicine; Emergency Provider Emergency Medicine; PCP Internal Medicine Adolescent Medicine; Visit Provider Internal Medicine Adolescent Medicine
DX: S32.040A Wedge compression fracture of fourth lumbar vertebra, initial encounter for closed fracture (principal); Z79.01 Long term (current) use of anticoagulants; I50.23 Acute on chronic systolic (congestive) heart failure; Z95.810 Presence of automatic (implantable) cardiac defibrillator; J18.9 Pneumonia, unspecified organism; I48.20 Chronic atrial fibrillation, unspecified; I11.0 Hypertensive heart disease with heart failure; I07.1 Rheumatic tricuspid insufficiency; Z79.899 Other long term (current) drug therapy
CPT/HCPCS: G0378; 36415; 71045; 80048; 80053; 81001; 82803; 83605; 83690; 85007; 85025; 85610; 87040; 87070; 87205; 87636; 97110; 97163; 97166; 97530; 99285; C9803; J0456; J0696; J2310; J2405; U0003; U0005

== ENCOUNTER 2022-11-17 09:02 | Inpatient (IN) | payer MEDICARE, SELFPAY ==
[2022-11-17] VITALS (16 sets, daily range): BP systolic 96–154; BP diastolic 51–88; PULSE 79–125; RESP 18–21; TEMP 36.3–37.1; O2SAT 95–100; BMI 19.3; BMI 18.2; BMI 18.1
--- NOTE | 2022-11-17 09:05 | ECG_ITS ---
APPROVED REPORT Exam: Resting ECG HR:131 bpm ECG Measurements Heart Rate 131 AXES QRSd 116 QRS -72 QT 322 T -5 QTc 399 Conclusion ATRIAL FIBRILLATION WITH RAPID VENTRICULAR RESPONSE WITH ABERRANT CONDUCTION OR VENTRICULAR PREMATURE COMPLEXES PATTERN CONSISTENT WITH PULMONARY DISEASE RIGHT BUNDLE BRANCH BLOCK [120+ ms QRS DURATION, UPRIGHT V1, 40+ ms S IN I/aVL/V4/V5/V6] LEFT ANTERIOR FASCICULAR BLOCK [QRS AXIS <= -45, QR IN I, RS IN II] ABNORMAL ECG UNCONFIRMED REPORT Electronically signed by : Emeterio Camacho MD 11/17/2022 21:34:37
--- NOTE | 2022-11-17 09:08 | PC.NURSE ---
blood sent to the lab via ems IV
--- NOTE | 2022-11-17 09:10 | XR_ITS ---
FINAL REPORT CLINICAL HISTORY: pain FINDINGS: RIGHT HIP SERIES Two views of the right hip and a single AP view of the pelvis were obtained. There is no acute fracture or dislocation. There is mild degenerative change of both hips. There is no soft tissue abnormality. There is moderate degenerative change of the lower lumbar spine. IMPRESSION: No acute abnormality. Reviewed, Interpreted and Dictated by Ricardo Butt III, MD Transcribed by Yaa Larios Authenticated and [facility]
--- NOTE | 2022-11-17 09:10 | PC.NURSE ---
Repositioned patient to left side. Call light within reach
--- NOTE | 2022-11-17 09:10 | XR_ITS ---
FINAL REPORT CLINICAL HISTORY: cp COMPARISON: 10/04/2022 FINDINGS: SINGLE VIEW CHEST There is cardiomegaly present. The patient is status post median sternotomy. A left subclavian ICD is present. There has been interval resolution of the right base opacity. There is mild bilateral atelectasis. There is no pneumothorax. IMPRESSION: Interval resolution of the right base opacity. Mild bilateral atelectasis. Reviewed, Interpreted and Dictated by Ricardo Butt III, MD Transcribed by Yaa Larios Authenticated and [facility]
--- NOTE | 2022-11-17 09:11 | PC.NURSE ---
SCARLET CALL at for pt brandial
--- NOTE | 2022-11-17 09:14 | PC.NURSE ---
portable xray at
[2022-11-17 09:20] LABS: Basophils % 0.2 % (0.1-2.0); Eosinophils # 0.1 K/mm3 (0.0-0.4); Eosinophils % 1.8 % (0.1-12.0); Hematocrit 39.3 % (37.0-47.0); Hemoglobin 11.8 g/dL (12.2-16.2); Lymphocytes % 20.3 % (10-50); Mean Corpuscular HGB Conc 30.1 g/dL (31.8-35.4); Mean Corpuscular Hemoglobin 26.7 pg (27.0-31.2); Mean Corpuscular Volume 88.7 fl (81-99); Mean Platelet Volume 7.6 fl (7.4-10.4); Monocytes # 0.5 K/mm3 (0.1-1.0); Monocytes % 9.3 % (1.7-9.3); Neutrophils # 3.4 K/mm3 (1.8-7.8); Neutrophils % 68.4 % (37.0-80.0); Platelet Count 338 K/mm3 (142-424); Red Blood Count 4.43 M/mm3 (4.20-5.40); Red Cell Distribution Width 18.1 % (11.5-17.5)
[2022-11-17 09:42] LABS: Chloride 105 mmol/L (98-107); Sodium 140 mmol/L (136-145)
[2022-11-17 09:44] LABS: Blood Urea Nitrogen 5 mg/dl (7-17); Creatinine Clearance Estimated 38 mL/min (50-200); Estimated Glomerular Filt Rate 153 ml/min (>60); GFR (African American) 185 ML/MIN (>60)
[2022-11-17 09:45] LABS: Alanine Aminotransferase 19 U/L (12-78); Albumin Level 3.5 g/dl (3.5-5.0); Albumin/Globulin Ratio 0.9 (1.1-1.8); Alkaline Phosphatase 225 U/L (38-126); Aspartate Amino Transferase 31 U/L (14-36); Bilirubin,Total 0.5 mg/dl (0.2-1.3); Carbon Dioxide 27 mmol/L (22.0-30.0); Globulin 3.7 g/dL (1.3-3.2); Total Protein,Serum 7.2 g/dl (6.3-8.2)
[2022-11-17 09:46] LABS: Glucose 91 mg/dl (74-100)
[2022-11-17 09:57] LABS: Troponin I < 0.01 ng/ml (0.00-0.034)
--- NOTE | 2022-11-17 11:10 | PC.NURSE ---
patient given ice water to drink; family at BS
--- NOTE | 2022-11-17 11:22 | PC.NURSE ---
Repositioned patient to right side warm blanket provided and extra pillow. Call light within reach
--- NOTE | 2022-11-17 11:44 | HMH.EDGENADL ---
Discharge Plan Disposition Patient Disposition: Admitted Condition: Good Chief Complaint: Chest Pain Prescriptions Prescriptions: No Action aspirin 81 mg tablet,delayed release (DR/EC) 81 mg PO DAILY Qty: 90 3RF atorvastatin 40 mg tablet 40 mg PO HS Qty: 90 3RF diltiazem HCl 180 mg capsule,extended release 24hr 180 mg PO DAILY Qty: 90 1RF Rx Instructions: TAKE 1 CAPSULE BY MOUTH ONCE DAILY gabapentin 300 mg capsule 300 mg PO TID Qty: 90 2RF morphine concentrate 100 mg/5 mL (20 mg/mL) solution 5 mg PO Q6H PRN (Reason: pain) Qty: 30 0RF omeprazole 20 MG capsule,delayed release(DR/EC) 20 mg PO BID desvenlafaxine succinate 100 MG tablet extended release 24 hr 50 mg PO DAILY acetaminophen [Acetaminophen Extra Strength] 500 mg Tablet 1,000 mg PO BID lorazepam 1 mg tablet 1 mg PO HS warfarin 4 mg Tablet 4 mg PO SUTUTHSA methocarbamol 1,000 mg tablet 1,000 mg PO TID calcium carbonate-vitamin D3 1 EACH tablet 1 each PO DAILY bupropion HCl 300 mg tablet extended release 24 hr 300 mg PO DAILY levothyroxine 100 MCG tablet 100 mcg PO DAILY warfarin 4 mg tablet 2 mg PO MOWEFR Rx Instructions: TAKE 2MG MON, MON, MON, 4MG OTHER DAYS furosemide [Lasix] 40 mg tablet 40 mg PO DIRECTED Rx Instructions: TAke on MWF only spironolactone [Aldactone] 25 mg tablet 25 mg PO DAILY docusate sodium [Colace] 100 mg capsule 100 mg PO BID metoprolol succinate 100 mg tablet extended release 24 hr 0 mg PO DIRECTED Rx Instructions: 150 mg AM 100 mg PM fentanyl 50 mcg/hr patch 72 hour 1 patch transdermal Q72H Qty: 5 0RF azithromycin [Zithromax Z-Merrick] 250 mg tablet 250 mg PO DAILY 6 Days Qty: 6 0RF Rx Instructions: start on day 2 of therapy Referrals Follow up/Referrals: Jared Jean MD [Primary Care Provider] - See instructions Clinical Impressions Clinical Impression: Atrial fibrillation with rapid ventricular response A-fib Qualifiers: Atrial fibrillation type: paroxysmal Qualified Code(s): I48.0 - Paroxysmal atrial fibrillation Discharge ED Provider: Gus Hale Adult [facility] General Chief complaint: Chest Pain Stated complaint: Chest pain Time Seen by Provider: 11/17/22 09:04 Mode of Arrival: Ambulatory Source of Information: Patient and EMS Limitations: No Limitations Description of Symptoms (Recalled from ER Triage Doc. by RN): Presents to ED via EMS due to complaints of chest pain that started this morning at 0700. Per facility patient's HR was running anywhere from 135-200. Hx of a-fib and HF. Patient has a pacer/defibrilator. Denies chest pain upon arrival. Denies any firing of defibriator. +Metoprolol 25Mg BID. History of Present Illness HPI narrative: 82yo F presents to the ER from custodial secondary to chest pain that began approximately 7:00 in the morning. Patient is a history of A-fib and her heart rate was 135 to 200 bpm. Also has a pacemaker/defibrillator. Denies pain on arrival. Reports taking medication as directed as far she is aware. No recent illness Family bedside notes patient is complained of right pain since she was last discharged from area. Related Data Home Medications Medication Instructions Recorded Confirmed calcium carbonate 600 mg-vitamin 1 each PO DAILY Supplement 02/26/18 10/04/22 D3 20 mcg (800 unit) tablet bupropion HCl 300 mg 24 hr tablet, 300 mg PO DAILY Mood 12/01/20 10/04/22 extended release levothyroxine 100 mcg tablet 100 mcg PO DAILY Thyroid 01/04/21 10/04/22 warfarin 4 mg tablet 2 mg PO MOWEFR Blood thinner/Afib 05/05/21 10/04/22 desvenlafaxine succinate 100 mg 50 mg PO DAILY Mood 10/08/21 10/04/22 tablet,extended release 24 hr omeprazole 20 mg capsule,delayed 20 mg PO BID Acid reflux 10/08/21 10/04/22 release acetaminophen 500 mg tablet 1,000 mg PO BID Arthritis 08/28/22 10/05/22
--- NOTE | 2022-11-17 12:29 | PC.NURSE ---
swab sent to lab
--- NOTE | 2022-11-17 12:30 | PC.NURSE ---
Rounded on patient; pt moved and rolled onto her left side at this time with the help of family. No other needs at this time, call west within reach
--- NOTE | 2022-11-17 12:32 | PC.NURSE ---
calling porter sample case
[2022-11-17 12:39] LABS: Coronavirus 19, PCR Not Detected (NotDetected); Influenza A, PCR Not Detected (NotDetected); Influenza B, PCR Not Detected (NotDetected)
--- NOTE | 2022-11-17 12:53 | SW/DCPLANNER ---
Addendum entered by Ruby Rios 11/22/22 10:10: I have updated Raeann w/ [facility] the plan for this patient is to return SNF level of care today. Addendum entered by Ruby Rios 11/21/22 11:36: Patient plans to return back to [facility] level of care once medically stable for discharge. Updated patient information will be faxed. Currently waiting for precert approval. Addendum entered by Ruby Rios 11/18/22 13:57: Per Raeann w/ [facility] patient will require an auth before returning: this has been started today. Original Note: Patient currently resides at [facility] level of care. I will continue to follow up w/ Raeann at [facility] until patient is medically stable for discharge. Discharge date is unknown at this time.
--- NOTE | 2022-11-17 13:07 | PC.NURSE ---
pt transferred to 2nd floor with Hal via stretcher
--- NOTE | 2022-11-17 14:07 | EXP.CARD.CON ---
History of Present Illness History of Present Illness Consult date: 11/17/22 Requesting physician: Shan Serrano Consult reason: chest pain Chief complaint: A-fib RVR History of present illness: 82-year-old white female with past medical history of heart failure with reduced ejection fraction of 40 to 50% status post AICD, history of mitral valve repair in 2005, left-sided CVA, chronic A-fib on Coumadin, hypertension, hyperlipidemia presented to emergency department from group home for palpitations that started at 7 AM this morning. Patient denies chest pain or shortness of breath, reports can feel heart racing. Upon presentation to ER EKG shows A-fib RVR with a rate of 131 with no acute ischemic changes noted. Labs as follow WBC 5.0, hemoglobin 11.8, sodium 140, potassium 4.0, BUN 5, creatinine 0.4. Chest x-ray showed interval resolution of the right base opacity. Mild bilateral atelectasis. Patient was started on Dilt drip and rate has improved to low 100s. Patient remains in A-fib. Patient was admitted for A-fib RVR and cardiology evaluation. Patient denies any complaints at this time. [facility] Disclaimer: The information contained in this section may have been updated after the patient was seen, as this information can be updated by other users. Medical History Abnormal echocardiogram Acute on chronic HFrEF (heart failure with reduced ejection fraction) Constipation Hypothyroid Moderate tricuspid regurgitation Nausea Skin cancer Surgical History H/O tubal ligation History of cholecystectomy Hx of mitral valve repair Family History Other Family history of cancer Lung cancer Social History Smoking Status: Unknown if ever smoked alcohol intake: never substance use type: other current occupational status: retired Travel in the last 8 weeks: None household members: significant other housing: house current occupational exposures/hazards: No caffeine: No Review of Systems Review of Systems Review of systems:: pertinent systems reviewed and negative unless documented below Constitutional Constitutional: Reports system reviewed and no additional complaints, except as documented *Cardiovascular Cardiovascular: Reports system reviewed and no additional complaints, except as documented and Reports chest pain *Respiratory Respiratory: Reports system reviewed and no additional complaints, except as documented *Gastrointestinal Gastrointestinal: Reports system reviewed and no additional complaints, except as documented *Neurologic Neurologic: Reports system reviewed and no additional complaints, except as documented and Denies confusion Psychiatric Psychiatric: Reports system reviewed and no additional complaints, except as documented and Denies confusion Exam Data for Last 24 hours Vital signs and Labs for Last 24 Hours: Temp Pulse Resp BP Pulse Ox O2 Del Method O2 Flow Rate 98.7 F 119 H 20 106/81 L 99 Room Air 2 11/17/22 13:01 11/17/22 13:01 11/17/22 13:01 11/17/22 13:01 11/17/22 12:31 11/17/22 13:01 11/17/22 12:20 Laboratory Results - last 24 hr 11/17/22 09:06: WBC 5.0, RBC 4.43, Hgb 11.8 L, Hct 39.3, MCV 88.7, MCH 26.7 L, MCHC 30.1 L, RDW 18.1 H, Plt Count 338, MPV 7.6, Neut % (Auto) 68.4, Lymph % (Auto) 20.3, [place] % (Auto) 9.3, Eos % (Auto) 1.8, Baso % (Auto) 0.2, Neut # (Auto) 3.4, Lymph # (Auto) 1.0, [place] # (Auto) 0.5, Eos # (Auto) 0.1, Baso # (Auto) 0.0, Sodium 140, Potassium 4.0, Chloride 105, Carbon Dioxide 27, Anion Gap 12.0, BUN 5 L, Creatinine 0.40 L, Estimated Creat Clear 38, Estimated GFR 153, Est GFR ( Amer) 185, Glucose 91, Calcium 10.0, Total Bilirubin 0.5, AST 31, ALT 19, Alkaline Phosphatase 225 H, Troponin I < 0.01, Total Protein 7.2, Albumin 3.5, Globulin 3.7 H, Albu
--- NOTE | 2022-11-17 14:17 | PC.NURSE ---
upon arrival to unit at approx 1310 pt had diltiazem infusing at 5ml/hr. 1415 drip increased to 10ml/hr r/t hr 125 (chris in cardiology is aware of hr and drip changes)
--- NOTE | 2022-11-17 14:20 | DIET.NUTRFU ---
Spoke to nurse at [facility]. Pt follows regular/thin liquids diet order. Pt receives fortified cereal and Mighty shake daily. Nurse reports 10# wt loss in last 30 days.
[2022-11-17 16:43] LABS: INR 1.06 (0.9-1.1); Prothrombin Time 11.4 seconds (10.1-12.5)
[2022-11-17 16:45] LABS: Troponin I < 0.01 ng/ml (0.00-0.034)
--- NOTE | 2022-11-17 16:54 | EXP.HP ---
History of Present Illness *Admission Date: 11/17/22 *Reason for visit:: atrial fibrillation with rapid ventricular rate *History of present illness: Ms. Teresa is an 82 year old female with a past medical history of HFrEF s/p AICD, h/o mitral valve repair in 2005, moderate tricuspid regurgitation, CAD s/p stenting, left sided CVA, chronic atrial fibrillation, chronic back pain, hypertension, hyperlipidemia and hypothyroidism. She presented from [facility] because of a HR in the 170s. In the ED she was noted to be in afib with RVR, HR in the 140s. She was started on a Cardizem drip. She states that all night she felt restless and weak and that this morning she had mild palpitations but no chest pain. She denies recent fever, cough, shortness of breath, abdominal pain, dysuria and diarrhea. She denies any recent change in diet. She states that many of her medications were changed recently because she recently revoked hospice. Initial vitals: BP 104/82 - P 125 - RR 21 - SpO2 98% on 2L NC Initial workup: CBC with 5K WBCs CMP with na 140, k 4, cr 0.4 INR 1.06 troponin level is <0.01 - <0.01 EKG afib with RVR HR 131 CXR - Interval resolution of the right base opacity. Mild bilateral atelectasis. [facility] Disclaimer: The information contained in this section may have been updated after the patient was seen, as this information can be updated by other users. Medical History Abnormal echocardiogram Acute on chronic HFrEF (heart failure with reduced ejection fraction) Constipation Hypothyroid Moderate tricuspid regurgitation Nausea Skin cancer Surgical History H/O tubal ligation History of cholecystectomy Hx of mitral valve repair Family History Other Family history of cancer Lung cancer Social History Smoking Status: Unknown if ever smoked alcohol intake: never substance use type: other current occupational status: retired Travel in the last 8 weeks: None household members: significant other housing: house current occupational exposures/hazards: No caffeine: No Review of Systems Review of Systems Review of systems:: pertinent systems reviewed and negative unless documented below *Cardiovascular Comments: palpitations *Musculoskeletal Musculoskeletal: Reports back pain *Neurologic Neurologic: Reports system reviewed and no additional complaints, except as documented and Denies confusion Psychiatric Psychiatric: Denies confusion Meds Home Medications and Allergies Home Medications Medication Instructions Recorded Confirmed Type omeprazole 20 mg capsule,delayed 20 mg PO BID Acid reflux 10/08/21 11/17/22 History release acetaminophen 500 mg tablet 1,000 mg PO Q6HP PRN PAIN/FEVER 08/28/22 11/17/22 History (Acetaminophen Extra Strength) lorazepam 1 mg tablet 1 mg PO HS Anxiety 08/28/22 11/17/22 History aspirin 81 mg tablet,delayed 81 mg PO DAILY Heart disease #90 09/07/22 11/17/22 Rx release tabs docusate sodium 100 mg capsule 100 mg PO BID Constipation 09/15/22 10/05/22 History (Colace) spironolactone 25 mg tablet 25 mg PO DAILY Fluid 09/15/22 11/17/22 History (Aldactone) metoprolol succinate 100 mg 25 mg PO BID Hypertension 10/04/22 11/17/22 History tablet,extended release 24 hr gabapentin 300 mg capsule 300 mg PO TID Pain #90 caps 11/07/22 11/17/22 Rx morphine concentrate 100 mg/5 mL 5 mg (0.25 mL) PO Q6H PRN pain #30 11/15/22 11/17/22 Rx (20 mg/mL) oral solution mL bisacodyl 5 mg rectal suppository 5 mg SD Q24H PRN Constipation 11/17/22 11/17/22 History diltiazem HCl 180 mg 180 mg PO HS heart rate 11/17/22 11/17/22 History capsule,extended release 24 hr hyoscyamine sulfate 0.125 mg/5 mL 1 ml PO Q6HP PRN Secretions 11/17/22 11/17/22 Histo
[2022-11-17 19:13] LABS: Troponin I < 0.01 ng/ml (0.00-0.034)
[2022-11-18] VITALS (10 sets, daily range): BP systolic 94–144; BP diastolic 40–72; PULSE 20–137; RESP 19–28; TEMP 36.4–37.1; O2SAT 94–100; BMI 18.6
[2022-11-18 06:28] LABS: Anion Gap 10.9 mEq/L (5-15); Basophils % 0.3 % (0.1-2.0); Blood Urea Nitrogen 5 mg/dl (7-17); Calcium 9.5 mg/dl (8.4-10.2); Carbon Dioxide 24 mmol/L (22.0-30.0); Chloride 106 mmol/L (98-107); Creatinine Clearance Estimated 34 mL/min (50-200); Eosinophils # 0.1 K/mm3 (0.0-0.4); Eosinophils % 1.3 % (0.1-12.0); Estimated Glomerular Filt Rate 153 ml/min (>60); GFR (African American) 185 ML/MIN (>60); Glucose 84 mg/dl (74-100); Hemoglobin 10.9 g/dL (12.2-16.2); Lymphocytes # 1.3 K/mm3 (0.7-4.5); Lymphocytes % 20.8 % (10-50); Mean Corpuscular Hemoglobin 26.8 pg (27.0-31.2); Mean Corpuscular Volume 86.5 fl (81-99); Mean Platelet Volume 7.7 fl (7.4-10.4); Monocytes # 0.6 K/mm3 (0.1-1.0); Neutrophils # 4.1 K/mm3 (1.8-7.8); Neutrophils % 67.6 % (37.0-80.0); Platelet Count 332 K/mm3 (142-424); Potassium 3.9 mmoL/L (3.5-5.1); Red Blood Count 4.05 M/mm3 (4.20-5.40); Sodium 137 mmol/L (136-145); White Blood Count 6.1 K/mm3 (4.8-10.8)
[2022-11-18 06:36] LABS: INR 1.08 (0.9-1.1); Prothrombin Time 11.6 seconds (10.1-12.5)
[2022-11-18 06:57] LABS: Thyroid Stimulating Hormone 3.46 uIU/mL (0.465-4.68)
--- NOTE | 2022-11-18 08:03 | PC.NURSE ---
pt pulled out IV, new 20G started Right AC; dilt drip resumed at 5mg/hr; pt had large BM on bedpan, turned pt to left side, call light within reach
--- NOTE | 2022-11-18 08:17 | P.CONPHA_ITS ---
Pharmacy Intervention Comments: Patients home medications were reviewed and verified with the patient's alf order list. - Arsen Quinonez, PharmD student
--- NOTE | 2022-11-18 08:17 | HMH.PHAINT1 ---
Pharmacy Intervention Comments: Patients home medications were reviewed and verified with the patient's senior living order list. - Arsen Quinonez, PharmD student
--- NOTE | 2022-11-18 09:03 | PC.NURSE ---
COURTESY TECH NOTE; ROUNDED ON PT 0835, PT DENIED NEED FOR DRINK, ASSISTANCE WITH RESTROOM, AND NEED TO REPOSITION IN BED. CALL LIGHT WITHIN REACH, NO FURTHER REQUESTS AT THIS TIME BRIDGETTE MAYNARD
--- NOTE | 2022-11-18 09:10 | PC.NURSE ---
clarified with MD Serrano that wants both warfarin and lovenox ordered for vte, stated yes to keep both orders at this time
--- NOTE | 2022-11-18 09:30 | PC.NURSE ---
PT got pt up to chair
--- NOTE | 2022-11-18 09:39 | PC.NURSE ---
HR sustaining 120-130's, increased dilt drip to 10mg/hr
--- NOTE | 2022-11-18 10:35 | HMH.OTEV ---
OT Inpatient Evaluation Rehab OT IP Evaluation Start: 11/17/22 18:26 Freq: ONCE Status: Active Protocol: Document 11/18/22 10:25 DERICK (Rec: 11/18/22 10:34 DERICK [id number]) Rehab OT IP Assessment Subjective History Ms. Teresa is an 82 year old female with a past medical history of HFrEF s/p AICD, h/o mitral valve repair in 2005, moderate tricuspid regurgitation, CAD s/p stenting, left sided CVA, chronic atrial fibrillation, chronic back pain, hypertension, hyperlipidemia and hypothyroidism. She presented from [facility] because of a HR in the 170s. In the ED she was noted to be in afib with RVR, HR in the 140s. She was started on a Cardizem drip. She states that all night she felt restless and weak and that this morning she had mild palpitations but no chest pain. She denies recent fever, cough, shortness of breath, abdominal pain, dysuria and diarrhea. She denies any recent change in diet. She states that many of her medications were changed recently because she recently revoked hospice. I can try to get up. Patient is a resident at [facility] for the past 3 weeks. Patient requires assistance for all transfers and ADLs. Patient is w/c dependent at this time. Subjective I can get up. Instructed Patient on proper hand and foot placement to complete supine->sit @ EOB requiring Min A x2. Patient demonstrated good dynamic sitting balance at EOB and requiring TD to cory socks. Instructed Patient on SPT from EOB->recliner requiring Mod A
[2022-11-18 10:40] LABS: Magnesium 1.9 mg/dl (1.6-2.3)
--- NOTE | 2022-11-18 10:40 | PC.NURSE ---
assisted pt to ambulate from chair to commode, pt had bm and then assisted back to chair
--- NOTE | 2022-11-18 11:14 | HMH.PTEV ---
Physical Therapy Evaluation Rehab PT IP Evaluation Start: 11/17/22 18:26 Freq: ONCE Status: Active Protocol: Document 11/18/22 09:35 PHOYAMEL (Rec: 11/18/22 11:14 PHORNE [id number]) Subjective/History History History 82 yowf adm to [facility] with a-fib and RVR from SNF. She has hx of prior CVA, HF, AICD placement, CAD, HTN, HLD. She was being cared for by hospice until recently and has now revoked her hospice status. She reports she plans to return to the SNF once d/c from hospital Subjective Subjective Pt reports 9/10 R hip pain with movement, but no pain at rest. Rehab PT IP Eval Objective Appearance Patient Behavior Appropriate Patient Orientation Person,Place,Time Difficulty following instructions none Speech Pattern Clear Ambulation Patient Able to Ambulate Yes Ambulation Observation IP General Gait Pattern Observation Wide Based Gait,Shuffling Step Ambulation Distance (feet) 5 Ambulation Assistive Device None Ambulation Ability Minimal x 2 (25% assist) Balance Ability to Arise Able, uses arms to help Sitting Balance Steady, safe Standing Balance Unsteady Dynamic Sitting Balance Ability Fair Dynamic Standing Balance Ability Poor Transfers Bed Transfer Ability Minimal x 2 (25% assist) Chair Transfer Ability Minimal x 2 (25% assist) Sit to Stand Bed Transfer Ability Minimal x 2 (25% assist) Sit to Stand Chair Transfer Ability Minimal x 2 (25% assist) ROM All Extremities PT ROM Status WFL Rehab PT IP prob,goals,plan Problems Date of Evaluation: 11/18/22 PT IP Problems Bed Mobility,Transfers,Gait Rehab Potential Rehab Potential Good Plan PT Intervention Plan Bed Mobility,Transfers,Gait, Therapeutic Exercise PT Plan Frequency Daily Duration LOS Discharge Goals Bed Transfer Ability Minimal x 1 (25% assist) Sit to Stand Chair Transfer Ability Minimal x 1 (25% assist) Discharge Plan PT Discharge Plan Pt is currently most appropriate to return to SNF once medically stable for d/c. G -code Required No Eval Complexity Eval Charge Codes 68538 - High Complexity PHYSICIAN CERTIFICATION: I certify the specified
--- NOTE | 2022-11-18 12:48 | EXP.CARD.PN ---
Subjective Subjective Date: 11/18/22 Time: 08:00 Principal diagnosis: afib rvr Interval history: Remains afib rvr 100s-120s, am labs reviewed. Sitting up in bed, denies chest pain or soa. Exam Data for Last 24 hours Vital signs and Labs for Last 24 Hours: Temp Pulse Resp BP Pulse Ox O2 Del Method O2 Flow Rate 98.0 F 110 H 28 H 113/52 L 100 Room Air 2 11/18/22 11:33 11/18/22 12:00 11/18/22 08:00 11/18/22 08:00 11/18/22 08:00 11/18/22 10:40 11/18/22 00:00 Laboratory Results - last 24 hr 11/17/22 12:30: SARS-CoV-2 (PCR) Not detected, Influenza A Untype (PCR) Not detected, Influenza Type B (PCR) Not detected 11/17/22 15:50: Troponin I < 0.01 11/17/22 16:25: PT 11.4, INR 1.06 11/17/22 18:40: Troponin I < 0.01 11/18/22 05:17: WBC 6.1, RBC 4.05 L, Hgb 10.9 L, Hct 35.0 L, MCV 86.5, MCH 26.8 L, MCHC 31.0 L, RDW 18.0 H, Plt Count 332, MPV 7.7, Neut % (Auto) 67.6, Lymph % (Auto) 20.8, [place] % (Auto) 10.0 H, Eos % (Auto) 1.3, Baso % (Auto) 0.3, Neut # (Auto) 4.1, Lymph # (Auto) 1.3, [place] # (Auto) 0.6, Eos # (Auto) 0.1, Baso # (Auto) 0.0, PT 11.6, INR 1.08, Sodium 137, Potassium 3.9, Chloride 106, Carbon Dioxide 24, Anion Gap 10.9, BUN 5 L, Creatinine 0.40 L, Estimated Creat Clear 34, Estimated GFR 153, Est GFR ( Amer) 185, Glucose 84, Calcium 9.5, Magnesium 1.9, TSH 3.46 I & O for Last 24 hours: Intake & Output 11/15/22 11/16/22 11/17/22 07/14/23 23:59 23:59 23:59 23:59 Intake Total 300 / 300 480 / 480 Output Total 0 / 0 400 / 400 Balance 300 / 300 80 / 80 Weight 106 lb 3.006 oz 109 lb Constitutional Constitutional: no acute distress *Routine Respiratory Exam Respiratory: Present CTA bilaterally and symmetric chest movement *Routine Cardiovascular Exam Cardiovascular: Present Normal S1, Normal S2, irregular rhythm and irregularly irregular Comments: A-fib noted *Routine Abdominal Exam Abdominal: Present soft and normoactive bowel sounds; Absent tenderness *Routine Extremities Exam Extremities: Present full ROM and normal capillary refill; Absent edema *Routine Skin Exam Skin: Present intact, dry and warm Detailed Neck Exam: Thyroids Thyroid: Absent bruit Progress Note: A&P Assessment and plan (1) Atrial fibrillation with rapid ventricular response: Status: Acute (2) Subtherapeutic international normalized ratio (INR): Status: Acute (3) Chronic back pain: Status: Acute (4) Coronary artery disease: Status: Acute (5) HTN (hypertension): Status: Chronic Assessment and Plan Assessment and Plan for All Diagnoses:: Chronic A-fib RVR Marques Vasc score >7 -Continue Dilt drip -Continue Coumadin -Preliminary echo report shows an improved ejection fraction of 45-50%, official report is pending 11/18/2022: Remains afib rvr rates 100s-120s. On dilt drip. Continue Dilt HCL 180mg daily and increase Metoprolol to 50mg BID. Continue coumadin. Chronic HFrEF status post AICD History of mitral valve repair-has mitral valve ring since 2006 -Previous EF noted to be 40 to 50% -Has AICD in place -No signs of volume overload noted at this time -Continue Aldactone 25 mg p.o. daily. Add Jardiance 10 mg p.o. daily. Blood pressure too low at this time for KIM/ARB will consider addition after rate control is achieved and Dilt can be turned off. Coronary artery disease -Hx of stenting- Not at this facility, patient cannot recall where stenting was done just that it was in [place] years ago -Continue aspirin 81mg daily, Metoprolol 25mg daily, and Lipitor 20mg -Trop negative -Denies chest pain -Previously has requested if needs [facility] would like to go to [place]. CV summary 11/18/2022: Continue dilt drip and Dilt HCL 180g po daily. Increase metoprolol to 50mg BID.
--- NOTE | 2022-11-18 16:00 | PC.NURSE ---
pt's HR staying 120-140's, increased dilt drip to 10mg/hr
--- NOTE | 2022-11-18 18:19 | EXP.PN ---
Subjective *Date: 11/18/22 *Time: 18:19 Interval history: The patient has no complaints. no chest pain Exam Data for Last 24 hours Vital signs and Labs for Last 24 Hours: Temp Pulse Resp BP Pulse Ox O2 Del Method O2 Flow Rate 98.3 F 137 H 19 103/71 L 99 Room Air 2 11/18/22 16:00 11/18/22 18:00 11/18/22 18:00 11/18/22 18:00 11/18/22 18:00 11/18/22 18:11 11/18/22 00:00 Laboratory Results - last 24 hr 11/17/22 18:40: Troponin I < 0.01 11/18/22 05:17: WBC 6.1, RBC 4.05 L, Hgb 10.9 L, Hct 35.0 L, MCV 86.5, MCH 26.8 L, MCHC 31.0 L, RDW 18.0 H, Plt Count 332, MPV 7.7, Neut % (Auto) 67.6, Lymph % (Auto) 20.8, [place] % (Auto) 10.0 H, Eos % (Auto) 1.3, Baso % (Auto) 0.3, Neut # (Auto) 4.1, Lymph # (Auto) 1.3, [place] # (Auto) 0.6, Eos # (Auto) 0.1, Baso # (Auto) 0.0, PT 11.6, INR 1.08, Sodium 137, Potassium 3.9, Chloride 106, Carbon Dioxide 24, Anion Gap 10.9, BUN 5 L, Creatinine 0.40 L, Estimated Creat Clear 34, Estimated GFR 153, Est GFR ( Amer) 185, Glucose 84, Calcium 9.5, Magnesium 1.9, TSH 3.46 I & O for Last 24 hours: Intake & Output 11/15/22 11/16/22 11/17/22 11/18/22 23:59 23:59 23:59 23:59 Intake Total 300 / 300 1420 / 1420 Output Total 0 / 0 400 / 400 Balance 300 / 300 1020 / 1020 Weight 48.166 kg 49.442 kg Constitutional Constitutional: no acute distress *Routine HEENT Exam Head: Present normocephalic Eye: Present EOMI and PERRL ENT: Present mucous membranes moist *Routine Neck Exam Neck: Present supple; Absent lymphadenopathy *Routine Respiratory Exam Respiratory: Present CTA bilaterally *Routine Cardiovascular Exam Cardiovascular: Present tachycardia and irregularly irregular *Routine Abdominal Exam Abdominal: Present soft and normoactive bowel sounds; Absent tenderness *Routine Extremities Exam Extremities: Absent cyanosis, clubbing or edema *Routine Skin Exam Skin: Present warm; Absent rash *Routine Neurological Exam Neurological: Present alert and oriented X3 Assessment and Plan *Assessment and plan (1) Atrial fibrillation with rapid ventricular response: Status: Acute Category: Medical Code(s): I48.91 - Unspecified atrial fibrillation (2) Subtherapeutic international normalized ratio (INR): Status: Acute Category: Medical Code(s): R79.1 - Abnormal coagulation profile (3) Chronic back pain: Status: Acute Category: Medical Code(s): M54.9 - Dorsalgia, unspecified; G89.29 - Other chronic pain (4) Coronary artery disease: Status: Acute Qualifiers: Coronary Disease-Associated Artery/Lesion type: [place] artery [place] vs. transplanted heart: apache heart Associated angina: without angina Qualified Code(s): I25.10 - Atherosclerotic heart disease of [place] coronary artery without angina pectoris Category: Medical Code(s): I25.10 - Atherosclerotic heart disease of [place] coronary artery without angina pectoris (5) HTN (hypertension): Status: Chronic Qualifiers: Hypertension type: primary hypertension Qualified Code(s): I10 - Essential (primary) hypertension Category: Medical Code(s): I10 - Essential (primary) hypertension Plan Ms. Teresa is an 82 year old female with a past medical history of HFrEF s/p AICD, h/o mitral valve repair in 2005, moderate tricuspid regurgitation, CAD s/p stenting, left sided CVA, chronic atrial fibrillation, chronic back pain, hypertension, hyperlipidemia and hypothyroidism. She presented from [facility] because of a HR in the 170s. She recently revoked hospice. #atrial fibrillation with rapid ventricular response #subtherapeutic INR #CAD Appreciate Cardiology. HR is still uncontrolled on Cardizem drip. Po metoprolol was increased and we are continuing PO cardizem. jardiance was started by cardiology yesterday will need to f/u on echocardiogram the patient was taking warfarin in september 2022; it wa
[2022-11-19] VITALS (10 sets, daily range): BP systolic 91–148; BP diastolic 40–63; PULSE 70–139; RESP 18–30; TEMP 36.3–36.7; O2SAT 94–98; BMI 19.5
[2022-11-19 08:35] LABS: Basophils % 0.5 % (0.1-2.0); Eosinophils # 0.1 K/mm3 (0.0-0.4); Eosinophils % 1.2 % (0.1-12.0); Hematocrit 38.2 % (37.0-47.0); Hemoglobin 11.4 g/dL (12.2-16.2); Lymphocytes # 1.3 K/mm3 (0.7-4.5); Mean Corpuscular HGB Conc 29.9 g/dL (31.8-35.4); Mean Corpuscular Hemoglobin 26.5 pg (27.0-31.2); Mean Corpuscular Volume 88.7 fl (81-99); Mean Platelet Volume 7.5 fl (7.4-10.4); Monocytes # 0.5 K/mm3 (0.1-1.0); Monocytes % 7.5 % (1.7-9.3); Neutrophils # 4.8 K/mm3 (1.8-7.8); Neutrophils % 71.9 % (37.0-80.0); Platelet Count 379 K/mm3 (142-424); Red Cell Distribution Width 17.9 % (11.5-17.5); White Blood Count 6.7 K/mm3 (4.8-10.8)
[2022-11-19 08:37] LABS: Chloride 104 mmol/L (98-107); Sodium 137 mmol/L (136-145)
[2022-11-19 08:40] LABS: Anion Gap 16.7 mEq/L (5-15); Blood Urea Nitrogen 6 mg/dl (7-17); Calcium 9.8 mg/dl (8.4-10.2); Carbon Dioxide 20 mmol/L (22.0-30.0); Creatinine Clearance Estimated 36 mL/min (50-200); Estimated Glomerular Filt Rate 96 ml/min (>60); GFR (African American) 116 ML/MIN (>60); Glucose 126 mg/dl (74-100); Potassium 3.7 mmoL/L (3.5-5.1)
[2022-11-19 08:43] LABS: INR 1.24 (0.9-1.1); Prothrombin Time 13.2 seconds (10.1-12.5)
--- NOTE | 2022-11-19 10:49 | PC.NURSE ---
Courtesy Round Patient awake in the bed . Ice water refilled and trash emptied. Patient voiced no other needs at this time. Call light within reach.
--- NOTE | 2022-11-19 19:49 | EXP.HP ---
History of Present Illness *Admission Date: 11/17/22 *History of present illness: Ms. Teresa is an 82 year old female with a past medical history of HFrEF s/p AICD, h/o mitral valve repair in 2005, moderate tricuspid regurgitation, CAD s/p stenting, left sided CVA, chronic atrial fibrillation, chronic back pain, hypertension, hyperlipidemia and hypothyroidism. She presented from [facility] because of a HR in the 170s. In the ED she was noted to be in afib with RVR, HR in the 140s. She was started on a Cardizem drip. She states that all night she felt restless and weak and that this morning she had mild palpitations but no chest pain. She denies recent fever, cough, shortness of breath, abdominal pain, dysuria and diarrhea. She denies any recent change in diet. She states that many of her medications were changed recently because she recently revoked hospice. Initial vitals: BP 104/82 - P 125 - RR 21 - SpO2 98% on 2L NC Initial workup: CBC with 5K WBCs CMP with na 140, k 4, cr 0.4 INR 1.06 troponin level is <0.01 - <0.01 EKG afib with RVR HR 131 CXR - Interval resolution of the right base opacity. Mild bilateral atelectasis. [facility] Disclaimer: The information contained in this section may have been updated after the patient was seen, as this information can be updated by other users. Medical History Abnormal echocardiogram Acute on chronic HFrEF (heart failure with reduced ejection fraction) Constipation Hypothyroid Moderate tricuspid regurgitation Nausea Skin cancer Surgical History H/O tubal ligation History of cholecystectomy Hx of mitral valve repair Family History Other Family history of cancer Lung cancer Social History Smoking Status: Unknown if ever smoked alcohol intake: never substance use type: other current occupational status: retired Travel in the last 8 weeks: None household members: significant other housing: house current occupational exposures/hazards: No caffeine: No Review of Systems *Neurologic Neurologic: Reports system reviewed and no additional complaints, except as documented and Denies confusion Psychiatric Psychiatric: Denies confusion Meds Home Medications and Allergies Home Medications Medication Instructions Recorded Confirmed Type omeprazole 20 mg capsule,delayed 20 mg PO BID Acid reflux 10/08/21 11/17/22 History release acetaminophen 500 mg tablet 1,000 mg PO Q6HP PRN pain/fever 08/28/22 11/17/22 History (Acetaminophen Extra Strength) lorazepam 1 mg tablet 1 mg PO HS Anxiety 08/28/22 11/17/22 History aspirin 81 mg tablet,delayed 81 mg PO DAILY Heart disease #90 09/07/22 11/17/22 Rx release tabs spironolactone 25 mg tablet 25 mg PO DAILY Fluid 09/15/22 11/17/22 History (Aldactone) gabapentin 300 mg capsule 300 mg PO TID Pain #90 caps 11/07/22 11/17/22 Rx morphine concentrate 100 mg/5 mL 5 mg (0.25 mL) PO Q6H PRN pain #30 11/15/22 11/17/22 Rx (20 mg/mL) oral solution mL bisacodyl 5 mg rectal suppository 5 mg WI Q24H PRN Constipation 11/17/22 11/17/22 History diltiazem HCl 180 mg 180 mg PO HS heart rate 11/17/22 11/17/22 History capsule,extended release 24 hr hyoscyamine sulfate 0.125 mg/5 mL 1 ml PO Q6HP PRN Secretions 11/17/22 11/17/22 History oral elixir loperamide 2 mg tablet 2 mg PO Q6H PRN Constipation 11/17/22 11/17/22 History nystatin 100,000 unit/mL oral 5 ml PO Q4HP PRN thrush 11/17/22 11/17/22 History suspension phenyleph-shark liver 1 applic topical DAILYP PRN 11/17/22 11/17/22 History [id number] rectal cream Hemorrhoids sennosides 8.6 mg-docusate sodium 1 tab-cap PO Q12HP PRN Constipation 11/17/22 11/17/22 History 50 mg tablet metoprolol tartrate 25 mg tablet 25 mg PO BID Heart Failur
--- NOTE | 2022-11-19 19:58 | EXP.ACUTE.PN ---
Subjective *Date: 11/19/22 *Time: 19:58 Interval history: Lucy Thomas Dcd, On Po cardizem Rate on tele ranging between 70-120/min No Cp, SOB, No palpitations. She is feeling much better. She said she would like to go home and not the facility if Dcd. raised some safety concerns over pt going home. Pt have given me the permission to talk to the daughter to decide on dispo. Medical Exam Vital signs and Labs for Last 24 Hours: Vital Signs Temp Pulse Pulse Resp BP Pulse Ox O2 Del Method 11/19/22 18:38 Room Air 11/19/22 17:00 Room Air 11/19/22 16:00 114 H 28 H 112/47 L 96 Room Air 11/19/22 16:00 100 H 11/19/22 12:00 110 H 11/19/22 08:00 115 H 11/19/22 15:12 97.9 F 11/19/22 15:00 Room Air 11/19/22 13:00 Room Air 11/19/22 11:00 Room Air 11/19/22 14:06 91 H 25 H 105/63 L 98 Room Air 11/19/22 12:00 92 H 30 H 109/47 L 97 Room Air 11/19/22 10:00 109 H 24 148/40 H 97 Room Air 11/19/22 08:00 Room Air 11/19/22 08:41 Room Air 11/19/22 08:00 102 H 26 H 117/41 L 97 Room Air 11/19/22 07:42 97.3 F L 11/19/22 06:10 Room Air 11/19/22 04:00 97.8 F 11/19/22 04:00 70 11/19/22 05:00 Room Air 11/19/22 04:00 82 28 H 92/63 L 94 L Room Air 11/19/22 04:00 82 11/19/22 03:00 Room Air 11/19/22 05:28 Room Air 11/19/22 00:00 98.1 F 11/19/22 01:00 Room Air 11/19/22 00:00 98 H 11/18/22 23:00 Room Air 11/19/22 00:00 98.1 F 85 21 91/55 L Room Air 11/18/22 20:00 98.7 F 130 H 28 H 130/72 98 Room Air 11/18/22 21:00 Room Air 11/18/22 20:00 97 Room Air 11/18/22 20:00 117 H 11/18/22 20:00 98.7 F FiO2 11/19/22 18:38 11/19/22 17:00 11/19/22 16:00 11/19/22 16:00 11/19/22 12:00 11/19/22 08:00 11/19/22 15:12 11/19/22 15:00 11/19/22 13:00 11/19/22 11:00 11/19/22 14:06 11/19/22 12:00 11/19/22 10:00 11/19/22 08:00 11/19/22 08:41 11/19/22 08:00 11/19/22 07:42 11/19/22 06:10 11/19/22 04:00 11/19/22 04:00 11/19/22 05:00 11/19/22 04:00 11/19/22 04:00 11/19/22 03:00 11/19/22 05:28 11/19/22 00:00 11/19/22 01:00 11/19/22 00:00 11/18/22 23:00 11/19/22 00:00 100 11/18/22 20:00 11/18/22 21:00 11/18/22 20:00 11/18/22 20:00 11/18/22 20:00 Intake and Output 11/19/22 11/19/22 11/19/22 07:59 15:59 23:59 Intake Total 360 / 1320 840 / 1320 120 / 1320 Output Total 0 / 0 0 / 0 0 / 0 Balance 360 / 1320 840 / 1320 120 / 1320 Intake: Intake, Oral Amount 360 / 1320 840 / 1320 120 / 1320 Output: Output, Urine Amount 0 / 0 0 / 0 0 / 0 Other: Number of Unmeasured Voids 1 1 1 Number of Urine Attends/Diapers 1 Weight 51.851 kg Patient Weight 11/19/22 23:59 Weight 51.851 kg Laboratory Results - last 24 hr 11/19/22 08:20: WBC 6.7, RBC 4.30, Hgb 11.4 L, Hct 38.2, MCV 88.7, MCH 26.5 L, MCHC 29.9 L, RDW 17.9 H, Plt Count 379, MPV 7.5, Neut % (Auto) 71.9, Lymph % (Auto) 19.0, [place] % (Auto) 7.5, Eos % (Auto) 1.2, Baso % (Auto) 0.5, Neut # (Auto) 4.8, Lymph # (Auto) 1.3, [place] # (Auto) 0.5, Eos # (Auto) 0.1, Baso # (Auto) 0.0, PT 13.2 H, INR 1.24 H, Sodium 137, Potassium 3.7, Chloride 104, Carbon Dioxide 20 L, Anion Gap 16.7 H, BUN 6 L, Creatinine 0.60 D, Estimated Creat Clear 36, Estimated GFR 96, Est GFR ( Amer) 116 D, Glucose 126 H, Calcium 9.8 I & O for Labs for Last 24 Hours: Intake & Output 11/16/22 11/17/22 11/18/22 11/19/22 23:59 23:59 23:59 23:59 Intake Total 300 / 300 1420 / 1420 1320 / 1320 Output Total 0 / 0 400 / 400 0 / 0 Balance 300 / 300 1020 / 1020 1320 / 1320 Weight 48.166 kg 49.442 kg 51.851 kg Head: Present atraumatic and normocephalic Neck: Present normal inspection Respiratory: Present rhonchi, diminished air movement, normal respiratory effort and able to speak in complete sente
[2022-11-20] VITALS (12 sets, daily range): BP systolic 84–109; BP diastolic 42–71; PULSE 100–129; RESP 18–23; TEMP 36.1–36.5; O2SAT 90–98; BMI 19.3
[2022-11-20 08:13] LABS: Prothrombin Time 14.8 seconds (10.1-12.5)
--- NOTE | 2022-11-20 14:54 | EXP.ACUTE.PN ---
Subjective *Date: 11/20/22 *Time: 14:54 Interval history: Heart rate still ranging between 80 and 120/min On p.o. Cardizem and metoprolol Possibly needs placement at assisted, not safe for the patient to go home Awaiting discussion with daughter Patient did experience some shortness of breath last night but self resolved No palpitation, no chest pain Medical Exam Vital signs and Labs for Last 24 Hours: Vital Signs Temp Pulse Pulse Resp BP Pulse Ox O2 Del Method 11/20/22 12:00 100 H 11/20/22 14:34 Room Air 11/20/22 13:00 Room Air 11/20/22 11:00 Room Air 11/20/22 11:32 97.5 F L 103 H 23 92/71 L 96 Room Air 11/20/22 08:01 110 H 11/20/22 08:00 96 Room Air 11/20/22 08:32 Room Air 11/20/22 07:58 97.7 F 11/20/22 07:33 113 H 23 91/66 L 96 Room Air 11/20/22 06:47 Room Air 11/20/22 04:40 Room Air 11/20/22 04:39 Room Air 11/20/22 03:00 Room Air 11/20/22 04:00 97.6 F 116 H 18 104/61 L 97 Room Air 11/20/22 04:00 110 H 11/20/22 00:00 110 H 11/19/22 20:00 110 H 11/20/22 00:47 Room Air 11/20/22 00:00 106 H 11/19/22 23:00 Room Air 11/20/22 00:00 97.0 F L 123 H 18 84/42 L 90 L Room Air 11/19/22 21:00 Room Air 11/19/22 20:00 Room Air 11/19/22 20:00 139 H 11/19/22 20:00 97.7 F 116 H 18 110/58 L 98 Room Air 11/19/22 18:38 Room Air 11/19/22 17:00 Room Air 11/19/22 16:00 114 H 28 H 112/47 L 96 Room Air 11/19/22 16:00 100 H 11/19/22 15:12 97.9 F 11/19/22 15:00 Room Air Intake and Output 11/19/22 11/20/22 11/20/22 23:59 07:59 15:59 Intake Total 120 / 1320 100 / 1300 1200 / 1300 Output Total 700 / 700 0 / 0 0 / 0 Balance -580 / 620 100 / 1300 1200 / 1300 Intake: Intake, Oral Amount 120 / 1320 100 / 1300 1200 / 1300 Output: Output, Urine Amount 700 / 700 0 / 0 0 / 0 Other: Number of Voids 2 Number of Unmeasured Voids 1 1 1 Number of Urine Attends/Diapers 1 2 Number of Bowel Movements 1 1 Weight 51.256 kg Patient Weight 11/20/22 23:59 Weight 51.256 kg Laboratory Results - last 24 hr 11/20/22 07:00: PT 14.8 H, INR 1.40 H I & O for Labs for Last 24 Hours: Intake & Output 11/17/22 11/18/22 11/19/22 11/20/22 23:59 23:59 23:59 23:59 Intake Total 300 / 300 1420 / 1420 1320 / 1320 1300 / 1300 Output Total 0 / 0 400 / 400 700 / 700 0 / 0 Balance 300 / 300 1020 / 1020 620 / 620 1300 / 1300 Weight 48.166 kg 49.442 kg 51.851 kg 51.256 kg Constitutional: Present no acute distress Head: Present atraumatic and normocephalic Respiratory: Present diminished air movement, able to speak in complete sentences and symmetric chest movement Cardiac: Present Irregularly Regular Comment:: Tachycardic to low 100s GI: Present soft, distention and tenderness (Minimal tenderness in the suprapubic region) Rectal (female): Present deferred (female): Present deferred Extremities: Present normal inspection Skin: Present intact Neuro: Present alert, awake and oriented x 3 Assessment and Plan *Assessment and plan (1) Atrial fibrillation with rapid ventricular response: Status: Acute Category: Medical Code(s): I48.91 - Unspecified atrial fibrillation (2) Subtherapeutic international normalized ratio (INR): Status: Acute Category: Medical Code(s): R79.1 - Abnormal coagulation profile (3) Heart failure with reduced ejection fraction: Status: Acute Category: Medical Code(s): I50.20 - Unspecified systolic (congestive) heart failure (4) Status post cardiac pacemaker procedure: Status: Chronic Category: Surgical Code(s): Z95.0 - Presence of cardiac pacemaker (5) Moderate tricuspid regurgitation: Status: Acute Category: Medical Code(s): I07.1 - Rheumatic tricuspid insufficiency (6)
[2022-11-21] VITALS (10 sets, daily range): BP systolic 83–123; BP diastolic 52–74; PULSE 75–120; RESP 17–21; TEMP 36.3–36.7; O2SAT 94–98; BMI 19.3
--- NOTE | 2022-11-21 07:49 | PC.NURSE ---
Report received, pt sitting up in chair and eating breakfast. Pt heart rate 105-130 at handoff. 25 respirations.
[2022-11-21 08:20] LABS: INR 1.66 (0.9-1.1); Prothrombin Time 17.4 seconds (10.1-12.5)
--- NOTE | 2022-11-21 09:32 | P.PN_ITS ---
Subjective Subjective Date: 11/21/22 Time: 09:32 Principal diagnosis: afib rvr Interval history: 82-year-old white female in bed in no acute distress. States she is feeling better than when she came in. She is ready to return to the senior care. She is now back on Coumadin for chronic atrial fibrillation. Heart rate continues to be in the 100 bpm range. Difficulty controlling rate due to borderline low blood pressure. She remains on diltiazem 180 mg daily and metoprolol tartrate 25 mg twice daily Exam Data for Last 24 hours Vital signs and Labs for Last 24 Hours: Temp Pulse Resp BP Pulse Ox O2 Del Method O2 Flow Rate 98.1 F 75 18 123/74 94 L Room Air 2 11/21/22 07:39 11/21/22 07:39 11/21/22 07:39 11/21/22 07:39 11/21/22 07:39 11/21/22 07:39 11/18/22 00:00 FiO2 100 11/19/22 00:00 Laboratory Results - last 24 hr 11/21/22 08:01: PT 17.4 H, INR 1.66 H I & O for Last 24 hours: Intake & Output 11/18/22 11/19/22 11/20/22 11/21/22 11:59 11:59 11:59 11:59 Intake Total 780 / 780 1660 / 1660 1540 / 1540 1200 / 1200 Output Total 400 / 400 0 / 0 700 / 700 300 / 300 Balance 380 / 380 1660 / 1660 840 / 840 900 / 900 Weight 109 lb 114 lb 5 oz 113 lb 113 lb 4 oz Constitutional Constitutional: no acute distress *Routine Respiratory Exam Respiratory: Present CTA bilaterally *Routine Cardiovascular Exam Cardiovascular: Present tachycardia and irregularly irregular *Routine Extremities Exam Extremities: Absent edema Progress Note: A&P Assessment and plan (1) Atrial fibrillation with rapid ventricular response: Status: Acute (2) Subtherapeutic international normalized ratio (INR): Status: Acute (3) Heart failure with reduced ejection fraction: Status: Acute (4) Status post cardiac pacemaker procedure: Status: Chronic (5) Moderate tricuspid regurgitation: Status: Acute (6) HTN (hypertension): Status: Chronic (7) Coronary artery disease: Status: Acute Assessment and Plan Assessment and Plan for All Diagnoses:: Chronic A-fib RVR [place] Vasc score >7 -Continue Diltiazem 180 mg dialy and metoprolol tartrate 50 mg BID -Continue Coumadin with goal INR of 2-3 -Echo, 11/18/2022, EF 40-55% (difficult to assess due to A-fib), moderate TR with severe RADHA, right ventricular systolic function is reduced Chronic HFrEF status post AICD History of mitral valve repair-has mitral valve ring since 2006 - EF noted to be 40 to 55% this admission -Has AICD in place -No signs of volume overload noted at this time -Resume Aldactone 25 mg p.o. daily and continue Jardiance 10 mg p.o. daily. Blood pressure too low at this time for KIM/ARB as we would like to focus on rate control. Coronary artery disease -Hx of stenting- Not at this facility, patient cannot recall where stenting was done just that it was in [place] years ago -Continue aspirin 81mg daily, metoprolol tartrate 50 mg BID and Lipitor 20mg -Trop negative -Denies chest pain -Previously has requested if needs [facility] would like to go to [place]. Stable from Cardiology standpoint for discharge. Follow up in our office in 2 wks. Home med recommendations Diltiazem extended release 180 mg daily Aspirin 81 mg daily Jardiance 10 mg daily Metoprolol tartrate 50 mg twice daily Aldactone 25 mg daily Recommend BMP in 1 week
--- NOTE | 2022-11-21 13:49 | EXP.PN ---
Subjective *Date: 11/21/22 *Time: 13:49 Interval history: no acute events overnight continues to have hip pain no chest pain or palpitations wanting to go to SNF now Exam Data for Last 24 hours Vital signs and Labs for Last 24 Hours: Temp Pulse Resp BP Pulse Ox O2 Del Method O2 Flow Rate 97.6 F 100 H 18 96/57 L 97 Room Air 2 11/21/22 11:20 11/21/22 12:40 11/21/22 11:20 11/21/22 11:20 11/21/22 11:20 11/21/22 11:20 11/18/22 00:00 FiO2 100 11/19/22 00:00 Laboratory Results - last 24 hr 11/21/22 08:01: PT 17.4 H, INR 1.66 H I & O for Last 24 hours: Intake & Output 11/18/22 11/19/22 11/20/22 11/21/22 23:59 23:59 23:59 23:59 Intake Total 1420 / 1420 1320 / 1320 1420 / 1420 960 / 960 Output Total 400 / 400 700 / 700 0 / 300 300 / 300 Balance 1020 / 1020 620 / 620 1420 / 1120 660 / 660 Weight 49.442 kg 51.851 kg 51.256 kg 51.369 kg Constitutional Constitutional: no acute distress *Routine HEENT Exam Head: Present normocephalic Eye: Present EOMI and PERRL ENT: Present mucous membranes moist *Routine Neck Exam Neck: Present supple; Absent lymphadenopathy *Routine Respiratory Exam Respiratory: Present CTA bilaterally *Routine Cardiovascular Exam Cardiovascular: Present tachycardia and irregularly irregular *Routine Abdominal Exam Abdominal: Present soft and normoactive bowel sounds; Absent tenderness *Routine Extremities Exam Extremities: Absent cyanosis, clubbing or edema *Routine Skin Exam Skin: Present warm; Absent rash *Routine Neurological Exam Neurological: Present alert and oriented X3 Assessment and Plan *Assessment and plan (1) Atrial fibrillation with rapid ventricular response: Status: Acute Category: Medical Code(s): I48.91 - Unspecified atrial fibrillation (2) Subtherapeutic international normalized ratio (INR): Status: Acute Category: Medical Code(s): R79.1 - Abnormal coagulation profile (3) Chronic back pain: Status: Acute Category: Medical Code(s): M54.9 - Dorsalgia, unspecified; G89.29 - Other chronic pain (4) Coronary artery disease: Status: Acute Qualifiers: Coronary Disease-Associated Artery/Lesion type: [place] artery [place] vs. transplanted heart: [place] heart Associated angina: without angina Qualified Code(s): I25.10 - Atherosclerotic heart disease of [place] coronary artery without angina pectoris Category: Medical Code(s): I25.10 - Atherosclerotic heart disease of [place] coronary artery without angina pectoris (5) HTN (hypertension): Status: Chronic Qualifiers: Hypertension type: primary hypertension Qualified Code(s): I10 - Essential (primary) hypertension Category: Medical Code(s): I10 - Essential (primary) hypertension Plan Ms. Teresa is an 82 year old female with a past medical history of HFrEF s/p AICD, h/o mitral valve repair in 2005, moderate tricuspid regurgitation, CAD s/p stenting, left sided CVA, chronic atrial fibrillation, chronic back pain, hypertension, hyperlipidemia and hypothyroidism. She presented from [facility] because of a HR in the 170s. She recently revoked hospice. #atrial fibrillation with rapid ventricular response #subtherapeutic INR #CAD Appreciate Cardiology. earlier this morning HR was ranging between 105-130. spoke with cardiology. continuing cardizem and metoprolol. started digoxin today. jardiance was started by cardiology 11/17 echo with ef 45-55%, TR the patient was taking warfarin in september 2022; it was discontinued when the patient decided to receive hospice services. I re-started warfarin 11/17 since hospice had been revoked. daily INR. pt/ot cardiac diet dvt ppx: lovenox Full code
[2022-11-22] VITALS (7 sets, daily range): BP systolic 105–120; BP diastolic 53–70; PULSE 72–120; RESP 16–18; TEMP 36.6; O2SAT 95–96; BMI 19.3
[2022-11-22 06:27] LABS: INR 2.03 (0.9-1.1); Prothrombin Time 21.1 seconds (10.1-12.5)
[2022-11-22 06:31] LABS: Blood Urea Nitrogen 9 mg/dl (7-17); Calcium 9.5 mg/dl (8.4-10.2); Carbon Dioxide 24 mmol/L (22.0-30.0); Chloride 107 mmol/L (98-107); Creatinine Clearance Estimated 36 mL/min (50-200); Estimated Glomerular Filt Rate 118 ml/min (>60); GFR (African American) 143 ML/MIN (>60); Glucose 81 mg/dl (74-100); Sodium 137 mmol/L (136-145)
--- NOTE | 2022-11-22 09:15 | EXP.CARD.PN ---
Subjective Subjective Date: 11/22/22 Time: 09:15 Principal diagnosis: afib rvr Interval history: 82-year-old white female sitting in bedside chair in no acute distress but some emotional lability at times when discussing helping her get up and move around due to hip pain. Telemetry continues to show A-fib but with improved rate control overnight with the addition of digoxin. Exam Data for Last 24 hours Vital signs and Labs for Last 24 Hours: Temp Pulse Resp BP Pulse Ox O2 Del Method O2 Flow Rate 97.8 F 84 18 111/70 95 Room Air 2 11/22/22 08:00 11/22/22 08:00 11/22/22 08:00 11/22/22 08:00 11/22/22 08:00 11/22/22 08:00 11/18/22 00:00 FiO2 100 11/19/22 00:00 Laboratory Results - last 24 hr 11/22/22 05:20: PT 21.1 H, INR 2.03 H, Sodium 137, Potassium 4.0, Chloride 107, Carbon Dioxide 24, Anion Gap 10.0, BUN 9 D, Creatinine 0.50 L, Estimated Creat Clear 36, Estimated GFR 118, Est GFR ( Amer) 143 D, Glucose 81, Calcium 9.5, Magnesium 2.0 I & O for Last 24 hours: Intake & Output 11/19/22 11/20/22 11/21/22 11/22/22 11:59 11:59 11:59 11:59 Intake Total 1660 / 1660 1540 / 1540 1440 / 1440 1440 / 1440 Output Total 0 / 0 700 / 700 300 / 300 350 / 350 Balance 1660 / 1660 840 / 840 1140 / 1140 1090 / 1090 Weight 114 lb 5 oz 113 lb 113 lb 4 oz 113 lb 3.2 oz Constitutional Constitutional: no acute distress *Routine Respiratory Exam Respiratory: Present CTA bilaterally *Routine Cardiovascular Exam Cardiovascular: Present irregularly irregular Progress Note: A&P Assessment and plan (1) Atrial fibrillation with rapid ventricular response: Status: Acute (2) Subtherapeutic international normalized ratio (INR): Status: Acute (3) Chronic back pain: Status: Acute (4) Coronary artery disease: Status: Acute (5) HTN (hypertension): Status: Chronic Assessment and Plan Assessment and Plan for All Diagnoses:: Chronic A-fib RVR Marques Vasc score >7 -Continue Diltiazem but switch 220 mg twice daily and metoprolol tartrate 50 mg BID -Continue Coumadin with goal INR of 2-3 -Echo, 11/18/2022, EF 40-55% (difficult to assess due to A-fib), moderate TR with severe RADHA, right ventricular systolic function is reduced Chronic HFrEF status post AICD History of mitral valve repair-has mitral valve ring since 2006 - EF noted to be 40 to 55% this admission -Has AICD in place -No signs of volume overload noted at this time -Resume Aldactone 25 mg p.o. daily and continue Jardiance 10 mg p.o. daily. Blood pressure too low at this time for KIM/ARB as we would like to focus on rate control. Coronary artery disease -Hx of stenting- Not at this facility, patient cannot recall where stenting was done just that it was in [place] years ago -Continue aspirin 81mg daily, metoprolol tartrate 50 mg BID and Lipitor 20mg -Trop negative -Denies chest pain -Previously has requested if needs [facility] would like to go to [place]. Stable from Cardiology standpoint for discharge. Follow up in our office in 2 wks. Home med recommendations Diltiazem extended release 120 mg twice daily Digoxin 0.125 mg daily Aspirin 81 mg daily Jardiance 10 mg daily Metoprolol tartrate 50 mg twice daily Aldactone 25 mg daily Recommend BMP in 1 week
--- NOTE | 2022-11-22 10:10 | EXP.DC.SUM ---
General Admission date:: 11/17/22 Discharge date: 11/22/22 Hospital Course Hospital Course Hospital Course: Ms. Teresa is an 82 year old female with a past medical history of HFrEF s/p AICD, h/o mitral valve repair in 2005, moderate tricuspid regurgitation, CAD s/p stenting, left sided CVA, chronic atrial fibrillation, chronic back pain, hypertension, hyperlipidemia and hypothyroidism. She presented from [facility] because of a HR in the 170s. She recently revoked hospice. #atrial fibrillation with rapid ventricular response #subtherapeutic INR #CAD Cardizem was weaned off. HR was controlled. Cardiology saw the patient and multiple cardiac medications were changed or added. Her doses of metoprolol and cardizem were increased and she was started on digoxin. She was started on jardiance and her spironolactone was resumed. Her levothyroxine and coumadin were also re-started; they had been discontinued when she went on hospice and resumed because she recently revoked hospice. Her tsh was 3.5. INR was 2.1 on day of discharge. She will need INR checked every other day for one week with goal INR between 2-3 for her history of atrial fibrillation. She complained of R hip pain that has been ongoing for several weeks; xr r hip 2 views ruled out acute fracture/dislocation; there was moderate degnerative changes in the lower lumbar spine and mild degenerative changes in both hips. per cardiology, echo revealed lvef 40-55%; final report is pending Exam Data for Last 24 hours Vital signs and Labs for Last 24 Hours: Temp Pulse Resp BP Pulse Ox O2 Del Method O2 Flow Rate 97.8 F 93 H 18 111/70 95 Room Air 2 11/22/22 08:00 11/22/22 09:18 11/22/22 08:00 11/22/22 08:00 11/22/22 08:00 11/22/22 08:00 11/18/22 00:00 FiO2 100 11/19/22 00:00 Laboratory Results - last 24 hr 11/22/22 05:20: PT 21.1 H, INR 2.03 H, Sodium 137, Potassium 4.0, Chloride 107, Carbon Dioxide 24, Anion Gap 10.0, BUN 9 D, Creatinine 0.50 L, Estimated Creat Clear 36, Estimated GFR 118, Est GFR ( Amer) 143 D, Glucose 81, Calcium 9.5, Magnesium 2.0 I & O for Last 24 hours: Intake & Output 11/19/22 11/20/22 11/21/22 11/22/22 23:59 23:59 23:59 23:59 Intake Total 1320 / 1320 1420 / 1420 1800 / 1800 600 / 600 Output Total 700 / 700 0 / 300 650 / 650 0 / 0 Balance 620 / 620 1420 / 1120 1150 / 1150 600 / 600 Weight 51.851 kg 51.256 kg 51.369 kg 51.347 kg Constitutional Constitutional: no acute distress *Routine HEENT Exam Head: Present normocephalic Eye: Present EOMI and PERRL ENT: Present mucous membranes moist *Routine Neck Exam Neck: Present supple; Absent lymphadenopathy *Routine Respiratory Exam Respiratory: Present CTA bilaterally *Routine Cardiovascular Exam Cardiovascular: Present irregularly irregular; Absent murmur *Routine Abdominal Exam Abdominal: Present soft and normoactive bowel sounds; Absent tenderness *Routine Extremities Exam Extremities: Absent cyanosis, clubbing or edema *Routine Skin Exam Skin: Present warm; Absent rash *Routine Neurological Exam Neurological: Present alert and oriented X3 Results Data Completed and Pending Labs on day of discharge: Labs from last 24 hours 11/22/22 05:20 PT 21.1 H INR 2.03 H Sodium 137 Potassium 4.0 Chloride 107 Carbon Dioxide 24 Anion Gap 10.0 BUN 9 D Creatinine 0.50 L Estimated Creat Clear 36 Estimated GFR 118 Est GFR ( Amer) 143 D Glucose 81 Calcium 9.5 Magnesium 2.0 DS: Diagnosis Discharge Diagnosis (1) Atrial fibrillation with rapid ventricular response: Status: Acute Code(s): I48.91 - Unspecified atrial fibrillation (2) Subtherapeutic international normalized ratio (INR): Status: Acute Code(s): R79.1 - Abnormal coagulation profile (3) Chronic back pain: Status: Acute Code(s): M54.9 - Dorsalgia, unspecified; G89.29 - Other chronic pain (4) Coronary artery di
--- NOTE | 2022-11-22 11:44 | PC.NURSE ---
Addendum entered by Shantel Cisse RN 11/22/22 11:56: on hold, no answer. called again to give report 1152. report given to Joanie. Original Note: 1142 report called to [facility] [place]
--- NOTE | 2022-11-22 11:46 | PC.NURSE ---
pt up to the chair until approx 1030. requested to go back to bed. pt again up to chair at 1130 for lunch.
== END 2022-11-22 13:25 | DRG 309 ==
LOC: ER 12:29 → 2ND 13:02
PROVIDERS: Admitting Provider Internal Medicine; Emergency Provider Family Medicine; PCP Emergency Medicine; Visit Provider Internal Medicine
DX: I48.20 Chronic atrial fibrillation, unspecified (principal); I50.22 Chronic systolic (congestive) heart failure; I11.0 Hypertensive heart disease with heart failure; Z95.810 Presence of automatic (implantable) cardiac defibrillator; E03.9 Hypothyroidism, unspecified; I07.1 Rheumatic tricuspid insufficiency; Z85.828 Personal history of other malignant neoplasm of skin; Z95.5 Presence of coronary angioplasty implant and graft; I25.10 Atherosclerotic heart disease of native coronary artery without angina pectoris; E78.5 Hyperlipidemia, unspecified; R79.1 Abnormal coagulation profile; M54.9 Dorsalgia, unspecified; G89.29 Other chronic pain
CPT/HCPCS: 36415; 71045; 73502; 80048; 80053; 83735; 84443; 84484; 85025; 85610; 87636; 93005; 93306; 97110; 97116; 97163; 97165; 97530; 97535; 99291

== ENCOUNTER 2022-12-25 09:38 | Emergency (ER) | payer MEDICARE, SELFPAY ==
[2022-12-25] VITALS (10 sets, daily range): BP systolic 99–157; BP diastolic 49–87; PULSE 88–142; RESP 18–32; TEMP 36.9; O2SAT 95–100; BMI 25.0
--- NOTE | 2022-12-25 09:38 | ECG_ITS ---
APPROVED REPORT Exam: Resting ECG HR:135 bpm ECG Measurements Heart Rate 135 AXES QRSd 125 QRS -89 QT 312 T 51 QTc 391 Conclusion ATRIAL FIBRILLATION WITH RAPID VENTRICULAR RESPONSE WITH ABERRANT CONDUCTION OR VENTRICULAR PREMATURE COMPLEXES RIGHT BUNDLE BRANCH BLOCK [120+ ms QRS DURATION, UPRIGHT V1, 40+ ms S IN I/aVL/V4/V5/V6] LEFT ANTERIOR FASCICULAR BLOCK [QRS AXIS <= -45, QR IN I, RS IN II] MARKED ST DEPRESSION, CONSIDER SUBENDOCARDIAL INJURY [0.2+ mV ST DEPRESSION] ACUTE TN UNCONFIRMED REPORT Electronically signed by : Emeterio Camacho MD 12/25/2022 20:49:50
--- NOTE | 2022-12-25 09:47 | CT_ITS ---
PROCEDURE INFORMATION: Exam: CT Head Without Contrast Exam date and time: 12/25/2022 10:59 AM Age: 82 years old Clinical indication: Altered mental status/memory loss; Additional info: AMS TECHNIQUE: Imaging protocol: Computed tomography of the head without contrast. Radiation optimization: All CT scans at this facility use at least one of these dose optimization techniques: automated exposure control; mA and/or kV adjustment per patient size (includes targeted exams where dose is matched to clinical indication); or iterative reconstruction. REPORTING DATA: Count of CT and Cardiac NM exams in prior 12 months: This patient has received 5 known CTs and 0 known cardiac nuclear medicine studies in the 12 months prior to the current study. COMPARISON: CT HEAD/BRAIN WO CON 10/05/2021 4:11 PM FINDINGS: Brain: Large subdural hematoma along the cerebellar tentorium, measuring 10 mm on the left and 8 mm on the right. Hemorrhage extends to the kathi cisterna magna posteriorly. Parenchymal hemorrhage within the inferior right cerebellum with adjacent edema likely hemorrhagic infarction. Measures 7 x 16 mm. Central and cortical brain atrophy evident, appropriate for patient age. There is nonspecific periventricular low attenuation, likely microangiopathic disease. Large remote infarction right basal ganglia with encephalomalacia. Cerebral ventricles: No ventriculomegaly. Paranasal sinuses: Visualized sinuses are unremarkable. No fluid levels. Mastoid air cells: Visualized mastoid air cells are well aerated. Bones/joints: Unremarkable. No acute fracture. Soft tissues: Unremarkable. IMPRESSION: 1. Large subdural hematoma along the cerebellar tentorium, measuring 10 mm on the left and 8 mm on the right. Hemorrhage extends to the kathi cisterna magna posteriorly. 2. Parenchymal hemorrhage within the inferior right cerebellum with adjacent edema likely hemorrhagic infarction. Measures 7 x 16 mm. THIS REPORT CONTAINS FINDINGS THAT MAY BE CRITICAL TO PATIENT CARE. The findings were verbally communicated via telephone conference with Raeann Beck at 11:20 AM EDT on 12/25/2022. The findings were acknowledged and understood.
--- NOTE | 2022-12-25 09:47 | XR_ITS ---
PROCEDURE INFORMATION: Exam: XR Chest Exam date and time: 12/25/2022 9:59 AM Age: 82 years old Clinical indication: Shortness of breath; Additional info: AMS TECHNIQUE: Imaging protocol: Radiologic exam of the chest. Views: 1 view. COMPARISON: CR XR CHEST PORTABLE 11/17/2022 9:10 AM FINDINGS: Tubes, catheters and devices: Cardiac device stable. Lungs: Unremarkable. No consolidation. Pleural spaces: Unremarkable. No pleural effusion. No pneumothorax. Heart/Mediastinum: Cardiac silhouette stable. Bones/joints: Median sternotomy wires. IMPRESSION: No acute findings.
--- NOTE | 2022-12-25 09:53 | ECG_ITS ---
APPROVED REPORT Exam: Resting ECG HR:102 bpm ECG Measurements Heart Rate 102 AXES QRSd 133 QRS -81 QT 357 T 54 QTc 416 Conclusion ATRIAL FIBRILLATION WITH RAPID VENTRICULAR RESPONSE RIGHT BUNDLE BRANCH BLOCK [120+ ms QRS DURATION, UPRIGHT V1, 40+ ms S IN I/aVL/V4/V5/V6] LEFT ANTERIOR FASCICULAR BLOCK [QRS AXIS <= -45, QR IN I, RS IN II] ST DEVIATION AND MARKED T-WAVE ABNORMALITY, CONSIDER ANTERIOR ISCHEMIA [-0.5+ mV T-WAVE IN V3/V4] ABNORMAL ECG UNCONFIRMED REPORT Electronically signed by : Emeterio Camacho MD 12/25/2022 20:49:43
--- NOTE | 2022-12-25 10:04 | HMH.EDGENADL ---
Discharge Plan Disposition Patient Disposition: Xfer Short-Term Hosp Condition: Critical Prescriptions Prescriptions: No Action atorvastatin 40 mg tablet 40 mg PO DAILY aspirin 81 mg tablet,delayed release (DR/EC) 81 mg PO DAILY Qty: 90 3RF gabapentin 300 mg capsule 300 mg PO TID Qty: 90 2RF morphine concentrate 100 mg/5 mL (20 mg/mL) solution 5 mg PO Q6H PRN (Reason: pain) Qty: 30 0RF omeprazole 20 MG capsule,delayed release(DR/EC) 20 mg PO BID acetaminophen [Acetaminophen Extra Strength] 500 mg Tablet 1,000 mg PO Q6HP PRN (Reason: pain/fever) lorazepam 1 mg tablet 1 mg PO HS nystatin 100,000 unit/mL Suspension 5 ml PO Q4HP PRN (Reason: thrush) Rx Instructions: pt has never taken at [facility] bisacodyl 5 mg Suppository 5 mg MS Q24H PRN (Reason: Constipation) Rx Instructions: pt has never taken at [facility] sennosides-docusate sodium 8.6-50 mg Tablet 1 tab-cap PO Q12HP PRN (Reason: Constipation) Rx Instructions: pt has never taken at [facility] hyoscyamine sulfate 0.125 mg/5 mL Elixir 1 ml PO Q6HP PRN (Reason: Secretions) Rx Instructions: pt has never taken at [facility] phenyleph-shark wmw-[id number]-dil Cream 1 applic topical DAILYP PRN (Reason: Hemorrhoids) Rx Instructions: pt has never used at [facility]. diltiazem HCl 120 mg Capsule,Extended Release 24hr 120 mg PO BID Qty: 60 0RF digoxin [Digox] 125 mcg (0.125 mg) Tablet 125 mcg PO DAILY Qty: 30 0RF Jardiance 10 mg Tablet 10 mg PO DAILY Qty: 30 0RF spironolactone 25 mg Tablet 25 mg PO DAILY Qty: 30 0RF warfarin [Jantoven] 3 mg Tablet 3 mg PO COUMADIN Qty: 30 0RF levothyroxine [Synthroid] 100 mcg Tablet 100 mcg PO DAILYDM Qty: 30 0RF metoprolol tartrate 50 mg Tablet 50 mg PO BID Qty: 60 0RF Referrals Follow up/Referrals: Jared Jean MD [Primary Care Provider] - See instructions Clinical Impressions Clinical Impression: SDH (subdural hematoma), Acute spont intraparenchymal hemorrhage assoc w/ coagulopathy, Supratherapeutic INR, Acute hypoxemic respiratory failure, Acidosis, lactic Discharge ED Provider: Raeann Beck General Adult HPI General Chief complaint: Weakness Stated complaint: AMS Time Seen by Provider: 12/25/22 09:47 History of Present Illness HPI narrative: This patient is an 82-year-old female with a history of chronic atrial fibrillation and paroxysmal ventricular tachycardia status post AICD implantation, heart failure with reduced ejection fraction (40-50% per record review), tricuspid regurgitation, hyperlipidemia, diabetes, hypothyroidism, and history of CVA. Patient is on Coumadin, digoxin, diltiazem, and metoprolol on medical record review. She is presenting via EMS for evaluation with concern for lethargy noted at the long-term where she resides. She reportedly is alert and oriented x4 at baseline and able to assist with transfers, however last night they noted that she was weaker than usual and more lethargic. No focal deficits noted. She continued to be weak overnight and it worsened this morning. They noted that she is more lethargic and is unable to assist with transfers at this point. No other concerns noted as of late per EMS, such as fevers or other issues. Patient does not contribute much to history given weakness, however she does answer questions and states that she has no pain anywhere. She states that overall she just feels very weak and tired. Related Data Home Medications Medication Instructions Recorded Confirmed omeprazole 20 mg capsule,delayed 20 mg PO BID Acid reflux 10/08/21 12/05/22 release acetaminophen 500 mg tablet 1,000 mg PO Q6HP PRN pain/fever 08/28/22 12/05/22 (Acetaminophen Extra Strength) lorazepam 1 mg tablet 1 mg PO HS Anxiety 08/28/22 12/05/22 bisacodyl 5 mg rectal suppository 5 mg MS Q24H PRN Constipation 11/17/22 12/05/22 hyoscyamine sulfate 0.125
[2022-12-25 10:18] LABS: Basophils % 0.1 % (0.1-2.0); Eosinophils # 0.1 K/mm3 (0.0-0.4); Eosinophils % 0.4 % (0.1-12.0); Hematocrit 37.5 % (37.0-47.0); Hemoglobin 12.1 g/dL (12.2-16.2); Lymphocytes # 0.8 K/mm3 (0.7-4.5); Lymphocytes % 4.4 % (10-50); Mean Corpuscular HGB Conc 32.3 g/dL (31.8-35.4); Mean Corpuscular Volume 83.7 fl (81-99); Mean Platelet Volume 7.9 fl (7.4-10.4); Monocytes # 1.1 K/mm3 (0.1-1.0); Neutrophils % 89.2 % (37.0-80.0); Platelet Count 666 K/mm3 (142-424); Red Blood Count 4.48 M/mm3 (4.20-5.40); White Blood Count 19.1 K/mm3 (4.8-10.8)
[2022-12-25 10:24] LABS: Chloride 92 mmol/L (98-107); Potassium 4.7 mmoL/L (3.5-5.1); Sodium 128 mmol/L (136-145)
[2022-12-25 10:27] LABS: Alanine Aminotransferase 29 U/L (12-78); Albumin Level 4.2 g/dl (3.5-5.0); Alkaline Phosphatase 232 U/L (38-126); Anion Gap 27.7 mEq/L (5-15); Aspartate Amino Transferase 33 U/L (14-36); Blood Urea Nitrogen 21 mg/dl (7-17); Calcium 10.9 mg/dl (8.4-10.2); Carbon Dioxide 13 mmol/L (22.0-30.0); Estimated Glomerular Filt Rate 96 ml/min (>60); GFR (African American) 116 ML/MIN (>60); Globulin 4.3 g/dL (1.3-3.2); Glucose 98 mg/dl (74-100); Magnesium 1.9 mg/dl (1.6-2.3); Total Protein,Serum 8.5 g/dl (6.3-8.2)
[2022-12-25 10:30] LABS: MANUAL DIFFERENTIAL MANUAL DIFFERENTIAL (MANUAL DIFF)
[2022-12-25 10:32] LABS: VBG Base Excess -11.7 mmol/L (-2.4-2.3); VBG HCO3 15.2 mmol/L (23-30); VBG Oxygen Saturation 91.2 % (50-70); VBG PCO2 33.8 mmol/L (35-51); VBG PH 7.27 mmol/L (7.31-7.41); VBG PO2 74.8 mmol/L (28-40); VBG Total CO2 16.2 mmol/L (23-27)
[2022-12-25 10:37] LABS: NT Pro Brain Natriuretic Pep. 3350 pg/mL (0-450)
[2022-12-25 10:41] LABS: Troponin I < 0.01 ng/ml (0.00-0.034)
[2022-12-25 10:45] LABS: T4 (Thyroxine) 9.7 ug/dl (5.53-11.0)
[2022-12-25 10:46] LABS: Microscopic, Urine URINE MICROSCOPIC (MICROSCOPIC)
[2022-12-25 10:48] LABS: Lactic Acid 3.5 mmol/L (0.7-2.1)
[2022-12-25 10:53] LABS: Appearance,Urine CLEAR (Clear); Blood, Urine 3+ (Negative); Color,Urine YELLOW (Yellow); Glucose,Urine (UA) 3+ (Negative); Ketones,Urine 3+ (Negative); Leukocyte Esterase,Urine Negative (Negative); Nitrate,Urine Negative (Negative); Protein,Urine TRACE (Negative); Specific Gravity, Urine 1.025 (1.005-1.030); Urobilinogen,Urine 0.2 EU/dl (0.2)
[2022-12-25 10:58] LABS: Thyroid Stimulating Hormone 0.76 uIU/mL (0.465-4.68)
[2022-12-25 11:02] LABS: Bilirubin,Urine Negative (Negative)
[2022-12-25 11:05] LABS: Lymphocytes % 6 % (10-50); Monocytes % 3 % (2-9); Neutrophils % 91 % (42-76); Platelet Estimate Moderate Increase; RBC Morphology Normal; Total Cells Counted 100
[2022-12-25 11:12] LABS: Activated Partial Thrombo Time 126.7 seconds (22.8-30.6)
[2022-12-25 11:14] LABS: Coronavirus 19, PCR Not Detected (NotDetected); Influenza A, PCR Not Detected (NotDetected); Influenza B, PCR Not Detected (NotDetected)
--- NOTE | 2022-12-25 11:21 | PC.NURSE ---
call for transfer to [facility] surgery
[2022-12-25 11:22] LABS: Squamous Epithelial Cell,Urine Occasional #/hpf (0-5); WBC,Urine Occasional #/hpf (0-3)
--- NOTE | 2022-12-25 11:26 | PC.NURSE ---
[facility] called for weather check
--- NOTE | 2022-12-25 11:30 | PC.NURSE ---
pt accepted to [facility] called to present to ED
--- NOTE | 2022-12-25 11:55 | XR_ITS ---
PROCEDURE INFORMATION: Exam: XR Chest Exam date and time: 12/25/2022 11:48 AM Age: 82 years old Clinical indication: Other: Post intubation TECHNIQUE: Imaging protocol: Radiologic exam of the chest. Views: 1 view. COMPARISON: CR XR CHEST PORTABLE 12/25/2022 9:59 AM FINDINGS: Tubes, catheters and devices: Endotracheal tube 3.4 cm above the tiffanie. Cardiac device with pacer leads stable. Lungs: Mild bibasilar atelectasis. Pleural spaces: Unremarkable. No pleural effusion. No pneumothorax. Heart/Mediastinum: Unremarkable. No cardiomegaly. Bones/joints: Median sternotomy wires. IMPRESSION: Endotracheal tube 3.4 cm above the tiffanie.
--- NOTE | 2022-12-25 12:00 | PC.NURSE ---
[facility] states they are 15 eta
--- NOTE | 2022-12-25 12:06 | PC.NURSE ---
MD/RN remains at the bedside with pt.
--- NOTE | 2022-12-25 12:19 | PC.NURSE ---
[facility] present at the bedside to get pt
[2022-12-25 14:12] LABS: Reflex Lactic Add Lactic Reflex
== END 2022-12-25 12:40 | disposition short-term general hospital (02) ==
PROVIDERS: Emergency Provider Emergency Medicine; PCP Emergency Medicine
DX: I62.00 Nontraumatic subdural hemorrhage, unspecified (principal); J96.01 Acute respiratory failure with hypoxia; E87.20 Acidosis, unspecified; I48.20 Chronic atrial fibrillation, unspecified; I50.23 Acute on chronic systolic (congestive) heart failure; E11.9 Type 2 diabetes mellitus without complications; E03.9 Hypothyroidism, unspecified; E78.5 Hyperlipidemia, unspecified; I45.19 Other right bundle-branch block; I44.4 Left anterior fascicular block; I11.0 Hypertensive heart disease with heart failure
CPT/HCPCS: 31500; 36415; 70450; 71045; 80053; 81001; 82803; 83605; 83735; 83880; 84436; 84443; 84484; 85007; 85025; 85610; 85730; 86900; 86901; 87040; 87086; 87636; 93005; 96361; 96365; 96366; 96372; 96375; 99291; J0330; J1953